=== PATIENT | female | born 1995 | race Caucasian/White ===

== ENCOUNTER 2017-08-02 23:27 | Emergency (ER) | payer OTHER ==
--- NOTE | 2017-08-03 02:16 | ER ---
Nurse's Notes [facility] Name: Cheryle Still Age: 21 yrs Sex: Female : 1995 Arrival Date: 08/02/2017 Time: 23:31 Bed 15 Private MD: Lawrence Kelly R Diagnosis: Sprain of ankle Presentation: 08/02 23:44 Presenting complaint: Patient states: I FELL DOWN A FEW STEPS THREE DAYS AGO AND MY bp ANKLE'S STILL HURT. Transition of care: patient was not received from another setting of care. Onset of symptoms was July 30, 2017. Risk Assessment: Do you want to hurt yourself or someone else? Patient reports no desire to harm self or others. Initial Sepsis Screen: Does the patient meet any 2 criteria? No. Patient's initial sepsis screen is negative. Does the patient have a suspected source of infection? No. Patient's initial sepsis screen is negative. Care prior to arrival: None. 23:44 Method Of Arrival: Wheelchair bp 23:44 Acuity: RITCHIE 4 bp Triage Assessment: 23:45 General: Appears in no apparent distress. uncomfortable, obese, Behavior is bp cooperative, appropriate for age, anxious. Pain: Complains of pain in anterior aspect of right ankle and anterior aspect of left ankle. EENT: No deficits noted. Neuro: Level of Consciousness is awake, alert, obeys commands, Oriented to person, place, time, situation, Appropriate for age. Cardiovascular: No deficits noted. Respiratory: Airway is patent Respiratory effort is even, unlabored, Respiratory pattern is regular, symmetrical. GI: No signs and/or symptoms were reported involving the gastrointestinal system. : No signs and/or symptoms were reported regarding the genitourinary system. Derm: No deficits noted. Musculoskeletal: Circulation, motion, and sensation intact. Range of motion: limited in left ankle and right ankle. Injury Description: Bruise sustained to anterior aspect of right ankle and anterior aspect of left ankle. PARER: 23:45 LMP N/A - Irregular menses bp Historical: - Allergies: 23:45 No Known Allergies; bp - Home Meds: 23:45 None [Active]; bp - PMHx: 23:45 Hypertension; spina bifida; bp - Immunization history:: Adult Immunizations up to date. - Social history:: Smoking status: unknown. - Ebola Screening: : Patient negative for fever greater than or equal to 101.5 degrees Fahrenheit, and additional compatible Ebola Virus Disease symptoms Patient denies exposure to infectious person Patient denies travel to an Ebola-affected area in the 21 days before illness onset No symptoms or risks identified at this time. Screenin:49 Abuse screen: Denies threats or abuse. Denies injuries from another. Nutritional bp screening: No deficits noted. Tuberculosis screening: No symptoms or risk factors identified. Fall Risk None identified. Assessment: 23:47 General: Appears in no apparent distress. comfortable, Behavior is calm, cooperative, bs1 appropriate for age. Pain: Complains of pain in right ankle and left ankle and left leg and right leg and anterior aspect of right ankle and anterior aspect of left ankle. Neuro: Level of Consciousness is awake, alert, obeys commands. Cardiovascular: Denies chest pain, shortness of breath, Heart tones S1 S2 present Capillary refill < 3 seconds Patient's skin is warm and dry. Respiratory: Airway is patent Trachea midline Respiratory effort is even, unlabored, Respiratory pattern is regular, symmetrical, Breath sounds are clear bilaterally. GI: No signs and/or symptoms were reported involving the gastrointestinal system. : No signs and/or symptoms were reported regarding the genitourinary system. EENT: No signs and/or symptoms were reported regarding the EENT system. Derm: No signs and/or symptoms reported regarding the dermatologic system. Musculoskeletal: Swelling present in right ankle and left ankle Tenderness present in right ankle and left ankle Reports pain in right ankle and left ankle and left leg and right leg and anterior aspect of right ankle and anterior aspect of left ankle. 23:48 General: SEE TRIAGE NOTE. 21YO WF P/W BILATERAL ANKLE PAIN 3 DAYS S/P TWISTING BOTH bp ANKLES ON THE STAIRS. PT AMBULATORY AND WEIGHT BEARING BUT WITH PAIN. 08/03 01:45 Reassessment: Patient appears in no apparent distress at this time. Patient and/or bs1 family updated on plan of care and expected duration. Pain level reassessed. Patient is alert, oriented x 3, equal unlabored respirations, skin warm/dry/pink. Patient states feeling better. 02:30 Reassessment: No changes from previously documented assessment. Patient and/or family bs1 updated on plan of care and expected duration. Pain level reassessed. Patient is alert, oriented x 3, equal unlabored respirations, skin warm/dry/pink. JUICE Daniels wrapped patients right foot with Jono Bandage. Vital Signs: 08/02 23:45 Weight 147.42 kg; Height 5 ft. 5 in. (165.10 cm); bp 23:45 BP 124 / 89; Pulse 96; Resp 17; Temp 98.2(O); Pulse Ox 95% on R/A; Pain 7/10; bs1 08/03 00:45 BP 126 / 88; Pulse 95; Resp 16; Pulse Ox 99% on R/A; bs1 01:45 BP 123 / 76; Pulse 88; Resp 16; Temp 97.7(O); Pulse Ox 100% ; Pain 0/10; bs1 08/02 23:45 Body Mass Index 54.08 (147.42 kg, 165.10 cm) bp ED Course: 08/02 23:31 Patient arrived in ED. al2 23:31 Lawrence Kelly MD is Private Physician. al2 23:36 Kelsey Hummel, JUICE is Primary Nurse. bs1 23:39 Serafin Mitchell PA is PHCP. jmm 23:39 Vance Danielle MD is Attending Physician. jmm 23:45 Triage completed. bp 23:48 Arm band placed on. bp 23:49 Patient has correct armband on for positive identification. Bed in low position. Call bp light in reach. Side rails up X2. Adult w/ patient. 08/03 01:46 Foot Right 3 View XRAY In Process Unspecified. EDMS 01:46 Ankle Left 3 View In Process Unspecified. EDMS 01:46 Ankle Right 3 View XRAY In Process Unspecified. EDMS 02:15 Jesse Lion MD is Referral Physician. jmm 02:30 No provider procedures requiring assistance completed. Patient did not have IV access bs1 during this emergency room visit. Administered Medications: No medications were administered Outcome: 02:16 Discharge ordered by . jmm 02:31 Condition: stable bs1 02:33 Discharged to home via wheelchair. bs1 02:33 Discharge instructions given to patient, Instructed on discharge instructions, follow up and referral plans. medication usage, Demonstrated understanding of instructions, follow-up care, medications, Prescriptions given X 1. 02:34 Patient left the ED. bs1 Signatures: Dispatcher [employer] EDMS Serafin Mitchell PA PA jmm Peltier, Brian RN RN Kelsey Mccabe RN RN bs1 Betsy Buckley Corrections: (The following items were deleted from the chart) 02:34 02:31 Discharged to home ambulatory, with friend, bs1 bs1 02:34 02:31 Discharge instructions given to patient, Instructed on discharge instructions, bs1 follow up and referral plans. medication usage, Demonstrated understanding of instructions, follow-up care, medications, Prescriptions given X 1, bs1 02:36 02:30 Reassessment: No changes from previously documented assessment. Patient and/or bs1 family updated on plan of care and expected duration. Pain level reassessed. Patient is alert, oriented x 3, equal unlabored respirations, skin warm/dry/pink. bs1
--- NOTE | 2017-08-03 02:17 | EDPHYS ---
Physician Documentation [facility] Name: Cheryle Still Age: 21 yrs Sex: Female : 1995 Arrival Date: 08/02/2017 Time: 23:31 Bed 15 Private MD: Lawrence Kelly R ED Physician Vance Danielle HPI: 08/03 00:44 This 21 yrs old Female presents to ER via Wheelchair with complaints of Leg jmm Pain, Leg Injury, Foot Pain. 00:44 The patient presents with pain, swelling. The complaints affect the anterior aspect of jmm left ankle and dorsum of left foot, anterior aspect of right ankle and dorsum of right foot. Onset: The symptoms/episode began/occurred acutely, 3 day(s) ago. 00:44 This is a 21 year old female with a hx of spina bifida that presents to the ED with jmm bilateral ankle pain worse on the right. Patient states 3 days prior she mis stepped placing the majority of her weight on her right foot. Patient states this occurred while stepping down steps and rolling her left ankle. . MANAGER PACU: 08/02 23:45 LMP N/A - Irregular menses bp Historical: - Allergies: 23:45 No Known Allergies; bp - Home Meds: 23:45 None [Active]; bp - PMHx: 23:45 Hypertension; spina bifida; bp - Immunization history:: Adult Immunizations up to date. - Social history:: Smoking status: unknown. - Ebola Screening: : Patient negative for fever greater than or equal to 101.5 degrees Fahrenheit, and additional compatible Ebola Virus Disease symptoms Patient denies exposure to infectious person Patient denies travel to an Ebola-affected area in the 21 days before illness onset No symptoms or risks identified at this time. ROS: 08/03 00:44 Constitutional: Negative for fever, chills, and weight loss, Cardiovascular: Negative jmm for chest pain, palpitations, and edema, Respiratory: Negative for shortness of breath, cough, wheezing, and pleuritic chest pain. MS/extremity: Positive for pain, swelling. Neuro: Negative for numbness. All other systems are negative. Exam: 00:44 Head/Face: atraumatic. Cardiovascular: Regular rate and rhythm. No gallops, murmurs, jmm or rubs. Full/Equal distal pulses. Respiratory: Lungs have equal breath sounds bilaterally, clear to auscultation. No rales, rhonchi or wheezes noted. No increased work of breathing, no retractions or nasal flaring. 00:44 Constitutional: The patient appears in no acute distress, alert, awake. 00:44 Musculoskeletal/extremity: swelling noted to the right ankle, no obvious deformity noted bilaterally, compartments are soft, full dorsalis pedis pulses noted bilaterally, NVI. 00:44 Skin: Appearance: Color: normal in color. 00:44 Neuro: Orientation: is normal, Mentation: is normal, Memory: is normal. 00:44 Psych: Behavior/mood is pleasant, cooperative. Vital Signs: 08/02 23:45 Weight 147.42 kg; Height 5 ft. 5 in. (165.10 cm); bp 23:45 BP 124 / 89; Pulse 96; Resp 17; Temp 98.2(O); Pulse Ox 95% on R/A; Pain 7/10; bs1 08/03 00:45 BP 126 / 88; Pulse 95; Resp 16; Pulse Ox 99% on R/A; bs1 01:45 BP 123 / 76; Pulse 88; Resp 16; Temp 97.7(O); Pulse Ox 100% ; Pain 0/10; bs1 08/02 23:45 Body Mass Index 54.08 (147.42 kg, 165.10 cm) bp MDM: 08/02 23:41 Patient medically screened. hiram 08/03 00:44 Data reviewed: vital signs, nurses notes, radiologic studies, plain films. ED course: [facility] Plain films do no shot signs of fracture. Patient is advised to follow up with orthopedics for further evaluation of ankle pain. Patient understood and agrees with the plan of care. . 08/03 00:43 Order name: Foot Right 3 View XRAY [facility] 08/03 01:01 Order name: Ankle Left 3 View EDMS 08/03 01:20 Order name: Ankle Right 3 View XRAY [facility] Administered Medications: No medications were administered Disposition: 06:36 Co-signature as Attending Physician, Vance Danielle MD I agree with the assessment and [facility] plan of care. Disposition: 08/03/17 02:16 Discharged to Home. Impression: Sprain of ankle. - Condition is Stable. - Discharge Instructions: Ankle Sprain. - Prescriptions for Ibuprofen 800 mg Oral Tablet - take 1 tablet by ORAL route every 8 hours As needed take with food; 30 tablet. - Medication Reconciliation Form, Thank You Letter, Antibiotic Education, Prescription Opioid Use form. - Follow up: Jesse Lion MD; When: 2 - 3 days; Reason: Continuance of care. Signatures: Dispatcher [employer] [facility] Vance Danielle MD MD cha Mickail, Joel, PA PA [facility] Jeremiah Parada, RN RN Kelsey Mccabe RN RN bs1 Corrections: (The following items were deleted from the chart) 01:01 00:58 Ankle Left W Comparison+RAD.RAD.BRZ ordered. [facility] 02:34 02:16 08/03/2017 02:16 Discharged to Home. Impression: Sprain of ankle. Condition is bs1 Stable. Forms are Medication Reconciliation Form, Thank You Letter, Antibiotic Education, Prescription Opioid Use. Follow up: Jesse Lion; When: 2 - 3 days; Reason: Continuance of care. [facility] 03:23 03:21 This is a 21 year old female with a hx of spina bifida that presents to the ED [facility] with bilateral ankle pain worse on the right. Patient states 3 days prior she mis stepped placing the majority of her weight on her right foot. Patient states this occurred while stepping down steps and rolling her left ankle. . [facility]
[2017-08-03 02:51] VITALS: BP 123/76; TEMP 97.7; O2SAT 100
--- NOTE | 2017-08-03 08:52 | RAD REPORT ---
EXAM DESCRIPTION: RAD - Foot Right 3 View - 08/03/2017 1:46 am CLINICAL HISTORY: Fall, right foot pain COMPARISON: None. FINDINGS: Bony fragmentation at the distal aspect of the proximal phalanx of the fifth toe is noted. This may represent an old injury. Correlation with point tenderness in this location is suggested, h owever. Elsewhere, no evidence of acute fracture or dislocation.
--- NOTE | 2017-08-03 08:54 | RAD REPORT ---
EXAM DESCRIPTION: RAD - Ankle Left 3 View - 08/03/2017 1:46 am CLINICAL HISTORY: Ankle pain and swelling. COMPARISON: None. FINDINGS: No fracture or dislocation is seen.
--- NOTE | 2017-08-03 08:54 | RAD REPORT ---
EXAM DESCRIPTION: RAD - Ankle Right 3 View - 08/03/2017 1:46 am CLINICAL HISTORY: Fall, ankle pain and swelling. COMPARISON: None. FINDINGS: No fracture or dislocation is seen.
== END 2017-08-03 02:34 | disposition home or self-care (01) ==
LOC: ER 23:27
DX: S93.409A Sprain of unspecified ligament of unspecified ankle, initial encounter (principal); M25.571 Pain in right ankle and joints of right foot; X50.1XXA Overexertion from prolonged static or awkward postures, initial encounter; Y93.01 Activity, walking, marching and hiking; Y92.9 Unspecified place or not applicable
CPT/HCPCS: 99283

== ENCOUNTER 2018-12-26 10:31 | Emergency (ER) | payer OTHER ==
[2018-12-26 11:10] LABS: Absolute Lymphocytes (CBC) 1.9 K/uL (0.7-4.9); Basophils % 0.5 % (0-1.3); Hematocrit 43.4 % (36.0-45.0); Lymphocytes % 23.3 % (15.3-44.8); MPV 9.2 fL (7.6-11.3); RBC Red Blood Cell Count 4.96 M/uL (3.86-4.86)
--- NOTE | 2018-12-26 11:30 | RAD REPORT ---
EXAM DESCRIPTION: RAD - Chest Pa And Lat (2 Views) - 12/26/2018 11:20 am CLINICAL HISTORY: DYSPNEA COMPARISON: None. TECHNIQUE: PA and lateral views of the chest were obtained. FINDINGS: The lungs are clear. Heart size is normal and central vasculature is within normal limit s. No pleural effusion or pneumothorax seen. No acute bony finding noted. No aortic abnormality. IMPRESSION: No acute cardiopulmonary process.
[2018-12-26 11:37] LABS: Urine Blood 1+ (NEG); Urine Glucose NEGATIVE (NEG); Urine Protein 1+ (NEG); Urine pH 5.5 (5.0-7.0)
[2018-12-26 12:04] LABS: Urine Bacteria 20-50 /HPF (<20); Urine RBC <5 /HPF (NONE SEEN)
[2018-12-26 12:06] LABS: Urine Amorphous Sediment 3+ /HPF (NONE SEEN); Urine Culture Reflex Order REFLEXED
[2018-12-26 12:24] LABS: ALT/SGPT 33 U/L (12-78); AST/SGOT 19 U/L (15-37); Albumin 3.6 g/dL (3.4-5.0); Alkaline Phosphatase 97 U/L (45-117); BUN Blood Urea Nitrogen 7 mg/dL (7-18); Bicarbonate 24 mmol/L (21-32); Bilirubin Direct 0.1 mg/dL (0-0.2); Bilirubin Total 0.4 mg/dL (0.2-1.0); Glucose Level 97 mg/dL (74-106); Potassium 3.5 mmol/L (3.5-5.1); Protein, Total 7.2 g/dL (6.4-8.2); Sodium Level 143 mmol/L (136-145)
[2018-12-26 12:25] LABS: Lipase 51 U/L (73-393); Troponin (Emerg Dept Use Only) < 0.02 ng/mL (0.0-0.045)
--- NOTE | 2018-12-26 12:27 | EDPHYS ---
Physician Documentation [facility] Name: Cheryle Still Age: 23 yrs Sex: Female : 1995 Arrival Date: 12/26/2018 Time: 10:36 Bed 18 Private MD: ED Physician Jarred Espinoza HPI: 12/26 10:45 This 23 yrs old Female presents to ER via Ambulatory with complaints of kb Shortness Of Breath. 10:45 The patient has shortness of breath at rest. Onset: The symptoms/episode began/occurred kb 2 month(s) ago. Duration: The symptoms are continuous, and are unchanged since they started. The patient's shortness of breath is aggravated by supine position, is alleviated by nothing. Associated signs and symptoms: Pertinent positives: chest heaviness, RUQ pain and Right mid back pain. Severity of symptoms: At their worst the symptoms were moderate in the emergency department the symptoms are unchanged. The patient has not experienced similar symptoms in the past. The patient has not recently seen a physician. ELECTION JUDGE: 10:39 LMP N/A - control method hb Historical: - Allergies: 10:39 No Known Allergies; hb - Home Meds: 10:39 None [Active]; hb - PMHx: 10:39 Hypertension; spina bifida; hb - PSHx: 10:39 ; hb - Immunization history:: Adult Immunizations up to date. - Social history:: Smoking status: Patient/guardian denies using tobacco. - Ebola Screening: : No symptoms or risks identified at this time. ROS: 10:49 Constitutional: Negative for fever, chills, and weight loss, ENT: Negative for injury, kb pain, and discharge, Neck: Negative for injury, pain, and swelling, : Negative for injury, bleeding, discharge, and swelling, MS/Extremity: Negative for injury and deformity, Skin: Negative for injury, rash, and discoloration, Neuro: Negative for headache, weakness, numbness, tingling, and seizure. 10:49 Cardiovascular: Positive for chest pain. 10:49 Respiratory: Positive for shortness of breath. 10:49 Abdomen/GI: Positive for abdominal pain. 10:49 Back: Positive for pain at rest, of the right mid back. Exam: 10:49 Constitutional: This is a well developed, well nourished patient who is awake, alert, kb and in no acute distress. Head/Face: Normocephalic, atraumatic. ENT: Nares patent. No nasal discharge, no septal abnormalities noted. Tympanic membranes are normal and external auditory canals are clear. Oropharynx with no redness, swelling, or masses, exudates, or evidence of obstruction, uvula midline. Mucous membranes moist. Neck: Trachea midline, no thyromegaly or masses palpated, and no cervical lymphadenopathy. Supple, full range of motion without nuchal rigidity, or vertebral point tenderness. No Meningismus. Chest/axilla: Normal chest wall appearance and motion. Nontender with no deformity. No lesions are appreciated. Cardiovascular: Regular rate and rhythm with a normal S1 and S2. No gallops, murmurs, or rubs. Normal PMI, no JVD. No pulse deficits. Respiratory: Lungs have equal breath sounds bilaterally, clear to auscultation and percussion. No rales, rhonchi or wheezes noted. No increased work of breathing, no retractions or nasal flaring. Back: No spinal tenderness. No costovertebral tenderness. Full range of motion. Skin: Warm, dry with normal turgor. Normal color with no rashes, no lesions, and no evidence of cellulitis. MS/ Extremity: Pulses equal, no cyanosis. Neurovascular intact. Full, normal range of motion. Neuro: Awake and alert, GCS 15, oriented to person, place, time, and situation. Cranial nerves II-XII grossly intact. Motor strength 5/5 in all extremities. Sensory grossly intact. Cerebellar exam normal. Normal gait. 10:49 Abdomen/GI: Inspection: obese Bowel sounds: normal, in all quadrants, Palpation: soft, in all quadrants, mild abdominal tenderness, in the right upper quadrant. 11:16 ECG was reviewed by the Attending Physician. kb Vital Signs: 10:39 BP 171 / 99; Pulse 78; Resp 16; Temp 97.1; Pulse Ox 100% on R/A; Weight 138.35 kg; hb Height 5 ft. 4 in. (162.56 cm); Pain 8/10; 10:39 Body Mass Index 52.35 (138.35 kg, 162.56 cm) hb MDM: 10:41 Patient medically screened. kb 10:50 Data reviewed: vital signs, nurses notes. Data interpreted: Pulse oximetry: on room air kb is 100 %. Interpretation: normal. 12:26 Counseling: I had a detailed discussion with the patient and/or guardian regarding: the kb historical points, exam findings, and any diagnostic results supporting the discharge/admit diagnosis, lab results, radiology results, the need for outpatient follow up, a family practitioner, to return to the emergency department if symptoms worsen or persist or if there are any questions or concerns that arise at home. 12:27 The patient's pulmonary embolism risk score was calculated as follows: No Risks (0 Pts).kb 12/26 10:45 Order name: Basic Metabolic Panel; Complete Time: 12:25 kb 12/26 10:45 Order name: CBC with Diff; Complete Time: 11:13 kb 12/26 10:45 Order name: Hepatic Function; Complete Time: 12:25 kb 12/26 10:45 Order name: Lipase; Complete Time: 12:26 kb 12/26 10:45 Order name: Troponin (emerg Dept Use Only); Complete Time: 12:25 kb 12/26 11:13 Order name: Urine Microscopic Only; Complete Time: 12:09 iw 12/26 10:45 Order name: IV Saline Lock; Complete Time: 11:00 kb 12/26 10:45 Order name: Labs collected and sent; Complete Time: 11:00 kb 12/26 10:45 Order name: Chest Pa And Lat (2 Views) XRAY; Complete Time: 11:45 kb 12/26 10:45 Order name: EKG; Complete Time: 10:46 kb 12/26 10:45 Order name: EKG - Nurse/Tech; Complete Time: 11:00 kb 12/26 11:29 Order name: Urine Dipstick--Ancillary (enter results); Complete Time: 11:39 eb 12/26 11:29 Order name: Urine --Ancillary (enter results); Complete Time: 11:39 eb 12/26 12:14 Order name: Urine Culture EDMS EC:16 Rate is 64 beats/min. Rhythm is regular, Normal Sinus Rhythm. QRS [place] is Normal. [place] kb interval is normal at 146 msec. QRS interval is normal at 90 msec. QT interval is normal at 402 msec. Reviewed by me. Administered Medications: No medications were administered Disposition: 12/27 09:18 Co-signature as Attending Physician, Jarred Espinoza MD I agree with the assessment and kdr plan of care. Disposition: 12/26/18 12:26 Discharged to Home. Impression: Dyspnea, unspecified. - Condition is Stable. - Discharge Instructions: Shortness of Breath, [id number]. - Medication Reconciliation Form, Thank You Letter, Antibiotic Education, Prescription Opioid Use form. - Follow up: Emergency Department; When: As needed; Reason: Worsening of condition. Follow up: Private Physician; When: 2 - 3 days; Reason: Recheck today's complaints, Continuance of care, Re-evaluation by your physician. Signatures: Dispatcher [employer] EDMS Bre Moss, LOW PRESSURE BOILER OPERATOR-C LOW PRESSURE BOILER OPERATOR-Ckb Jarred Espinoza MD MD [facility] Gricel Perez RN RN Clarissa Ferris RN RN sr7 Corrections: (The following items were deleted from the chart) 12/26 13:07 12:26 12/26/2018 12:26 Discharged to Home. Impression: Dyspnea, unspecified. Condition sr7 is Stable. Forms are Medication Reconciliation Form, Thank You Letter, Antibiotic Education, Prescription Opioid Use. Follow up: Emergency Department; When: As needed; Reason: Worsening of condition. Follow up: Private Physician; When: 2 - 3 days; Reason: Recheck today's complaints, Continuance of care, Re-evaluation by your physician. kb
--- NOTE | 2018-12-26 12:27 | ER ---
Nurse's Notes [facility] Name: Cheryle Still Age: 23 yrs Sex: Female : 1995 Arrival Date: 12/26/2018 Time: 10:36 Bed 18 Private MD: Diagnosis: Dyspnea, unspecified Presentation: 12/26 10:37 Presenting complaint: SOB, worse when supine, x 2 months. Also c/o sharp RUQ pain that hb radiates to right flank and nausea x 3 weeks. Transition of care: patient was not received from another setting of care. Onset of symptoms was November 2018. Risk Assessment: Do you want to hurt yourself or someone else? Patient reports no desire to harm self or others. Initial Sepsis Screen: Does the patient meet any 2 criteria? No. Patient's initial sepsis screen is negative. Does the patient have a suspected source of infection? No. Patient's initial sepsis screen is negative. Care prior to arrival: None. 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 - Social history:: Smoking status: Patient/guardian denies using tobacco. - Ebola Screening: : No symptoms or risks identified at this time. Screenin:40 Abuse screen: Denies threats or abuse. Denies injuries from another. Nutritional sg screening: No deficits noted. Tuberculosis screening: No symptoms or risk factors identified. Never had TB. Fall Risk None identified. Assessment: 10:40 General: Appears in no apparent distress. well groomed, well developed, well nourished, sg Behavior is calm, cooperative, appropriate for age. Pain: Complains of pain in right upper quadrant and right mid back Quality of pain is described as aching. Neuro: Level of Consciousness is awake, alert, obeys commands, Oriented to person, place, time, Moves all extremities. Gait is steady, Facial symmetry appears normal. Cardiovascular: Patient's skin is warm and dry. Chest pain is denied. Respiratory: Airway is patent Respiratory effort is even, unlabored, Breath sounds are clear. GI: Abdomen is round obese. : No signs and/or symptoms were reported regarding the genitourinary system. EENT: No signs and/or symptoms were reported regarding the EENT system. Derm: Skin is pink, warm \T\ dry. Musculoskeletal: Circulation, motion, and sensation intact. Range of motion: intact in all extremities. Vital Signs: 10:39 BP 171 / 99; Pulse 78; Resp 16; Temp 97.1; Pulse Ox 100% on R/A; Weight 138.35 kg; hb Height 5 ft. 4 in. (162.56 cm); Pain 8/10; 10:39 Body Mass Index 52.35 (138.35 kg, 162.56 cm) hb ED Course: 10:36 Patient arrived in ED. mr 10:38 [facility]C [facility]. kb 10:38 Jarred Espinoza MD is Attending Physician. kb 10:39 Triage completed. hb 10:39 Arm band placed on. hb 10:40 Jesse Longoria, RN is Primary Nurse. sg 10:40 Patient has correct armband on for positive identification. Bed in low position. Call sg light in reach. Pulse ox on. NIBP on. Warm blanket given. Head of bed elevated. 10:40 No provider procedures requiring assistance completed. IV discontinued, intact, sg bleeding controlled, No redness/swelling at site. Pressure dressing applied. 10:55 Initial lab(s) drawn, by ri, sent to lab. Inserted saline lock: 20 gauge in left dh3 antecubital area, using aseptic technique. Blood collected. 10:59 EKG done, by special systems technician. reviewed by Bre ESQUIVEL. at1 11:18 X-ray completed. Patient tolerated procedure well. ml 11:18 Chest Pa And Lat (2 Views) XRAY In Process Unspecified. EDMS Administered Medications: No medications were administered Outcome: 12:26 Discharge ordered by . kb 13:05 Discharged to home ambulatory, with family. sg 13:05 Condition: good 13:05 Discharge instructions given to patient, Instructed on discharge instructions, follow up and referral plans. safety practices, Demonstrated understanding of instructions, follow-up care. 13:07 Patient left the ED. sr7 Signatures: Dispatcher [employer] EDMS Ajay, Bre, MANUFACTURING WEAVER-C MANUFACTURING WEAVER-Ckb Jesse Longoria, RN RN sg Burrell, Tanisha mr Guicho, Sujata Robyn Dickerson, [facility] Gricel Perez, RN RN Ram[facility] Clarissa Ferris, RN RN sr7
[2018-12-26 13:27] VITALS: BP 171/99; TEMP 97.1; O2SAT 100
--- NOTE | 2018-12-26 14:53 | EKG ---
Test Date: 2018-12-26 Test Time: 10:53:40 Advanced Seal Delivery System: JAMIR MEASUREMENT RESULTS: Intervals: Rate: 64 HI: 146 QRSD: 90 QT: 402 QTc: 414 [place]: P: 61 HI: 146 QRS: 30 T: 27 INTERPRETIVE STATEMENTS: Normal sinus rhythm with sinus arrhythmia Normal ECG Compared to ECG 09/23/2016 13:15:45 Left ventricular hypertrophy no longer present Electronically Signed On 12-26-18 14:52:19 CDT by Mustapha Paulson
== END 2018-12-26 13:07 | disposition home or self-care (01) ==
LOC: ER 10:31
DX: R06.00 Dyspnea, unspecified (principal)
CPT/HCPCS: 36415; 71046; 80048; 80076; 81003; 81015; 81025; 83690; 84484; 85025; 87077; 87086; 87088; 87186; 93005; 99284

== ENCOUNTER 2020-03-01 17:48 | Emergency (ER) | payer OTHER ==
--- OUTSIDE RECORDS SUMMARY | 2020-03-01 17:52 | XMS REPORT | Continuity of Care Document ---
:[address] [facility] t Address [address] [place] [address] Dr. Azevedo. [address] [place] [address] Care Team Providers Name Role Phone Ultrasound Attending Clinician Unavailable Tarah LYONS Attending Clinician Problems This patient has no known problems. Allergies, Adverse Reactions, Alerts This patient has no known allergies or adverse reactions. Medications This patient has no known medications. Procedures This patient has no known procedures. Encounters Start End Encounter Admission Attending Care Care Encounter Source Date/Time Date/Time Type Type Clinicians Facility Department ID 2020-02-17 2020-02-17 Hose Tester Brody, [facility] [id number] 07:52:39 08:55:30 Visit Herbie CLOTH CARRIER [id number] [facility] [id number] MATERNAL [id number] & CHILD [address] [place] [address] 2020-02-12 2020-02-12 Routine FROILAN Rascon [id number] 14:44:26 14:59:26 [facility] [id number] Visit [place] [id number] Professio [id number] [address]al [address] Building Results This patient has no known results.
--- NOTE | 2020-03-01 21:36 | ER ---
Nurse's Notes [facility] Name: Cheryle Still Age: 24 yrs Sex: Female : 1995 Arrival Date: 03/01/2020 Time: 17:49 Bed Waiting Private MD: Diagnosis: Presentation: 03/01 18:13 Chief complaint: Patient states: was at work today and checked her HR 112-149, while sv taking it every 2 mins. c/o palpitation when it was happening. Pt is 26 wks . Coronavirus screen: Client denies travel out of the [place] in the last 14 days. At this time, the client does not indicate any symptoms associated with coronavirus-19. Ebola Screen: No symptoms or risks identified at this time. Risk Assessment: Do you want to hurt yourself or someone else? Patient reports no desire to harm self or others. Onset of symptoms was March 01, 2020. 18:13 Method Of Arrival: Wheelchair sv 18:13 Acuity: RITCHIE 2 sv 18:16 Initial Sepsis Screen: Does the patient meet any 2 criteria? HR > 90 bpm. No. Patient's sv initial sepsis screen is negative. Does the patient have a suspected source of infection? No. Patient's initial sepsis screen is negative. Triage Assessment: 18:17 General: Appears in no apparent distress. comfortable, obese, well developed, Behavior sv is calm, cooperative, appropriate for age. Neuro: Level of Consciousness is awake, alert, obeys commands, Oriented to person, place, time, situation. Respiratory: Respiratory effort is even, unlabored. 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 ca1 Vital Signs: 18:16 BP 133 / 110; Pulse 120; Resp 20; Temp 98.6; Pulse Ox 99% ; Weight 142.88 kg; Height 5 sv ft. 4 in. (162.56 cm); 18:16 Body Mass Index 54.07 (142.88 kg, 162.56 cm) sv ED Course: 17:49 Patient arrived in ED. rg4 18:13 Arm band placed on. sv 18:16 Triage completed. sv 21:34 Patient's name was called from ER lobby. No response. Unable to locate patient. Will ca1 disposition as left without being seen by a provider. Administered Medications: No medications were administered Outcome: 21:34 Patient left the ED. ca1 Signatures: Katt Cowan RN RN sv Dionne Vick rg4 Alda Diana RN RN ca1 Corrections: (The following items were deleted from the chart) 18:18 18:13 Acuity: RITCHIE 3 sv sv 18:18 18:16 Pulse 120bpm; Resp 20bpm; Pulse Ox 99%; Temp 98.6F; 142.88 kg; Height 5 ft. 4 sv in.; BMI: 54.0; sv
[2020-03-01 22:58] VITALS: BP 133/110; TEMP 98.6; O2SAT 99
== END 2020-03-01 21:34 | disposition left against medical advice (07) ==
LOC: ER 17:48
DX: Z53.21 Procedure and treatment not carried out due to patient leaving prior to being seen by health care provider (principal)
CPT/HCPCS: 99281

== ENCOUNTER 2020-12-17 05:53 | Inpatient (IN) | payer OTHER ==
[2020-12-17 06:36] LABS: Protime INR 0.91
[2020-12-17 06:38] LABS: Absolute Lymphocytes (CBC) 2.3 K/uL (0.7-4.9); Basophils % 0.5 % (0-1.3); Hematocrit 44.2 % (36.0-45.0); Lymphocytes % 12.8 % (15.3-44.8); MPV 8.4 fL (7.6-11.3)
[2020-12-17] MEDS ORDERED: NA CHLORIDE 0.9% 500 ML ONE (06:47)
[2020-12-17] MEDS ORDERED: METOPROLOL TARTRATE 5 MG/5 ML INJ IV ONE ×2 (06:51→06:56)
[2020-12-17 06:57] LABS: Urine Blood Trace-lysed (Negative); Urine Glucose Negative (Negative); Urine Protein Negative (Negative)
[2020-12-17 07:00] LABS: ALT/SGPT 16 U/L (12-78); AST/SGOT 10 U/L (15-37); Albumin 3.7 g/dL (3.4-5.0); Alkaline Phosphatase 128 U/L (45-117); BUN Blood Urea Nitrogen 12 mg/dL (7-18); Bicarbonate 20 mmol/L (21-32); Bilirubin Direct 0.1 mg/dL (0-0.2); Bilirubin Total 0.4 mg/dL (0.2-1.0); Glucose Level 117 mg/dL (74-106); Magnesium 1.8 mg/dL (1.8-2.4); NT PRO-BNP 38 pg/mL (<125); Potassium 4.1 mmol/L (3.5-5.1); Protein, Total 8.4 g/dL (6.4-8.2); Sodium Level 138 mmol/L (136-145); Troponin (Emerg Dept Use Only) < 0.02 ng/mL (0.0-0.045)
[2020-12-17] MEDS ORDERED: MIDAZOLAM HCL 2 MG/2 ML INJ ONE ×2 (07:14→07:27)
[2020-12-17] MEDS ORDERED: FENTANYL CITR 100 MCG/2 ML ONE (07:16)
--- NOTE | 2020-12-17 07:59 | RAD REPORT ---
EXAM DESCRIPTION: CT - Chest For Pe Angio - 12/17/2020 7:40 am CLINICAL HISTORY: Palpitations;Chest pain COMPARISON: No comparisons TECHNIQUE: Dynamically enhanced 3 mm thick images of the chest were obtained during administration o f approximately 150mL Isovue 370 IV contrast. Coronal and oblique MIP reconstruction images were gene rated and reviewed. Exam utilizes a protocol to evaluate the pulmonary arterial tree. All CT scans are performed using dose optimization technique as appropriate and may include automated exposure control or mA/KV adjustment according to patient size. FINDINGS: No pulmonary emboli are identified. The aorta as imaged shows no acute or suspicious finding. No pericardial thickening or effusion. Card iomegaly is present. No focal mass or consolidation. No significant interstitial edema is evident on this study. No pleura l effusion or pleural thickening. No mediastinal or hilar suspicious masses. No chest wall masses or abnormal axillary lymphadenopathy. IMPRESSION: No pulmonary emboli identified. Mild cardiomegaly without pericardial thickening or effusion. No significant interstitial edema identified. No focal lung parenchymal process.
[2020-12-17] MEDS ORDERED: NA CHLORIDE 0.9% 1,000 ML ONE ×2 (08:15→16:29)
--- NOTE | 2020-12-17 09:09 | RAD REPORT ---
EXAM DESCRIPTION: RAD - Chest Single View - 12/17/2020 8:54 am CLINICAL HISTORY: PALPITATIONS COMPARISON: November 2018 TECHNIQUE: AP portable chest image was obtained 12/17/2020 8:54 am . FINDINGS: Lungs are clear. Heart size is mildly prominent but not substantially different. No vascul ar engorgement. No measurable pleural effusion and no pneumothorax. No acute bony abnormality seen. N o acute aortic findings suspected. Defibrillator paddle overlies the right chest. IMPRESSION: No acute cardiopulmonary process.
--- NOTE | 2020-12-17 09:46 | EDPHYS ---
Physician Documentation [facility] Name: Cheryle Still Age: 24 yrs Sex: Female : 1995 Arrival Date: 12/17/2020 Time: 05:54 Bed 18 Private MD: ED Physician Jose Rafael Worthington HPI: 12/17 06:30 This 24 yrs old Female presents to ER via Ambulatory with complaints of Chest cp Pain, Breathing Difficulty. 06:30 The patient presents with a history of heart racing. cp 06:30 Context: The symptoms occur at rest. Onset: The symptoms/episode began/occurred this cp morning, about 0300. Duration: The patient or guardian reports a single episode, that is still ongoing, and unchanged. Modifying factors: The symptoms are alleviated by nothing. Associated signs and symptoms: Pertinent positives: chest pain, SOB, Pertinent negatives: fever. Severity of symptoms: in the emergency department the symptoms are unchanged despite home interventions. 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 - Social history:: Smoking status: Patient denies any tobacco usage or history of. Patient/guardian denies using alcohol, street drugs, tobacco products. ROS: 06:35 Constitutional: Negative for fever. cp 06:35 Eyes: Negative for injury, pain, redness, and discharge. cp 06:35 Cardiovascular: Positive for chest pain, palpitations. 06:35 Respiratory: Positive for shortness of breath, at rest. Negative for cough, wheezing. 06:35 Abdomen/GI: Negative for abdominal pain, nausea, vomiting, and diarrhea. Exam: 06:16 ECG was reviewed by the Attending Physician. cp 06:22 ECG was reviewed by the Attending Physician. cp 06:31 ECG was reviewed by the Attending Physician. cp 06:40 Head/Face: Normocephalic, atraumatic. cp 06:40 Constitutional: The patient appears alert, awake, non-toxic, well developed, well nourished, diaphoretic, obese, in obvious distress, mildly distressed. 06:40 Eyes: Periorbital structures: appear normal, Pupils: equal, round, and reactive to light and accomodation, Extraocular movements: intact throughout, Conjunctiva: normal, no exudate, no injection, Sclera: no appreciated abnormality, Lids and lashes: appear normal, bilaterally. 06:40 ENT: External ear(s): are unremarkable, Nose: is normal, Mouth: Lips: moist, Oral mucosa: pink and intact, moist, Posterior pharynx: Airway: no evidence of obstruction, patent. 06:40 Neck: ROM/movement: is normal, is supple, without pain, no range of motions limitations, no nuchal rigidity. 06:40 Chest/axilla: Inspection: normal, Palpation: is normal, no crepitus, no tenderness. cp 06:40 Cardiovascular: Rate: tachycardic, Rhythm: irregular, Edema: is not appreciated, JVD: is not appreciated. 06:40 Respiratory: the patient does not display signs of respiratory distress, Respirations: normal, no use of accessory muscles, no retractions, labored breathing, is not present, Breath sounds: are clear throughout, no decreased breath sounds, no stridor, no wheezing. 06:40 Abdomen/GI: Inspection: abdomen appears normal, Palpation: abdomen is soft and non-tender, in all quadrants. 06:40 Back: pain, is absent, ROM is normal. 06:40 Skin: cellulitis, is not appreciated, no rash present. 06:40 Neuro: Orientation: to person, place \\T\\ time. Mentation: is normal, Motor: moves all fours, strength is normal, Sensation: is normal. 07:10 ECG was reviewed by the Attending Physician. cp Vital Signs: 06:02 BP 119 / 104; Pulse 91; Resp 20; Temp 98.8(O); Pulse Ox 100% on R/A; Pain 10/10; kc4 06:09 BP 119 / 104; Pulse 81; Resp 17; Temp 98.6; Pulse Ox 99% on R/A; Weight 133.81 kg (R); bc5 Height 5 ft. 4 in. (162.56 cm) (R); Pain 6/10; 06:15 BP 116 / 104; Pulse 202; Resp 20; Pulse Ox 99% on R/A; Pain 10/10; kc4 06:25 BP 126 / 81; Pulse 174; Resp 20; Temp 98.8(O); Pulse Ox 99% on R/A; Pain 10/10; kc4 06:30 BP 102 / 68; Pulse 137; Resp 20; Pulse Ox 99% on R/A; Pain 10/10; kc4 06:35 BP 118 / 92; Pulse 137; Resp 22; Pulse Ox 99% on R/A; kc4 06:50 BP 121 / 100; Pulse 141; Resp 20; Pulse Ox 98% on R/A; kc4 06:55 BP 122 / 86; Pulse 133; Resp 20; Pulse Ox 99% on R/A; kc4 07:00 BP 119 / 90; Pulse 136; Resp 20; Pulse Ox 99% ; kc4 07:05 BP 115 / 71; Pulse 95; Resp 20; Pulse Ox 96% ; kc4 07:10 BP 104 / 71; Pulse 86; Resp 18; Pulse Ox 98% on 2 lpm NC; kc4 08:16 BP 105 / 44; Pulse 91; Resp 18; Pulse Ox 98% ; Pain 0/10; tc5 09:03 BP 101 / 88; Pulse 75; Resp 16; Pulse Ox 99% ; Pain 0/10; tc5 10:00 BP 117 / 35; Pulse 70; Resp 18; Pulse Ox 99% ; Pain 0/10; tc5 11:00 BP 114 / 86; Pulse 73; Resp 18; Pulse Ox 98% ; Pain 0/10; tc5 13:00 BP 112 / 61; Pulse 70; Resp 16; Pulse Ox 99% ; Pain 0/10; tc5 14:44 BP 98 / 66; Pulse 74; Resp 16; Pulse Ox 99% ; Pain 0/10; tc5 14:50 BP 98 / 66; Pulse 78; Resp 16; Pulse Ox 98% ; Pain 0/10; tc5 06:09 Body Mass Index 50.64 (133.81 kg, 162.56 cm) bc5 Procedures: 07:07 Cardioversion: (synchronized) for treatment of A fib, with 100 joules X 1. Post environmental journalist rhythm is sinus rhythm, the patient tolerated the procedure well. Moderate sedation: Pre-procedure assessment: the patient has been NPO 12 hour(s) prior to arrival, ASA physical classification: I - healthy, no underlying organic disease, Airway assessment: able to hyperextend neck, able to maintain airway, can open mouth without difficulty, Monitoring during procedure: sales support representative, continuous pulse oximetry, nurse at bedside at all times, Medications employed: Fentanyl, 75 mcg(s), Versed, 2 mg(s), Post-procedure assessment: the patient is mildly sedated, Respiratory status: even and unlabored, a reversal agent was not used. MDM: 06:10 Patient medically screened. cp 07:09 ED course: Patient with persistent atrial fibrillation, young and states this is rn happened before. Symptoms just began this morning so consented and given the option of electrical cardioversion. Synchronized cardioversion performed after moderate sedation with successful cardioversion to sinus rhythm.. 09:30 Data reviewed: vital signs, nurses notes, lab test result(s), EKG, radiologic studies, cp CT scan, plain films. 09:30 Test interpretation: by ED physician or midlevel provider: ECG, plain radiologic cp studies. Physician consultation: Jose David Viera MD was called at 09:30, was contacted at 09:30, regarding consult, patient's condition, would like admission per Dr. Rojas Groves would like medications started, Eliquis 5 mg bid and Sotalol 80 mg bid. 12/17 06:19 Order name: Basic Metabolic Panel cp 12/17 06:19 Order name: CBC with Diff cp 12/17 06:19 Order name: LFT's; Complete Time: 08:32 cp 12/17 08:33 Interpretation: Normal except: AST 10; ALK 128; TP 8.4; GLOB 4.7; A/G 0.8. cp 12/17 06:19 Order name: Magnesium; Complete Time: 08:32 cp 12/17 08:34 Interpretation: Within normal limits: MG 1.8. cp 12/17 06:19 Order name: NT PRO-BNP; Complete Time: 08:32 cp 12/17 06:19 Order name: PT-INR; Complete Time: 08:32 cp 12/17 06:19 Order name: Troponin (emerg Dept Use Only); Complete Time: 08:32 cp 12/17 08:34 Interpretation: TROPED < 0.02; Reviewed. 12/17 06:19 Order name: TSH; Complete Time: 08:32 cp 12/17 06:19 Order name: T3 Free; Complete Time: 08:32 cp 12/17 06:19 Order name: Basic Metabolic Panel; Complete Time: 08:32 EDMS 12/17 08:33 Interpretation: Normal except: CO2 20; GLUC 117; GFR 88. cp 12/17 06:19 Order name: CBC with Automated Diff; Complete Time: 08:32 EDMS 12/17 08:33 Interpretation: Normal except: WBC 17.90; RBC 5.30; MCV 83.5; PLT 434; ALICIA% 83.3; LYM% cp 12.8; MN% 2.7; NEUT A 14.9. 12/17 06:34 Order name: D-Dimer cp 12/17 06:34 Order name: COVID-19 (Coronavirus) Document "Date of Onset" if Symptomatic cp 12/17 06:35 Order name: D-Dimer; Complete Time: 08:32 EDMS 12/17 08:34 Interpretation: Within normal limits: D-DIMER 230. cp 12/17 06:19 Order name: XRAY Chest (1 view) cp 12/17 06:19 Order name: EKG; Complete Time: 06:20 cp 12/17 06:57 Order name: Urine Dipstick-Ancillary; Complete Time: 08:32 EDMS 12/17 08:33 Interpretation: Normal except: UBLD Trace-lysed. cp 12/17 07:00 Order name: Urine --Ancillary (enter results); Complete Time: 08:32 eb 12/17 07:10 Order name: CT Chest For PE Angio; Complete Time: 08:32 cp 12/17 07:30 Order name: SARS-COV-2 RT PCR EDMS 12/17 09:12 Order name: UDS cp 12/17 06:19 Order name: Cardiac monitoring; Complete Time: 06:40 cp 12/17 06:19 Order name: EKG - Nurse/Tech; Complete Time: 06:40 cp 12/17 06:19 Order name: IV Saline Lock; Complete Time: 06:40 cp 12/17 06:19 Order name: Labs collected and sent; Complete Time: 06:40 cp 12/17 06:19 Order name: O2 Per Protocol; Complete Time: 06:40 cp 12/17 06:19 Order name: O2 Sat Monitoring; Complete Time: 06:40 cp 12/17 06:19 Order name: Urine Dipstick-Ancillary (obtain specimen); Complete Time: 07:15 cp 12/17 06:19 Order name: Urine Test (obtain specimen); Complete Time: 07:15 cp EC:16 Rate is 173 beats/min. Rhythm is irregular. QRS interval is normal. QT interval is cp normal. T waves are Inverted in leads III, aVF, aVR. Interpreted by me. Reviewed by me. 06:22 Rate is 186 beats/min. Rhythm is irregular. QRS interval is normal. QT interval is cp normal. T waves are Inverted in leads III, aVF, aVR. Interpreted by me. Reviewed by me. 06:31 Rate is 153 beats/min. Rhythm is irregular. QRS interval is normal. QT interval is cp normal. T waves are Inverted in leads III, aVR. Interpreted by me. Reviewed by me. 07:10 Rate is 104 beats/min. Rhythm is regular. DE interval is normal. QRS interval is cp normal. QT interval is normal. T waves are Inverted in leads III, aVR. Interpreted by me. Reviewed by me. Administered Medications: 06:33 CANCELLED (Physician Discretion): Lopressor (metoprolol) 2.5 mg IVP once; Hold for SBP cp <100 or HR <60. 06:43 CANCELLED (Physician Discretion): Metoprolol 25 mg PO once cp 07:12 Drug: fentaNYL (PF) 75 mcg Route: IVP; Site: right antecubital; kc4 07:47 Follow up: Response: No adverse reaction kc4 07:14 Drug: Versed (midazolam) 1 mg Route: IVP; Site: right antecubital; kc4 07:47 Follow up: Response: No adverse reaction kc4 07:15 Drug: NS 0.9% 500 ml Route: IV; Rate: bolus; Site: right antecubital; kc4 07:30 Drug: NS 0.9% 1000 ml Route: IV; Rate: 125 ml/hr; Site: right antecubital; tc5 09:45 Drug: Eliquis (apixaban) 5 mg Route: PO; tc5 15:36 Follow up: Response: No adverse reaction tc5 10:04 Not Given (pt did not need): Zofran (Ondansetron) 4 mg IVP once; over 2 minutes tc5 Disposition Summary: 10/22/21 09:46 Hospitalization Ordered Hospitalization Status: Observation cp Provider: Rojas Groves cp Location: Telemetry/MedSurg (observation) cp Condition: Stable cp Problem: new cp Symptoms: have improved cp Bed/Room Type: Standard cp Room Assignment: 209(12/17/20 13:52) eb Diagnosis - Unspecified atrial fibrillation cp Forms: - Medication Reconciliation Form cp - SBAR form cp Addendum: 12/21/2020 07:03 Co-signature as Attending Physician, Jose Rafael Worthington MD I agree with the assessment and r n plan of care. 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 HPI: 24 Year old female with palpitations and sob, has happened before, no syncope. No fever. Otherwise feels ok. My personal exam of patient reveals: Young female, appears anxious, tachycardic, irregular, pulses equal and intact. I agree with assessment and care plan and confirm the diagnosis (es) above. Signatures: Dispatcher [employer] EDMS Jose Rafael Worthington MD MD rn Page, Corey, PA PA cp Naila Escobedo Kourtney kc4 Alethea Pappas RN RN bc5 Nelly Lopez RN RN tc5 Corrections: (The following items were deleted from the chart) 12/17 06:15 06:12 PMHx: Hypertension; [place] [id number] 06:15 06:12 PMHx: spina bifida; [place] [id number] 06:33 06:19 Lopressor (metoprolol) 2.5 mg IVP once; Hold for SBP <100 or HR <60. ordered. cp cp 06:43 06:36 Metoprolol 25 mg PO once ordered. cp cp 13:52 09:46 cp eb
--- NOTE | 2020-12-17 09:46 | ER ---
Nurse's Notes [facility] Name: Cheryle Still Age: 24 yrs Sex: Female : 1995 Arrival Date: 12/17/2020 Time: 05:54 Bed 18 Private MD: Diagnosis: Unspecified atrial fibrillation Presentation: 12/17 06:09 Chief complaint: Patient states: Pt reports waking up \\T\\ 0300 this am with N/V. Pt c/o bc5 CP, dizziness, and palpitations. Recent finished ABX in prep for "cavity" 5 day amoxicillin. A\\T\\O x 3, RR is even and unlabored, speaking in clear and complete sentences at this time. Ebola Screen: Patient negative for fever greater than or equal to 101.5 degrees Fahrenheit, and additional compatible Ebola Virus Disease symptoms Patient denies exposure to infectious person. Patient denies travel to an Ebola-affected area in the 21 days before illness onset. Initial Sepsis Screen: Does the patient meet any 2 criteria? No. Patient's initial sepsis screen is negative. Does the patient have a suspected source of infection? No. Patient's initial sepsis screen is negative. Risk Assessment: Do you want to hurt yourself or someone else? Patient reports no desire to harm self or others. Onset of symptoms was December 17, 2020 at 03:00. 06:09 Method Of Arrival: Ambulatory 5 06:09 Acuity: RITCHIE 3 bc5 06:15 Coronavirus screen: Vaccine status: Patient reports being unvaccinated. 5 Triage Assessment: 06:15 General: Appears in no apparent distress. Behavior is calm, cooperative, appropriate bc5 for age. Pain: Complains of pain in face. Cardiovascular: Reports chest pain, palpitations. 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 - Social history:: Smoking status: Patient denies any tobacco usage or history of. Patient/guardian denies using alcohol, street drugs, tobacco products. Screenin:16 Abuse screen: Denies threats or abuse. Denies injuries from another. Nutritional bc5 screening: No deficits noted. Tuberculosis screening: No symptoms or risk factors identified. Fall Risk None identified. Assessment: 06:16 Pain: Complains of pain in chest Pain does not radiate. Pain currently is 8 out of 10 kc4 on a pain scale. at worst was 10 out of 10 on a pain scale. level that patient reports is acceptable is 2 out of 10 on a pain scale. Quality of pain is described as pressure, sharp, Pain began 3 hours ago. Is continuous, Alleviated by. Cardiovascular: Reports chest pain, diaphoresis, fatigue, lightheadedness, palpitations, shortness of breath, 06:20 General: Appears distressed, uncomfortable, obese, Behavior is cooperative, anxious, kc4 restless. Neuro: No deficits noted. Cardiovascular:. Respiratory: Reports shortness of breath Airway is patent Breath sounds are clear Onset: The symptoms/episode began/occurred this morning, the patient has mild shortness of breath. GI: No deficits noted. No signs and/or symptoms were reported involving the gastrointestinal system. : No deficits noted. No signs and/or symptoms were reported regarding the genitourinary system. EENT: No deficits noted. No signs and/or symptoms were reported regarding the EENT system. Derm: No deficits noted. No signs and/or symptoms reported regarding the dermatologic system. Musculoskeletal: No deficits noted. No signs and/or symptoms reported regarding the musculoskeletal system. 07:34 General:. kc4 09:02 General: Appears in no apparent distress. Behavior is calm, cooperative, appropriate tc5 for age, Pt tele remains in SR rate 70-95 BPM, NAD, mother remains at bedside, no needs expressed at this time.. Vital Signs: 06:02 BP 119 / 104; Pulse 91; Resp 20; Temp 98.8(O); Pulse Ox 100% on R/A; Pain 10/10; kc4 06:09 BP 119 / 104; Pulse 81; Resp 17; Temp 98.6; Pulse Ox 99% on R/A; Weight 133.81 kg (R); bc5 Height 5 ft. 4 in. (162.56 cm) (R); Pain 6/10; 06:15 BP 116 / 104; Pulse 202; Resp 20; Pulse Ox 99% on R/A; Pain 10/10; kc4 06:25 BP 126 / 81; Pulse 174; Resp 20; Temp 98.8(O); Pulse Ox 99% on R/A; Pain 10/10; kc4 06:30 BP 102 / 68; Pulse 137; Resp 20; Pulse Ox 99% on R/A; Pain 10/10; kc4 06:35 BP 118 / 92; Pulse 137; Resp 22; Pulse Ox 99% on R/A; kc4 06:50 BP 121 / 100; Pulse 141; Resp 20; Pulse Ox 98% on R/A; kc4 06:55 BP 122 / 86; Pulse 133; Resp 20; Pulse Ox 99% on R/A; kc4 07:00 BP 119 / 90; Pulse 136; Resp 20; Pulse Ox 99% ; kc4 07:05 BP 115 / 71; Pulse 95; Resp 20; Pulse Ox 96% ; kc4 07:10 BP 104 / 71; Pulse 86; Resp 18; Pulse Ox 98% on 2 lpm NC; kc4 08:16 BP 105 / 44; Pulse 91; Resp 18; Pulse Ox 98% ; Pain 0/10; tc5 09:03 BP 101 / 88; Pulse 75; Resp 16; Pulse Ox 99% ; Pain 0/10; tc5 10:00 BP 117 / 35; Pulse 70; Resp 18; Pulse Ox 99% ; Pain 0/10; tc5 11:00 BP 114 / 86; Pulse 73; Resp 18; Pulse Ox 98% ; Pain 0/10; tc5 13:00 BP 112 / 61; Pulse 70; Resp 16; Pulse Ox 99% ; Pain 0/10; tc5 14:44 BP 98 / 66; Pulse 74; Resp 16; Pulse Ox 99% ; Pain 0/10; tc5 14:50 BP 98 / 66; Pulse 78; Resp 16; Pulse Ox 98% ; Pain 0/10; tc5 06:09 Body Mass Index 50.64 (133.81 kg, 162.56 cm) bc5 Vitals: 06:18 Cardiac Rhythm Assessment Atrial fibrillation. kc4 07:08 Cardiac Rhythm Assessment Sinus rhythm Sinus tach. kc4 10:00 Cardiac Rhythm Assessment Regular. tc5 11:00 Cardiac Rhythm Assessment Regular. tc5 13:00 Cardiac Rhythm Assessment Regular Sinus rhythm. tc5 ED Course: 05:54 Patient arrived in ED. bp1 06:09 Vance Reed PA is PHCP. cp 06:09 Jose Rafael Worthington MD is Attending Physician. cp 06:12 Triage completed. bc5 06:16 Mary Garrett is Primary Nurse. kc4 06:16 Arm band placed on right wrist. bc5 06:20 monitor car operator on. Pulse ox on. NIBP on. kc4 06:20 Notified ED physician of other pt going in and out of SVT/ afib HR elevated to 200s. kc4 06:38 Inserted saline lock: 20 gauge in left antecubital area, using aseptic technique. Blood sj1 collected. 06:38 Inserted saline lock: 20 gauge in right antecubital area, using aseptic technique. sj1 06:39 D-Dimer Sent. kc4 06:39 D-Dimer Sent. kc4 06:39 CBC with Automated Diff Sent. kc4 06:39 Basic Metabolic Panel Sent. kc4 06:39 T3 Free Sent. kc4 06:39 TSH Sent. kc4 06:39 Basic Metabolic Panel Sent. kc4 06:39 CBC with Diff Sent. kc4 06:40 LFT's Sent. kc4 06:40 Magnesium Sent. kc4 06:40 NT PRO-BNP Sent. kc4 06:40 PT-INR Sent. kc4 06:40 Troponin (emerg Dept Use Only) Sent. kc4 06:58 Assist provider with cardioversion (synchronized) with pads, for treatment of A fib kc4 with 100 joules Set up for procedure. Performed by Vance JOHNSON Monitored with surveillance monitor, pulse ox, Post procedure rhythm is sinus rhythm. Patient tolerated well. 07:14 COVID-19 (Coronavirus) Document "Date of Onset" if Symptomatic Sent. kc4 07:34 Patient maintains SpO2 saturation greater than 95% on room air. kc4 07:39 CT Chest For PE Angio In Process Unspecified. EDMS 07:39 Report given to Nelly BOSE. kc4 08:54 XRAY Chest (1 view) In Process Unspecified. EDMS 09:45 Rojas Groves is Hospitalizing Provider. cp Administered Medications: 06:33 CANCELLED (Physician Discretion): Lopressor (metoprolol) 2.5 mg IVP once; Hold for SBP cp <100 or HR <60. 06:43 CANCELLED (Physician Discretion): Metoprolol 25 mg PO once cp 07:12 Drug: fentaNYL (PF) 75 mcg Route: IVP; Site: right antecubital; kc4 07:47 Follow up: Response: No adverse reaction kc4 07:14 Drug: Versed (midazolam) 1 mg Route: IVP; Site: right antecubital; kc4 07:47 Follow up: Response: No adverse reaction kc4 07:15 Drug: NS 0.9% 500 ml Route: IV; Rate: bolus; Site: right antecubital; kc4 07:30 Drug: NS 0.9% 1000 ml Route: IV; Rate: 125 ml/hr; Site: right antecubital; tc5 09:45 Drug: Eliquis (apixaban) 5 mg Route: PO; tc5 15:36 Follow up: Response: No adverse reaction tc5 10:04 Not Given (pt did not need): Zofran (Ondansetron) 4 mg IVP once; over 2 minutes tc5 Outcome: 09:46 Decision to Hospitalize by Provider. cp 14:54 Admitted to Med/surg room 209, Report called to Marilu BOSE tc5 15:34 Patient left the ED. eb Signatures: Dispatcher [employer] EDMS Vance Reed PA PA cp Botello, Elizabeth eb Kelsey Alvarez Kourtney kc4 Alethea Pappas RN RN bc5 Bhumika Jane RN RN dc2 Gayatri Monroe, RN RN sj1 Nelly Lopez RN RN tc5 Corrections: (The following items were deleted from the chart) 06:15 06:12 PMHx: Hypertension; bc5 bc5 06:15 06:12 PMHx: spina bifida; bc5 bc5 06:40 06:30 BP 125 / 69; Pulse 107bpm; Resp 20bpm; Pulse Ox 100%; Pain 0/10; dc2 dc2 07:14 06:48 Zofran (Ondansetron) 4 mg IVP in right antecubital kc4 kc4
[2020-12-17 09:55] LABS: Barbiturates NEGATIVE (NEGATIVE); Benzodiazepines NEGATIVE (NEGATIVE); Cocaine NEGATIVE (NEGATIVE); METHAMPHETAM NEGATIVE (NEGATIVE); Methadone NEGATIVE (NEGATIVE); Opiates NEGATIVE (NEGATIVE); Phencyclidine NEGATIVE (NEGATIVE); THC Cannibis NEGATIVE (NEGATIVE)
[2020-12-17] MEDS ORDERED: APIXABAN 5 MG TABLET ONE (10:14)
--- NOTE | 2020-12-17 10:33 | P.HP ---
Certification for Inpatient Patient admitted to: Inpatient With expected LOS: >2 Midnights Practitioner: I am a practitioner with admitting privileges, knowledge of patient current condition, hospital course, and medical plan of care. Services: Services provided to patient in accordance with Admission requirements found in Title 42 Section 412.3 of the Code of Federal Regulations Patient History Date of Service: 12/17/20 Reason for admission: Palpitation History of Present Illness: 24-year-old woman with a history of fibromyalgia on Cymbalta presented to the emergency department with a complaint of intermittent palpitation which was worse last night. Patient denied any chest pain or shortness of breath. She was noted to be in atrial fibrillation with RVR, heart rate up to 200, blood pressure borderline low. Patient was electric cardioverted successfully to sinus rhythm in the ED. Patient was in sinus rhythm when I saw her for examination and was without symptoms. Blood pressure is stable. Cardiology-Dr. Viera was contacted who recommended hospitalization for further management and to start sotalol and Eliquis. Initial troponin negative, chest x-ray unrema rkable. Noted leukocytosis. UA negative. Urine drug screen negative. Patient is hospitalized for further management. Allergies No Known Allerg Allergy (Uncoded 08/04/15 19:00) Unknown No Known Allergi Allergy (Uncoded 09/23/16 14:56) Unknown No Known Allergies Allergy (Uncoded 08/03/17 02:38) Unknown - Past Medical/Surgical History -: Fibromyalgia -: History of pulmonary edema during -: Cardiomegaly - Family History Father -: Heart disease - Social History Smoking Status: Never smoker Alcohol use: No CD- Drugs: No Place of Residence: Home Review of Systems Other: She denied any fever, no abdominal pain, no confusion. She endorsed intermittent dizziness associated with the palpitations. Except as documented, all other systems reviewed and negative. Physical Examination - Physical Exam General: Alert, In no apparent distress, Other (Morbidly obese) HEENT: Atraumatic, PERRLA, Mucous membr. moist/pink, EOMI, Sclerae nonicteric Neck: Supple, JVD not distended, No Thyromegaly Respiratory: Clear to auscultation bilaterally, Normal air movement, Crackles/rales Cardiovascular: No edema, Regular rate/rhythm, Normal S1 S2, No murmurs Capillary refill: <2 Seconds Gastrointestinal: Normal bowel sounds, Soft and benign, Non-distended, No tenderness Musculoskeletal: No clubbing, No swelling, No tenderness Integumentary: No rashes, No erythema, No cyanosis Neurological: Normal speech, Normal strength at 5/5 x4 extr, Cranial nerves 3-12 intact Lymphatics: No axilla or inguinal lymphadenopathy - Studies Laboratory Data (last 24 hrs) 12/17/20 06:23: PT 10.4, INR 0.91 12/17/20 06:23: WBC 17.90 H, Hgb 14.3, Hct 44.2, Plt Count 434 H 12/17/20 06:23: Sodium 138, Potassium 4.1, BUN 12, Creatinine 0.81, Glucose 117 H, Magnesium 1.8, Total Bilirubin 0.4, AST 10 L, ALT 16, Alkaline Phosphatase 128 H Assessment and Plan - Problems (Diagnosis) (1) Rapid atrial fibrillation Current Visit: Yes Status: Acute (2) Morbid obesity Current Visit: Yes Status: Acute (3) Leukocytosis Current Visit: Yes Status: Acute - Plan Admit to the medical floor. Patient started on clear liquids and sotalol per cardiology recommendation. Consult placed for Cardiology to see her. Obtain echocardiogram. Monitor blood pressure. Trend troponin. Monitor and optimize electrolytes. Leukocytosis probably stress induced. She has no fever, UA is negative. No sepsis. - Advance Directives Does patient have a Living Will: No Does patient have a Durable POA for Healthcare: No
[2020-12-17] MEDS ORDERED: ACETAMINOPHEN 500 MG TAB PO PRN (15:59)
[2020-12-17 17:02] LABS: Troponin I < 0.02 ng/mL (0.0-0.045)
[2020-12-17 17:05] VITALS: BMI 50.4
[2020-12-17] MEDS ORDERED: INFLUENZA VACCINE (for 6+ mo) 0.5 ML DOSE IMVAC ONE (18:00)
[2020-12-17] MEDS: SOTALOL HCL 80 MG TAB PO SCH (18:07)
[2020-12-17] MEDS: NA CHLORIDE 0.9% 1,000 ML IV SCH (18:08)
[2020-12-17] MEDS: APIXABAN 5 MG TABLET PO SCH (20:08)
[2020-12-17 21:20] LABS: Urine Appearance CLEAR (Clear); Urine Bilirubin NEGATIVE (Negative); Urine Blood NEGATIVE (Negative); Urine Color YELLOW (Yellow); Urine Glucose NEGATIVE (Negative); Urine Protein NEGATIVE (Negative); Urine Specific Gravity <=1.005 (1.005-1.030); Urine pH 7.5 (5.0-7.0)
[2020-12-17 21:23] LABS: Urine Microscopic Reflex NO UMIC
[2020-12-18] MEDS: NA CHLORIDE 0.9% 1,000 ML IV SCH (01:59)
[2020-12-18] MEDS: SOTALOL HCL 80 MG TAB PO SCH (05:45)
[2020-12-18 06:24] LABS: Absolute Lymphocytes (CBC) 4.9 K/uL (0.7-4.9); Basophils % 0.6 % (0-1.3); Hematocrit 35.9 % (36.0-45.0); MPV 8.4 fL (7.6-11.3); RBC Red Blood Cell Count 4.31 M/uL (3.86-4.86)
[2020-12-18 06:41] LABS: Protime INR 1.03
[2020-12-18 07:08] LABS: ALT/SGPT 18 U/L (12-78); Albumin 2.8 g/dL (3.4-5.0); Alkaline Phosphatase 97 U/L (45-117); BUN Blood Urea Nitrogen 11 mg/dL (7-18); Bicarbonate 25 mmol/L (21-32); Bilirubin Total 0.2 mg/dL (0.2-1.0); Glucose Level 96 mg/dL (74-106); HDL Cholesterol 32 mg/dL (40-60); LDL Cholesterol, Calculated 63 (<130); Protein, Total 6.4 g/dL (6.4-8.2); Sodium Level 142 mmol/L (136-145)
[2020-12-18 07:12] LABS: AST/SGOT 13 U/L (15-37); Potassium 3.9 mmol/L (3.5-5.1)
[2020-12-18] MEDS: APIXABAN 5 MG TABLET PO SCH (09:04)
[2020-12-18 09:16] VITALS: O2SAT 98
--- NOTE | 2020-12-18 10:45 | P.DS ---
Admission Date: 12/17/20 Discharge Date: 12/18/20 Disposition: ROUTINE DISCHARGE Discharge Condition: FAIR Reason for Admission: Palpitation - Problems (1) Rapid atrial fibrillation Current Visit: Yes Status: Acute (2) Morbid obesity Current Visit: Yes Status: Acute (3) Leukocytosis Current Visit: Yes Status: Acute Brief History of Present Illness: 24-year-old woman with a history of fibromyalgia on Cymbalta presented to the emergency department with a complaint of intermittent palpitation which was worse last night. Patient denied any chest pain or shortness of breath. She was noted to be in atrial fibrillation with RVR, heart rate up to 200, blood pressure borderline low. Patient was electric cardioverted successfully to sinus rhythm in the ED. Patient was in sinus rhythm when I saw her for examinat ion and was without symptoms. Blood pressure is stable. Cardiology-Dr. Viera was contacted who recommended hospitalization for further management and to start sotalol and Eliquis. Initial troponin negative, chest x-ray unremarkable. Noted leukocytosis. UA negative. Urine drug screen negative. Patient is hospitalized for further management. Hospital Course: Patient admitted to the medical floor and started on anticoagulation with oral Eliquis and sotalol per Dr. Viera recommendation. She remained in sinus rhythm throughout the hospital stay. She was seen and evaluated by cardiology Dr. Viera who assisted with management. Blood pressure has been stable, patient has tolerated the sotalol. Leukocytosis improved. CTA thorax shows no infiltrate, UA negative for UTI, no fever. Patient deemed clinically stable for discharge. She is informed to follow with cardiology for echocardiogram as an outpatient. Vital Signs/Physical Exam: Temp Pulse Resp BP Pulse Ox 97.9 F 63 16 122/68 98 12/18/20 08:00 12/18/20 08:00 12/18/20 08:00 12/18/20 08:00 12/18/20 08:00 General: Alert, In no apparent distress, Oriented x3, Obese HEENT: Mucous membr. moist/pink Neck: JVD not distended Respiratory: Clear to auscultation bilaterally, Normal air movement Cardiovascular: No edema, Regular rate/rhythm, Normal S1 S2 Gastrointestinal: Soft and benign, Non-distended Musculoskeletal: No swelling Integumentary: No rashes Neurological: Normal strength at 5/5 x4 extr Laboratory Data at Discharge: WBC 12.00 K/uL (4.3-10.9) H D 12/18/20 05:43 Hgb 11.7 g/dL (12.0-15.0) L D 12/18/20 05:43 Hct 35.9 % (36.0-45.0) L D 12/18/20 05:43 Plt Count 331 K/uL (152-406) D 12/18/20 05:43 PT 11.9 SECONDS (9.5-12.5) 12/18/20 05:43 INR 1.03 12/18/20 05:43 APTT 33.8 SECONDS (24.3-36.9) 12/18/20 05:43 Sodium 142 mmol/L (136-145) 12/18/20 05:43 Potassium 3.9 mmol/L (3.5-5.1) 12/18/20 05:43 BUN 11 mg/dL (7-18) 12/18/20 05:43 Creatinine 0.51 mg/dL (0.55-1.3) L 12/18/20 05:43 Glucose 96 mg/dL (74-106) 12/18/20 05:43 Phosphorus 3.0 mg/dL (2.5-4.9) 12/18/20 05:43 Magnesium 2.0 mg/dL (1.8-2.4) 12/18/20 05:43 Total Bilirubin 0.2 mg/dL (0.2-1.0) 12/18/20 05:43 AST 13 U/L (15-37) L 12/18/20 05:43 ALT 18 U/L (12-78) 12/18/20 05:43 Alkaline Phosphatase 97 U/L (45-117) 12/18/20 05:43 Troponin I < 0.02 ng/mL (0.0-0.045) 12/18/20 00:12 Triglycerides 74 mg/dL (<150) 12/18/20 05:43 Cholesterol 110 mg/dL (<200) 12/18/20 05:43 HDL Cholesterol 32 mg/dL (40-60) L 12/18/20 05:43 Cholesterol/HDL Ratio 3.44 12/18/20 05:43 Home Medications: Apixaban [Eliquis] 5 mg PO BID #60 tablet 12/18/20 Duloxetine HCl [Cymbalta] 30 mg PO DAILY #30 12/18/20 Sotalol HCl [Betapace*] 80 mg PO BID 6AM 6PM #60 tab 12/18/20 New Medications: Sotalol HCl [Betapace*] 80 mg PO BID 6AM 6PM #60 tab Duloxetine HCl [Cymbalta] 30 mg PO DAILY #30 Apixaban [Eliquis] 5 mg PO BID #60 tablet Diet: AHA Activity: Ad radha Followup: Unknown,U [Primary Care Provider] - Jose David Viera MD [ACTIVE - CAN ADMIT] - (Next week for arrangement for echocardiogram.) Time spent managing pt's care (in minutes): 33
[2020-12-18 12:40] VITALS: BP 127/73; TEMP 99.3
--- NOTE | 2020-12-18 19:56 | CON ---
Date of Consultation: 12/18/2020 Reason For Consultation: Atrial fibrillation. History Of Present Illness: This 24-year-old female presented into the emergency room with significant palpitations, found to be in atrial fibrillation with rapid ventricular response. This patient has been having those episodes of palpitations for few years now and is becoming more frequent now and harder to control. She denies having any history of alcoholism or any drug use history. No other medical history. In the emergency room the heart was shocked into sinus rhythm and since she has been in the hospital, she has been in sinus. Denies having any other complaints. Past Medical History: Fibromyalgia. Medications: Refer reconciliation sheet for detailed list. Allergies: NO KNOWN DRUG ALLERGIES. Family History: No premature coronary artery disease or cancer. Social History: Does not smoke or drink. Does not use any drugs. Review of Systems: All systems reviewed and they were negative except as mentioned in the HPI. Physical Examination: Vital Signs: Reviewed. Head and Neck Exam: Pupils are equal, reactive to light. Intact eye movements. No JVD. No nodes. Neck: Supple. Thyroid is not enlarged. Lungs: Clear to auscultation bilaterally. No rhonchi, rales, or crackles. No accessory muscle use. Heart: Regular rate and rhythm. No extra sounds. Abdomen: Soft, nontender. Bowel sounds positive. No organomegaly. No masses or hernia. No rigidity or rebound. Extremities: No edema, clubbing, cyanosis. Intact pulses. Skin: No rash. Neurologic: Alert, awake, oriented x3. No acute focal deficits appreciated. Investigations: Labs were reviewed. Assessment And Recommendation: Atrial fibrillation with rapid ventricular response. She had electrical cardioversion in the emergency room before I was called and when I evaluated her, she was in sinus rhythm. Recommend sotalol 80 mg twice a day and admit for evaluation with EKG after 3 doses. At this point, since she is having multiple episodes and very frequent episode, I decided to go with the sotalol to control her atrial fibrillation and also since she had an electrical cardioversion, she will need to be on Eliquis 5 mg twice a day for a full month. I explained that to her and discussed with the primary care physician and if by tomorrow after third dose EKG remains normal, specifically the QTc interval, the patient can be released home and she can follow up with me as an outpatient. We will obtain echocardiogram on her. /BABS Voice ID: [id number] Report ID: [id number]
== END 2020-12-18 14:36 | disposition home or self-care (01) | DRG 309 ==
LOC: ER 05:53 → ERHOLD 10:36 → 2ND 15:32
PROVIDERS: ADMIT Internal Medicine; ATTEND Internal Medicine
PROC: 5A2204Z Restoration of Cardiac Rhythm, Single (ICD-10-PCS; principal; 2020-12-17)
DX: I48.91 Unspecified atrial fibrillation (principal); Z68.43 Body mass index [BMI] 50.0-59.9, adult; E66.01 Morbid (severe) obesity due to excess calories; D72.829 Elevated white blood cell count, unspecified; M79.7 Fibromyalgia; Z20.822 Contact with and (suspected) exposure to COVID-19
CPT/HCPCS: 36415; 71045; 71275; 80048; 80053; 80061; 80076; 80307; 81003; 81025; 82947; 83735; 83880; 84100; 84439; 84443; 84481; 84484; 85025; 85379; 85610; 85730; 92960; 93005; 94760; 96374; 96375; 99291; 99292; J2250; J3010; J7030; J7040; Q9967; U0003

== ENCOUNTER 2021-01-13 19:55 | Emergency (ER) | payer OTHER ==
--- OUTSIDE RECORDS SUMMARY | 2021-01-13 19:59 | XMS REPORT | Continuity of Care Document ---
:1995 Author Organization [facility] t Address [address] [place] [address] Care Team Providers Name Role Phone BILLINGSLEY, CAM Primary Care Physician Unavailable Jamila SHAIKH Attending Clinician Unavailable Laura SUMMERS Attending Clinician Unavailable Iveth LYONS Attending Clinician IVETH Attending Clinician Unavailable ROSA Attending Clinician Unavailable BILLINGSLEY, CAM Attending Clinician Unavailable FISH Attending Clinician Unavailable Ultrasound Attending Clinician Unavailable SAM DE LA ROSA Attending Clinician Unavailable LIZETH Attending Clinician Unavailable Gi LOGAN Attending Clinician Unavailable BILLINGSLEY, CAM Admitting Clinician Unavailable Payers Payer Name Policy Type Policy Number Effective Date Expiration Date [facility] [id number] 2017 PPO 00:00:00 [facility]LY [facility] [id number] 2019 00:00:00 [place] [id number] 2019 00:00:00 [facility] [id number] 2019 CHOICE MEDICAID 00:00:00 [place] [id number] 2019 00:00:00 Problems Condition Condition Condition Status Onset Resolution Last Treating Co mments Source Name Details Category Date Date Treatment Clinician Date Bradycardi Bradycardi Disease Active Overview : Univers a a 4-08 Formattin ity of 00:00: g of this [place] 00 note Medical might be Branch different from the original. Intermitt ent Generalize Generalize Disease Active U nivers d edema d edema 4-08 ity of 00:00: [place] [address] Medical Branch Previous Previous Disease Active Unive rs 8-18 ity of section section 00:00: [place] [address] Medical Branch History of History of Disease Active U virajers depression depression 3-29 it y of 00:00: [place] [facility] HTN HTN Disease Active 2015-02 Univers (hypertens (hypertens 0-19 it y of ion) ion) 00:00: [place] [facility] Branch BMI BMI Disease Active 2015-02 Univers 45.0-49.9, 45.0-49.9, 0-19 it y of adult adult 00:00: [place] [address] Medical Branch Generalize Generalize Disease Active U nivers d anxiety d anxiety 4-14 ity of disorder disorder 00:00: [address] Branch Menstrual Menstrual Disease Active Uni vers disorder disorder ity of [facility] Allergies, Adverse Reactions, Alerts Allergy Allergy Status Severity Reaction(s) Onset Inactive Treating Comm ents Source Name Type Date Date Clinician NO KNOWN Drug Active Univers ALLERGIE Class ity of S [facility] Social History Social Habit Start Date Stop Date Quantity Comments Source Exposure to Not sure [facility] SARS-CoV-2 [facility] (event) Branch Alcohol intake 2020-11-24 2020-11-24 Ex-drinker University of 00:00:00 00:00:00 (finding) [facility] Tobacco use and 2019-10-14 2019-10-14 Never used Universit y of exposure 00:00:00 00:00:00 [facility] History of 2017-09-26 Cigarette Smoker Universi ty of tobacco use 00:00:00 [facility] Tobacco Comment 2016-05-24 2016-05-24 smokes 1 x per Unive rsity of 00:00:00 00:00:00 day [facility] Sex Assigned At [birth year] Universit y of 00:00:00 00:00:00 [facility] Smoking Status Start Date Stop Date Source Former smoker 2019-10-14 00:00:00 2019-10-14 00:00:00 [facility] Medications Ordered Filled Start Stop Current Ordering Indication Dosage Frequency Signature Comments Components Source Medication Medication Date Date Medication? Clinician (SIG) Name Name No known No Univers medications 11-24 ity of 16:22: [address] Immunizations Ordered Filled Immunization Date Status Comments Sourc e Immunization Name Name TDAP 2020-03-17 Completed University of 00:00:00 [facility] Influenza Virus 2019-12-18 Completed Universit y of Vaccine Quad .5 mL 00:00:00 [facility] IM 6+ MO Branch Influenza Virus 2018 Completed Universit y of Vaccine Quad .5 mL 00:00:00 [facility] IM 6+ MO Branch HPV9 2016-05-24 Completed University of 00:00:00 [facility] Influenza Virus 2016-01-06 Completed Universit y of Vaccine Quad IM 3+ 00:00:[address] [facility] TDAP 2015-11-11 Completed University of 00:00:00 [facility] Influenza Virus 2015-05-10 Completed Universit y of Vaccine Quad IM 3+ 00:00:[address] [facility] MMR 2013-08-21 Completed University of 00:00:00 [facility] HPV 2010-02-26 Completed University of 00:00:00 [facility] Vital Signs Vital Name Observation Time Observation Value Comments Source Systolic blood 2020-11-24 20:38:00 130 mm[Hg] Univer sity of pressure [facility] Diastolic blood 2020-11-24 20:38:00 87 mm[Hg] Unive rsity of [facility] Heart rate 2020-11-24 20:38:00 104 /min [facility] Body temperature 2020-11-24 20:38:00 37.17 [facility] Respiratory rate 2020-11-24 20:38:00 18 /min [facility] Body height 2020-11-24 20:38:00 162.6 cm [facility] Body weight 2020-11-24 20:38:00 132.904 kg [facility] BMI 2020-11-24 20:38:00 50.29 kg/m2 [facility] Procedures This patient has no known procedures. Encounters Start End Encounter Admission Attending Care Care Encounter Source Date/Time Date/Time Type Type Clinicians Facility Department ID 2020-12-26 Emergency [facility] [id number] Univers [facility]26 Emergency [facility] [id number] Univers 10:28:14 [facility] 2020-12-25 Emergency [facility] [id number] Univers 09:45:34 [facility] 2021-10-14 2021-10-14 Outpatient R NEEL, [facility] [id number] Univers 15:30:00 15:30:00 MIGUE [facility] 2021-10-14 2021-10-14 Outpatient R NEEL, [facility] [id number] Univers 15:30:00 15:30:00 MIGUE [id number] [facility] 2021-02-01 2021-02-01 Outpatient R SUMMERS, [facility] [id number] Univers 09:00:00 09:00:00 SENDIL [id number] [facility] 2021-01-05 2021-01-05 ambulatory [facility] [id number] [facility] 2020-12-10 2020-12-10 Outpatient [facility] [id number] [id number] 2020-12-10 2020-12-10 Outpatient [facility] [id number] [facility] 2020-12-08 2020-12-08 Outpatient [facility] [id number] [id number] 2020-12-01 2020-12-01 Outpatient R [facility] [id number] Univers 13:00:00 13:00:00 [id number] [facility] 2020-11-24 2020-11-24 [facility] [id number] Univers 15:31:13 16:14:07 Visit Maritza Zuñiga [id number] i [facility] [id number] Ly Goldmanalyssa [id number] [place] [id number] Branch [facility] 2020-11-24 2020-11-24 Outpatient IVETH [facility] [id number] Univers 15:30:00 15:30:00 MARITZA [id number] [facility] 2020-11-24 2020-11-24 Outpatient R IVETH [facility] [id number] Univers 15:30:00 15:30:00 MARITZA [facility] 2020-10-21 2020-10-21 Outpatient R KRISTOPHER [facility] [id number] Univers 14:00:00 14:00:00 SENDIL [id number] [facility] 2020-10-21 2020-10-21 Outpatient R KRISTOPHER [facility] [id number] Univers 14:00:00 14:00:00 SENDIL [facility] 2020-10-21 2020-10-21 Outpatient R ADUM, [facility] [id number] Univers 14:00:00 14:00:00 [facility] 2020-10-19 2020-10-19 Outpatient R ADUM, [facility] [id number] Univers 15:00:00 15:00:00 MIGUE [id number] [facility] 2020-10-19 2020-10-19 Outpatient R ADUM, [facility] [id number] Univers 15:00[facility]00 [facility] 2020-10-14 Outpatient R ADUM, [facility] [id number] Univers 15:00:00 15:00:00 MIGUE [id number] [facility] 2020-10-14 2020-10-14 Outpatient R ADUM, [facility] [id number] Univers 15:00:00 15:00:00 MIGUE [facility] 2020-10-01 2020-10-01 Outpatient R ROSA, [facility] [id number] Univers 14:20:00 14:20:00 ALVINA [id number] ity o f [facility] 2020-10-01 2020-10-01 Outpatient R ROSA, [facility] [id number] Univers 14:20:00 14:20:00 ALVINA ity o f [facility] 2020-09-13 2020-09-13 Outpatient R ROSA, [facility] [id number] Univers 13:20:00 13:20:00 ALVINA [id number] ity o f [facility] 2020-09-13 2020-09-13 Outpatient R ROSA, [facility] [id number] Univers 13:20:00 13:20:00 ALVINA ity o [facility] 2020-06-17 2020-06-17 Outpatient R BILLINGSLEYJENNIFER [facility] [id number] Univers 11:15:00 11:15:[id number] [facility] 2020-06-17 2020-06-17 Outpatient R BILLINGSLEY [facility] [id number] Univers 11:15:00 11:15:[address] [facility] 2020-06-03 2020-06-03 Outpatient R BILLINGSLEY [facility] [id number] Univers 08:45:00 08:45:00 [id number] [facility] 2020-06-03 2020-06-03 Outpatient R BILLINGSLEYJENNIFER [facility] [id number] Univers 08:45:00 08:45:[address] [facility] 2020-05-24 2020-05-24 Outpatient R ANALILIA JENNIFER [facility] [id number] Univers 07:30:00 07:30:[address] [facility] 2020-05-20 2020-05-20 Outpatient R [facility] [id number] Univers 14:00:00 14:00:[id number] [facility] 2020-05-20 2020-05-20 Outpatient R [facility] [id number] Univers 14:00:00 14:00:[address] [facility] 2020-05-17 2020-05-17 Outpatient R [facility] [id number] Univers 13:00:00 13:00:[id number] [facility] 2020-05-17 2020-05-17 Outpatient R [facility] [id number] Univers 13:00:00 13:00:[address] [facility] 2020-05-13 2020-05-13 Outpatient R [facility] [id number] Univers 11:00:00 11:00:[id number] [facility] 2020-05-13 2020-05-13 Outpatient R [facility] [id number] Univers 11:00:00 11:00:[address] [facility] 2020-05-11 2020-05-11 Outpatient R [facility] [id number] Univers 14:30:00 14:30:00 [id number] [facility] 2020-05-07 2020-05-07 Outpatient R [facility] [id number] Univers 14:00:00 14:00:00 [id number] [facility] 2020-05-07 2020-05-07 Outpatient P [facility] [id number] Univers 14:00:00 14:00:[address] [facility] 2020-05-06 2020-05-06 Outpatient R [facility] [id number] Univers 14:00:00 14:00:00 [id number] [facility] 2020-05-06 2020-05-06 Outpatient R [facility] [id number] Univers 14:00:00 [facility]:00:00 [facility] 2020-05-03 2020-05-03 Outpatient R [facility] [id number] Univers 14:00:00 14:00:[address] [facility] 2020-05-03 2020-05-03 Outpatient R SUMMERS, [facility] [id number] Univers 13:00:00 13:00:00 SENDIL [id number] [facility] 2020-04-29 2020-04-29 Outpatient R [facility] [id number] Univers 14:00:00 14:00:00 [id number] [facility] 2020-04-29 2020-04-29 Outpatient R [facility] [id number] Univers 14:00:00 14:00:[address] [facility] 2020-04-26 2020-04-26 Outpatient R [facility] [id number] Univers 14:00:00 14:00:[id number] [facility] 2020-04-26 2020-04-26 Outpatient R [facility] [id number] Univers 14:00:00 14:00:[address] [facility] 2020-04-23 2020-04-23 Outpatient R NEEL [facility] [id number] Univers 13:45:00 13:45:[id number] [facility] 2020-04-23 2020-04-23 Outpatient R NEEL [facility] [id number] Univers 13:45:00 13:45:00 [facility]UE [facility] 2020-04-22 2020-04-22 Outpatient R [facility] [id number] Univers 14:00:00 14:00:[id number] [facility] 2020-04-22 2020-04-22 Outpatient R [facility] [id number] Univers 14:00:00 14:00:[address] [facility] 2020-04-20 2020-04-20 Outpatient R JENNIFER BILLINGSLEY [facility] [id number] Univers 15:45:00 15:45:[id number] [facility] 2020-04-20 2020-04-20 Outpatient R JENNIFER BILLINGSLEY [facility] [id number] Univers 15:45:00 15:45:[address] [facility] 2020-04-13 2020-04-13 Outpatient R EDITH SWANN [facility] [id number] Univers 14:45:00 14:45:[id number] [facility] 2020-04-13 2020-04-13 Outpatient R EDITH SWANN [facility] [id number] Univers 14:45:00 14:45:[address] [facility] 2020-03-30 2020-03-30 Outpatient R EDITH SWANN [facility] [id number] Univers 14:30:00 15:56:[address] [facility] 2020-03-30 2020-03-30 Outpatient R EDITH SWANN [facility] [id number] Univers 14:30:00 14:30:[id number] [facility] 2020-03-24 2020-03-24 Outpatient R [facility] [id number] Univers 08:00:00 08:00:00 [id number] ity of [facility] 2020-03-24 2020-03-24 Outpatient R EDITH SWANN [facility] [id number] Univers 08:00:00 08:00:[address] [facility] 2020-03-18 2020-03-18 Outpatient R [facility] [id number] Univers 13:00:00 13:00:[id number] [facility] 2020-03-18 2020-03-18 Outpatient P [facility] [id number] Univers 13:00:00 13:00:[address] [facility] 2020-03-17 2020-03-17 Outpatient R EDITH SWANN [facility] [id number] Univers 14:30:00 14:30:[id number] [facility] 2020-03-17 2020-03-17 Outpatient R EDITH SWANN [facility] [id number] Univers 14:30:00 14:30:[address] [facility] 2020-03-16 2020-03-16 Outpatient [facility] [id number] Univers 09:00:00 09:00:[id number] [facility] 2020-03-16 2020-03-16 Outpatient R KRISTOPHER [facility] [id number] Univers 09:00:00 09:00:[address] [facility] 2020-03-11 2020-03-11 Outpatient R [facility] [id number] Univers 16:30:00 16:30:[address] [facility] 2020-03-11 2020-03-11 Outpatient R JENNIFER BILLINGSLEY [facility] [id number] Univers 08:30:00 08:30:[id number] [facility] 2020-03-08 2020-03-08 Outpatient R [facility] [id number] Univers 16:00:00 16:00:00 [id number] [facility] [place] [facility] 2020-03-08 2020-03-08 Outpatient R ROSA, [facility] [id number] Univers 16:00:00 16:00:00 ALVINA lott o f [facility] 2020-03-04 2020-03-04 Outpatient R SUMMERS, [facility] [id number] Univers 14:00:00 14:00:00 SENDIL [id number] [facility] 2020-03-04 2020-03-04 Outpatient R KRISTOPHER, [facility] [id number] Univers 14:00:00 14:00:00 SENDIL [facility] 2020-03-02 2020-03-02 Outpatient R EDITH SWANN [facility] [id number] Univers 09:00:00 09:00:00 [id number] [facility] 2020-03-02 2020-03-02 Outpatient R EDITH SWANN [facility] [id number] Univers 09:00:00 09:00:00 [facility] 2020-02-17 2020-02-17 Mri Manager Ultrasound, [facility] [id number] 07:52:39 08:55:30 Visit [facility] 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 [id number] MATERNAL [id number] & CHILD [address] [place] [address] 2020-02-17 2020-02-17 Outpatient R [facility] [id number] Univers 08:00:00 08:00:00 [id number] [facility] 2020-02-17 2020-02-17 Outpatient P [facility] [id number] Univers 08:00:00 08:00:00 [facility] 2020-02-12 2020-02-12 Outpatient R IVETH [facility] [id number] Univers 16:15:00 16:15:00 MARITZA [id number] [facility] 2020-02-12 2020-02-12 Outpatient R IVETH [facility] [id number] Univers 16:15:00 16:15:00 MARITZA [facility] 2020-02-12 2020-02-12 Routine Iveth [facility] [id number] 14:44:26 14:59:26 Maritza Zuñiga [id number] Visit Jacqui [id number] Danny [id number] [address] 2020-02-10 2020-02-10 Outpatient R JENNIFER BILLINGSLEY [facility] [id number] Univers 13:15:00 13:15:[id number] [facility] 2020-02-10 2020-02-10 Outpatient R JENNIFER BILLINGSLEY [facility] [id number] Univers 13:15:00 13:15:[address] [facility] 2020-01-20 2020-01-20 Outpatient R ESTRELLA [facility] [id number] Univers 11:00:00 11:00:00 [facility] 2020-01-20 2020-01-20 Outpatient [facility] [id number] Univers 09:00:00 09:00:00 [id number] [facility] 2020-01-13 2020-01-13 [facility] [id number] Univers 16:15:00 16:15:00 MARITZA [id number] [facility] 2020-01-13 2020-01-13 [facility] [id number] Univers 16:15:00 16:15:00 MARITZA [facility] 2019 2019 [facility] [id number] Univers 15:00:00 15:00:00 MARITZA [id number] [facility] 2019 2019 [facility] [id number] Univers 15:00:00 15:00:00 MARITZA [facility] 2019-12-23 2019-12-23 Outpatient R [facility] [id number] Univers 09:00:00 09:00:00 [id number] [facility] 2019-12-23 2019-12-23 Outpatient R [facility] [id number] Univers 09:00:00 09:00:[address] [facility] 2019-12-18 2019-12-18 Outpatient R ADUM [facility] [id number] Univers 16:15:00 16:15:00 MIGUE [id number] ity of [facility] 2019-12-18 2019-12-18 Outpatient R ADUM [facility] [id number] Univers 16:15:00 16:15:00 MIGUE ity of [facility] 2019-12-03 2019-12-03 Outpatient R [facility] [id number] Univers 11:00:00 11:00:00 ity of [facility] 2019-12-03 2019-12-03 Outpatient R [facility] [id number] Univers 11:00:00 11:00:00 ity of [facility] 2019-12-02 2019-12-02 Outpatient R JENNIFER BILLINGSLEY [facility] [id number] Univers 13:00:00 13:00:00 ity of [facility] 2019-12-02 2019-12-02 Outpatient R JENNIFER BILLINGSLEY [facility] [id number] Univers 13:00:00 13:00:00 ity of [facility] 2019-11-26 2019-11-26 Outpatient R JENNIFER BILLINGSLEY [facility] [id number] Univers 15:45:00 15:45:00 ity of [facility] 2019-11-26 2019-11-26 Outpatient R BILLINGSLEYJENNIFER [facility] [id number] Univers 15:45:00 15:45:00 ity of [facility] 2019-11-10 2019-11-10 Outpatient R [facility] [id number] Univers 12:30:00 12:30:00 [id number] ity of [facility] 2019-11-10 2019-11-10 Outpatient R BILLINGSLEYJENNIFER [facility] [id number] Univers 12:30:00 12:30:00 ity of [facility] 2019-10-28 2019-10-28 Outpatient R BILLINGSLEYJENNIFER [facility] [id number] Univers 16:00:00 16:00:[address] [facility] 2019-10-28 2019-10-28 Outpatient R BILLINGSLEYJENNIFER [facility] [id number] Univers 16:00:00 16:00:00 ity of [facility] 2019-10-14 2019-10-14 Outpatient R ANALILIA [facility] [id number] Univers 14:00:00 14:00:00 [id number] [facility] 2019-10-14 2019-10-14 Outpatient R ANALILIA [facility] [id number] Univers 14:00:00 14:00:[address] [facility] 2019-10-10 2019-10-10 Outpatient ANALILIA [facility] [id number] Univers 14:30:00 14:30:00 [id number] [facility] 2019-05-01 2019-05-01 Outpatient R LIZETH, [facility] [id number] Univers 14:30:00 14:30:00 [facility] 2019-05-01 2019-05-01 Outpatient R LIZETH [facility] [id number] Univers 14:30:00 14:30:00 [facility] 2019-03-04 2019-03-04 [facility] [id number] Univers 15:15:00 16:43:51 GHANSHYAM lott o f [facility] Results This patient has no known results.
--- NOTE | 2021-01-13 20:58 | ER ---
Nurse's Notes [facility] Name: Cheryle Still Age: 25 yrs Sex: Female : 1995 Arrival Date: 01/13/2021 Time: 20:00 Bed Waiting Private MD: Diagnosis: Presentation: 01/13 20:04 Chief complaint: Patient states: I was sitting outside today at 1700 talking on the ld1 phone with my ex. After the phone call, I began feeling dizzy and left arm began feeling numb. Pt c/o headache and reports taking kratum earlier today (a natural herb from the [employer]). Coronavirus screen: At this time, the client does not indicate any symptoms associated with coronavirus-19. Ebola Screen: No symptoms or risks identified at this time. Initial Sepsis Screen: Does the patient meet any 2 criteria? No. Patient's initial sepsis screen is negative. Does the patient have a suspected source of infection? No. Patient's initial sepsis screen is negative. Risk Assessment: Do you want to hurt yourself or someone else? Patient reports no desire to harm self or others. Onset of symptoms was January 13, 2021. 20:04 Method Of Arrival: Ambulatory ld1 20:04 Acuity: RITCHIE 3 ld1 20:04 Chief complaint:. ld1 Triage Assessment: 20:07 General: Appears in no apparent distress. comfortable, Behavior is calm, cooperative, ld1 appropriate for age. Pain: Complains of pain in all over body pain - level 5. EENT: No signs and/or symptoms were reported regarding the EENT system. Neuro: Level of Consciousness is awake, alert, obeys commands, Oriented to person, place, time, situation, Appropriate for age. Cardiovascular: Capillary refill < 3 seconds Patient's skin is warm and dry. Respiratory: Airway is patent Respiratory effort is even, unlabored, Respiratory pattern is regular, symmetrical. GI: Abdomen is round non-distended. : No signs and/or symptoms were reported regarding the genitourinary system. Derm: No signs and/or symptoms reported regarding the dermatologic system. Musculoskeletal: No signs and/or symptoms reported regarding the musculoskeletal system. 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 - Social history:: Smoking status: Patient denies any tobacco usage or history of. Patient/guardian denies using alcohol, street drugs. Vital Signs: 20:04 BP 145 / 101; Pulse 104; Resp 20; Temp 99.3(TE); Pulse Ox 99% on R/A; Weight 131.09 kg; ld1 Height 5 ft. 4 in. (162.56 cm); Pain 5/10; 20:04 Body Mass Index 49.61 (131.09 kg, 162.56 cm) ld1 ED Course: 20:00 Patient arrived in ED. ja2 20:06 Triage completed. ld1 20:07 Arm band placed on right wrist. ld1 Administered Medications: No medications were administered Outcome: 20:58 Patient left the ED. ld1 Signatures: Ana Browne RN RN ld1 Loree Henderson2 Corrections: (The following items were deleted from the chart) 20:07 20:04 Chief complaint: Patient states: I was sitting outside today at 1700 talking on ld1 the phone with my ex. After the phone call, I began feeling dizzy and left arm began feeling numb. Pt reports headache. ld1
[2021-01-13 21:51] VITALS: BP 145/101; TEMP 99.3; O2SAT 99
== END 2021-01-13 20:58 | disposition left against medical advice (07) ==
LOC: ER 19:55
DX: Z53.21 Procedure and treatment not carried out due to patient leaving prior to being seen by health care provider (principal)
CPT/HCPCS: 99281

== ENCOUNTER 2021-02-19 20:54 | Emergency (ER) | payer OTHER ==
--- OUTSIDE RECORDS SUMMARY | 2021-02-19 20:57 | XMS REPORT | Continuity of Care Document ---
:1995 Author Organization [facility] t Address [address] [place] [address] Care Team Providers Name Role Phone NERNIKHIL, G Primary Care Physician Unavailable Jamila SHAIKH Attending Clinician Unavailable Laura SUMMERS Attending Clinician Unavailable CARMINA Attending Clinician Unavailable Doctor Unassigned, Name Attending Clinician Unavailable RADIOLOGY Attending Clinician Unavailable Iveth LYONS Attending Clinician IVETH Attending Clinician Unavailable ROSA Attending Clinician Unavailable CHRIS BILLINGSLEY Attending Clinician Unavailable FISH Attending Clinician Unavailable Ultrasound Attending Clinician Unavailable SAM DE LA ROSA Attending Clinician Unavailable LIZETH Attending Clinician Unavailable Gi LOGAN Attending Clinician Unavailable ANALILIA, CHRIS Admitting Clinician Unavailable Payers Payer Name Policy Type Policy Number Effective Date Expiration Date S [facility] [place] [id number] 2017 PPO 00:00:00 [facility] [id number] 2019 00:00:00 MEDICAID [facility] [id number] 2019 00:00:00 FORMERLY [facility] [id number] 2019 CHOICE MEDICAID 00:00:00 [place] [facility] [id number] 2019 00:00:00 Problems Condition Condition Condition Status Onset Resolution Last Treating Co mments Source Name Details Category Date Date Treatment Clinician Date Bradycardi Bradycardi Disease Active Overview : Univers a a 4-08 Formattin ity of 00:00: g of this note Medical might be Branch different from the original. Intermitt ent Generalize Generalize Disease Active U nivers d edema d edema 4-08 ity of 00:00: Medical [place] Previous Previous Disease Active Unive rs 8-18 ity of section section 00:00: [place] [id number] Medical Branch History of History of Disease Active U serge depression depression 3-29 it y of 00:00: [place] [facility] HTN HTN Disease Active 2015-02 Univers (hypertens (hypertens 0-19 it y of ion) ion) 00:00: [address] BMI BMI Disease Active 2015-02 Univers 45.0-49.9, 45.0-49.9, 0-19 it y of adult adult 00:00: [place] [facility] Generalize Generalize Disease Active U nivers d anxiety d anxiety 4-14 ity of disorder disorder 00:00: [address] Menstrual Menstrual Disease Active Uni vers disorder disorder ity of [facility] Allergies, Adverse Reactions, Alerts Allergy Allergy Status Severity Reaction(s) Onset Inactive Treating Comm ents Source Name Type Date Date Clinician NO KNOWN Drug Active Univers ALLERGIE Class ity of S [facility] Social History Social Habit Start Date Stop Date Quantity Comments Source Exposure to Not sure [facility] SARS-CoV-2 [facility] (event) Branch Alcohol intake 2021-02-09 2021-02-09 Ex-drinker University of 00:00:00 00:00:00 (finding) [facility] Tobacco use and 2019-10-14 2019-10-14 Never used Universit y of exposure 00:00:00 00:00:00 [facility] History of 2017-09-26 Cigarette Smoker Universi ty of tobacco use 00:00:00 [facility] Tobacco Comment 2016-05-24 2016-05-24 smokes 1 x per Unive rsity of 00:00:00 00:00:00 day [facility] Sex Assigned At [birth year] Universit y of 00:00:00 00:00:00 [facility] Smoking Status Start Date Stop Date Source Former smoker 2019-10-14 00:00:00 2019-10-14 [facility]:00[facility]00 [facility] [place] [facility] Medications Ordered Filled Start Stop Current Ordering Indication Dosage Frequency Signature Comments Components Source Medication Medication Date Date Medication? Clinician (SIG) Name Name diltiazem 2020-02 202- Yes [id number] 120mg Take 1 Univers (CARDIZEM 2-15 -15 capsule by ity of CD) 120 mg 00:00: 05:59 mouth 2 [place] as 24 hr 00 :00 (two) Medical capsule times Branch daily for 30 days. traMADoL 50 2020-02 Yes 50mg Take 50 mg Univers mg tablet 2-13 by mouth 2 ity of 00:00: (two) [place] 00 times Medical daily. Branch Cholecalcif 2020-02 Yes Claire [place] le, 2-09 ity of Vitamin D3, 00:00: [place] 1,250 mcg 00 Medical (50,000 Branch unit) capsule loratadine 2020-02 Yes Univers 10 mg 2-09 ity of tablet 00:00: [place] 00 Medical Branch sotaloL 80 2020-02 Yes 80mg Take 80 mg U nivers mg tablet 2-09 by mouth 2 ity of 00:00: (two) [place] 00 times Medical daily. Branch DULoxetine 2020-02 Yes 30mg Take 30 mg U nivers 30 mg 1-27 by mouth ity of capsule 00:00: daily. [place] 00 Medical Branch gabapentin 2020-02 Yes 100mg Take 100 Un jannette 100 mg 1-23 mg by ity of capsule 00:00: mouth 3 [place] 00 (three) Medical times Branch daily. metFORMIN 2020-02 Yes 1000mg Take 1,000 Univers 1,000 mg 1-10 mg by ity of tablet 00:00: mouth [place] 00 daily with Medical breakfast. Branch fluticasone 2020-02 Yes Trinidader s propionate 0-13 ity of 50 00:00: [place] mcg/actuati 00 Medical on nasal Branch spray No known No Univers medications 9-29 ity of 16:22: [place] 44 Medical Branch Immunizations Ordered Filled Immunization Date Status Comments Sour e Immunization Name Name TDAP 2020-03-17 Completed [facility] 00:00:00 [facility] TDAP 2020-03-17 Completed [facility] 00:00:00 [facility] Influenza Virus 2019-12-18 Completed Universit y of Vaccine Quad .5 mL 00:00:00 [place] Medical IM 6+ MO Branch Influenza Virus 2019-12-18 Completed Universit y of Vaccine Quad .5 mL 00:00:00 [place] Medical IM 6+ MO Branch Influenza Virus 2018 Completed Universit y of Vaccine [place] .5 mL 00:00:00 [place] Medical IM 6+ MO Branch Influenza Virus 2018 Completed Universit y of Vaccine Quad .5 mL 00:00:00 [facility] IM 6+ MO Branch HPV9 2016-05-24 Completed University of 00:00:00 [facility] HPV9 2016-05-24 Completed University of 00:00:00 [facility] Influenza Virus 2016-01-06 Completed Universit y of Vaccine Quad IM 3+ 00:00:00 [facility] Influenza Virus 2016-01-06 Completed Universit y of Vaccine Quad IM 3+ 00:00:00 [facility] TDAP 2015-11-11 Completed University of 00:00:00 [facility] TDAP 2015-11-11 Completed University of 00:00:00 [facility] Influenza Virus 2015-05-10 Completed Universit y of Vaccine Quad IM 3+ 00:00:00 [facility] Influenza Virus 2015-05-10 Completed Universit y of Vaccine Quad IM 3+ 00:00:00 [facility] MMR 2013-08-21 Completed University of 00:00:00 [facility] MMR 2013-08-21 Completed University of 00:00:00 [facility] HPV 2010-02-26 Completed University of 00:00:00 [facility] HPV 2010-02-26 Completed University of 00:00:00 [facility] Vital Signs Vital Name Observation Time Observation Value Comments Source Systolic blood 2020-11-24 20:38:00 130 mm[Hg] Univer sity of pressure [facility] Diastolic blood 2020-11-24 20:38:00 87 mm[Hg] Unive rsity of pressure [facility] Heart rate 2020-11-24 20:38:00 104 /min Universi ty [facility] Body temperature 2020-11-24 20:38:00 37.17 Sandra Univ ersity of [facility] Respiratory rate 2020-11-24 20:38:00 18 /min Univ ersity [facility] [place] [facility] Body height 2020-11-24 20:38:00 162.6 cm [facility] Body weight 2020-11-24 20:38:00 132.904 kg [facility] BMI 2020-11-24 20:38:00 50.29 kg/m2 [facility] Procedures Procedure Date / Time Performed Performing Clinician [facility] vinny MEDICAL 2021-02-16 06:01:00 Doctor Unassigned, Lori Univer [facility] of [place] RELEASE/CLEARANCE Name [facility] FORMS Encounters Start End Encounter Admission Attending Care Care Encounter Source Date/Time Date/Time Type Type Clinicians Facility Department ID 2020-12-26 Emergency [facility] [id number] Univers 21:49:07 ity [facility] [place] [facility] 2020-12-26 Emergency [facility] [id number] Univers 10:28:14 ity [facility] 2020-12-25 Emergency [facility] [id number] Univers 09:45[facility] 2021-10-14 2021-10-14 Outpatient R NEEL [facility] [id number] Univers 15:30:00 15:30:00 MIGUE [facility] 2021-10-14 2021-10-14 Outpatient Inna SHAIKH [facility] [id number] Univers 15:30:00 15:30:00 MIGUE [id number] [facility] 2021-04-14 2021-04-14 Outpatient Inna SUMMERS [facility] [id number] Univers 13:00:00 13:00:00 SENDIL [id number] [facility] 2021-02-23 2021-02-23 Outpatient Inna GREWAL [facility] [id number] Univers 14:15:00 14:15:00 WOLF [id number] [facility] 2021-02-16 2021-02-16 Orders Doctor RAMANA [id number] Univers 00:00:00 00:00:00 Only Unassigned, HERBERT [id number] ity of [place] [facility] [id number] [place] as [phone] [address] 2021-02-09 2021-02-09 Outpatient R KRISTOPHER [facility] [id number] Univers 10:00:00 10:00:00 SENDIL [id number] [facility] 2021-02-09 2021-02-09 Outpatient R KRISTOPHER [facility] [id number] Univers 10:00:00 10:00:00 SENDIL [facility] 2021-02-02 2021-02-02 Outpatient R RADIOLOGY [facility] [id number] Univers 17:00:00 17:00:00 [id number] [facility] 2021-02-02 2021-02-02 Outpatient R RADIOLOGY [facility] [id number] Univers 00:00:00 00:00:00 [facility] 2021-02-01 2021-02-01 Outpatient R KRISTOPHER [facility] [id number] Univers 09:00:00 09:00:00 SENDIL [id number] [facility] 2021-02-01 2021-02-01 Outpatient R KRISTOPHER [facility] [id number] Univers 09:00:00 09:00:00 SENDIL [facility] 2021-01-05 2021-01-05 ambulatory [facility] [id number] [id number] 2020-12-10 2020-12-10 Outpatient [facility] [id number] [id number] 2020-12-10 2020-12-10 Outpatient [facility] [id number] [facility] 2020-12-08 2020-12-08 Outpatient [facility] [id number] [facility] 2020-12-01 2020-12-01 Outpatient R [facility] [id number] Univers 13:00:00 13:00:00 [id number] [facility] 2020-11-24 2020-11-24 [facility] [id number] Univers 15:31:13 16:14:07 Visit Maritza Zuñiga [id number] i ty [place] [id number] [place] [phone] [place] [address] Branch [facility] 2020-11-24 2020-11-24 Outpatient IVETH [facility] [id number] Univers 15:30:00 15:30:00 MARITZA [id number] [facility] 2020-11-24 2020-11-24 Outpatient R IVETH, [facility] [id number] Univers 15:30:00 15:30:00 MARITZA [facility] 2020-10-21 2020-10-21 Outpatient R KRISTOPHER, [facility] [id number] Univers 14:00:00 14:00:00 SENDIL [id number] [facility] 2020-10-21 2020-10-21 Outpatient R KRISTOPHER [facility] [id number] Univers 14:00:00 14:00:00 SENDIL [facility] 2020-10-21 2020-10-21 Outpatient R ADUM, [facility] [id number] Univers 14:00:00 14:00:00 [facility] 2020-10-19 2020-10-19 Outpatient R ADUM, [facility] [id number] Univers 15:00:00 15:00:00 MIGUE [id number] [facility] 2020-10-19 2020-10-19 Outpatient R ADUM, [facility] [id number] Univers 15:00:00 15:00:00 MIGUE [facility] 2020-10-14 2020-10-14 Outpatient R ADUM, [facility] [id number] Univers 15:00:00 15:00:00 MIGUE [id number] [facility] 2020-10-14 2020-10-14 Outpatient R ADUM, [facility] [id number] Univers 15:00:00 15:00:00 MIGUE [facility] 2020-10-01 2020-10-01 Outpatient R ROSA, [facility] [id number] Univers 14:20:00 14:20:00 ANGELLALLOYD [id number] ity o [facility] 2020-10-01 2020-10-01 Outpatient R ROSA, [facility] [id number] Univers 14:20:00 14:20:00 ALVINA ity o f [facility] 2020-09-13 2020-09-13 Outpatient R ROSA, [facility] [id number] Univers 13:20:00 13:20:00 ALVINA [id number] ity o f [facility] 2020-09-13 2020-09-13 Outpatient R ROSA, [facility] [id number] Univers 13:20:00 13:20:00 ALVINA y o [facility] 2020-06-17 2020-06-17 Outpatient R JENNIFER BILLINGSLEY [facility] [id number] Univers 11:15:00 11:15:00 [id number] y [facility] [place] [facility] 2020-06-17 2020-06-17 Outpatient R JENNIFER BILLINGSLEY [facility] [id number] Univers 11:15:00 11:15:00 ity [facility] 2020-06-03 2020-06-03 Outpatient R BILLINGSLEYJENNIFER [facility] [id number] Univers 08:45:00 08:45:00 [id number] ity [facility] 2020-06-03 2020-06-03 Outpatient R JENNIFER BILLINGSLEY [facility] [id number] Univers 08:45:00 08:45:00 ity [facility] [place] [facility] 2020-05-24 2020-05-24 Outpatient R JENNIFER BILLINGSLEY [facility] [id number] Univers 07:30:00 07:30:00 ity [facility] 2020-05-20 2020-05-20 Outpatient R [facility] [id number] Univers 14:00:00 14:00:00 [id number] [facility] 2020-05-20 2020-05-20 Outpatient R [facility] [id number] Univers 14:00:00 14:00:00 ity [facility] 2020-05-17 2020-05-17 Outpatient R [facility] [id number] Univers 13:00:00 13:00:00 [id number] ity [facility] [place] [facility] 2020-05-17 2020-05-17 Outpatient R [facility] [id number] Univers 13:00:00 13:00:00 ity [facility] 2020-05-13 2020-05-13 Outpatient R [facility] [id number] Univers 11:00:00 11:00:00 [id number] ity [facility] [place] [facility] 2020-05-13 2020-05-13 Outpatient R [facility] [id number] Univers 11:00:00 11:00:00 ity [facility] [place] [facility] 2020-05-11 2020-05-11 Outpatient R [facility] [id number] Univers 14:30:00 14:30:00 [id number] ity [facility] [place] [facility] 2020-05-07 2020-05-07 Outpatient R [facility] [id number] Univers 14:00:00 14:00:00 [id number] ity [facility] [place] [facility] 2020-05-07 2020-05-07 Outpatient P [facility] [id number] Univers 14:00:00 14:00:00 ity [facility] [place] [facility] 2020-05-06 2020-05-06 Outpatient R [facility] [id number] Univers 14:00:00 14:00:00 [id number] [facility] 2020-05-06 2020-05-06 Outpatient R [facility] [id number] Univers 14:00:00 14:00:00 ity [facility] 2020-05-03 2020-05-03 Outpatient R [facility] [id number] Univers 14:00:00 14:00:00 ity [facility] [place] [facility] 2020-05-03 2020-05-03 Outpatient R SUMMERS, [facility] [id number] Univers 13:00:00 13:00:00 SENDIL [id number] ity [facility] [place] [facility] 2020-04-29 2020-04-29 Outpatient R [facility] [id number] Univers 14:00:00 14:00:00 [id number] ity [facility] [place] [facility] 2020-04-29 2020-04-29 Outpatient R [facility] [id number] Univers 14:00:00 14:00:00 ity of [facility] 2020-04-26 2020-04-26 Outpatient R [facility] [id number] Univers 14:00:00 14:00:00 [id number] ity of [facility] 2020-04-26 2020-04-26 Outpatient R [facility] [id number] Univers 14:00:00 14:00:00 ity [facility] [place] [facility] 2020-04-23 2020-04-23 Outpatient R NEEL [facility] [id number] Univers 13:45:00 13:45:00 MIGUE [id number] ity [facility] [place] [facility] 2020-04-23 2020-04-23 Outpatient R NEEL [facility] [id number] Univers 13:45:00 13:45:00 MIGUE ity [facility] [place] [facility] 2020-04-22 2020-04-22 Outpatient R [facility] [id number] Univers 14:00:00 14:00:00 [id number] ity [facility] [place] [facility] 2020-04-22 2020-04-22 Outpatient R [facility] [id number] Univers 14:00:00 14:00:00 ity of [facility] 2020-04-20 2020-04-20 Outpatient R ANALILIA JENNIFER [facility] [id number] Univers 15:45:00 15:45:00 [id number] ity [facility] 2020-04-20 2020-04-20 Outpatient R ANALILIA JENNIFER [facility] [id number] Univers 15:45:00 15:45:00 ity of [facility] 2020-04-13 2020-04-13 Outpatient R NATALIE SWANNN [facility] [id number] Univers 14:45:00 14:45:00 [id number] ity [facility] 2020-04-13 2020-04-13 Outpatient R NATALIE SWANNN [facility] [id number] Univers 14:45:00 14:45:00 ity [facility] 2020-03-30 2020-03-30 Outpatient R HUENATALIEN [facility] [id number] Univers 14:30:00 15:56:45 ity [facility] 2020-03-30 2020-03-30 Outpatient R EDITH SWANN [facility] [id number] Univers 14:30:00 14:30:00 [id number] ity [facility] 2020-03-24 2020-03-24 Outpatient R [facility] [id number] Univers 08:00:00 08:00:00 [id number] ity [facility] 2020-03-24 2020-03-24 Outpatient R EDITH SWANN [facility] [id number] Univers 08:00:00 08:00:00 ity [facility] 2020-03-18 2020-03-18 Outpatient R [facility] [id number] Univers 13:00:00 13:00:00 [id number] ity [facility] 2020-03-18 2020-03-18 Outpatient P [facility] [id number] Univers 13:00:00 13:00:00 ity [facility] 2020-03-17 2020-03-17 Outpatient R EDITH SWANN [facility] [id number] Univers 14:30:00 14:30:00 [id number] ity [facility] 2020-03-17 2020-03-17 Outpatient R EDITH SWANN [facility] [id number] Univers 14:30:00 14:30:00 ity [facility] 2020-03-16 2020-03-16 Outpatient [facility] [id number] Univers 09:00:00 09:00:00 [id number] ity [facility] 2020-03-16 2020-03-16 Outpatient R KRISTOPHER [facility] [id number] Univers 09:00:00 09:00:00 SENDIL ity [facility] [place] [facility] 2020-03-11 2020-03-11 Outpatient R [facility] [id number] Univers 16:30:00 16:30:00 ity [facility] 2020-03-11 2020-03-11 Outpatient R JENNIFER BILLINGSLEY [facility] [id number] Univers 08:30:00 08:30:00 [id number] ity [facility] 2020-03-08 2020-03-08 Outpatient R [facility] [id number] Univers 16:00:00 16:00:00 [id number] ity [facility] 2020-03-08 2020-03-08 Outpatient R ROSA, [facility] [id number] Univers 16:00:00 16:00:00 ALVINA ity o f [facility] 2020-03-04 2020-03-04 Outpatient R KRISTOPHER, [facility] [id number] Univers 14:00:00 14:00:00 SENDIL [id number] [facility] 2020-03-04 2020-03-04 [facility] [id number] Univers 14:00:00 14:00:00 SENDIL [facility] 2020-03-02 2020-03-02 Outpatient R EDITH SWANN [facility] [id number] Univers 09:00:00 09:00:00 [id number] [facility] 2020-03-02 2020-03-02 Outpatient R EDITH SWANN [facility] [id number] Univers 09:00:00 09:00:00 [facility] 2020-02-17 2020-02-17 Home Sales Service Professional Ultrasound, [facility] [id number] 07:52:39 08:55:30 Visit [facility] CLOUD DEVELOPER [id number] [facility] [id number] MATERNAL [phone] & CHILD [address] [place] [address] 2020-02-17 2020-02-17 Outpatient R [facility] [id number] Univers 08:00:00 08:00:00 [id number] [facility] 2020-02-17 2020-02-17 Outpatient P [facility] [id number] Univers 08:00:00 08:00:00 [facility] 2020-02-12 2020-02-12 Outpatient R IVETH [facility] [id number] Univers 16:15:00 16:15:00 MARITZA [id number] [facility] 2020-02-12 2020-02-12 Outpatient R IVETH [facility] [id number] Univers 16:15:00 16:15:00 MARITZA [facility] 2020-02-12 2020-02-12 Routine Iveth [facility] [id number] 14:44:26 14:59:26 Maritza Zuñiga [id number] Visit Jacqui [id number] alyssa [id number] [address] 2020-02-10 2020-02-10 Outpatient R JENNIFER BILLINGSLEY [facility] [id number] Univers 13:15:00 13:15:00 [id number] [facility] 2020-02-10 2020-02-10 Outpatient R JENNIFER BILLINGSLEY [facility] [id number] Univers 13:15:00 13:15:00 [facility] 2020-01-20 2020-01-20 Outpatient R ESTRELLA [facility] [id number] Univers 11:00:00 11:00:00 MARIANNA [facility] 2020-01-20 2020-01-20 Outpatient [facility] [id number] Univers 09:00:00 09:00:00 [id number] [facility] 2020-01-13 2020-01-13 [facility] [id number] Univers 16:15:00 16:15:00 MARITZA [facility] 2020-01-13 2020-01-13 Outpatient R IVETH [facility] [id number] Univers 16:15:00 16:15:00 MARITZA [id number] [facility] 2019 2019 Outpatient R IVETH [facility] [id number] 8Q-20 Univers 15:00:00 15:00:00 [id number] [facility] [id number] Univers 15:00:00 15:00:00 MARITZA [facility] 2019-12-23 2019-12-23 Outpatient R [facility] [id number] Univers 09:00:00 09:00:00 [id number] [facility]-23 2019-12-23 Outpatient R [facility] [id number] Univers 09:00:00 09:00:00 ity [facility] 2019-12-18 2019-12-18 Outpatient R ADUM [facility] [id number] Univers 16:15:00 16:15:00 MIGUE [id number] ity [facility] 2019-12-18 2019-12-18 Outpatient R ADUM [facility] [id number] Univers 16:15:00 16:15:00 MIGUE ity [facility] 2019-12-03 2019-12-03 Outpatient R [facility] [id number] Univers 11:00:00 11:00:00 ity [facility] 2019-12-03 2019-12-03 Outpatient R [facility] [id number] Univers 11:00:00 11:00:00 ity [facility] 2019-12-02 2019-12-02 Outpatient R JENNIFER BILLINGSLEY [facility] [id number]-[id number] Univers 13:00:00 13:00:00 ity [facility] 2019-12-02 2019-12-02 Outpatient R BILLINGSLEYJENNIFER [facility] [id number] Univers 13:00:00 13:00:00 ity [facility] 2019-11-26 2019-11-26 Outpatient R BILLINGSLEYJENNIFER [facility] [id number] Univers 15:45:00 15:45:00 ity [facility] 2019-11-26 2019-11-26 Outpatient R BILLINGSLEYJENNIFER [facility] [id number] Univers 15:45:00 15:45:00 ity [facility] 2019-11-10 2019-11-10 Outpatient R [facility] [id number] Univers 12:30:00 12:30:00 [id number] ity [facility] 2019-11-10 2019-11-10 Outpatient R BILLINGSLEYJENNIFER [facility] [id number] Univers 12:30:00 12:30:00 ity [facility] 2019-10-28 2019-10-28 Outpatient R BILLINGSLEYJENNIFER [facility] [id number] Univers 16:00:00 16:00:00 ity [facility] 2019-10-28 2019-10-28 Outpatient R BILLINGSLEYJENNIFER [facility] [id number] Univers 16:00:00 16:00:00 ity [facility] 2019-10-14 2019-10-14 Outpatient R ANALILIA [facility] [id number] 8Q-20 Univers 14:00:00 14:00:00 [id number] ity [facility] 2019-10-14 2019-10-14 Outpatient R ANALILIA [facility] [id number] Univers 14:00:00 14:00:00 ity [facility] 2019-10-10 2019-10-10 Outpatient ANALILIA [facility] [id number] 8Q-[id number] Univers 14:30:00 14:30:00 [id number] [facility] 2019-05-01 Outpatient R LIZETH [facility] [id number] Univers 14:30:00 14:30:00 [facility]-01 2019-05-01 Outpatient R LIZETH [facility] [id number] Univers 14:30:00 14:30:00 ity [facility] 2019-03-04 2019-03-04 Outpatient R AKINKENNY [facility] [id number] Univers 15:15:00 16:43:51 GHANSHYAM lott o f [facility] Results This patient has no known results.
--- NOTE | 2021-02-19 21:24 | ER ---
[facility]'s [facility] Name[facility] Cheryle Still Age: 25 yrs Sex: Female : 1995 Arrival Date: 02/19/2021 Time: 20:54 Bed Waiting Private MD: Diagnosis: ED Course: 02/19 20:54 Patient arrived in ED. bp1 Administered Medications: No medications were administered Outcome: 21:24 Patient left the ED. ld1 Signatures: Kelsey Alvarez bp1 Ana Browne, RN RN ld1
== END 2021-02-19 21:24 | disposition left against medical advice (07) ==
LOC: ER 20:54
DX: Z02.9 Encounter for administrative examinations, unspecified (principal)

== ENCOUNTER 2022-07-17 21:34 | Emergency (ER) | payer OTHER ==
--- OUTSIDE RECORDS SUMMARY | 2022-07-17 21:46 | XMS REPORT | Continuity of Care Document ---
:1995 Author Organization [facility] t Address [address] [place] [address]. [address] [place] [address] Care Team Providers Name Role Phone PCP, PATIENT DOES NOT HAVE A Primary Care Physician Unavaila Alina Sigala Attending Clinician Unavailable ZACARIAS PACHECO Attending Clinician Unavailable ZACARIAS PACHECO Attending Clinician Unavailable RADIOLOGY Attending Clinician Unavailable MARIA DE JESUS AQUINO Attending Clinician Unavailable JENNIFER BILLINGSLEY Attending Clinician Unavailable Analilia ABREU, Jennifer Maddox Attending Clinician JAMAL SUMMERS K.HAbelino Attending Clinician Unavailable Jamal Summers MD K.H. Attending Clinician Herman Jacques Attending Clinician Jeremiah Ramírez CRNA Attending Clinician Doctor Unassigned, [place] Attending Clinician Unavailable 2, [facility] Lab Attending Clinician Unavailable Melissa Lazaro PA-C Attending Clinician MELISSA LAZARO Attending Clinician Unavailable Ultrasound, Adc Mfm Attending Clinician Unavailable Wendy Hoyt MD, [place] Attending Clinician [phone] ANAMARIA NORWOOD Attending Clinician Unavailable IRAIS GARCIA Attending Clinician Unavailable IRAIS GARCIA Attending Clinician Unavailable Pob, [facility] Lab Main Attending Clinician Unavailable Corinne Valladares MA Attending Clinician Unavailable Ultrasound, Ang-Mfrafael Attending Clinician Unavailable Vance Stevens DO Attending Clinician BREE PARNELL Attending Clinician Unavailable Eliot Dangelo MD Attending Clinician CHIRAG WOLF Attending Clinician Unavailable CHIRAG WOLF Attending Clinician Unavailable Faculty, [facility] Mfm Attending Clinician Unavailable Chirag Wolf MD Attending Clinician Akinsipe CNPGhanshyam Attending Clinician [phone] Dev HERNANDEZ Attending Clinician Unavailable Dev Villa Attending Clinician KEYONNA VARGHESE Attending Clinician Unavailable Abimael TECHNICAL CABLE JOINTERKeyonna Coyne Attending Clinician RENU CLEMENTE Attending Clinician Unavailable Renu Clemente MD Attending Clinician Henri Felix MD Attending Clinician HENRI FELIX Attending Clinician Unavailable VERONICA ROBLES Attending Clinician Unavailable WOLF CAGE Attending Clinician Unavailable Niles Wolf COY Attending Clinician Vls-Lab Attending Clinician Unavailable Sang Epps MD Attending Clinician ALVINA LEE Attending Clinician Unavailable Haily Kwan Attending Clinician HAILY AGUILAR Attending Clinician Unavailable Freya Jensen MD Attending Clinician [facility], [facility] Nst Attending Clinician Unavailable Karl Hatfield DO Attending Clinician 1, [facility] Us Room Attending Clinician Unavailable EDITH RODAS Attending Clinician Unavailable Edith Rodas MD Attending Clinician 2, Pas-[facility] Us Room Attending Clinician Unavailable Pc, Adc Echo Room 1 - Attending Clinician Unavailable Visit, Adc Nurse Attending Clinician Unavailable Alec Arora MD Attending Clinician Deidra Ngo Attending Clinician Rony Menon MD Attending Clinician RONY MENON Attending Clinician Unavailable Jay Jay Gaines Attending Clinician JAY JAY STANLEY Attending Clinician Unavailable GHANSHYAM LOGAN Attending Clinician Unavailable JENNIFER BILLINGSLEY Admitting Clinician Unavailable Jennifer Billingsley MD Admitting Clinician IRAIS GARCIA Admitting Clinician Unavailable Dev HERNANDEZ Admitting Clinician Unavailable HAILY AGUILAR Admitting Clinician Unavailable Payers Payer Name Policy Type Policy Number Effective Date Expiration Date S edil [place] [id number] 2017 HEALTHCARE PPO 00:00:00 [facility] [id number] 2019 00:00:00 MEDICAID [id number] [facility] [place] [id number] [facility] MEDICAID [id number] [facility] MEDICAID [place] [id number] [facility] MEDICAID [id number] [facility] MEDICAID [place] [id number] 2019 [place] 00:00:[address] [facility] [id number] 2019 [facility] MEDICAID 00:00:00 [place] [id number] 2019 WOMEN 00:00:00 Problems Condition Condition Condition Status Onset Resolution Last Treating Co mments Source Name Details Category Date Date Treatment Clinician Date Drainage Drainage Disease Active Unive rs from wound from wound 4-24 it y of 00:00: [place] 00 Medical Branch Status Status Disease Active Univers post post 4-14 ity of bilateral bilateral 00:00: [place] salpingect salpingect 00 Me dical kermit kermit Branch Abdominal Abdominal Disease Active Uni vers pain pain 2-24 ity of affecting affecting 00:00: [place] 00 Medi daren Branch Fall, Fall, Disease Active Univers initial initial 2-22 [place] 00 Medical [place] 35 weeks 35 weeks Disease Active Overview: Un jannette gestation gestation 2- Formattin i ty of of of 00:00: g of this [place] 00 note [facility] might be Branch different from the original. Added automatic ally from request for surgery [id number] 36 weeks 36 weeks Disease Active Overview: Un jannette gestation gestation 2- Formattin i ty of of of 00:00: g of this [place] 00 note [facility] might be Branch different from the original. Added automatic ally from request for surgery [id number] 38 weeks 38 weeks Disease Active Overview: Un jannette gestation gestation 2- Formattin i ty of of of 00:00: g of this [place] 00 note [facility] might be Branch different from the original. Added automatic ally from request for surgery [id number] Encounter Encounter Disease Active Uni vers for tubal for tubal 207 ity of ligation ligation 00:00: [place] counseling counseling 00 Me dical Branch Itching Itching Disease Active Univers 1-19 ity of 00:00: [place] 00 Medical Branch Nonintract Nonintract Disease Active U nivers able able 1-19 ity of headache, headache, 00[place] un[place]if[place] un[place]if[place] 00 Me dical d d Branch chronicity chronicity pattern, pattern, unspecifie unspecifie d headache d headache type type GBS (group GBS (group Disease Active Overview : Univers B B 10-24 Formattin ity of streptococ streptococ 00:00: g of this [place] cus) UTI cus) UTI 00 note Medica l complicati complicati might be Branch ng ng different from the original. pending timothy Supervisio Supervisio Disease Active U nivers n of n of 8-25 ity of high-risk high-risk 00:[place] [facility] Multiparit Multiparit Disease Active U nivers y y 8- ity of 00:00: [place] 00 Medical Branch History of History of Disease Active Overview : Univers 8-25 Formattin ity of section section 00:00: g of this [place] 00 note Medical might be Branch different from the original. x2 History of History of Disease Active Overview : Univers pulmonary pulmonary 8-25 Formattin i ty of edema edema 00:00: g of this [place] 00 note Medical might be Branch different from the original. After second while in hospital History of History of Disease Active Overview : Univers PCOS PCOS 8-25 Formattin ity of 00:00: g of this [place] 00 note Medical might be Branch different from the original. Was on metformin , report self d/c Disease Active Overview : Univers anxiety anxiety - Formattin ity o f 00:00: g of this note Medical might be Branch different from the original. After of both children History of History of Disease Active Overview : Univers fibromyalg fibromyalg -25 Formattin ity of ia ia 00:00: g of this [place] note Medical might be Branch different from the original. 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 Dx at age 20, found accidenta lly after a running accident Bradycardi Bradycardi Disease Active Overview : Univers a a 4-08 Formattin ity of 00:00: g of this [place] note Medical might be Branch different from the original. Intermitt ent Generalize Generalize Disease Active U nivers d edema d edema 4-08 ity of 00:00: [place] 00 Medical Branch Liveborn Liveborn Disease Active Unive rs infant, of , of 3-29 it y of jansen jansen [place] , , 00 Me dical born in born in [facility] hospital by by delivery delivery History of History of Disease Active U nivers depression depression 3-29 it y of 00:00: [place] 00 [facility] Pre-existi Pre-existi Disease Active 2015- U nivers ng ng 0-19 ity of essential essential 00:00[place] hypertens[place] hypertensi 00 Me dical on during on during Bran ch Obesity in Obesity in Disease Active 2015-02 U nivers 0-19 ity of 00:00: [address] Anemia of Anemia of Disease Active Uni vers mother in mother in 9-22 [place]y of , , [place] antepartum antepartum 00 Me dical Branch Generalize Generalize Disease Active U nivers d anxiety d anxiety 4-14 ity of disorder disorder 00:00: [address] Menstrual Menstrual Disease Active Uni vers disorder disorder ity of [facility] 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) [facility] Allergies, Adverse Reactions, Alerts Allergy Allergy Status Severity Reaction(s) Onset Inactive Treating Comm ents Source Name Type Date Date Clinician NO KNOWN Drug Active Univers ALLERGIE Class it of [facility] Social History Social Habit Start Date Stop Date Quantity Comments Source ASSERTION 2021-09-29 University of 00:00:00 [facility] History of [facility] - [facility] Sex Assigned At [facility] Exposure to 2022-06-09 2022-06-19 Not sure [facility] SARS-CoV-2 00:00:00 13:53:00 [facility] (event) [place] Alcohol intake 2022-06-19 2022-06-19 Ex-drinker University 00:00:00 00:00:00 (finding) [facility] Tobacco use and 2021-10-20 2021-10-20 Smokeless tobacco Un iversity of exposure 00:00:00 00:00:00 non-user [facility] Tobacco Comment 2021-10-20 2021-10-20 smokes 1 x per Unive rsity of 00:00:00 00:00:00 [facility] Smoking Status Start Date Stop Date Source Ex-smoker 2021-10-20 00:00:00 2021-10-20 00:00:00 [facility] Never Smoker [facility] Medications Ordered Filled Start Stop Current Ordering Indication Dosage Frequency Signature Comments Components Source Medication Medication Date Date Medication? Clinician (SIG) Name Name gabapentin 2022-0 Yes 300mg Take 1 Univ ers 300 mg 4-20 capsule by ity of capsule 14:26: mouth in [address] and 1 capsule at noon and 1 capsule in the evening. gabapentin 2022-0 Yes 300mg Take 1 Univ ers 300 mg 4-20 capsule by ity of capsule 14:26: mouth in [address] and 1 capsule at noon and 1 capsule in the evening. gabapentin 2022-0 Yes 300mg Take 1 Univ ers 300 mg 4-20 capsule by ity of capsule 14:26: mouth in [address] and 1 capsule at noon and 1 capsule in the evening. gabapentin 2022-0 Yes 300mg Take 1 Univ ers 300 mg 4-20 capsule by ity of capsule 14:26: mouth in [address] and 1 capsule at noon and 1 capsule in the evening. HYDROcodone 0 Yes 1{tbl} 1 tablet, Univers -acetaminop 4-20 Oral, ity of hen (NORCO 03:11: Q6HPRN, [place] 5) 5-325 mg 57 Starting Medi daren tablet 1 on Sun tablet 06/14/22 at 2211, Until Discontinu ed, Routine, Pain (scale 7-10) acetaminoph 0 Yes 650mg 650 mg, Un jannette en 4-20 Oral, ity of (TYLENOL) 03:11: Q6HPRN, [place] tablet 650 57 Starting Medic al mg on Sun Branch 06/14/22 at 2211, Until Discontinu ed, Routine, Pain (scale 1-3) ibuprofen 2022-0 Yes 600mg 600 mg, Univ ers (IBU) 4-20 Oral, ity of tablet 600 03:11: Q6HPRN, [place] mg 57 Starting Medical on Sun Branch 06/14/22 at 2211, Until Discontinu ed, Routine, Pain (scale 4-6) enoxaparin 2022- Yes [id number] 40mg inject 0.4 Univers 40 mg/0.4 4-17 05-09 mL under ity o f mL 00:00: 04:59 the skin [place] injection 00 :00 in the [facility] for 21 days. enoxaparin 2022- Yes [id number] 40mg inject 0.4 Univers 40 mg/0.4 4-17 05-09 mL under ity o f mL 00:00: 04:59 the skin [place] injection 00 :00 in the [facility] for 21 days. enoxaparin 2022- Yes [id number] 40mg inject 0.4 Univers 40 mg/0.4 4-17 05-09 mL under ity o f mL 00:00: 04:59 the skin [place] injection 00 :00 in the [facility] for 21 days. enoxaparin 2022- Yes [id number] 40mg inject 0.4 Univers 40 mg/0.4 4-17 05-09 mL under ity o f mL 00:00: 04:59 the skin [place] injection 00 :00 in the [facility] for 21 days. enoxaparin 2022- Yes [id number] 40mg inject 0.4 Univers 40 mg/0.4 4-17 05-09 mL under ity o f mL 00:00: 04:59 the skin [place] injection 00 :00 in the [facility] for 21 days. enoxaparin 2022- Yes [id number] 40mg inject 0.4 Univers 40 mg/0.4 4-17 05-09 mL under ity o f mL 00:00: 04:59 the skin [place] injection 00 :00 in the [facility] for 21 days. furosemide Yes 20mg 20 mg, Unive rs (LASIX) 4-16 Oral, ity of tablet 20 14:00: DAILY, [place] mg 00 First dose Medical on Sun Branch 06/11/22 at 0900, Until Discontinu ed, Routine furosemide 2022- No 20mg 20 mg, Univ ers (LASIX) 4-16 04-16 Oral, ity of tablet 20 14:00: 18:34 DAILY, [place] mg 00 :05 First dose Medical on [facility] 06/11/22 at 0900, Until Discontinu ed, Routine cetirizine 2022- No cetirizine Univers 10 mg 4-16 04-16 10 mg ity of tablet 07:16: 00:00 tablet [place] 40 :00 Medical Branch cetirizine 2022- No cetirizine Univers 10 mg 4-16 04-16 10 mg ity of tablet 07:16: 00:00 tablet [place] 40 :00 Medical Branch cetirizine 2022- No cetirizine Univers 10 mg 4-16 04-16 10 mg ity of tablet 07:16: 00:00 tablet [place] 40 :00 [facility] Branch ibuprofen Yes 600mg 600 mg, Univ ers (IBU) 4-16 Oral, Q6H ity of tablet 600 02:00: ABX, First [place] 00 dose Medical (after Branch last modificati on) on [facility] 06/10/22 at 2100, Until Discontinu ed, Routine ibuprofen 2022- No 600mg 600 mg, Uni vers (IBU) 4-16 04-16 Oral, Q6H ity of tablet 600 02:00: 18:34 ABX, First [place] mg 00 :05 dose Medical (after Branch last modificati on) on [facility] 06/10/22 at 2100, Until Discontinu ed, Routine furosemide Yes [id number] 20mg Take 1 Univers 20 mg 4-16 tablet by ity of tablet 00:00: mouth [place] 00 every Medical other day. Branch 2022- Yes [id number] 1{tbl} Take 1 Univers vitamin 4-16 tablet by ity of w/FA tablet 00:00: mouth in [place] 00 the Medical morning. Branch docusate 2022-0 Yes [id number] 200mg Take 2 U nivers 100 mg 4-16 capsules ity of capsule 00:00: by mouth [place] 00 once daily Medical as needed Branch for Constipati on. ferrous 2022-0 Yes [id number] 325mg Take 1 Un jannette sulfate 325 4-16 tablet by ity of mg (65 mg 00:00: [place] iron[place] 00 the Medical tablet morning Branch and 1 tablet in the evening. ibuprofen 2022-0 Yes [id number] 600mg Take 1 Univers 600 mg 4-16 tablet by ity of tablet 00:00: mouth [place] 00 every 6 Medical (six) Branch hours as needed (Pain). Take with food or milk. furosemide 3-0 Yes [id number] 20mg Take 1 Univers 20 mg 4-16 tablet by ity of tablet 00:00: mouth [place] 00 every Medical other day. Branch 2022-0 Yes [id number] 1{tbl} Take 1 Univers vitamin 4-16 tablet by ity of w/FA tablet 00:00: mouth in [place] 00 the Medical morning. Branch docusate 2022-0 Yes [id number] 200mg Take 2 U nivers 100 mg 4-16 capsules ity of capsule 00:00: by mouth [place] 00 once daily Medical as needed Branch for Constipati on. ferrous 2022-0 Yes [id number] 325mg Take 1 Un jannette sulfate 325 4-16 tablet by ity of mg (65 mg 00:00: [place] iron[place] 00 the Medical tablet morning Branch and 1 tablet in the evening. ibuprofen 2022-0 Yes [id number] 600mg Take 1 Univers 600 mg 4-16 tablet by ity of tablet 00:00: mouth [place] 00 every 6 Medical (six) Branch hours as needed (Pain). Take with food or milk. furosemide 2022-0 Yes [id number] 20mg Take 1 Univers 20 mg 4-16 tablet by ity of tablet 00:00: mouth [place] 00 every Medical other day. Branch 2022-0 Yes [id number] 1{tbl} Take 1 Univers vitamin 4-16 tablet by ity of w/FA tablet 00:00: mouth in [place] 00 the Medical morning. Branch docusate 2022-0 Yes [id number] 200mg Take 2 U nivers 100 mg 4-16 capsules ity of capsule 00:00: by mouth [place] 00 once daily Medical as needed Branch for Constipati on. ferrous 3-0 Yes [id number] 325mg Take 1 Un jannette sulfate 325 4-16 tablet by ity of mg (65 mg 00:00: [place] iron[place] 00 the Medical tablet morning Branch and 1 tablet in the evening. ibuprofen 2023-0 Yes [id number] 600mg Take 1 Univers 600 mg 4-16 tablet by ity of tablet 00:00: mouth [place] 00 every 6 Medical (six) Branch hours as needed (Pain). Take with food or milk. furosemide 3-0 Yes [id number] 20mg Take 1 Univers 20 mg 4-16 tablet by ity of tablet 00:00: mouth [place] 00 every Medical other day. Branch 2022-0 Yes [id number] 1{tbl} Take 1 Univers vitamin 4-16 tablet by ity of w/FA tablet 00:00: mouth in [place] 00 the Medical morning. Branch docusate 2022-0 Yes [id number] 200mg Take 2 U nivers 100 mg 4-16 capsules ity of capsule 00:00: by mouth [place] 00 once daily Medical as needed Branch for Constipati on. ferrous 3-0 Yes [id number] 325mg Take 1 Un jannette sulfate 325 4-16 tablet by ity of mg (65 mg 00:00: [place] iron[place] 00 the Medical tablet morning Branch and 1 tablet in the evening. ibuprofen 3-0 Yes [id number] 600mg Take 1 Univers 600 mg 4-16 tablet by ity of tablet 00:00: mouth [place] 00 every 6 Medical (six) Branch hours as needed (Pain). Take with food or milk. furosemide 2022-0 Yes [id number] 20mg Take 1 Univers 20 mg 4-16 tablet by ity of tablet 00:00: mouth [place] 00 every Medical other day. Branch 2022-0 Yes [id number] 1{tbl} Take 1 Univers vitamin 4-16 tablet by ity of w/FA tablet 00:00: mouth in [place] 00 the Medical morning. Branch docusate 2022-0 Yes [id number] 200mg Take 2 U nivers 100 mg 4-16 capsules ity of capsule 00:00: by mouth [place] 00 once daily Medical as needed Branch for Constipati on. ferrous 3-0 Yes [id number] 325mg Take 1 Un jannette sulfate 325 4-16 tablet by ity of mg (65 mg 00:00: [place] iron[place] 00 the Medical tablet morning Branch and 1 tablet in the evening. ibuprofen 2023-0 Yes [id number] 600mg Take 1 Univers 600 mg 4-16 tablet by ity of tablet 00:00: mouth [place] 00 every 6 Medical (six) Branch hours as needed (Pain). Take with food or milk. furosemide 3-0 Yes [id number] 20mg Take 1 Univers 20 mg 4-16 tablet by ity of tablet 00:00: mouth [place] 00 every Medical other day. Branch 2022-0 Yes [id number] 1{tbl} Take 1 Univers vitamin 4-16 tablet by ity of w/FA tablet 00:00: mouth in [place] 00 the Medical morning. Branch docusate 2022-0 Yes [id number] 200mg Take 2 U nivers 100 mg 4-16 capsules ity of capsule 00:00: by mouth [place] 00 once daily Medical as needed Branch for Constipati on. ferrous 2022-0 Yes [id number] 325mg Take 1 Un jannette sulfate 325 4-16 tablet by ity of mg (65 mg 00:00: [place] iron[place] 00 the Medical tablet morning Branch and 1 tablet in the evening. ibuprofen 2022-0 Yes [id number] 600mg Take 1 Univers 600 mg 4-16 tablet by ity of tablet 00:00: mouth [place] 00 every 6 Medical (six) Branch hours as needed (Pain). Take with food or milk. furosemide 2022-0 Yes [id number] 20mg Take 1 Univers 20 mg 4-16 tablet by ity of tablet 00:00: mouth [place] 00 every Medical other day. Branch 2022-0 Yes [id number] 1{tbl} Take 1 Univers vitamin 4-16 tablet by ity of w/FA tablet 00:00: mouth in [place] 00 the Medical morning. Branch docusate 2022-0 Yes [id number] 200mg Take 2 U nivers 100 mg 4-16 capsules ity of capsule 00:00: by mouth [place] 00 once daily Medical as needed Branch for Constipati on. ferrous 3-0 Yes [id number] 325mg Take 1 Un jannette sulfate 325 4-16 tablet by ity of mg (65 mg 00:00: [place] iron[place] 00 the Medical tablet morning Branch and 1 tablet in the evening. ibuprofen 3-0 Yes [id number] 600mg Take 1 Univers 600 mg 4-16 tablet by ity of tablet 00:00: mouth [place] 00 every 6 Medical (six) Branch hours as needed (Pain). Take with food or milk. furosemide 3-0 Yes [id number] 20mg Take 1 Univers 20 mg 4-16 tablet by ity of tablet 00:00: mouth [place] 00 every Medical other day. Branch 2023-0 Yes [id number] 1{tbl} Take 1 Univers vitamin 4-16 tablet by ity of w/FA tablet 00:00: mouth in [place] 00 the Medical morning. Branch docusate 2022-0 Yes [id number] 200mg Take 2 U nivers 100 mg 4-16 capsules ity of capsule 00:00: by mouth [place] 00 once daily Medical as needed Branch for Constipati on. ferrous 2022-0 Yes [id number] 325mg Take 1 Un jannette sulfate 325 4-16 tablet by ity of mg (65 mg 00:00: mouth [place] iron[place] 00 the Medical tablet morning Branch and 1 tablet in the evening. ibuprofen 2022-0 Yes [id number] 600mg Take 1 Univers 600 mg 4-16 tablet by ity of tablet 00:00: mouth [place] 00 every 6 Medical (six) Branch hours as needed (Pain). Take with food or milk. furosemide 2022-0 Yes [id number] 20mg Take 1 Univers 20 mg 4-16 tablet by ity of tablet 00:00: mouth [place] 00 every Medical other day. Branch 2022-0 Yes [id number] 1{tbl} Take 1 Univers vitamin 4-16 tablet by ity of w/FA tablet 00:00: mouth in [place] 00 the Medical morning. Branch docusate 2022-0 Yes [id number] 200mg Take 2 U nivers 100 mg 4-16 capsules ity of capsule 00:00: by mouth [place] 00 once daily Medical as needed Branch for Constipati on. ferrous 2022-0 Yes [id number] 325mg Take 1 Un jannette sulfate 325 4-16 tablet by ity of mg (65 mg 00:00: [place] iron[place] 00 the Medical tablet morning Branch and 1 tablet in the evening. ibuprofen 2022-0 Yes [id number] 600mg Take 1 Univers 600 mg 4-16 tablet by ity of tablet 00:00: mouth [place] 00 every 6 Medical (six) Branch hours as needed (Pain). Take with food or milk. furosemide 2022-0 Yes [id number] 20mg Take 1 Univers 20 mg 4-16 tablet by ity of tablet 00:00: mouth [place] 00 every Medical other day. Branch 2022-0 Yes [id number] 1{tbl} Take 1 Univers vitamin 4-16 tablet by ity of w/FA tablet 00:00: mouth in [place] 00 the Medical morning. Branch docusate Yes [id number] 200mg Take 2 U nivers 100 mg 4-16 capsules ity of capsule 00:00: by mouth [place] 00 once daily Medical as needed Branch for Constipati on. ferrous 2022- Yes [id number] 325mg Take 1 Un jannette sulfate 325 4-16 tablet by ity of mg (65 mg 00:00: mouth [place] iron[place] 00 the Medical tablet morning Branch and 1 tablet in the evening. ibuprofen Yes [id number] 600mg Take 1 Univers 600 mg 4-16 tablet by ity of tablet 00:00: mouth [place] 00 every 6 Medical (six) Branch hours as needed (Pain). Take with food or milk. HYDROcodone 2022- Yes [id number] 1{tbl} Take 1 U nivers -acetaminop 4-16 04-24 tablet by it y of hen 5-325 00:00: 04:59 mouth [place] mg tablet 00 :00 every 6 Medical (six) Branch hours as needed (Pain scale above 4) for up to 7 days. Do not exceed 3 grams of acetaminop hen in 24 hours. Indication s: acute pain HYDROcodone 2022- Yes [id number] 1{tbl} Take 1 U nivers -acetaminop 4-16 04-24 tablet by it y of hen 5-325 00:00: 04:59 mouth [place] mg tablet 00 :00 every 6 Medical (six) Branch hours as needed (Pain scale above 4) for up to 7 days. Do not exceed 3 grams of acetaminop hen in 24 hours. Indication s: acute pain HYDROcodone 2022- Yes [id number] 1{tbl} Take 1 U nivers -acetaminop 4-16 04-24 tablet by it y of hen 5-325 00:00: 04:59 mouth [place] mg tablet 00 :00 every 6 Medical (six) Branch hours as needed (Pain scale above 4) for up to 7 days. Do not exceed 3 grams of acetaminop hen in 24 hours. Indication s: acute pain HYDROcodone 2022-2022- Yes 4647 1{tbl} Take 1 U nivers -acetaminop 4-16 04-24 tablet by it y of hen 5-325 00:00: 04:59 mouth [place] mg tablet 00 :00 every 6 Medical (six) Branch hours as needed (Pain scale above 4) for up to 7 days. Do not exceed 3 grams of acetaminop hen in 24 hours. Indication s: acute pain HYDROcodone 2022- Yes 4647 1{tbl} Take 1 U nivers -acetaminop 4-16 04-24 tablet by it y of hen 5-325 00:00: 04:59 mouth [place] mg tablet 00 :00 every 6 Medical (six) Branch hours as needed (Pain scale above 4) for up to 7 days. Do not exceed 3 grams of acetaminop hen in 24 hours. Indication s: acute pain HYDROcodone 2022- Yes 4647 1{tbl} Take 1 U nivers -acetaminop 4-16 04-24 tablet by it y of hen 5-325 00:00: 04:59 mouth [place] mg tablet 00 :00 every 6 Medical (six) Branch hours as needed (Pain scale above 4) for up to 7 days. Do not exceed 3 grams of acetaminop hen in 24 hours. Indication s: acute pain HYDROcodone 2022- Yes 4647 1{tbl} Take 1 U nivers -acetaminop 4-16 04-24 tablet by it y of hen 5-325 00:00: 04:59 mouth [place] mg tablet 00 :00 every 6 Medical (six) Branch hours as needed (Pain scale above 4) for up to 7 days. Do not exceed 3 grams of acetaminop hen in 24 hours. Indication s: acute pain HYDROcodone 2022- Yes 4647 1{tbl} Take 1 U nivers -acetaminop 4-16 04-24 tablet by it y of hen 5-325 00:00: 04:59 mouth [place] mg tablet 00 :00 every 6 Medical (six) Branch hours as needed (Pain scale above 4) for up to 7 days. Do not exceed 3 grams of acetaminop hen in 24 hours. Indication s: acute pain HYDROcodone 2022- Yes 4647 1{tbl} Take 1 U nivers -acetaminop 4-16 04-24 tablet by it y of hen 5-325 00:00: 04:59 mouth [place] mg tablet 00 :00 every 6 Medical (six) Branch hours as needed (Pain scale above 4) for up to 7 days. Do not exceed 3 grams of acetaminop hen in 24 hours. Indication s: acute pain enoxaparin 2022-0 Yes 40mg 40 mg, Unive rs (LOVENOX) 4-15 Subcutaneo ity of injection 13:00: us, Q24H, [place] 40 mg 00 First dose Medical on Sat Branch 06/10/22 at 0800, Until Discontinu ed, Routine enoxaparin 0 2022- No 40mg 40 mg, Univ ers (LOVENOX) 06-10-16 Subcutaneo ity of injection 13:00: 18:34 [place], Q24H, [place] 40 mg 00 :05 First dose Medical on Sat Branch 06/10/22 at 0800, Until Discontinu ed, Routine acetaminoph 0 Yes 650mg 650 mg, Un jannette en 4-15 Oral, Q6H ity of (TYLENOL) 05:00: ABX, First [place] tablet 650 00 dose on Medica l mg Sat Branch 06/10/22 at 0000, Until Discontinu ed, Routine HYDROcodone 2022-0 Yes 1{tbl} 1 tablet, Univers -acetaminop 4-15 Oral, ity of hen (NORCO 05:00: Q6HPRN, [place] 5) 5-325 mg 00 Starting Medi daren tablet 1 on Sat Branch tablet 06/10/22 at 0000, Until Discontinu ed, Routine, Pain (scale 7-10), Alternate with Ibuprofen HYDROcodone 0 2022- No 1{tbl} 1 tablet, Univers -acetaminop -10 06-16 Oral, ity of hen (NORCO 05:00: 18:34 Q6HPRN, [place] 5) 5-325 mg 00 :05 Starting Medi daren tablet 1 on Sat Branch tablet 06/10/22 at 0000, Until 06/11/22 at 1334, Routine, Pain (scale 7-10), Alternate with Ibuprofen acetaminoph 0 2022- No 650mg 650 mg, U nivers en -10 06-16 Oral, Q6H ity of (TYLENOL) 05:00: 18:34 ABX, First [place] tablet 650 00 :05 dose on Medica l mg Sat Branch 06/10/22 at 0000, Until Discontinu ed, Routine ketorolac No 30mg 30 mg, Unive rs (TORADOL) 06-10 Slow IV ity of injection 01:32: 19:54 Push, Q6H [place] 30 mg 30 :00 ABX, 4 Medical doses, Branch First dose (after last modificati on) on Sun06/09/22 at 2045, Last dose on Sun06/10/22 at 1445, Routine gabapentin Yes 300mg 300 mg, Uni vers (NEURONTIN) 06-09 Oral, TID, it y of capsule 300 19:00: First dose [place] mg 00 on Sun [facility] 06/09/22 at Branch 1400, Until Discontinu ed, Routine gabapentin No 300mg 300 mg, Un jannette (NEURONTIN) 06-0916 Oral, TID, i ty of capsule 300 19:00: 18:34 First dose [place] mg 00 :05 on Sun [facility] 06/09/22 at Branch 1400, Until Discontinu ed, Routine rho(D) Yes 300ug 300 mcg, Univer s immune 06-09 Intramuscu ity of globulin 15:19: lar, ONCE, [place] (RHOGAM) 59 For 1 Medical syringe 300 dose, Branch mcg Conditiona l, Routine rho(D) No 300ug 300 mcg, Unive rs immune 06-0916 Intramuscu ity of globulin 15:19: 18:34 lar, ONCE, [place] (RHOGAM) 59 :05 For 1 Medical syringe 300 dose, Branch mcg Conditiona l, Routine diphenhydrA Yes 25mg 25 mg, Univ ers MINE 06-09 Slow IV ity of (BENADRYL) 15:19: Push, [place] injection 54 Q6HPRN, Medical 25 mg Starting Branch on Sun06/09/22 at 1019, Until Discontinu ed, Routine, Itching diphenhydrA Yes 25mg 25 mg, Univ ers MINE 06-09 Oral, ity of (BENADRYL) 15:19: Q6HPRN, [place] tablet 25 54 Starting Medica l mg on Sun [place] 06/09/22 at 1019, Until Discontinu ed, Routine, Sleep, Itching ondansetron 2022-0 Yes 4mg 4 mg, Slow Univers (ZOFRAN 4-14 IV Push, ity of (PF)) 15:19: Q8HPRN, [place] injection 4 54 Starting Medi daren mg on Sun Branch 06/09/22 at 1019, Until Discontinu ed, Routine, Nausea and Vomiting (N/V) bisacodyL 2022-0 Yes 10mg 10 mg, Univer s (DULCOLAX) 4-14 Rectal, ity of suppository 15:19: QDAILYPRN, [place] 10 mg 54 Starting Medical on Sun Branch 06/09/22 at 1019, Until Discontinu ed, Routine, Constipati on simethicone 2022-0 Yes 160mg 160 mg, Un jannette (GAS RELIEF -14 Oral, ity of (SIMETHICON 15:19: PC+HSPRN, [place] E)) 54 Starting Medical chewable on Sun tablet 160 06/09/22 at mg 1019, Until Discontinu ed, Routine, Gas docusate 2022-0 Yes 200mg 200 mg, Unive rs (COLACE) 4-14 Oral, ity of capsule 200 15:19: QDAILYPRN, [place] mg 54 Starting Medical on Sun Branch 06/09/22 at 1019, Until Discontinu ed, Routine, Constipati on magnesium 2022-0 Yes 30mL 30 mL, Univer s hydroxide 4-14 Oral, ity of (MILK OF 15:19: QDAILYPRN, [place] MAGNESIA) 54 Starting Medica l 400 mg/5 mL on Sun Branch suspension 06/09/22 at 30 mL 1019, Until Discontinu ed, Routine, Constipati on lactated 2022-0 Yes 1000mL at 125 Unive rs ringers IV 4-14 mL/hr, ity of infusion 15:19: 1,000 mL, [place] 1,000 mL 54 IV Medical Infusion, Branch PRN, 1 dose, Starting on Sun06/09/22 at 1019, Until Discontinu ed, Routine diphenhydrA 3-0 2023- No 25mg 25 mg, Uni vers MINE 14 04-16 Slow IV ity of (BENADRYL) 15:19: 18:34 Push, [place] injection 54 :05 Q6HPRN, Medical 25 mg Starting Branch on 06/09/22 at 1019, Until 06/11/22 at 1334, Routine, Itching diphenhydrA 2022- No 25mg 25 mg, Uni vers MINE 06-09 Oral, ity of (BENADRYL) 15:19: 18:34 Q6HPRN, [place] tablet 25 54 :05 Starting Medica l mg on Fri Branch 06/09/22 at 1019, Until 06/11/22 at 1334, Routine, Sleep, Itching ondansetron 2022- No 4mg 4 mg, Slow Univers (ZOFRAN 06-09 IV Push, ity of (PF)) 15:19: 18:34 Q8HPRN, [place] injection 4 54 :05 Starting Medi daren mg on Fri Branch 06/09/22 at 1019, Until 06/11/22 at 1334, Routine, Nausea and Vomiting (N/V) bisacodyL 2022- No 10mg 10 mg, Unive rs (DULCOLAX) 06-09 Rectal, ity o f suppository 15:19: 18:34 QDAILYPRN, [place] 10 mg 54 :05 Starting Medical on Fri Branch 06/09/22 at 1019, Until 06/11/22 at 1334, Routine, Constipati on simethicone 2022- No 160mg 160 mg, U nivers (GAS RELIEF 06-09 Oral, ity of (SIMETHICON 15:19: 18:34 PC+HSPRN, [place] E)) 54 :05 Starting Medical chewable on Sun Branch tablet 160 06/09/22 at mg 1019, Until 06/11/22 at 1334, Routine, Gas docusate 2022- No 200mg 200 mg, Univ ers (COLACE) 06-09 Oral, ity of capsule 200 15:19: 18:34 QDAILYPRN, [place] mg 54 :05 Starting Medical on Fri Branch 06/09/22 at 1019, Until 06/11/22 at 1334, Routine, Constipati on magnesium 2022- No 30mL 30 mL, Unive rs hydroxide 06-09 Oral, ity of (MILK OF 15:19: 18:34 QDAILYPRN, [place] MAGNESIA) 54 :05 Starting Medica l 400 mg/5 mL on Fri Branch suspension 06/09/22 at 30 mL 1019, Until 06/11/22 at 1334, Routine, Constipati on lactated 0 2022- No 1000mL at 125 [facility] ers ringers IV 06-09-16 mL/hr, ity of infusion 15:19: 18:34 1,000 mL, [place] 1,000 mL 54 :05 IV Medical Infusion, Branch PRN, 1 dose, Starting on 06/09/22 at 1019, Until 06/11/22 at 1334, Routine lactated 2022- No 1000mL at 125 [facility] ers ringers IV 06-09-14 mL/hr, ity of infusion 13:00: 15:20 1,000 mL, [place] 1,000 mL 00 :11 IV Medical Infusion, Branch CONTINUOUS , Starting on Sun06/09/22 at 0800, Until 06/09/22 at 1020, MAXX sodium 2022- No 30mL 30 mL, Univers citrate-cit 06-09 Oral, ity of jordon acid 10:40: 12:39 PRE-PROCED [place] (BICITRA) 24 :00 URE ONCE, Medic al 500-334 1 dose, Branch mg/5 mL Starting solution 30 on Fri mL 06/09/22 at 0540, Until Discontinu ed, Routine, Surgery/Pr ocedure meclizine 0 Yes [id number] 25mg Take 1 U nivers 25 mg 4-06 tablet by ity of tablet 00:00: mouth 3 [place] 00 (three) Medical times Branch daily as needed for Dizziness. cetirizine 2022-0 Yes [id number] 10mg Take 1 Univers 10 mg 4-06 tablet by ity of tablet 00:00: mouth in [place] 00 the Medical morning. Branch meclizine 0 Yes [id number] 25mg Take 1 U nivers 25 mg 4-06 tablet by ity of tablet 00:00: mouth 3 [place] 00 (three) Medical times Branch daily as needed for Dizziness. cetirizine Yes [id number] 10mg Take 1 Univers 10 mg 4-06 tablet by ity of tablet 00:00: mouth in [place] 00 the Medical morning. Branch meclizine 2022- No [id number] 25mg Take 1 Univers 25 mg 4-06 04-16 tablet by ity of tablet 00:00: 00:00 mouth 3 [place] 00 :00 (three) Medical times [place] daily as needed for Dizziness. cetirizine 2022- No [id number] 10mg Take 1 Univers 10 mg -07 30-16 tablet by ity of tablet 00:00: 00:00 mouth in [place] 00 :00 the Medical morning. Branch cetirizine Yes 10mg 10 mg, Unive rs (ZYRTEC) 4-05 Oral, ity of tablet 10 14:00: DAILY, [place] mg 00 First dose Medical on Sun [place] 05/31/22 at 0900, Until Discontinu ed, Routine azithromyci 2022- Yes [id number] 250mg Take 1 Univers n 250 mg 4-05 04-10 tablet by ity o f tablet 00:00: 04:59 mouth in [place] 00 :00 the [facility] morning [place] for 4 days. azithromyci 2022- Yes [id number] 250mg Take 1 Univers n 250 mg 4-05 04-10 tablet by ity o f tablet 00:00: 04:59 mouth in [place] 00 :00 the [facility] for 4 days. azithromyci 2022- Yes [id number] 250mg Take 1 Univers n 250 mg 4-05 04-10 tablet by ity o f tablet 00:00: 04:59 mouth in [place] 00 :00 the [facility] for 4 days. cetirizine Yes cetirizine U nivers 10 mg 4-04 10 mg ity of tablet 16:56: tablet [address] cetirizine Yes cetirizine U nivers 10 mg 4-04 10 mg ity of tablet 16:56: tablet [address] cetirizine Yes cetirizine U nivers 10 mg 4-04 10 mg ity of tablet 16:56: tablet [address] cetirizine 2022-0 Yes cetirizine U nivers 10 mg 4-04 10 mg ity of tablet 16:56: tablet [address] azithromyci 3-0 2023- No 500mg 500 mg, U nivers n 4-04 04-04 Oral, ity of (ZITHROMAX) 16:15: 15:35 ONCE, 1 [place] tablet 500 00 :00 dose, On Medic al mg [facility] 05/30/22 Branch at 1115, MAXX
Re ason for Anti-Infec tive: Documented Infection< br>Documen marjorie Infection Site: HEENT
D uration of Therapy: Other (see Comments) butalbital- 3-0 202- No 2{tbl} 2 tablet, Univers acetaminoph 05-30 04-04 Oral, ity of en-caff 14:45: 14:04 ONCE, 1 [place] (ESGIC) 00 :00 dose, On Medical 50-325-40 [facility] 05/30/22 Bran ch mg tablet 2 at 0945, tablet Routine cetirizine 2022-0 Yes cetirizine U nivers 10 mg 4-04 10 mg ity of tablet 13:11: tablet [address] acyclovir 2023-0 Yes [id number] 400mg Take 1 Univers 400 mg 3-23 tablet by ity of tablet 00:00: mouth in [address] and 1 tablet in the evening. acyclovir 2023-0 Yes [id number] 400mg Take 1 Univers 400 mg 3-23 tablet by ity of tablet 00:00: mouth in [address] and 1 tablet in the evening. acyclovir 2023-0 Yes [id number] 400mg Take 1 Univers 400 mg 3-23 tablet by ity of tablet 00:00: mouth in [address] and 1 tablet in the evening. acyclovir 2023-0 Yes [id number] 400mg Take 1 [facility] 400 mg 3-23 tablet by ity of tablet 00:00: mouth in [address] and 1 tablet in the evening. acyclovir 2023-0 Yes [id number] 400mg Take 1 [facility] 400 mg 3-23 tablet by ity of tablet 00:00: mouth in [address] and 1 tablet in the evening. acyclovir 2023-0 Yes [id number] 400mg Take 1 Univers 400 mg 3-23 tablet by ity of tablet 00:00: mouth in [address] and 1 tablet in the evening. acyclovir 2023-0 Yes [id number] 400mg Take 1 Univers 400 mg 3-23 tablet by ity of tablet 00:00: mouth in [address] and 1 tablet in the evening. acyclovir 2023-0 Yes [id number] 400mg Take 1 Univers 400 mg 3-23 tablet by ity of tablet 00:00: mouth in [address] and 1 tablet in the evening. acyclovir 2023-0 Yes [id number] 400mg Take 1 Univers 400 mg 3-23 tablet by ity of tablet 00:00: mouth in [address] and 1 tablet in the evening. acyclovir 2023-0 Yes [id number] 400mg Take 1 Univers 400 mg 3-23 tablet by ity of tablet 00:00: mouth in [address] and 1 tablet in the evening. acyclovir 2023-0 Yes [id number] 400mg Take 1 Univers 400 mg 3-23 tablet by ity of tablet 00:00: mouth in [address] and 1 tablet in the evening. acyclovir 2023-0 Yes [id number] 400mg Take 1 Univers 400 mg 3-23 tablet by ity of tablet 00:00: mouth in [address] and 1 tablet in the evening. acyclovir 2023-0 Yes [id number] 400mg Take 1 Univers 400 mg 3-23 tablet by ity of tablet 00:00: mouth in [address] and 1 tablet in the evening. acyclovir 2023-0 2023- No [id number] 400mg Take 1 Univers 400 mg 3-23 04-16 tablet by ity of tablet 00:00: 00:00 mouth in [place] 00 :00 [facility] and 1 tablet in the evening. cetirizine 2023-0 Yes cetirizine U nivers 10 mg 2-24 10 mg ity of tablet 22:06: tablet [address] cetirizine 2023-0 Yes cetirizine U nivers 10 mg 2-24 10 mg ity of tablet 22:06: tablet [address] cetirizine 0 Yes cetirizine U nivers 10 mg 2-24 10 mg ity of tablet 22:06: tablet [address] cetirizine 2022- Yes cetirizine U nivers 10 mg 2-24 10 mg ity of tablet 22:06: tablet [address] cetirizine 2022-0 Yes cetirizine U nivers 10 mg 2-24 10 mg ity of tablet 22:06: tablet [address] cetirizine 2022- Yes cetirizine U nivers 10 mg 2-24 10 mg ity of tablet 22:06: tablet [address] cetirizine Yes cetirizine U nivers 10 mg 2-24 10 mg ity of tablet 22:06: tablet [address] cetirizine Yes cetirizine U nivers 10 mg 2-24 10 mg ity of tablet 22:06: tablet [address] cetirizine Yes cetirizine U nivers 10 mg 2-24 10 mg ity of tablet 22:06: tablet [address] cetirizine Yes cetirizine U nivers 10 mg 2-24 10 mg ity of tablet 22:06: tablet [address] [id number] IV 0 Yes 1000mL at 125 Univ ers infusion 2-22 mL/hr, IV ity of 1,000 mL 23:00: Infusion, [place] 00 CONTINUOUS Medical , Starting Branch on Sun04/19/22 at 1700, Until Discontinu ed, Routine NaCl 0.9% 2022- No 500mL at 999 Univ ers (NS) bolus -19 04-22 mL/hr, 500 it y of infusion 22:45: 22:49 mL, IV [place] 500 mL 00 :00 Infusion, Medical ONCE, 1 Branch dose, On Sun04/19/22 at 1645, STAT cetirizine 0 Yes cetirizine U nivers 10 mg 2-22 10 mg ity of tablet 19:22: tablet [address] cetirizine 0 Yes cetirizine U nivers 10 mg 2-22 10 mg ity of tablet 19:22: tablet [place] 35 Medical Branch cetirizine 2022-0 Yes cetirizine U nivers 10 mg 2-22 10 mg ity of tablet 14:25: tablet [place] 36 Medical Branch fluconazole 3-0 Yes [id number] 200mg Take 1 Univers (DIFLUCAN) 2-08 tablet by ity of 200 mg 00:00: mouth in [place] tablet 00 the Medical morning. Branch fluconazole 3-0 Yes [id number] 200mg Take 1 Univers (DIFLUCAN) 2-08 tablet by ity of 200 mg 00:00: mouth in [place] tablet 00 the Medical morning. Branch fluconazole 3-0 Yes [id number] 200mg Take 1 Univers (DIFLUCAN) 2-08 tablet by ity of 200 mg 00:00: mouth in [place] tablet 00 the Medical morning. Branch fluconazole 2022-0 Yes [id number] 200mg Take 1 Univers (DIFLUCAN) 2-08 tablet by ity of 200 mg 00:00: mouth in [place] tablet 00 the Medical morning. Branch fluconazole 2022-0 Yes [id number] 200mg Take 1 Univers (DIFLUCAN) 2-08 tablet by ity of 200 mg 00:00: mouth in [place] tablet 00 the Medical morning. Branch fluconazole 3-0 Yes [id number] 200mg Take 1 Univers (DIFLUCAN) 2-08 tablet by ity of 200 mg 00:00: mouth in [place] tablet 00 the Medical morning. Branch fluconazole 3-0 Yes [id number] 200mg Take 1 Univers (DIFLUCAN) 2-08 tablet by ity of 200 mg 00:00: mouth in [place] tablet 00 the Medical morning. Branch fluconazole 3-0 Yes [id number] 200mg Take 1 Univers (DIFLUCAN) 2-08 tablet by ity of 200 mg 00:00: mouth in [place] tablet 00 the Medical morning. Branch fluconazole 3-0 Yes [id number] 200mg Take 1 Univers (DIFLUCAN) 2-08 tablet by ity of 200 mg 00:00: mouth in [place] tablet 00 the Medical morning. Branch fluconazole 3-0 Yes [id number] 200mg Take 1 Univers (DIFLUCAN) 2-08 tablet by ity of 200 mg 00:00: mouth in [place] tablet 00 the Medical morning. Branch fluconazole 3-0 Yes [id number] 200mg Take 1 Univers (DIFLUCAN) 2-08 tablet by ity of 200 mg 00:00: mouth in [place] tablet 00 the Medical morning. Branch fluconazole 2022-0 Yes [id number] 200mg Take 1 Univers (DIFLUCAN) 2-08 tablet by ity of 200 mg 00:00: mouth in [place] tablet 00 the Medical morning. Branch fluconazole 3-0 Yes [id number] 200mg Take 1 Univers (DIFLUCAN) 2-08 tablet by ity of 200 mg 00:00: mouth in [place] tablet 00 the Medical morning. Branch fluconazole 2022-0 Yes [id number] 200mg Take 1 Univers (DIFLUCAN) 2-08 tablet by ity of 200 mg 00:00: mouth in [place] tablet 00 the Medical morning. Branch fluconazole 2022-0 Yes [id number] 200mg Take 1 Univers (DIFLUCAN) 2-08 tablet by ity of 200 mg 00:00: mouth in [place] tablet 00 the Medical morning. Branch fluconazole 2022-0 Yes [id number] 200mg Take 1 Univers (DIFLUCAN) 2-08 tablet by ity of 200 mg 00:00: mouth in [place] tablet 00 the Medical morning. Branch fluconazole 2022-0 2023- No [id number] 200mg Take 1 Univers (DIFLUCAN) 2-08 04-04 tablet by ity of 200 mg 00:00: 00:00 mouth in [place] tablet 00 :00 the Medical morning. Branch ferrous 2022-0 Yes [id number] 325mg Take 1 Un jannette sulfate 2-07 tablet by ity of (IRON, 00:00: mouth in [place] FERROUS 00 the Medical SULFATE,) morning Branch 325 mg (65 and 1 mg iron) tablet in tablet the evening. ferrous 2022-0 Yes [id number] 325mg Take 1 Un jannette sulfate 2-07 tablet by ity of (IRON, 00:00: mouth in [place] FERROUS 00 the Medical SULFATE,) morning Branch 325 mg (65 and 1 mg iron) tablet in tablet the evening. ferrous 2022-0 Yes [id number] 325mg Take 1 Un jannette sulfate 2-07 tablet by ity of (IRON, 00:00: mouth in [place] FERROUS 00 the Medical SULFATE,) morning Branch 325 mg (65 and 1 mg iron) tablet in tablet the evening. ferrous 2022-0 Yes [id number] 325mg Take 1 Un jannette sulfate 2-07 tablet by ity of (IRON, 00:00: mouth in [place] FERROUS 00 the Medical SULFATE,) morning Branch 325 mg (65 and 1 mg iron) tablet in tablet the evening. ferrous Yes [id number] 325mg Take 1 Un jannette sulfate 2-07 tablet by ity of (IRON, 00:00: mouth in [place] FERROUS 00 the Medical SULFATE,) morning Branch 325 mg (65 and 1 mg iron) tablet in tablet the evening. ferrous Yes [id number] 325mg Take 1 Un jannette sulfate 2-07 tablet by ity of (IRON, 00:00: mouth in [place] FERROUS 00 the Medical SULFATE,) morning Branch 325 mg (65 and 1 mg iron) tablet in tablet the evening. ferrous Yes [id number] 325mg Take 1 Un jannette sulfate 2-07 tablet by ity of (IRON, 00:00: mouth in [place] FERROUS 00 the Medical SULFATE,) morning Branch 325 mg (65 and 1 mg iron) tablet in tablet the evening. ferrous Yes [id number] 325mg Take 1 Un jannette sulfate 2-07 tablet by ity of (IRON, 00:00: mouth in [place] FERROUS 00 the Medical SULFATE,) morning Branch 325 mg (65 and 1 mg iron) tablet in tablet the evening. ferrous Yes [id number] 325mg Take 1 Un jannette sulfate 2-07 tablet by ity of (IRON, 00:00: mouth in [place] FERROUS 00 the Medical SULFATE,) morning Branch 325 mg (65 and 1 mg iron) tablet in tablet the evening. ferrous Yes [id number] 325mg Take 1 Un jannette sulfate 2-07 tablet by ity of (IRON, 00:00: mouth in [place] FERROUS 00 the Medical SULFATE,) morning Branch 325 mg (65 and 1 mg iron) tablet in tablet the evening. ferrous Yes [id number] 325mg Take 1 Un jannette sulfate 2-07 tablet by ity of (IRON, 00:00: mouth in [place] FERROUS 00 the Medical SULFATE,) morning Branch 325 mg (65 and 1 mg iron) tablet in tablet the evening. ferrous Yes [id number] 325mg Take 1 Un jannette sulfate 2-07 tablet by ity of (IRON, 00:00: mouth in [place] FERROUS 00 the Medical SULFATE,) morning Branch 325 mg (65 and 1 mg iron) tablet in tablet the evening. ferrous 2022-0 Yes [id number] 325mg Take 1 Un jannette sulfate 2-07 tablet by ity of (IRON, 00:00: mouth in [place] FERROUS 00 the Medical SULFATE,) morning Branch 325 mg (65 and 1 mg iron) tablet in tablet the evening. ferrous 0 Yes [id number] 325mg Take 1 Un jannette sulfate 2-07 tablet by ity of (IRON, 00:00: mouth in [place] FERROUS 00 the Medical SULFATE,) morning Branch 325 mg (65 and 1 mg iron) tablet in tablet the evening. ferrous 0 Yes [id number] 325mg Take 1 Un jannette sulfate 2-07 tablet by ity of (IRON, 00:00: mouth in [place] FERROUS 00 the Medical SULFATE,) morning Branch 325 mg (65 and 1 mg iron) tablet in tablet the evening. ferrous 0 Yes [id number] 325mg Take 1 Un jannette sulfate 2-07 tablet by ity of (IRON, 00:00: mouth in [place] FERROUS 00 the Medical SULFATE,) morning Branch 325 mg (65 and 1 mg iron) tablet in tablet the evening. ferrous 0 Yes [id number] 325mg Take 1 Un jannette sulfate 2-07 tablet by ity of (IRON, 00:00: mouth in [place] FERROUS 00 the Medical SULFATE,) morning Branch 325 mg (65 and 1 mg iron) tablet in tablet the evening. ferrous 0 Yes [id number] 325mg Take 1 Un jannette sulfate 2-07 tablet by ity of (IRON, 00:00: mouth in [place] FERROUS 00 the Medical SULFATE,) morning Branch 325 mg (65 and 1 mg iron) tablet in tablet the evening. ferrous 0 Yes [id number] 325mg Take 1 Un jannette sulfate 2-07 tablet by ity of (IRON, 00:00: mouth in [place] FERROUS 00 the Medical SULFATE,) morning Branch 325 mg (65 and 1 mg iron) tablet in tablet the evening. ferrous 2022-0 Yes [id number] 325mg Take 1 Un jannette sulfate 2-07 tablet by ity of (IRON, 00:00: mouth in [place] FERROUS 00 the Medical SULFATE,) morning Branch 325 mg (65 and 1 mg iron) tablet in tablet the evening. ferrous 2022-0 Yes [id number] 325mg Take 1 Un jannette sulfate 2-07 tablet by ity of (IRON, 00:00: mouth in [place] FERROUS 00 the Medical SULFATE,) morning Branch 325 mg (65 and 1 mg iron) tablet in tablet the evening. ferrous 2022- No [id number] 325mg Take 1 U nivers sulfate 04-04-16 tablet by ity of (IRON, 00:00: 00:00 mouth in [place] FERROUS 00 :00 the Medical SULFATE,) morning Branch 325 mg (65 and 1 mg iron) tablet in tablet the evening. ferrous 2022- No [id number] 325mg Take 1 U nivers sulfate 04-04-16 tablet by ity of (IRON, 00:00: 00:00 mouth in [place] FERROUS 00 :00 the Medical SULFATE,) morning Branch 325 mg (65 and 1 mg iron) tablet in tablet the evening. ferrous 2022- No [id number] 325mg Take 1 U nivers sulfate 04-04 tablet by ity of (IRON, 00:00: 00:00 mouth in [place] FERROUS 00 :00 the Medical SULFATE,) morning Branch 325 mg (65 and 1 mg iron) tablet in tablet the evening. aspirin 2021-02 Yes [id number] 81mg Take 1 U nivers mg EC 0-13 tablet by ity of tablet 00:00: mouth in [place] the Medical morning. Branch aspirin 2021-02 Yes [id number] 81mg Take 1 U nivers mg EC 0-13 tablet by ity of tablet 00:00: mouth in [place] the Medical morning. Branch aspirin 2021-02 Yes [id number] 81mg Take 1 U nivers mg EC 0-13 tablet by ity of tablet 00:00: mouth in [place] the Medical morning. Branch aspirin 2021-02 Yes [id number] 81mg Take 1 U nivers mg EC 0-13 tablet by ity of tablet 00:00: mouth in [place] the Medical morning. Branch aspirin 2021-02 Yes [id number] 81mg Take 1 U nivers mg EC 0-13 tablet by ity of tablet 00:00: mouth in [place] the Medical morning. Branch aspirin 2021-02 Yes [id number] 81mg Take 1 U nivers mg EC 0-13 tablet by ity of tablet 00:00: mouth in [place] 00 the Medical morning. Branch aspirin 81 2021-02 Yes [id number] 81mg Take 1 U nivers mg EC 0-13 tablet by ity of tablet 00:00: mouth in [place] the Medical morning. Branch aspirin 81 2021-02 Yes [id number] 81mg Take 1 [facility] mg EC 0-13 tablet by [facility] of tablet 00:00: mouth in [place] 00 the Medical morning. Branch aspirin 81 2021-02 Yes [id number] 81mg Take 1 [facility] mg EC 0-13 tablet by [facility] of tablet 00:00: mouth in [place] 00 the Medical morning. Branch aspirin 81 2021-02 Yes [id number] 81mg Take 1 [facility] mg EC 0-13 tablet by [facility] of tablet 00:00: mouth in [place] 00 the Medical morning. Branch aspirin 81 2021-02 Yes [id number] 81mg Take 1 [facility] mg EC 0-13 tablet by [facility] of tablet 00:00: mouth in [place] the Medical morning. Branch aspirin 2021-02 Yes [id number] 81mg Take 1 [facility] mg EC 0-13 tablet by [facility] of tablet 00:00: mouth in [place] the Medical morning. Branch aspirin 2021-02 Yes [id number] 81mg Take 1 [facility] mg EC 0-13 tablet by [facility] of tablet 00:00: mouth in [place] the Medical morning. Branch aspirin 2021-02 Yes [id number] 81mg Take 1 [facility] mg EC 0-13 tablet by [facility] of tablet 00:00: mouth in [place] the Medical morning. Branch aspirin 2021-02 Yes [id number] 81mg Take 1 [facility] mg EC 0-13 tablet by [facility] of tablet 00:00: mouth in [place] 00 the Medical morning. Branch aspirin 81 2021-02 Yes [id number] 81mg Take 1 [facility] mg EC 0-13 tablet by [facility] of tablet 00:00: mouth in [place] 00 the Medical morning. Branch aspirin 81 2021-02 Yes [id number] 81mg Take 1 [facility] mg EC 0-13 tablet by [facility] of tablet 00:00: mouth in [place] 00 the Medical morning. Branch aspirin 81 2021-02 Yes [id number] 81mg Take 1 [facility] mg EC 0-13 tablet by [facility] of tablet 00:00: mouth in [place] 00 the Medical morning. Branch aspirin 81 2021-02 Yes [id number] 81mg Take 1 [facility] mg EC 0-13 tablet by [facility] of tablet 00:00: mouth in [place] 00 the Medical morning. Branch aspirin 81 2021-02 Yes [id number] 81mg Take 1 [facility] mg EC 0-13 tablet by [facility] of tablet 00:00: mouth in [place] 00 the Medical morning. Branch aspirin 81 2021-02 Yes [id number] 81mg Take 1 [facility] mg EC 0-13 tablet by [facility] of tablet 00:00: mouth in [place] 00 the Medical morning. Branch aspirin 81 2021-02 Yes [id number] 81mg Take 1 [facility] mg EC 0-13 tablet by [facility] of tablet 00:00: mouth in [place] 00 the Medical morning. Branch aspirin 81 2021-02 Yes [id number] 81mg Take 1 [facility] mg EC 0-13 tablet by [facility] of tablet 00:00: mouth in [place] the Medical morning. Branch aspirin 81 2021-02 Yes [id number] 81mg Take 1 [facility] mg EC 0-13 tablet by [facility] of tablet 00:00: mouth in [place] the Medical morning. Branch aspirin 81 2021-02 Yes [id number] 81mg Take 1 [facility] mg EC 0-13 tablet by [facility] of tablet 00:00: mouth in [place] the Medical morning. Branch aspirin 81 2021-02 Yes [id number] 81mg Take 1 [facility] mg EC 0-13 tablet by [facility] of tablet 00:00: mouth in [place] the Medical morning. Branch aspirin 81 2021-02 Yes [id number] 81mg Take 1 [facility] mg EC 0-13 tablet by [facility] of tablet 00:00: mouth in [place] 00 the Medical morning. Branch aspirin 81 2021-02 Yes [id number] 81mg Take 1 [facility] mg EC 0-13 tablet by [facility] of tablet 00:00: mouth in [place] 00 the Medical morning. Branch aspirin 81 2021-02 Yes [id number] 81mg Take 1 [facility] mg EC 0-13 tablet by [facility] of tablet 00:00: mouth in [place] 00 the Medical morning. Branch aspirin 81 2021-02 Yes [id number] 81mg Take 1 [facility] mg EC 0-13 tablet by [facility] of tablet 00:00: mouth in [place] the Medical morning. Branch aspirin 81 2021-02 Yes [id number] 81mg Take 1 [facility] mg EC 0-13 tablet by [facility] of tablet 00:00: mouth in [place] the Medical morning. Branch aspirin 81 2021-02 Yes [id number] 81mg Take 1 [facility] mg EC 0-13 tablet by [facility] of tablet 00:00: mouth in [place] the Medical morning. Branch aspirin 81 2021-02 Yes [id number] 81mg Take 1 [facility] mg EC 0-13 tablet by [facility] of tablet 00:00: mouth in [place] the Medical morning. Branch aspirin 81 2021-02 Yes [id number] 81mg Take 1 [facility] mg EC 0-13 tablet by [facility] of tablet 00:00: mouth in [place] the Medical morning. Branch aspirin 81 2021-02 Yes [id number] 81mg Take 1 [facility] mg EC 0-13 tablet by [facility] of tablet 00:00: mouth in [place] the Medical morning. Branch aspirin 81 2021-02 Yes [id number] 81mg Take 1 [facility] mg EC 0-13 tablet by [facility] of tablet 00:00: mouth in [place] the Medical morning. Branch aspirin 81 2021-02 Yes [id number] 81mg Take 1 [facility] mg EC 0-13 tablet by [facility] of tablet 00:00: mouth in [place] the Medical morning. Branch aspirin 2021-02 Yes [id number] 81mg Take 1 [facility] mg EC 0-13 tablet by [facility] of tablet 00:00: mouth in [place] the Medical morning. Branch aspirin 81 2021-02 Yes [id number] 81mg Take 1 [facility] mg EC 0-13 tablet by [facility] of tablet 00:00: mouth in [place] the Medical morning. Branch aspirin 81 2021-02 Yes [id number] 81mg Take 1 [facility] mg EC 0-13 tablet by [facility] of tablet 00:00: mouth in [place] 00 the Medical morning. Branch aspirin 81 2021-02 Yes [id number] 81mg Take 1 [facility] mg EC 0-13 tablet by [facility] of tablet 00:00: mouth in [place] 00 the Medical morning. Branch aspirin 81 2021-02 Yes [id number] 81mg Take 1 [facility] mg EC 0-13 tablet by [facility] of tablet 00:00: mouth in [place] 00 the Medical morning. Branch aspirin 81 2021-02 Yes [id number] 81mg Take 1 [facility] mg EC 0-13 tablet by [facility] of tablet 00:00: mouth in [place] 00 the Medical morning. Branch aspirin 81 2021-02- No [id number] 81mg Take 1 [facility] mg EC 0-13 04-16 tablet by [facility] of tablet 00:00: 00:00 mouth in [place] 00 :00 the Medical morning. Branch aspirin 81 2021-02- No [id number] 81mg Take 1 [facility] mg EC 0-13 04-16 tablet by [facility] of tablet 00:00: 00:00 mouth in [place] 00 :00 the Medical morning. Branch aspirin 81 2021-02- No [id number] 81mg Take 1 [facility] mg EC 0-13 04-16 tablet by [facility] of tablet 00:00: 00:00 mouth in [place] 00 :00 the Medical morning. Branch VITAMIN K2 2021-0 2021- No vitamin K2 [facility] ORAL 914 09-14 ity of 11:31: 00:00 [place] 09 :00 Medical Branch 2021-0 Yes [id number] TAKE 1 [facility] VITAMIN 9-12 TABLET BY ity of 00:00: MOUTH [place] 00 EVERY Medical MORNING Branch 2021-0 Yes [id number] TAKE 1 [facility] VITAMIN 9-12 TABLET BY ity of 00:00: MOUTH [place] 00 EVERY Medical MORNING Branch 2021-0 Yes [id number] TAKE 1 [facility] VITAMIN 9-12 TABLET BY ity of 00:00: MOUTH [place] 00 EVERY Medical MORNING Branch 2022-0 Yes [id number] TAKE 1 [facility] VITAMIN 9-12 TABLET BY ity of 00:00: MOUTH [place] 00 EVERY Medical MORNING Branch 2-0 Yes [id number] TAKE 1 [facility] VITAMIN 9-12 TABLET BY ity of 00:00: MOUTH [place] 00 EVERY Medical MORNING Branch 2022-0 Yes [id number] TAKE 1 [facility] VITAMIN 9-12 TABLET BY ity of 00:00: MOUTH [place] 00 EVERY Medical MORNING Branch 2022-0 Yes [id number] TAKE 1 [facility] VITAMIN 9-12 TABLET BY ity of 00:00: MOUTH [place] 00 EVERY Medical MORNING Branch 2022-0 Yes [id number] TAKE 1 [facility] VITAMIN 9-12 TABLET BY ity of 00:00: MOUTH [place] 00 EVERY Medical MORNING Branch 2022-0 Yes [id number] TAKE 1 [facility] VITAMIN 9-12 TABLET BY ity of 00:00: MOUTH [place] 00 EVERY Medical MORNING Branch 2022-0 Yes [id number] TAKE 1 [facility] VITAMIN 9-12 TABLET BY ity of 00:00: MOUTH [place] 00 EVERY Medical MORNING Branch 2022-0 Yes [id number] TAKE 1 [facility] VITAMIN 9-12 TABLET BY ity of 00:00: MOUTH [place] 00 EVERY Medical MORNING Branch 2022-0 Yes [id number] TAKE 1 [facility] VITAMIN 9-12 TABLET BY ity of 00:00: MOUTH [place] 00 EVERY Medical MORNING Branch 2022-0 Yes [id number] TAKE 1 [facility] VITAMIN 9-12 TABLET BY ity of 00:00: MOUTH [place] 00 EVERY Medical MORNING Branch 2022-0 Yes [id number] TAKE 1 [facility] VITAMIN 9-12 TABLET BY ity of 00:00: MOUTH [place] 00 EVERY Medical MORNING Branch 2022-0 Yes [id number] TAKE 1 [facility] VITAMIN 9-12 TABLET BY ity of 00:00: MOUTH [place] 00 EVERY Medical MORNING Branch 2022-0 Yes [id number] TAKE 1 [facility] VITAMIN 9-12 TABLET BY ity of 00:00: MOUTH [place] 00 EVERY Medical MORNING Branch 2022-0 Yes [id number] TAKE 1 [facility] VITAMIN 9-12 TABLET BY ity of 00:00: MOUTH [place] 00 EVERY Medical MORNING Branch 2022-0 Yes [id number] TAKE 1 [facility] VITAMIN 9-12 TABLET BY ity of 00:00: MOUTH [place] 00 EVERY Medical MORNING Branch 2022-0 Yes [id number] TAKE 1 [facility] VITAMIN 9-12 TABLET BY it[facility] of 00:00: MOUTH [place] 00 EVERY Medical MORNING Branch 2022-0 Yes [id number] TAKE 1 [facility] VITAMIN 9-12 TABLET BY ity of 00:00: MOUTH [place] 00 EVERY Medical MORNING Branch 2022-0 Yes [id number] TAKE 1 [facility] VITAMIN 9-12 TABLET BY ity of 00:00: MOUTH [place] 00 EVERY Medical MORNING Branch 2022-0 Yes [id number] TAKE 1 [facility] VITAMIN 9-12 TABLET BY ity of 00:00: MOUTH [place] 00 EVERY Medical MORNING Branch 2022-0 Yes [id number] TAKE 1 [facility] VITAMIN 9-12 TABLET BY ity of 00:00: MOUTH [place] 00 EVERY Medical MORNING Branch 2022-0 Yes [id number] TAKE 1 [facility] VITAMIN 9-12 TABLET BY it[facility] of 00:00: MOUTH [place] 00 EVERY Medical MORNING Branch 2022-0 Yes [id number] TAKE 1 [facility] VITAMIN 9-12 TABLET BY ity of 00:00: MOUTH [place] 00 EVERY Medical MORNING Branch 2022-0 Yes [id number] TAKE 1 [facility] VITAMIN 9-12 TABLET BY ity of 00:00: MOUTH [place] 00 EVERY Medical MORNING Branch 2022-0 Yes [id number] TAKE 1 [facility] VITAMIN 9-12 TABLET BY ity of 00:00: MOUTH [place] 00 EVERY Medical MORNING Branch 2022-0 Yes [id number] TAKE 1 [facility] VITAMIN 9-12 TABLET BY ity of 00:00: MOUTH [place] 00 EVERY Medical MORNING Branch 2022-0 Yes [id number] TAKE 1 [facility] VITAMIN 9-12 TABLET BY ity of 00:00: MOUTH [place] 00 EVERY Medical MORNING Branch 2022-0 Yes [id number] TAKE 1 [facility] VITAMIN 9-12 TABLET BY ity of 00:00: MOUTH [place] 00 EVERY Medical MORNING Branch 2022-0 Yes [id number] TAKE 1 [facility] VITAMIN 9-12 TABLET BY ity of 00:00: MOUTH [place] 00 EVERY Medical MORNING Branch 2022-0 Yes [id number] TAKE 1 [facility] VITAMIN 9-12 TABLET BY ity of 00:00: MOUTH [place] 00 EVERY Medical MORNING Branch 2022-0 Yes [id number] TAKE 1 [facility] VITAMIN 9-12 TABLET BY ity of 00:00: MOUTH [place] 00 EVERY Medical MORNING Branch 2022-0 Yes [id number] TAKE 1 [facility] VITAMIN 9-12 TABLET BY ity of 00:00: MOUTH [place] 00 EVERY Medical MORNING Branch 2022-0 Yes [id number] TAKE 1 [facility] VITAMIN 9-12 TABLET BY ity of 00:00: MOUTH [place] 00 EVERY Medical MORNING Branch 2022-0 Yes [id number] TAKE 1 [facility] VITAMIN 9-12 TABLET BY ity of 00:00: MOUTH [place] 00 EVERY Medical MORNING Branch 2022-0 Yes [id number] TAKE 1 [facility] VITAMIN 9-12 TABLET BY ity of 00:00: MOUTH [place] 00 EVERY Medical MORNING Branch 2022-0 Yes [id number] TAKE 1 [facility] VITAMIN 9-12 TABLET BY ity of 00:00: MOUTH [place] 00 EVERY Medical MORNING Branch 0 Yes [id number] TAKE 1 [facility] VITAMIN 9-12 TABLET BY ity of 00:00: MOUTH [place] 00 EVERY Medical MORNING Branch 0 Yes [id number] TAKE 1 [facility] VITAMIN 9-12 TABLET BY ity of 00:00: MOUTH [place] 00 EVERY Medical MORNING Branch 0 Yes [id number] TAKE 1 [facility] VITAMIN 9-12 TABLET BY ity of 00:00: MOUTH [place] 00 EVERY Medical MORNING Branch 0 Yes [id number] TAKE 1 [facility] VITAMIN 9-12 TABLET BY ity of 00:00: MOUTH [place] 00 EVERY Medical MORNING Branch 0 Yes [id number] TAKE 1 [facility] VITAMIN 9-12 TABLET BY ity of 00:00: MOUTH [place] 00 EVERY Medical MORNING Branch 2021-0 2022- No [id number] TAKE 1 [facility] jannette VITAMIN 9-12 04-16 TABLET BY ity of 00:00: 00:00 MOUTH [place] 00 :00 EVERY Medical MORNING Branch 2021-0 2022- No [id number] TAKE 1 [facility] jannette VITAMIN 9-12 04-16 TABLET BY ity of 00:00: 00:00 MOUTH [place] 00 :00 EVERY Medical MORNING Branch 2021-0 2022- No [id number] TAKE 1 [facility] jannette VITAMIN 9-12 04-16 TABLET BY ity of 00:00: 00:00 MOUTH [place] 00 :00 EVERY Medical MORNING Branch 2021-0 2021- No [id number] 1{tbl} Take 1 [facility] multivitami 9-12 09-12 tablet by it y of n ( 00:00: 00:00 mouth in [place] VITAMIN) 00 :00 the Medical tablet morning. Branch 2021-0 2021- No [id number] 1{tbl} Take 1 [facility] multivitami 9-12 09-12 tablet by it y of n ( 00:00: 00:00 mouth in [place] VITAMIN) 00 :00 the Medical tablet morning. Branch ampicillin 2021-0 2021- No [id number] 500mg Take 1 [facility] 500 mg 10-24 capsule by ity of capsule 00:00: 04:59 mouth 4 [place] 00 :00 (four) Medical times Branch daily for 10 days. VITAMIN K2 Yes vitamin K2 [facility] ORAL 8-25 ity of 15:13: [address] cetirizine Yes cetirizine [facility] 10 mg 8-25 10 mg ity of tablet 15:13: tablet [address] VITAMIN K2 Yes vitamin K2 [facility] ORAL 8-25 ity of 15:13: [address] cetirizine Yes cetirizine [facility] 10 mg 8-25 10 mg ity of tablet 15:13: tablet [address] cetirizine Yes cetirizine [facility] 10 mg 8-25 10 mg ity of tablet 15:13: tablet [address] cetirizine Yes cetirizine [facility] 10 mg 8-25 10 mg ity of tablet 15:13: tablet [address] cetirizine Yes cetirizine [facility] 10 mg 8-25 10 mg ity of tablet 15:13: tablet [address] cetirizine Yes cetirizine [facility] 10 mg 8-25 10 mg ity of tablet 15:13: tablet [address] cetirizine Yes cetirizine [facility] 10 mg 8-25 10 mg ity of tablet 15:13: tablet [address] cetirizine Yes cetirizine [facility] 10 mg 8-25 10 mg ity of tablet 15:13: tablet [address] cetirizine Yes cetirizine [facility] 10 mg 8-25 10 mg ity of tablet 15:13: tablet [address] cetirizine Yes cetirizine [facility] 10 mg 8-25 10 mg ity of tablet 15:13: tablet [address] cetirizine Yes cetirizine [facility] 10 mg 8-25 10 mg ity of tablet 15:13: tablet [address] cetirizine Yes cetirizine [facility] 10 mg 8-25 10 mg ity of tablet 15:13: tablet [address] cetirizine Yes cetirizine [facility] 10 mg 8-25 10 mg ity of tablet 15:13: tablet [address] cetirizine Yes cetirizine [facility] 10 mg 8-25 10 mg ity of tablet 15:13: tablet [address] cetirizine Yes cetirizine [facility] 10 mg 8-25 10 mg ity of tablet 15:13: tablet [address] cetirizine Yes cetirizine [facility] 10 mg 8-25 10 mg ity of tablet 15:13: tablet [address] cetirizine Yes cetirizine [facility] 10 mg 8-25 10 mg ity of tablet 15:13: tablet [address] cetirizine Yes cetirizine [facility] 10 mg 8-25 10 mg ity of tablet 15:13: tablet [address] cetirizine Yes cetirizine [facility] 10 mg 8-25 10 mg ity of tablet 15:13: tablet [address] cetirizine Yes cetirizine U [facility] 10 mg 8-25 10 mg ity of tablet 15:13: tablet [address] cetirizine Yes cetirizine [facility] 10 mg 8-25 10 mg ity of tablet 15:13: tablet [address] cetirizine Yes cetirizine [facility] 10 mg 8-25 10 mg ity of tablet 15:13: tablet [address] cetirizine Yes cetirizine [facility] 10 mg 8-25 10 mg ity of tablet 15:13: tablet [address] cetirizine Yes cetirizine U n[facility] 10 mg 8-25 10 mg ity of tablet 15:13: tablet [address] cetirizine Yes cetirizine [facility] 10 mg 8-25 10 mg ity of tablet 15:13: tablet [address] cetirizine Yes cetirizine [facility] n[facility] 10 mg 8-25 10 mg ity of tablet 15:13: tablet [address] cetirizine Yes cetirizine U nivers 10 mg 8-25 10 mg ity of tablet 15:13: tablet [place] 41 Medical Branch 0 Yes [id number] 1{tbl} Take 1 [facility] multivitami 8-25 tablet by ity of n ( 00:00: mouth in [place] VITAMIN) 00 the Medical tablet morning. Branch 2021- No [id number] 1{tbl} Take 1 [facility] multivitami 8-25 09-12 tablet by it y of n ( 00:00: 00:00 mouth in [place] VITAMIN) 00 :00 the Medical tablet morning. Branch ibuprofen Yes [facility] 600 mg 1-18 ity of tablet 00:00: [place] 00 Medical [place] ibuprofen Yes [facility] 600 mg 1-18 ity of tablet 00:00: [place] 00 Medical [place] ibuprofen 2021- No [facility] 600 mg 1-18 09-14 ity of tablet 00:00: 00:00 [place] 00 :00 Medical Branch Cholecalcif 2020-02 Yes Claire lewisol, 2-09 ity of Vitamin D3, 00:00: [place] 1,250 mcg 00 Medical (50,000 Branch unit) capsule loratadine 2020-02 Yes [facility] 10 mg 2-09 ity of tablet 00:00: [place] 00 Medical Branch Cholecalcif 2020-02 Yes Claire lewisol, 2-09 ity of Vitamin D3, 00:00: [place] 1,250 mcg 00 Medical (50,000 Branch unit) capsule loratadine 2020-02 Yes [facility] 10 mg 2-09 ity of tablet 00:00: [place] 00 Medical Branch Cholecalcif 2020-02 Yes Claire lewisol, 2-09 ity of Vitamin D3, 00:00: [place] 1,250 mcg 00 Medical (50,000 Branch unit) capsule Cholecalcif 2020-02 Yes Claire winston le, 2-09 ity of Vitamin D3, 00:00: [place] 1,250 mcg 00 Medical (50,000 Branch unit) capsule Cholecalcif 2020-02 Yes Claire winston le, 2-09 ity of Vitamin D3, 00:00: [place] 1,250 mcg 00 Medical (50,000 Branch unit) capsule Cholecalcif 2020-02 Yes Claire lewisol, 2-09 ity of Vitamin D3, 00:00: [place] 1,250 mcg 00 Medical (50,000 Branch unit) capsule Cholecalcif 2020-1 Yes Claire lewisol, 2-09 ity of Vitamin D3, 00:00: [place] 1,250 mcg 00 Medical (50,000 Branch unit) capsule Cholecalcif 2020-1 Yes Claire lewisol, 2-09 ity of Vitamin D3, 00:00: [place] 1,250 mcg 00 Medical (50,000 Branch unit) capsule Cholecalcif 2020-1 Yes Claire lujan, 2-09 ity of Vitamin D3, 00:00: [place] 1,250 mcg 00 Medical (50,000 Branch unit) capsule Cholecalcif 2020-1 Yes Claire lewisol, 2-09 ity of Vitamin D3, 00:00: [place] 1,250 mcg 00 Medical (50,000 Branch unit) capsule Cholecalcif 2020-1 Yes Claire lujan, 2-09 ity of Vitamin D3, 00:00: [place] 1,250 mcg 00 Medical (50,000 Branch unit) capsule Cholecalcif 2020-1 Yes Claire lujan, 2-09 ity of Vitamin D3, 00:00: [place] 1,250 mcg 00 Medical (50,000 Branch unit) capsule Cholecalcif 2020-1 Yes Claire lujan, 2-09 ity of Vitamin D3, 00:00: [place] 1,250 mcg 00 Medical (50,000 Branch unit) capsule Cholecalcif 2020-1 Yes Claire lujan, 2-09 ity of Vitamin D3, 00:00: [place] 1,250 mcg 00 Medical (50,000 Branch unit) capsule Cholecalcif 2020-1 Yes Claire lujan, 2-09 ity of Vitamin D3, 00:00: [place] 1,250 mcg 00 Medical (50,000 Branch unit) capsule Cholecalcif 2020-1 Yes Claire winston le, 2-09 ity of Vitamin D3, 00:00: [place] 1,250 mcg 00 Medical (50,000 Branch unit) capsule Cholecalcif 2020-1 Yes Claire lewisol, 2-09 ity of Vitamin D3, 00:00: [place] 1,250 mcg 00 Medical (50,000 Branch unit) capsule Cholecalcif 2020-1 Yes Claire lujan, 2-09 ity of Vitamin D3, 00:00: [place] 1,250 mcg 00 Medical (50,000 Branch unit) capsule Cholecalcif 2020-1 Yes Claire winston le, 2-09 ity of Vitamin D3, 00:00: [place] 1,250 mcg 00 Medical (50,000 Branch unit) capsule Cholecalcif 2020-1 Yes Claire lewisol, 2-09 ity of Vitamin D3, 00:00: [place] 1,250 mcg 00 Medical (50,000 Branch unit) capsule Cholecalcif 2020-1 Yes Claire lewisol, 2-09 ity of Vitamin D3, 00:00: [place] 1,250 mcg 00 Medical (50,000 Branch unit) capsule Cholecalcif 2020-1 Yes Claire lewisol, 2-09 ity of Vitamin D3, 00:00: [place] 1,250 mcg 00 Medical (50,000 Branch unit) capsule Cholecalcif 2020-1 Yes Claire lewisol, 2-09 ity of Vitamin D3, 00:00: [place] 1,250 mcg 00 Medical (50,000 Branch unit) capsule Cholecalcif 2020-1 Yes Claire lujan, 2-09 ity of Vitamin D3, 00:00: [place] 1,250 mcg 00 Medical (50,000 Branch unit) capsule Cholecalcif 2020-1 Yes Claire lujan, 2-09 ity of Vitamin D3, 00:00: [place] 1,250 mcg 00 Medical (50,000 Branch unit) capsule Cholecalcif 2020-1 Yes Claire lewisol, 2-09 ity of Vitamin D3, 00:00: [place] 1,250 mcg 00 Medical (50,000 Branch unit) capsule Cholecalcif 2020-1 Yes Claire lewisol, 2-09 ity of Vitamin D3, 00:00: [place] 1,250 mcg 00 Medical (50,000 Branch unit) capsule Cholecalcif 2020-1 Yes Claire winston le, 2-09 ity of Vitamin D3, 00:00: [place] 1,250 mcg 00 Medical (50,000 Branch unit) capsule Cholecalcif 2020-1 Yes Claire winston le, 2-09 ity of Vitamin D3, 00:00: [place] 1,250 mcg 00 Medical (50,000 Branch unit) capsule Cholecalcif 2020-1 Yes Claire lujan, 2-09 ity of Vitamin D3, 00:00: [place] 1,250 mcg 00 Medical (50,000 Branch unit) capsule Cholecalcif 2020-02 Yes Claire winston le, 2-09 ity of Vitamin D3, 00:00: [place] 1,250 mcg 00 Medical (50,000 Branch unit) capsule Cholecalcif 2020-02 Yes Claire lewisol, 2-09 ity of Vitamin D3, 00:00: [place] 1,250 mcg 00 Medical (50,000 Branch unit) capsule Cholecalcif 2020-02 Yes Claire lewisol, 2-09 ity of Vitamin D3, 00:00: [place] 1,250 mcg 00 Medical (50,000 Branch unit) capsule Cholecalcif 2020-02 Yes Claire winston le, 2-09 ity of Vitamin D3, 00:00: [place] 1,250 mcg 00 Medical (50,000 Branch unit) capsule Cholecalcif 2020-02 Yes Claire lewisol, 2-09 ity of Vitamin D3, 00:00: [place] 1,250 mcg 00 Medical (50,000 Branch unit) capsule Cholecalcif 2020-02 Yes Claire lewisol, 2-09 ity of Vitamin D3, 00:00: [place] 1,250 mcg 00 Medical (50,000 Branch unit) capsule Cholecalcif 2020-02 Yes Claire lewisol, 2-09 ity of Vitamin D3, 00:00: [place] 1,250 mcg 00 Medical (50,000 Branch unit) capsule Cholecalcif 2020-02 Yes Claire lewisol, 2-09 ity of Vitamin D3, 00:00: [place] 1,250 mcg 00 Medical (50,000 Branch unit) capsule Cholecalcif 2020-02 Yes Claire winston le, 2-09 ity of Vitamin D3, 00:00: [place] 1,250 mcg 00 Medical (50,000 Branch unit) capsule Cholecalcif 2020- Yes Claire winston le, 2-09 ity of Vitamin D3, 00:00: [place] 1,250 mcg 00 Medical (50,000 Branch unit) capsule Cholecalcif 2020-1 Yes Claire lewisol, 2-09 ity of Vitamin D3, 00:00: [place] 1,250 mcg 00 Medical (50,000 Branch unit) capsule Cholecalcif 2020-023- No Tanvir lewisol, 04-06 ity of Vitamin D3, 00:00: 00:00 [place] 1,250 mcg 00 :00 Medical (50,000 Branch unit) capsule loratadine 2020-022- No [facility] s 10 mg 04-06 ity of tablet 00:00: 00:00 [place] 00 :00 Medical Branch metFORMIN 2020-02 Yes 1000mg Take 1,000 [facility] 1,000 mg 1-10 mg by ity of tablet 00:00: mouth [place] 00 daily with Medical breakfast. Branch metFORMIN 2020-02 Yes 1000mg Take 1,000 [facility] 1,000 mg 1-10 mg by ity of tablet 00:00: mouth [place] 00 daily with Medical breakfast. [place] metFORMIN 2020-02 Yes 1000mg Take 1,000 [facility] 1,000 mg 1-10 mg by ity of tablet 00:00: mouth [place] 00 daily with Medical breakfast. [place] metFORMIN 2020-02 Yes 1000mg Take 1,000 [facility] 1,000 mg 1-10 mg by ity of tablet 00:00: mouth [place] 00 daily with Medical breakfast. [place] metFORMIN 2020-02 Yes 1000mg Take 1,000 [facility] 1,000 mg 1-10 mg by ity of tablet 00:00: mouth [place] 00 daily with Medical breakfast. [place] metFORMIN 2020-02 Yes 1000mg Take 1,000 [facility] 1,000 mg 1-10 mg by ity of tablet 00:00: mouth [place] 00 daily with Medical breakfast. [place] metFORMIN 2020-02 Yes 1000mg Take 1,000 [facility] 1,000 mg 1-10 mg by ity of tablet 00:00: mouth [place] 00 daily with Medical breakfast. [place] metFORMIN 2020-02 Yes 1000mg Take 1,000 [facility] 1,000 mg 1-10 mg by ity of tablet 00:00: mouth [place] 00 daily with Medical breakfast. [place] metFORMIN 2020-02 Yes 1000mg Take 1,000 [facility] 1,000 mg 1-10 mg by ity of tablet 00:00: mouth [place] 00 daily with Medical breakfast. [place] metFORMIN 2020-02 Yes 1000mg Take 1,000 [facility] 1,000 mg 1-10 mg by ity of tablet 00:00: mouth [place] 00 daily with Medical breakfast. [place] metFORMIN 2020-02 Yes 1000mg Take 1,000 [facility] 1,000 mg 1-10 mg by ity of tablet 00:00: mouth [place] 00 daily with Medical breakfast. [place] metFORMIN 2020-02 Yes 1000mg Take 1,000 [facility] 1,000 mg 1-10 mg by ity of tablet 00:00: mouth [place] 00 daily with Medical breakfast. Branch metFORMIN 2020-02 Yes 1000mg Take 1,000 [facility] 1,000 mg 1-10 mg by ity of tablet 00:00: mouth [place] 00 daily with Medical breakfast. Branch metFORMIN 2020-02 Yes 1000mg Take 1,000 [facility] 1,000 mg 1-10 mg by ity of tablet 00:00: mouth [place] 00 daily with Medical breakfast. Branch metFORMIN 2020-02 Yes 1000mg Take 1,000 [facility] 1,000 mg 1-10 mg by ity of tablet 00:00: mouth [place] 00 daily with Medical breakfast. Branch metFORMIN 2020-02 Yes 1000mg Take 1,000 [facility] 1,000 mg 1-10 mg by ity of tablet 00:00: mouth [place] 00 daily with Medical breakfast. Branch metFORMIN 2020-02 Yes 1000mg Take 1,000 [facility] 1,000 mg 1-10 mg by ity of tablet 00:00: mouth [place] 00 daily with Medical breakfast. Branch metFORMIN 2020-02 Yes 1000mg Take 1,000 [facility] 1,000 mg 1-10 mg by ity of tablet 00:00: mouth [place] 00 daily with Medical breakfast. Branch metFORMIN 2020-02 Yes 1000mg Take 1,000 [facility] 1,000 mg 1-10 mg by ity of tablet 00:00: mouth [place] 00 daily with Medical breakfast. Branch metFORMIN 2020-02 Yes 1000mg Take 1,000 [facility] 1,000 mg 1-10 mg by ity of tablet 00:00: mouth [place] 00 daily with Medical breakfast. Branch metFORMIN 2020-02 Yes 1000mg Take 1,000 [facility] 1,000 mg 1-10 mg by ity of tablet 00:00: mouth [place] 00 daily with Medical breakfast. Branch metFORMIN 2020-02 Yes 1000mg Take 1,000 [facility] 1,000 mg 1-10 mg by ity of tablet 00:00: mouth [place] 00 daily with Medical breakfast. Branch metFORMIN 2020-02 Yes 1000mg Take 1,000 [facility] 1,000 mg 1-10 mg by ity of tablet 00:00: mouth [place] 00 daily with Medical breakfast. Branch metFORMIN 2020-02 Yes 1000mg Take 1,000 [facility] 1,000 mg 1-10 mg by [facility]y of tablet 00:00: mouth [place] 00 daily with Medical breakfast. Branch metFORMIN 2020-02 Yes 1000mg Take 1,000 [facility] 1,000 mg 1-10 mg by ity of tablet 00:00: mouth [place] 00 daily with Medical breakfast. Branch metFORMIN 2020-02 Yes 1000mg Take 1,000 [facility] 1,000 mg 1-10 mg by ity of tablet 00:00: mouth [place] 00 daily with Medical breakfast. Branch metFORMIN 2020-02 Yes 1000mg Take 1,000 [facility] 1,000 mg 1-10 mg by ity of tablet 00:00: mouth [place] 00 daily with Medical breakfast. Branch metFORMIN 2020-02 Yes 1000mg Take 1,000 [facility] 1,000 mg 1-10 mg by [facility]y of tablet 00:00: mouth [place] 00 daily with Medical breakfast. Branch metFORMIN 2020-02 Yes 1000mg Take 1,000 [facility] 1,000 mg 1-10 mg by ity of tablet 00:00: mouth [place] 00 daily with Medical breakfast. Branch metFORMIN 2020-02 Yes 1000mg Take 1,000 [facility] 1,000 mg 1-10 mg by ity of tablet 00:00: mouth [place] 00 daily with Medical breakfast. Branch metFORMIN 2020-02 Yes 1000mg Take 1,000 [facility] 1,000 mg 1-10 mg by ity of tablet 00:00: mouth [place] 00 daily with Medical breakfast. Branch metFORMIN 2020-02 Yes 1000mg Take 1,000 [facility] 1,000 mg 1-10 mg by ity of tablet 00:00: mouth [place] 00 daily with Medical breakfast. Branch metFORMIN 2020-02 Yes 1000mg Take 1,000 [facility] 1,000 mg 1-10 mg by ity of tablet 00:00: mouth [place] 00 daily with Medical breakfast. Branch metFORMIN 2020-02 Yes 1000mg Take 1,000 [facility] 1,000 mg 1-10 mg by ity of tablet 00:00: mouth [place] 00 daily with Medical breakfast. Branch metFORMIN 2020-02 Yes 1000mg Take 1,000 [facility] 1,000 mg 1-10 mg by ity of tablet 00:00: mouth [place] 00 daily with Medical breakfast. Branch metFORMIN 2020-02 Yes 1000mg Take 1,000 [facility] 1,000 mg 1-10 mg by ity of tablet 00:00: mouth [place] 00 daily with Medical breakfast. Branch metFORMIN 2020-02 Yes 1000mg Take 1,000 [facility] 1,000 mg 1-10 mg by ity of tablet 00:00: mouth [place] 00 daily with Medical breakfast. [place] metFORMIN 2020-02 Yes 1000mg Take 1,000 [facility] 1,000 mg 1-10 mg by ity of tablet 00:00: mouth [place] 00 daily with Medical breakfast. [place] metFORMIN 2020-02 Yes 1000mg Take 1,000 [facility] 1,000 mg 1-10 mg by ity of tablet 00:00: mouth [place] 00 daily with Medical breakfast. [place] metFORMIN 2020-02 Yes 1000mg Take 1,000 [facility] 1,000 mg 1-10 mg by ity of tablet 00:00: mouth [place] 00 daily with Medical breakfast. [place] metFORMIN 2020-02 Yes 1000mg Take 1,000 [facility] 1,000 mg 1-10 mg by ity of tablet 00:00: mouth [place] 00 daily with Medical breakfast. [place] metFORMIN metFORMIN 2020-02 No 1{table BID metFORMIN HCl 1000 MG HCl 1000 MG 1-10 t_with_ HCl 1000 00:00: a_meal} MG 00 metFORMIN 2020-02- No 1000mg Take 1,000 [facility] 1,000 mg 1-10 04-04 mg by ity of tablet 00:00: 00:00 mouth [place] 00 :00 daily with Medical breakfast. [place] predniSONE predniSONE 2020-02 No 2{table QD predniSONE 20 MG 20 MG 0-15 t} 20 MG 00:00: 00 predniSONE predniSONE 2020-02 No 2{table QD predniSONE 20 MG 20 MG 0-15 t} 20 MG 00:00: 00 predniSONE predniSONE 2020-02 No 2{table QD predniSONE 20 MG 20 MG 0-15 t} 20 MG 00:00: 00 DULoxetine DULoxetine 2020-02 No 1{capsu QD DULoxetine HCl 30 MG HCl 30 MG 0-13 le} HCl 30 MG 00:00: 00 DULoxetine DULoxetine 2020-02 No 1{capsu QD DULoxetine HCl 30 MG HCl 30 MG 0-13 le} HCl 30 MG 00:00: 00 DULoxetine DULoxetine 2020-02 No 1{capsu QD DULoxetine HCl 30 MG HCl 30 MG 0-13 le} HCl 30 MG 00:00: 00 DULoxetine DULoxetine 2020-02 No 1{capsu BID DULoxetine HCl 30 MG HCl 30 MG 0-13 le} HCl 30 MG 00:00: 00 Loratadine Loratadine 2020-02- No 1{table QD Loratadine 10 MG 10 MG 0-13 11-14 t} 10 MG 00:00: 00:00 00 :00 Loratadine Loratadine 2020-02- No 1{table QD Loratadine 10 MG 10 MG 0-13 11-14 t} 10 MG 00:00: 00:00 00 :00 Loratadine Loratadine 2020-02- No 1{table QD Loratadine 10 MG 10 MG 0-13 11-14 t} 10 MG 00:00: 00:00 00 :00 Loratadine Loratadine 2020-02- No 1{table QD Loratadine 10 MG 10 MG 0-13 11-11 t} 10 MG 00:00: 00:00 00 :00 Amoxicillin Amoxicillin 2020-02- No 1{table BID Amoxicilli -Pot -Pot 0-13 10-20 t} n-Pot Clavulanate Clavulanate 00:00: 00:00 Clavulanat 875-125 MG 875-125 MG 00 :00 e 875-125 MG Amoxicillin Amoxicillin 2020-02- No 1{table BID Amoxicilli -Pot -Pot 0-13 10-20 t} n-Pot Clavulanate Clavulanate 00:00: 00:00 Clavulanat 875-125 MG 875-125 MG 00 :00 e 875-125 MG Amoxicillin Amoxicillin 2020-02- No 1{table BID Amoxicilli -Pot -Pot 0-13 10-18 t} n-Pot Clavulanate Clavulanate 00:00: 00:00 Clavulanat 875-125 MG 875-125 MG 00 :00 e 875-125 MG Fluticasone Fluticasone No 1{spray QD Fluticason Propionate Propionate _in_eac e 50 MCG/ACT 50 MCG/ACT h_nostr Propionate il} 50 MCG/ACT Fluticasone Fluticasone No 1{spray QD Fluticason Propionate Propionate _in_eac e 50 MCG/ACT 50 MCG/ACT h_nostr Propionate il} 50 MCG/ACT Fluticasone Fluticasone No 1{spray QD Fluticason Propionate Propionate _in_eac e 50 MCG/ACT 50 MCG/ACT h_nostr Propionate il} 50 MCG/ACT Eliquis 5 Eliquis 5 No Eliquis 5 mg 5 mg mg 5 mg mg 5 mg Fluticasone Fluticasone No 1{spray QD Fluticason Propionate Propionate _in_eac e 50 MCG/ACT 50 MCG/ACT h_nostr Propionate il} 50 MCG/ACT Sotalol HCl Sotalol HCl No 1{table BID Sotalol 80 MG 80 MG t} HCl 80 MG Immunizations Ordered Filled Immunization Date Status Comments Sourc e Immunization Name Name Depo-Medrol Depo-Medrol 2020-12-08 [facility] (Methyl[facility]one (Methylprednisolone 11:03:00 [facility] ) 40mg ) 40mg [facility] 2020-12-08 Com[facility] - (Ceftriaxone) (Ceftriaxone) 11:03:00 [facility] Depo-Medrol Depo-Medrol 2020-12-08 Completed [facility] (Methylprednisolone (Methylprednisolone 11:03:00 [facility] ) 40mg ) 40mg [facility] 2020-12-08 Completed [facility] - (Ceftriaxone) (Ceftriaxone) 11:03:00 [facility] Depo-Medrol Depo-Medrol 2020-12-08 Completed [facility] (Methylprednisolone (Methylprednisolone 11:03:00 [facility] ) 40mg ) 40mg [facility] 2020-12-08 Completed [facility] - (Ceftriaxone) (Ceftriaxone) 11:03:00 [facility] TDAP 2020-03-17 Completed [facility] 00:00:00 [facility] TDAP 2020-03-17 Completed [facility] 00:00: [facility] TDAP 2020-03-17 Completed [facility] of 00:00: [facility] TDAP 2020-03-17 Completed [facility] of 00:00: [facility] TDAP 2020-03-17 Completed [facility] 00:00: [facility] TDAP 2020-03-17 Completed [facility] of 00:00: [facility] TDAP 2020-03-17 Completed [facility] 00:00:00 [facility] TDAP 2020-03-17 Completed [facility] 00:00: [facility] TDAP 2020-03-17 Completed [facility] 00:00:00 [facility] TDAP 2020-03-17 Completed [facility] 00:00:00 [facility] TDAP 2020-03-17 Completed [facility] 00:00:00 [facility] TDAP 2020-03-17 Completed [facility] 00:00:00 [facility] TDAP 2020-03-17 Completed [facility] 00:00:00 [facility] TDAP 2020-03-17 Completed [facility] 00:00:00 [facility] TDAP 2020-03-17 Completed [facility] 00:00:00 [facility] TDAP 2020-03-17 Completed [facility] 00:00:00 [facility] TDAP 2020-03-17 Completed [facility] 00:00:00 [facility] TDAP 2020-03-17 Completed [facility] 00:00:00 [facility] TDAP 2020-03-17 Completed [facility] 00:00:00 [facility] TDAP 2020-03-17 Completed [facility] 00:00:00 [facility] TDAP 2020-03-17 Completed [facility] 00:00:00 [facility] TDAP 2020-03-17 Completed [facility] 00:00:00 [facility] TDAP 2020-03-17 Completed [facility] 00:00:00 [facility] TDAP 2020-03-17 Completed [facility] 00:00:00 [facility] TDAP 2020-03-17 Completed [facility] 00:00:00 [facility] TDAP 2020-03-17 Completed [facility] 00:00:00 [facility] TDAP 2020-03-17 Completed [facility] 00:00:00 [facility] TDAP 2020-03-17 Completed [facility] 00:00:00 [facility] TDAP 2020-03-17 Completed [facility] 00:00:00 [facility] TDAP 2020-03-17 Completed [facility] 00:00:00 [facility] TDAP 2020-03-17 Completed [facility] 00:00:00 [facility] TDAP 2020-03-17 Completed [facility] 00:00:00 [facility] TDAP 2020-03-17 Completed [facility] 00:00:00 [facility] TDAP 2020-03-17 Completed [facility] 00:00:00 [facility] TDAP 2020-03-17 Completed [facility] 00:00:00 [facility] TDAP 2020-03-17 Completed [facility] 00:00:00 [facility] TDAP 2020-03-17 Completed [facility] 00:00:00 [facility] TDAP 2020-03-17 Completed [facility] 00:00:00 [facility] TDAP 2020-03-17 Completed [facility] 00:00:00 [facility] TDAP 2020-03-17 Completed [facility] 00:00:00 [facility] TDAP 2020-03-17 Completed [facility] 00:00:00 [facility] TDAP 2020-03-17 Completed [facility] 00:00:00 [facility] TDAP 2020-03-17 Completed [facility] 00:00:00 [facility] TDAP 2020-03-17 Completed [facility] 00:00:00 [facility] TDAP 2020-03-17 Completed [facility] 00:00:00 [facility] TDAP 2020-03-17 Completed [facility] 00:00:00 [facility] TDAP 2020-03-17 Completed [facility] 00:00:00 [facility] TDAP 2020-03-17 Completed [facility] 00:00:00 [facility] TDAP 2020-03-17 Completed [facility] 00:00:00 [facility] TDAP 2020-03-17 Completed [facility] 00:00:00 [facility] TDAP 2020-03-17 Completed [facility] 00:00:00 [facility] TDAP 2020-03-17 Completed [facility] of 00:00:00 [facility] TDAP 2020-03-17 Completed [facility] 00:00:00 [facility] TDAP 2020-03-17 Completed [facility] of 00:00:00 [facility] TDAP 2020-03-17 Completed [facility] of 00:00:00 [facility] Influenza Virus 2019-12-18 Completed [facility]it y [facility] .5 mL 00:00:00 [place] [facility] 6+ MO [facility] Influenza Virus 2019-12-18 Completed [facility] y of [facility] .5 mL 00:00:00 [place] [facility] IM 6+ MO [facility] Influenza Virus 2019-12-18 Completed [facility] y of [facility] .5 mL 00:00:00 [place] [facility] IM 6+ MO [facility] Influenza Virus 2019-12-18 Completed [facility] y of [facility] .5 mL 00:00:00 [place] [facility] IM 6+ MO [facility] Influenza Virus 2019-12-18 Completed [facility] y [facility] .5 mL 00:00:00 [place] [facility] IM 6+ MO Branch Influenza Virus 2019-12-18 Completed [facility] y [facility] .5 mL 00:00:00 [place] [facility] IM 6+ MO [facility] Influenza Virus 2019-12-18 Completed [facility] y [facility] .5 mL 00:00:00 [place] [facility] IM 6+ MO [facility] Influenza Virus 2019-12-18 Completed [facility] y [facility] .5 mL 00:00:00 [place] [facility] IM 6+ MO [facility] Influenza Virus 2019-12-18 Completed [facility] y [facility] .5 mL 00:00:00 [place] [facility] IM 6+ MO [facility] Influenza Virus 2019-12-18 Completed [facility] y [facility] .5 mL 00:00:00 [place] [facility] IM 6+ MO [facility] Influenza Virus 2019-12-18 Completed [facility] y [facility] .5 mL 00:00:00 [place] [facility] IM 6+ MO [facility] Influenza Virus 2019-12-18 Completed [facility] y [facility] .5 mL 00:00:00 [place] [facility] IM 6+ MO [facility] Influenza Virus 2019-12-18 Completed [facility] y [facility] .5 mL 00:00:00 [place] [facility] IM 6+ MO [facility] Influenza Virus 2019-12-18 Completed [facility] y [facility] .5 mL 00:00:00 [place] [facility] IM 6+ MO [facility] Influenza Virus 2019-12-18 Completed [facility] y [facility] .5 mL 00:00:00 [place] [facility] IM 6+ MO Branch Influenza Virus 2019-12-18 Completed [facility] y of [facility] .5 mL 00:00:00 [place] [facility] IM 6+ MO [facility] Influenza Virus 2019-12-18 Completed [facility] y of [facility] .5 mL 00:00:00 [place] [facility] IM 6+ MO [facility] Influenza Virus 2019-12-18 Completed [facility] y of [facility] .5 mL 00:00:00 [place] [facility] IM 6+ MO [facility] Influenza Virus 2019-12-18 Completed [facility] y [facility] .5 mL 00:00:00 [place] [facility] IM 6+ MO Branch Influenza Virus 2019-12-18 Completed [facility] y [facility] .5 mL 00:00:00 [place] [facility] IM 6+ MO [facility] Influenza Virus 2019-12-18 Completed [facility] y of [facility] .5 mL 00:00:00 [place] [facility] IM 6+ MO [facility] Influenza Virus 2019-12-18 Completed [facility] y of [facility] .5 mL 00:00:00 [place] [facility] IM 6+ MO [facility] Influenza Virus 2019-12-18 Completed [facility] y [facility] .5 mL 00:00:00 [place] [facility] IM 6+ MO [facility] Influenza Virus 2019-12-18 Completed [facility] y of [facility] .5 mL 00:00:00 [place] [facility] IM 6+ MO [facility] Influenza Virus 2019-12-18 Completed [facility] y of [facility] .5 mL 00:00:00 [place] [facility] IM 6+ MO [facility] Influenza Virus 2019-12-18 Completed [facility] y [facility] .5 mL 00:00:00 [place] [facility] IM 6+ MO [facility] Influenza Virus 2019-12-18 Completed [facility] y [facility] .5 mL 00:00:00 [place] [facility] IM 6+ MO [facility] Influenza Virus 2019-12-18 Completed [facility] y [facility] .5 mL 00:00:00 [place] [facility] IM 6+ MO Branch Influenza Virus 2019-12-18 Completed [facility] y of [facility] .5 mL 00:00:00 [place] [facility] IM 6+ MO Branch Influenza Virus 2019-12-18 Completed [facility] y of [facility] .5 mL 00:00:00 [place] [facility] IM 6+ MO [facility] Influenza Virus 2019-12-18 Completed [facility] y of [facility] .5 mL 00:00:00 [place] [facility] IM 6+ MO [facility] Influenza Virus 2019-12-18 Completed [facility] y of [facility] .5 mL 00:00:00 [place] [facility] IM 6+ MO Branch Influenza Virus 2019-12-18 Completed [facility] y of [facility] .5 mL 00:00:00 [place] [facility] IM 6+ MO Branch Influenza Virus 2019-12-18 Completed [facility] y of [facility] .5 mL 00:00:00 [place] [facility] IM 6+ MO Branch Influenza Virus 2019-12-18 Completed [facility] y of [facility] .5 mL 00:00:00 [place] [facility] IM 6+ MO [facility] Influenza Virus 2019-12-18 Completed [facility] y of [facility] .5 mL 00:00:00 [place] [facility] IM 6+ MO [facility] Influenza Virus 2019-12-18 Completed [facility] y of [facility] .5 mL 00:00:00 [place] [facility] IM 6+ MO Branch Influenza Virus 2019-12-18 Completed [facility] y of [facility] .5 mL 00:00:00 [place] [facility] IM 6+ MO [facility] Influenza Virus 2019-12-18 Completed [facility] y of [facility] .5 mL 00:00:00 [place] [facility] IM 6+ MO [facility] Influenza Virus 2019-12-18 Completed [facility] y [facility] .5 mL 00:00:00 [place] [facility] IM 6+ MO [facility] Influenza Virus 2019-12-18 Completed [facility] y of [facility] .5 mL 00:00:00 [place] [facility] IM 6+ MO [facility] Influenza Virus 2019-12-18 Completed [facility] y of [facility] .5 mL 00:00:00 [place] [facility] IM 6+ MO [facility] Influenza Virus 2019-12-18 Completed [facility] y of [facility] .5 mL 00:00:00 [place] [facility] IM 6+ MO [facility] Influenza Virus 2019-12-18 Completed [facility] y [facility] .5 mL 00:00:00 [place] [facility] IM 6+ MO [facility] Influenza Virus 2019-12-18 Completed [facility] y of [facility] .5 mL 00:00:00 [place] [facility] IM 6+ MO [facility] Influenza Virus 2019-12-18 Completed [facility] y of [facility] .5 mL 00:00:00 [place] [facility] IM 6+ MO [facility] Influenza Virus 2019-12-18 Completed [facility] y [facility] .5 mL 00:00:00 [place] [facility] IM 6+ MO [facility] Influenza Virus 2019-12-18 Completed [facility] y of [facility] .5 mL 00:00:00 [place] [facility] IM 6+ MO [facility] Influenza Virus 2019-12-18 Completed [facility] y [facility] .5 mL 00:00:00 [place] [facility] IM 6+ MO [facility] Influenza Virus 2019-12-18 Completed [facility] y [facility] .5 mL 00:00:00 [place] [facility] IM 6+ MO [facility] Influenza Virus 2019-12-18 Completed [facility] y [facility] .5 mL 00:00:00 [place] [facility] IM 6+ MO [facility] Influenza Virus 2019-12-18 Completed [facility] y of [facility] .5 mL 00:00:00 [place] [facility] IM 6+ MO [facility] Influenza Virus 2019-12-18 Completed [facility] y of [facility] .5 mL 00:00:00 [place] [facility] IM 6+ MO [facility] Influenza Virus 2019-12-18 Completed [facility] y [facility] .5 mL 00:00:00 [place] [facility] IM 6+ MO [facility] Influenza Virus 2019-12-18 Completed [facility] y [facility] .5 mL 00:00:00 [place] [facility] IM 6+ MO [facility] Influenza Virus 2018 Completed [facility] y [facility] .5 mL 00:00:00 [place] [facility] IM 6+ MO [facility] Influenza Virus 2018 Completed [facility] y [facility] .5 mL 00:00:00 [place] [facility] IM 6+ MO [facility] Influenza Virus 2018 Completed [facility] y [facility] .5 mL 00:00:00 [place] [facility] IM 6+ MO [facility] Influenza Virus 2018 Completed [facility] y [facility] .5 mL 00:00:00 [place] [facility] IM 6+ MO [facility] Influenza Virus 2018 Completed [facility] y [facility] .5 mL 00:00:00 [place] [facility] IM 6+ MO [facility] Influenza Virus 2018 Completed [facility] y [facility] .5 mL 00:00:00 [place] [facility] IM 6+ MO [facility] Influenza Virus 2018 Completed [facility] y [facility] .5 mL 00:00:00 [place] [facility] IM 6+ MO [facility] Influenza Virus 2018 Completed [facility] y of [facility] .5 mL 00:00:00 [place] [facility] IM 6+ MO [facility] Influenza Virus 2018 Completed [facility] y [facility] .5 mL 00:00:00 [place] [facility] IM 6+ MO [facility] Influenza Virus 2018 Completed [facility] y [facility] .5 mL 00:00:00 [place] [facility] IM 6+ MO [facility] Influenza Virus 2018 Completed [facility] y [facility] .5 mL 00:00:00 [place] [facility] IM 6+ MO [facility] Influenza Virus 2018 Completed [facility] y [facility] .5 mL 00:00:00 [place] [facility] IM 6+ MO [facility] Influenza Virus 2018 Completed [facility] y [facility] .5 mL 00:00:00 [place] [facility] IM 6+ MO [facility] Influenza Virus 2018 Completed [facility] y [facility] .5 mL 00:00:00 [place] [facility] IM 6+ MO [facility] Influenza Virus 2018 Completed [facility] y [facility] .5 mL 00:00:00 [place] [facility] IM 6+ MO [facility] Influenza Virus 2018 Completed [facility] y [facility] .5 mL 00:00:00 [place] [facility] IM 6+ MO [facility] Influenza Virus 2018 Completed [facility] y of [facility] .5 mL 00:00:00 [place] [facility] IM 6+ MO [facility] Influenza Virus 2018 Completed [facility] y of [facility] .5 mL 00:00:00 [place] [facility] IM 6+ MO [facility] Influenza Virus 2018 Completed [facility] y [facility] .5 mL 00:00:00 [place] [facility] IM 6+ MO [facility] Influenza Virus 2018 Completed [facility] y [facility] .5 mL 00:00:00 [place] [facility] IM 6+ MO [facility] Influenza Virus 2018 Completed [facility] y [facility] .5 mL 00:00:00 [place] [facility] IM 6+ MO [facility] Influenza Virus 2018 Completed [facility] y [facility] .5 mL 00:00:00 [place] [facility] IM 6+ MO [facility] Influenza Virus 2018 Completed [facility] y [facility] .5 mL 00:00:00 [place] [facility] IM 6+ MO [facility] Influenza Virus 2018 Completed [facility] y [facility] .5 mL 00:00:00 [place] [facility] IM 6+ MO [facility] Influenza Virus 2018 Completed [facility] .5 mL 00:00:00 [place] [facility] IM 6+ MO [facility] Influenza Virus 2018 Completed [facility] y [facility] .5 mL 00:00:00 [place] [facility] IM 6+ MO [facility] Influenza Virus 2018 Completed [facility] y [facility] .5 mL 00:00:00 [place] [facility] IM 6+ MO [facility] Influenza Virus 2018 Completed [facility] y [facility] .5 mL 00:00:00 [place] [facility] 6[facility] MO [facility] Influenza Virus 2018 Completed [facility] y of [facility] .5 mL 00:00:00 [place] [facility] IM 6+ MO [facility] Influenza Virus 2018 Completed [facility] y [facility] .5 mL 00:00:00 [place] [facility] IM 6+ MO [facility] Influenza Virus 2018 Completed [facility] y [facility] .5 mL 00:00:00 [place] [facility] IM 6+ [facility] Influenza Virus 2018 Completed [facility] .5 mL 00:00:00 [place] [facility] IM 6+ MO [facility] Influenza Virus 2018 Completed [facility] .5 mL 00:00:00 [place] [facility] IM 6+ MO [facility] Influenza Virus 2018 Completed [facility] .5 mL 00:00:00 [place] [facility] IM 6[facility] MO [facility] Influenza Virus 2018 Completed [facility] y [facility] .5 mL 00:00:00 [place] [facility] IM 6+ MO [facility] Influenza Virus 2018 Completed [facility] y [facility] .5 mL 00:00:00 [place] [facility] IM 6[facility] Influenza Virus 2018 Completed [facility] y [facility] .5 mL 00:00:00 [place] [facility] 6[facility] Influenza Virus 2018 Completed [facility] .5 mL 00:00:00 [place] [facility] IM 6+ [facility] Influenza Virus 2018 Completed [facility] .5 mL 00:00:00 [place] [facility] 6[facility] Influenza Virus 2018 Completed [facility] .5 mL 00:00:00 [place] [facility] 6[facility] Influenza Virus 2018 Completed [facility] .5 mL 00:00:00 [place] [facility] 6[facility] Influenza Virus 2018 Completed [facility] .5 mL 00:00:00 [place] [facility] Influenza Virus 2018 Completed [facility] .5 mL 00:00:00 [place] [facility] Influenza Virus 2018 Completed [facility] .5 mL 00:00:00 [place] [facility] Influenza Virus 2018 Completed [facility] .5 mL 00:00:00 [place] [facility] Influenza Virus 2018 Completed [facility] .5 mL 00:00:00 [place] [facility] Influenza Virus 2018 Completed [facility] .5 mL 00:00:00 [place] [facility] Influenza Virus 2018 Completed [facility] .5 mL 00:00:00 [place] [facility] Influenza Virus 2018 Completed [facility] .5 mL 00:00:00 [place] [facility] Influenza Virus 2018 Completed [facility] .5 mL 00:00:00 [place] [facility] Influenza Virus 2018 Completed [facility] .5 mL 00:00:00 [place] [facility] Influenza Virus 2018 Completed [facility] .5 mL 00:00:00 [place] [facility] Influenza Virus 2018 Completed [facility] .5 mL 00:00:00 [facility] 6+ MO [facility] Influenza Virus 2018 Completed [facility] y [facility] .5 mL 00:00:00 [place] [facility] Influenza Virus 2018 Completed [facility] .5 mL 00:00:00 [facility] IM 6+ MO Branch HPV9 2016-05-24 Completed [facility] 00:00:00 [facility] HPV9 2016-05-24 Completed [facility] 00:00:00 [place] [facility] HPV9 2016-05-24 Completed [facility] 00:00:00 [place] [facility] HPV9 2016-05-24 Completed [facility] 00:00:00 [facility] HPV9 2016-05-24 Completed [facility] 00:00:00 [facility] HPV9 2016-05-24 Completed [facility] 00:00:00 [facility] HPV9 2016-05-24 Completed [facility] 00:00:00 [facility] HPV9 2016-05-24 Completed [facility] 00:00:00 [facility] HPV9 2016-05-24 Completed [facility] 00:00:00 [facility] HPV9 2016-05-24 Completed [facility] 00:00:00 [facility] HPV9 2016-05-24 Completed [facility] 00:00:00 [facility] HPV9 2016-05-24 Completed [facility] 00:00:00 [facility] HPV9 2016-05-24 Completed [facility] 00:00:00 [facility] HPV9 2016-05-24 Completed [facility] 00:00:00 [facility] HPV9 2016-05-24 Completed [facility] 00:00:00 [facility] HPV9 2016-05-24 Completed [facility] 00:00:00 [facility] HPV9 2016-05-24 Completed [facility] 00:00:00 [facility] HPV9 2016-05-24 Completed [facility] 00[facility]00:00 [facility] HPV9 2016-05-24 Completed [facility] 00[facility]00:00 [facility] HPV9 2016-05-24 Completed [facility] 00[facility]00:00 [facility] HPV9 2016-05-24 Completed [facility] 00:00:00 [facility] HPV9 2016-05-24 Completed [facility] 00:00:00 [facility] HPV9 2016-05-24 Completed [facility] 00:00:00 [facility] HPV9 2016-05-24 Completed [facility] 00:00:00 [facility] HPV9 2016-05-24 Completed [facility] 00:00:00 [facility] HPV9 2016-05-24 Completed [facility] 00:00:00 [facility] HPV9 2016-05-24 Completed [facility] 00:00:00 [facility] HPV9 2016-05-24 Completed [facility] 00:00:00 [facility] HPV9 2016-05-24 Completed [facility] 00:00:00 [facility] HPV9 2016-05-24 Completed [facility] 00:00:00 [facility] HPV9 2016-05-24 Completed [facility] 00:00:00 [facility] HPV9 2016-05-24 Completed [facility] 00:00:00 [facility] HPV9 2016-05-24 Completed [facility] 00:00:00 [facility] HPV9 2016-05-24 Completed [facility] 00:00:00 [facility] HPV9 2016-05-24 Completed [facility] 00:00:00 [facility] HPV9 2016-05-24 Completed [facility] 00[facility]00:00 [facility] HPV9 2016-05-24 Completed [facility] 00:00:00 [facility] HPV9 2016-05-24 Completed [facility] 00:00:00 [facility] HPV9 2016-05-24 Completed [facility] 00:00:00 [facility] HPV9 2016-05-24 Completed [facility] 00:00:00 [facility] HPV9 2016-05-24 Completed [facility] 00:00:00 [facility] HPV9 2016-05-24 Completed [facility] 00:00:00 [facility] HPV9 2016-05-24 Completed [facility] 00:00:00 [facility] HPV9 2016-05-24 Completed [facility] 00:00:00 [facility] HPV9 2016-05-24 Completed [facility] 00:00:00 [facility] HPV9 2016-05-24 Completed [facility] 00:00:00 [facility] HPV9 2016-05-24 Completed [facility] 00:00:00 [facility] HPV9 2016-05-24 Completed [facility] 00:00:00 [facility] HPV9 2016-05-24 Completed [facility] 00:00:00 [facility] HPV9 2016-05-24 Completed [facility] 00:00:00 [facility] HPV9 2016-05-24 Completed [facility] 00:00:00 [facility] HPV9 2016-05-24 Completed [facility] 00:00:00 [facility] HPV9 2016-05-24 Completed [facility] 00:00:00 [facility] HPV9 2016-05-24 Completed [facility] 00[facility]00:00 [facility] HPV9 2016-05-24 Completed [facility] 00[facility]00:00 [facility] Influenza Virus 2016-01-06 Completed [facility]+ 00:00:00 [facility] Influenza Virus 2016-01-06 Completed [facility]+ 00:00:00 [facility] Influenza Virus 2016-01-06 Completed [facility]+ 00:00:00 [facility] Influenza Virus 2016-01-06 Completed [facility]+ 00:00:00 [facility] Influenza Virus 2016-01-06 Completed [facility]+ 00:00:00 [facility] Influenza Virus 2016-01-06 Completed [facility]+ 00:00:00 [facility] Influenza Virus 2016-01-06 Completed [facility]+ 00:00:00 [facility] Influenza Virus 2016-01-06 Completed [facility]+ 00:00:00 [facility] Influenza Virus 2016-01-06 Completed [facility]+ 00:00:00 [facility] Influenza Virus 2016-01-06 Completed [facility]+ 00:00:00 [facility] Influenza Virus 2016-01-06 Completed [facility]+ 00:00:00 [facility] Influenza Virus 2016-01-06 Completed [facility]+ 00:00:00 [facility] Influenza Virus 2016-01-06 Completed [facility]+ 00:00:00 [facility] Influenza Virus 2016-01-06 Completed [facility]+ 00:00:00 [facility] Influenza Virus 2016-01-06 Completed [facility]+ 00:00:00 [facility] Influenza Virus 2016-01-06 Completed [facility]+ 00:00:00 [facility] Influenza Virus 2016-01-06 Completed [facility]+ 00:00:00 [facility] Influenza Virus 2016-01-06 Completed [facility]+ 00:00:00 [facility] Influenza Virus 2016-01-06 Completed [facility]+ 00:00:00 [facility] Influenza Virus 2016-01-06 Completed [facility] 00:00:00 [facility] Influenza Virus 2016-01-06 Completed [facility]+ 00:00:00 [facility] Influenza Virus 2016-01-06 Completed [facility]+ 00:00:00 [facility] Influenza Virus 2016-01-06 Completed [facility]+ 00:00:00 [facility] Influenza Virus 2016-01-06 Completed [facility]+ 00:00:00 [facility] Influenza Virus 2016-01-06 Completed [facility]+ 00:00:00 [facility] Influenza Virus 2016-01-06 Completed [facility]+ 00:00:00 [facility] Influenza Virus 2016-01-06 Completed [facility]+ 00:00:00 [facility] Influenza Virus 2016-01-06 Completed [facility]+ 00:00:00 [facility] Influenza Virus 2016-01-06 Completed [facility]+ 00:00:00 [facility] Influenza Virus 2016-01-06 Completed [facility]+ 00:00:00 [facility] Influenza Virus 2016-01-06 Completed [facility]+ 00:00:00 [facility] Influenza Virus 2016-01-06 Completed [facility]+ 00:00:00 [facility] Influenza Virus 2016-01-06 Completed [facility] 00:00:00 [facility] Influenza Virus 2016-01-06 Completed [facility]+ 00:00:00 [facility] Influenza Virus 2016-01-06 Completed [facility]+ 00:00:00 [facility] Influenza Virus 2016-01-06 Completed [facility]+ 00:00:00 [facility] Influenza Virus 2016-01-06 Completed [facility]+ 00:00:00 [facility] Influenza Virus 2016-01-06 Completed [facility]+ 00:00:00 [facility] Influenza Virus 2016-01-06 Completed [facility]+ 00:00:00 [facility] Influenza Virus 2016-01-06 Completed [facility]+ 00:00:00 [facility] Influenza Virus 2016-01-06 Completed [facility]+ 00:00:00 [facility] Influenza Virus 2016-01-06 Completed [facility]+ 00:00:00 [facility] Influenza Virus 2016-01-06 Completed [facility]+ 00:00:00 [facility] Influenza Virus 2016-01-06 Completed [facility]+ 00:00:00 [facility] Influenza Virus 2016-01-06 Completed [facility]+ 00:00:00 [facility] Influenza Virus 2016-01-06 Completed [facility]+ 00:00:00 [facility] Influenza Virus 2016-01-06 Completed [facility]+ 00:00:00 [facility] Influenza Virus 2016-01-06 Completed [facility]+ 00:00:00 [facility] Influenza Virus 2016-01-06 Completed [facility]+ 00:00:00 [facility] Influenza Virus 2016-01-06 Completed [facility]+ 00:00:00 [facility] Influenza Virus 2016-01-06 Completed [facility]+ 00:00:00 [facility] Influenza Virus 2016-01-06 Completed [facility]+ 00:00:00 [facility] Influenza Virus 2016-01-06 Completed [facility]+ 00:00:00 [facility] Influenza Virus 2016-01-06 Completed [facility]+ 00:00:00 [facility] Influenza Virus 2016-01-06 Completed [facility] 00:00:00 [facility] TDAP 2015-11-11 Completed [facility] 00:00:00 [facility] TDAP 2015-11-11 Completed [facility] 00:00:00 [facility] TDAP 2015-11-11 Completed [facility] 00:00:00 [facility] TDAP 2015-11-11 Completed [facility] 00:00:00 [facility] TDAP 2015-11-11 Completed [facility] 00:00:00 [facility] TDAP 2015-11-11 Completed [facility] 00:00:00 [facility] TDAP 2015-11-11 Completed [facility] 00:00:00 [facility] TDAP 2015-11-11 Completed [facility] 00:00:00 [facility] TDAP 2015-11-11 Completed [facility] 00:00:00 [facility] TDAP 2015-11-11 Completed [facility] 00:00:00 [facility] TDAP 2015-11-11 Completed [facility] 00:00:00 [facility] TDAP 2015-11-11 Completed [facility] 00:00:00 [facility] TDAP 2015-11-11 Completed [facility] 00:00:00 [facility] TDAP 2015-11-11 Completed [facility] 00:00:00 [facility] TDAP 2015-11-11 Completed [facility] 00:00:00 [facility] TDAP 2015-11-11 Completed [facility] 00:00:00 [facility] TDAP 2015-11-11 Completed [facility] 00:00:00 [facility] TDAP 2015-11-11 Completed [facility] 00:00:00 [facility] TDAP 2015-11-11 Completed [facility] 00:00:00 [facility] TDAP 2015-11-11 Completed [facility] 00:00:00 [facility] TDAP 2015-11-11 Completed [facility] 00:00:00 [facility] TDAP 2015-11-11 Completed [facility] 00:00:00 [facility] TDAP 2015-11-11 Completed [facility] 00:00:00 [facility] TDAP 2015-11-11 Completed [facility] 00:00:00 [facility] TDAP 2015-11-11 Completed [facility] 00:00:00 [facility] TDAP 2015-11-11 Completed [facility] 00:00:00 [facility] TDAP 2015-11-11 Completed [facility] 00:00:00 [facility] TDAP 2015-11-11 Completed [facility] 00:00:00 [facility] TDAP 2015-11-11 Completed [facility] 00:00:00 [facility] TDAP 2015-11-11 Completed [facility] 00:00:00 [facility] TDAP 2015-11-11 Completed [facility] 00:00:00 [facility] TDAP 2015-11-11 Completed [facility] 00:00:00 [facility] TDAP 2015-11-11 Completed [facility] 00:00:00 [facility] TDAP 2015-11-11 Completed [facility] 00:00:00 [facility] TDAP 2015-11-11 Completed [facility] 00:00:00 [facility] TDAP 2015-11-11 Completed [facility] 00:00:00 [facility] TDAP 2015-11-11 Completed [facility] 00:00:00 [facility] TDAP 2015-11-11 Completed [facility] 00:00:00 [facility] TDAP 2015-11-11 Completed [facility] 00:00:00 [facility] TDAP 2015-11-11 Completed [facility] 00:00:00 [facility] TDAP 2015-11-11 Completed [facility] 00:00:00 [facility] TDAP 2015-11-11 Completed [facility] 00:00:00 [facility] TDAP 2015-11-11 Completed [facility] 00:00:00 [facility] TDAP 2015-11-11 Completed [facility] 00:00:00 [facility] TDAP 2015-11-11 Completed [facility] 00:00:00 [facility] TDAP 2015-11-11 Completed [facility] 00:00:00 [facility] TDAP 2015-11-11 Completed [facility] 00:00:00 [facility] TDAP 2015-11-11 Completed [facility] 00:00:00 [facility] TDAP 2015-11-11 Completed [facility] 00:00:00 [facility] TDAP 2015-11-11 Completed [facility] 00:00:00 [facility] TDAP 2015-11-11 Completed [facility] 00:00:00 [facility] TDAP 2015-11-11 Completed [facility] 00:00:00 [facility] TDAP 2015-11-11 Completed [facility] 00:00:00 [facility] TDAP 2015-11-11 Completed [facility] 00:00:00 [facility] TDAP 2015-11-11 Completed [facility] 00:00:00 [facility] Influenza Virus 2015-05-10 Completed [facility]+ 00:00:00 [facility] Influenza Virus 2015-05-10 Completed [facility]+ 00:00:00 [facility] Influenza Virus 2015-05-10 Completed [facility]+ 00:00:00 [facility] Influenza Virus 2015-05-10 Completed [facility]+ 00:00:00 [facility] Influenza Virus 2015-05-10 Completed [facility]+ 00:00:00 [facility] Influenza Virus 2015-05-10 Completed [facility]+ 00:00:00 [facility] Influenza Virus 2015-05-10 Completed [facility]+ 00:00:00 [facility] Influenza Virus 2015-05-10 Completed [facility]+ 00:00:00 [facility] Influenza Virus 2015-05-10 Completed [facility]+ 00:00:00 [facility] Influenza Virus 2015-05-10 Completed [facility] 3+ 00:00:00 [facility] Influenza Virus 2015-05-10 Completed [facility]+ 00:00:00 [facility] Influenza Virus 2015-05-10 Completed [facility] 3+ 00:00:00 [facility] Influenza Virus 2015-05-10 Completed [facility] 3+ 00:00:00 [facility] Influenza Virus 2015-05-10 Completed [facility]+ 00:00:00 [facility] Influenza Virus 2015-05-10 Completed [facility]+ 00:00:00 [facility] Influenza Virus 2015-05-10 Completed [facility] 3+ 00:00:00 [facility] Influenza Virus 2015-05-10 Completed [facility] 3+ 00:00:00 [facility] Influenza Virus 2015-05-10 Completed [facility] 3+ 00:00:00 [facility] Influenza Virus 2015-05-10 Completed [facility] 3+ 00:00:00 [facility] Influenza Virus 2015-05-10 Completed [facility]+ 00:00:00 [facility] Influenza Virus 2015-05-10 Completed [facility] 3+ 00:00:00 [facility] Influenza Virus 2015-05-10 Completed [facility] 3+ 00:00:00 [facility] Influenza Virus 2015-05-10 Completed [facility]+ 00:00:00 [facility] Influenza Virus 2015-05-10 Completed [facility] 3+ 00:00:00 [facility] Influenza Virus 2015-05-10 Completed [facility] 3+ 00:00:00 [facility] Influenza Virus 2015-05-10 Completed [facility] 3+ 00:00:00 [facility] Influenza Virus 2015-05-10 Completed [facility] 3+ 00:00:00 [facility] Influenza Virus 2015-05-10 Completed [facility] 3+ 00:00:00 [facility] Influenza Virus 2015-05-10 Completed [facility] 3+ 00:00:00 [facility] Influenza Virus 2015-05-10 Completed [facility] 3+ 00:00:00 [facility] Influenza Virus 2015-05-10 Completed [facility] 3+ 00:00:00 [facility] Influenza Virus 2015-05-10 Completed [facility] 3+ 00:00:00 [facility] Influenza Virus 2015-05-10 Completed [facility] 3+ 00:00:00 [facility] Influenza Virus 2015-05-10 Completed [facility] 3+ 00:00:00 [facility] Influenza Virus 2015-05-10 Completed [facility] 3+ 00:00:00 [facility] Influenza Virus 2015-05-10 Completed [facility] 3+ 00:00:00 [facility] Influenza Virus 2015-05-10 Completed [facility] 3+ 00:00:00 [facility] Influenza Virus 2015-05-10 Completed [facility] 3+ 00:00:00 [facility] Influenza Virus 2015-05-10 Completed [facility] 3+ 00:00:00 [facility] Influenza Virus 2015-05-10 Completed [facility] 3+ 00:00:00 [facility] Influenza Virus 2015-05-10 Completed [facility] 3+ 00:00:00 [facility] Influenza Virus 2015-05-10 Completed [facility] 3+ 00:00:00 [facility] Influenza Virus 2015-05-10 Completed [facility] 3+ 00:00:00 [facility] Influenza Virus 2015-05-10 Completed [facility] 3+ 00:00:00 [facility] Influenza Virus 2015-05-10 Completed [facility] 3+ 00:00:00 [facility] Influenza Virus 2015-05-10 Completed [facility] 3+ 00:00:00 [facility] Influenza Virus 2015-05-10 Completed [facility] 3+ 00:00:00 [facility] Influenza Virus 2015-05-10 Completed [facility] 3+ 00:00:00 [facility] Influenza Virus 2015-05-10 Completed [facility] 3+ 00:00:00 [facility] Influenza Virus 2015-05-10 Completed [facility] 3+ 00:00:00 [facility] Influenza Virus 2015-05-10 Completed [facility]+ 00:00:00 [facility] Influenza Virus 2015-05-10 Completed [facility] 3+ 00:00:00 [facility] Influenza Virus 2015-05-10 Completed [facility] 3+ 00:00:00 [facility] Influenza Virus 2015-05-10 Completed [facility]+ 00:00:00 [facility] Influenza Virus 2015-05-10 Completed [facility]+ 00:00:00 [facility] MMR 2013-08-21 Completed [facility] 00:00:00 [facility] MMR 2013-08-21 Completed [facility] 00:00:00 [facility] MMR 2013-08-21 Completed [facility] 00:00:00 [facility] MMR 2013-08-21 Completed [facility] 00:00:00 [facility] MMR 2013-08-21 Completed [facility] 00:00:00 [facility] MMR 2013-08-21 Completed [facility] 00:00:00 [facility] MMR 2013-08-21 Completed [facility] 00:00:00 [facility] MMR 2013-08-21 Completed [facility] 00:00:00 [facility] MMR 2013-08-21 Completed [facility] 00:00:00 [facility] MMR 2013-08-21 Completed [facility] 00:00:00 [facility] MMR 2013-08-21 Completed [facility] 00:00:00 [facility] MMR 2013-08-21 Completed [facility] 00:00:00 [facility] MMR 2013-08-21 Completed [facility] 00:00:00 [facility] MMR 2013-08-21 Completed [facility] 00:00:00 [facility] MMR 2013-08-21 Completed [facility] 00:00:00 [facility] MMR 2013-08-21 Completed [facility] 00:00:00 [facility] MMR 2013-08-21 Completed [facility] 00:00:00 [facility] MMR 2013-08-21 Completed [facility] 00:00:00 [facility] MMR 2013-08-21 Completed [facility] 00:00:00 [facility] MMR 2013-08-21 Completed [facility] 00:00:00 [facility] MMR 2013-08-21 Completed [facility] 00:00:00 [facility] MMR 2013-08-21 Completed [facility] 00:00:00 [facility] MMR 2013-08-21 Completed [facility] 00:00:00 [facility] MMR 2013-08-21 Completed [facility] 00:00:00 [facility] MMR 2013-08-21 Completed [facility] 00:00:00 [facility] MMR 2013-08-21 Completed [facility] 00:00:00 [facility] MMR 2013-08-21 Completed [facility] 00:00:00 [facility] MMR 2013-08-21 Completed [facility] 00:00:00 [facility] MMR 2013-08-21 Completed [facility] 00:00:00 [facility] MMR 2013-08-21 Completed [facility] 00:00:00 [facility] MMR 2013-08-21 Completed [facility] 00:00:00 [facility] MMR 2013-08-21 Completed [facility] 00:00:00 [facility] MMR 2013-08-21 Completed [facility] 00:00:00 [facility] MMR 2013-08-21 Completed [facility] 00:00:00 [facility] MMR 2013-08-21 Completed [facility] 00:00:00 [facility] MMR 2013-08-21 Completed [facility] 00:00:00 [facility] MMR 2013-08-21 Completed [facility] 00:00:00 [facility] MMR 2013-08-21 Completed [facility] 00:00:00 [facility] MMR 2013-08-21 Completed [facility] 00:00:00 [facility] MMR 2013-08-21 Completed [facility] 00:00:00 [facility] MMR 2013-08-21 Completed [facility] 00:00:00 [facility] MMR 2013-08-21 Completed [facility] 00:00:00 [facility] MMR 2013-08-21 Completed [facility] 00:00:00 [facility] MMR 2013-08-21 Completed [facility] 00:00:00 [facility] MMR 2013-08-21 Completed [facility] 00:00:00 [facility] MMR 2013-08-21 Completed [facility] 00:00:00 [facility] MMR 2013-08-21 Completed [facility] 00:00:00 [facility] MMR 2013-08-21 Completed [facility] 00:00:00 [facility] MMR 2013-08-21 Completed [facility] 00:00:00 [facility] MMR 2013-08-21 Completed [facility] 00:00:00 [facility] MMR 2013-08-21 Completed [facility] 00:00:00 [facility] MMR 2013-08-21 Completed [facility] 00:00:00 [facility] MMR 2013-08-21 Completed [facility] 00:00:00 [facility] MMR 2013-08-21 Completed [facility] 00:00:00 [facility] MMR 2013-08-21 Completed [facility] 00:00:00 [facility] HPV 2010-02-26 Completed [facility] 00:00:00 [facility] HPV 2010-02-26 Completed [facility] 00:00:00 [facility] HPV 2010-02-26 Completed [facility] 00:00:00 [facility] HPV 2010-02-26 Completed [facility] 00:00:00 [facility] HPV 2010-02-26 Completed [facility] 00:00:00 [facility] HPV 2010-02-26 Completed [facility] 00:00:00 [facility] HPV 2010-02-26 Completed [facility] 00:00:00 [facility] HPV 2010-02-26 Completed [facility] 00:00:00 [facility] HPV 2010-02-26 Completed [facility] 00:00:00 [facility] HPV 2010-02-26 Completed [facility]00 [facility] Branch HPV 2010-02-26 Completed [facility] 00:00:00 [facility] HPV 2010-02-26 Completed [facility] 00[facility]00:00 [facility] HPV 2010-02-26 Completed [facility] 00:00:00 [facility] HPV 2010-02-26 Completed [facility] 00:00:00 [facility] HPV 2010-02-26 Completed [facility] 00:00:00 [facility] HPV 2010-02-26 Completed [facility] 00:00:00 [facility] HPV 2010-02-26 Completed [facility] 00:00:00 [facility] HPV 2010-02-26 Completed [facility] 00:00:00 [facility] HPV 2010-02-26 Completed [facility] 00[facility]00:00 [facility] HPV 2010-02-26 Completed [facility] 00:00:00 [facility] HPV 2010-02-26 Completed [facility] 00[facility]00:00 [facility] HPV 2010-02-26 Completed [facility] 00:00:00 [facility] HPV 2010-02-26 Completed [facility] 00:00:00 [facility] HPV 2010-02-26 Completed [facility] 00:00:00 [facility] HPV 2010-02-26 Completed [facility] 00:00:00 [facility] HPV 2010-02-26 Completed [facility] 00:00:00 [facility] HPV 2010-02-26 Completed [facility] 00:00:00 [facility] HPV 2010-02-26 Completed [facility] 00[facility]00:00 [facility] HPV 2010-02-26 Completed [facility] 00:00:00 [facility] HPV 2010-02-26 Completed [facility] 00:00:00 [facility] HPV 2010-02-26 Completed [facility] 00:00:00 [facility] HPV 2010-02-26 Completed [facility] 00:00:00 [facility] HPV 2010-02-26 Completed [facility] 00[facility]00:00 [facility] HPV 2010-02-26 Completed [facility] 00:00:00 [facility] HPV 2010-02-26 Completed [facility] 00:00:00 [facility] HPV 2010-02-26 Completed [facility] 00:00:00 [facility] HPV 2010-02-26 Completed [facility] 00:00:00 [facility] HPV 2010-02-26 Completed [facility] 00:00:00 [facility] HPV 2010-02-26 Completed [facility] 00:00:00 [facility] HPV 2010-02-26 Completed [facility] 00:00:00 [facility] HPV 2010-02-26 Completed [facility] 00:00:00 [facility] HPV 2010-02-26 Completed [facility] 00:00:00 [facility] HPV 2010-02-26 Completed [facility] 00:00:00 [facility] HPV 2010-02-26 Completed [facility] 00:00:00 [facility] HPV 2010-02-26 Completed [facility] 00:00:00 [facility] HPV 2010-02-26 Completed [facility] 00:00:00 [facility] HPV 2010-02-26 Completed [facility] 00:00:00 [facility] HPV 2010-02-26 Completed [facility] 00:00:00 [facility] HPV 2010-02-26 Completed [facility] 00:00:00 [facility] HPV 2010-02-26 Completed [facility] 00:00:00 [facility] HPV 2010-02-26 Completed [facility] 00:00:00 [facility] HPV 2010-02-26 Completed [facility] 00:00:00 [facility] HPV 2010-02-26 Completed [facility] 00:00:00 [facility] HPV 2010-02-26 Completed [facility] 00:00:00 [facility] HPV 2010-02-26 Completed [facility] 00:00:00 [facility] Vital Signs Vital Name Observation Time Observation Value Comments Source Systolic blood 2022-06-19 19:22:00 135 mm[Hg] Univer sity of pressure [facility] Diastolic blood 2022-06-19 19:22:00 81 mm[Hg] Unive rsity of pressure [facility] Heart rate 2022-06-19 19:22:00 116 /min [facility] Body temperature 2022-06-19 19:22:00 36.67 Sandra Univ ersity [facility] Body height 2022-06-19 19:22:00 162.6 cm [facility] Body weight 2022-06-19 19:22:00 131.997 kg [facility] BMI 2022-06-19 19:22:00 49.95 kg/m2 [facility] Systolic blood 2022-06-15 20:26:00 134 mm[Hg] Univer sity of pressure [facility] Diastolic blood 2022-06-15 20:26:00 82 mm[Hg] Unive rsity of pressure [facility] Heart rate 2022-06-15 20:26:00 51 /min [facility]i ty of [facility] Body height 2022-06-15 20:26:00 162.6 cm [facility] Body weight 2022-06-15 20:26:00 134.446 kg [facility] BMI 2022-06-15 20:26:00 50.88 kg/m2 [facility] Oxygen saturation in 2022-06-15 20:26:00 97 /min University of Arterial blood by [facility] daren Pulse oximetry Branch Systolic blood 2022-06-15 19:24:00 126 mm[Hg] Univer sity of pressure [facility] Diastolic blood 2022-06-15 19:24:00 85 mm[Hg] Unive rsity of pressure [facility] Heart rate 2022-06-15 19:24:00 49 /min [facility]i [facility] Body temperature 2022-06-15 19:24:00 36.72 Sandra Univ ersity of [facility] Body weight 2022-06-15 19:24:00 134.718 kg [facility] BMI 2022-06-15 19:24:00 50.98 kg/m2 [facility] Heart rate 2022-06-15 03:30:00 67 /min [facility] Oxygen saturation in 2022-06-15 03:30:00 99 /min [facility] Arterial blood by [facility] daren Pulse oximetry Branch Systolic blood 2022-06-15 02:36:00 140 mm[Hg] Univer sity of pressure [facility] Diastolic blood 2022-06-15 02:36:00 72 mm[Hg] Unive rsity of pressure [facility] Body temperature 2022-06-15 02:36:00 37.22 Sandra Univ ersity of [facility] Body weight 2022-06-15 02:30:00 136.986 kg [facility] BMI 2022-06-15 02:30:00 51.84 kg/m2 [facility] Respiratory rate 2022-06-15 02:05:00 18 /min Univ ersity of [facility] Systolic blood 2022-06-11 13:15:00 130 mm[Hg] Univer sity of pressure [facility] Diastolic blood 2022-06-11 13:15:00 69 mm[Hg] Unive rsity of pressure [facility] Heart rate 2022-06-11 13:15:00 86 /min [facility] Body temperature 2022-06-11 13:15:00 36.83 Sandra Univ ersity of [facility] Respiratory rate 2022-06-11 13:15:00 16 /min Univ ersity of [facility] Oxygen saturation in 2022-06-11 13:15:00 100 /min University of Arterial blood by [place] [employer] Pulse oximetry Branch Body height 2022-06-09 11:13:00 162.6 cm [facility] Body weight 2022-06-09 11:13:00 134.809 kg [facility] BMI 2022-06-09 11:13:00 51.01 kg/m2 [facility] Systolic blood 2022-06-09 12:45:00 123 mm[Hg] Univer sity of pressure [facility] Diastolic blood 2022-06-09 12:45:00 68 mm[Hg] Unive rsity of pressure [facility] Heart rate 2022-06-09 12:45:00 91 /min [facility] Body temperature 2022-06-09 12:45:00 36.61 Sandra Univ ersity of [facility] Respiratory rate 2022-06-09 12:45:00 18 /min Univ ersity of [facility] Oxygen saturation in 2022-06-09 12:45:00 99 /min University of Arterial blood by [employer] daren Pulse oximetry Branch Body height 2022-06-09 11:13:00 162.6 cm [facility] Body weight 2022-06-09 11:13:00 134.809 kg [facility] BMI 2022-06-09 11:13:00 51.01 kg/m2 [facility] Systolic blood 2022-06-01 19:02:00 102 mm[Hg] Univer sity of pressure [facility] Diastolic blood 2022-06-01 19:02:00 71 mm[Hg] Unive rsity of pressure [facility] Heart rate 2022-06-01 19:02:00 98 /min [facility] Body temperature 2022-06-01 19:02:00 37.06 Sandra Univ ersity of [facility] Body height 2022-06-01 19:02:00 162.6 cm [facility] [place] Body weight 2022-06-01 19:02:00 131.634 kg [facility] BMI 2022-06-01 19:02:00 49.81 kg/m2 [facility] Systolic blood 2022-05-30 15:00:00 123 mm[Hg] Univer sity of pressure [facility] Diastolic blood 2022-05-30 15:00:00 70 mm[Hg] Unive rsity of pressure [facility] Heart rate 2022-05-30 15:00:00 83 /min [facility]i ty of [facility] Oxygen saturation in 2022-05-30 15:00:00 97 /min University Arterial blood by [facility] Pulse oximetry Branch Respiratory rate 2022-05-30 14:00:00 18 /min Univ ersity of [facility] Body temperature 2022-05-30 12:42:00 36.89 Sandra Univ ersity of [facility] Body height 2022-05-30 12:42:00 162.6 cm 5' 4" [facility] Body weight 2022-05-30 12:42:00 132.069 kg 291.16lb [facility] BMI 2022-05-30 12:42:00 49.98 kg/m2 [facility] Systolic blood 2022-05-24 18:32:00 122 mm[Hg] Univer sity of pressure [facility] Diastolic blood 2022-05-24 18:32:00 76 mm[Hg] Unive rsity of pressure [facility] Heart rate 2022-05-24 18:31:00 110 /min [facility] Body temperature 2022-05-24 18:31:00 36.78 Sandra Univ ersity of [facility] Respiratory rate 2022-05-24 18:31:00 16 /min Univ ersity of [facility] Body height 2022-05-24 18:31:00 162.6 cm [facility] Body weight 2022-05-24 18:31:00 131.997 kg [facility] BMI 2022-05-24 18:31:00 49.95 kg/m2 [facility] Heart rate 2022-05-24 16:25:00 65 /min Universi ty of [facility] Oxygen saturation in 2022-05-24 16:25:00 100 /min University Arterial blood by [facility] Pulse oximetry Branch Systolic blood 2022-05-24 16:24:00 124 mm[Hg] Univer sity of pressure [facility] Diastolic blood 2022-05-24 16:24:00 71 mm[Hg] Unive rsity of pressure [facility] Respiratory rate 2022-05-24 16:24:00 21 /min Univ ersity of [facility] [place] Body height 2022-05-24 16:24:00 162.6 cm [facility] Body weight 2022-05-24 16:24:00 131.226 kg [facility] BMI 2022-05-24 16:24:00 49.66 kg/m2 [facility] Systolic blood 2022-05-18 21:44:00 116 mm[Hg] Univer sity of pressure [facility] Diastolic blood 2022-05-18 21:44:00 80 mm[Hg] Unive rsity of pressure [facility] Heart rate 2022-05-18 21:44:00 84 /min [facility] Body temperature 2022-05-18 21:44:00 36.78 Sandra Univ ersity of [facility] Respiratory rate 2022-05-18 21:44:00 18 /min Univ ersity of [facility] Body height 2022-05-18 21:44:00 162.6 cm [facility] Body weight 2022-05-18 21:44:00 131.09 kg [facility] BMI 2022-05-18 21:44:00 49.61 kg/m2 [facility] [place] Heart rate 2022-04-22 03:05:00 84 /min [facility] Oxygen saturation in 2022-04-22 03:05:00 99 /min University of Arterial blood by [facility] daren Pulse oximetry Branch Systolic blood 2022-04-22 01:50:00 136 mm[Hg] Univer sity of pressure [facility] Diastolic blood 2022-04-22 01:50:00 85 mm[Hg] Unive rsity of pressure [facility] Body temperature 2022-04-22 01:50:00 37 Sandra Univ ersity of [facility] Respiratory rate 2022-04-22 01:50:00 18 /min Univ ersity of [facility] Systolic blood 2022-04-20 01:00:00 114 mm[Hg] Univer sity of pressure [facility] Diastolic blood 2022-04-20 01:00:00 61 mm[Hg] Unive rsity of pressure [facility] Heart rate 2022-04-20 01:00:00 92 /min [facility] [place] Body temperature 2022-04-20 01:00:00 36.89 Sandra Univ ersity of [facility] Respiratory rate 2022-04-20 01:00:00 16 /min Univ ersity of [facility] Oxygen saturation in 2022-04-20 01:00:00 100 /min University of Arterial blood by [facility] Pulse oximetry Branch Body height 2022-04-19 20:45:00 162.6 cm [facility] Body weight 2022-04-19 20:45:00 127.007 kg [facility] BMI 2022-04-19 20:45:00 48.06 kg/m2 [facility] Systolic blood 2022-04-19 19:32:00 99 mm[Hg] Univer sity of pressure [facility] Diastolic blood 2022-04-19 19:32:00 67 mm[Hg] Unive rsity of pressure [facility] Heart rate 2022-04-19 19:32:00 92 /min [facility] Body temperature 2022-04-19 19:32:00 36.94 Sandra Univ ersity of [facility] Body height 2022-04-19 19:32:00 162.6 cm [facility] Body weight 2022-04-19 19:32:00 127.37 kg [facility] BMI 2022-04-19 19:32:00 48.20 kg/m2 [facility] Systolic blood 2022-04-04 22:49:00 121 mm[Hg] Univer sity of pressure [facility] Diastolic blood 2022-04-04 22:49:00 86 mm[Hg] Unive rsity of pressure [facility] Heart rate 2022-04-04 22:49:00 118 /min [facility] Body temperature 2022-04-04 22:49:00 36.89 Sandra Univ ersity of [facility] Respiratory rate 2022-04-04 22:49:00 20 /min Univ ersity of [facility] Body height 2022-04-04 22:49:00 162.6 cm [facility] Body weight 2022-04-04 22:49:00 128.187 kg [facility] BMI 2022-04-04 22:49:00 48.51 kg/m2 [facility] Systolic blood 2022-03-16 20:43:00 112 mm[Hg] Univer sity of pressure [facility] Diastolic blood 2022-03-16 20:43:00 68 mm[Hg] Unive rsity of pressure [facility] Heart rate 2022-03-16 20:43:00 86 /min [facility] Body temperature 2022-03-16 20:43:00 36.72 Sandra Univ ersity of [facility] Body height 2022-03-16 20:43:00 162.6 cm [facility] Body weight 2022-03-16 20:43:00 130.092 kg [facility] BMI 2022-03-16 20:43:00 49.23 kg/m2 [facility] Systolic blood 2022-03-01 19:32:00 125 mm[Hg] Univer sity of pressure [facility] Diastolic blood 2022-03-01 19:32:00 83 mm[Hg] Unive rsity of pressure [facility] Heart rate 2022-03-01 19:32:00 96 /min [facility] of [facility] Body temperature 2022-03-01 19:32:00 36.89 Sandra Univ ersity of [facility] Respiratory rate 2022-03-01 19:32:00 18 /min Univ ersity of [facility] Body height 2022-03-01 19:32:00 162.6 cm [facility] Body weight 2022-03-01 19:32:00 127.914 kg [facility] BMI 2022-03-01 19:32:00 48.41 kg/m2 [facility] Systolic blood 2022-01-05 19:10:00 123 mm[Hg] Univer sity of pressure [facility] Diastolic blood 2022-01-05 19:10:00 74 mm[Hg] Unive rsity of pressure [facility] Heart rate 2022-01-05 19:10:00 83 /min [facility] Body temperature 2022-01-05 19:10:00 36.72 Sandra Univ ersity of [facility] Respiratory rate 2022-01-05 19:10:00 16 /min Univ ersity of [facility] Body height 2022-01-05 19:10:00 162.6 cm [facility] Body weight 2022-01-05 19:10:00 118.389 kg [facility] BMI 2022-01-05 19:10:00 44.80 kg/m2 [facility] Systolic blood 2021-12-05 18:33:00 121 mm[Hg] Univer sity of pressure [facility] Diastolic blood 2021-12-05 18:33:00 85 mm[Hg] Unive rsity of pressure [facility] Heart rate 2021-12-05 18:33:00 61 /min [facility] Body temperature 2021-12-05 18:33:00 36.89 Sandra Univ ersity of [facility] Respiratory rate 2021-12-05 18:33:00 18 /min Univ ersity of [facility] Body height 2021-12-05 18:33:00 162.6 cm [facility] Body weight 2021-12-05 18:33:00 117.663 kg [facility] BMI 2021-12-05 18:33:00 44.53 kg/m2 [facility] Systolic blood 2021-11-21 16:25:00 115 mm[Hg] Univer sity of pressure [facility] Diastolic blood 2021-11-21 16:25:00 70 mm[Hg] Unive rsity of pressure [facility] Heart rate 2021-11-21 16:25:00 68 /min Universi ty of [facility] Body temperature 2021-11-21 16:25:00 36.78 Sandra Univ ersity of [facility] Respiratory rate 2021-11-21 16:25:00 20 /min Univ ersity of [facility] Body height 2021-11-21 16:25:00 162.6 cm Universi ty of [facility] Body weight 2021-11-21 16:25:00 117.028 kg Universi ty of [facility] BMI 2021-11-21 16:25:00 44.29 kg/m2 Universi ty of [facility] Systolic blood 2021-11-07 19:25:00 124 mm[Hg] Univer sity of pressure [facility] Diastolic blood 2021-11-07 19:25:00 76 mm[Hg] Unive rsity of pressure [facility] Heart rate 2021-11-07 19:25:00 96 /min Universi ty of [facility] Body temperature 2021-11-07 19:25:00 36.78 Sandra Univ ersity of [facility] Respiratory rate 2021-11-07 19:25:00 18 /min Univ ersity of [facility] Body height 2021-11-07 19:25:00 162.6 cm Universi ty of [facility] Body weight 2021-11-07 19:25:00 115.214 kg Universi ty of [facility] BMI 2021-11-07 19:25:00 43.60 kg/m2 [facility]i ty of [facility] height 2021-01-05 13:00:00 64 [in_i] [facility] weight 2021-01-05 13:00:00 298.8 [lb_av] [facility] temperature 2021-01-05 13:00:00 97.8 [degF] [facility] bmi 2021-01-05 13:00:00 51.28 kg/m2 [facility] oximetry 2021-01-05 13:00:00 97 % [facility] respiratory rate 2021-01-05 13:00:00 17 /min [facility] blood pressure 2021-01-05 13:00:00 122 mm[Hg] [facility] systolic [facility] blood pressure 2021-01-05 13:00:00 58 mm[Hg] [facility] diastolic [facility] height 2020-12-08 10:20:00 64 [in_i] [facility] weight 2020-12-08 10:20:00 292.7 [lb_av] [facility] temperature 2020-12-08 10:20:00 98.6 [degF] [facility] bmi 2020-12-08 10:20:00 50.24 kg/m2 [facility] oximetry 2020-12-08 10:20:00 97 % [facility] respiratory rate 2020-12-08 10:20:00 17 /min [facility] on [facility] blood pressure 2020-12-08 10:20:00 115 mm[Hg] [facility] systolic [facility] blood pressure 2020-12-08 10:20:00 65 mm[Hg] [facility] diastolic [facility] Procedures Procedure Date / Time Performing Clinician Source Performed HB ECG ROUTINE & RHYTHM 2022-06-15 20:29:53 Jamal Summers [facility] CONSENT/REFUSAL FOR 2022-06-15 01:57:44 Doctor Unassigned, No Un [facility] DIAGNOSIS AND TREATMENT Name Medical Branch CBC WITH DIFF 2022-06-10 07:44:00 Jennifer Billingsley [facility] CBC WITH DIFF 2022-06-10 07:44:00 Jennifer Billingsley [facility] SECTION 2022-06-09 12:47:00 Jennifer Billingsley [facility] TUBAL LIGATION 2022-06-09 12:47:00 Jennifer Billingsley [facility] CBC WITH DIFF 2022-06-09 11:45:00 Jennifer Billingsley [facility] HEPATITIS B SURFACE 2022-06-09 11:45:00 Jennifer Billingsley [facility] ANTIGEN Medical Branch HB ABO GROUPING 2022-06-09 11:45:00 Jennifer Billingsley [facility] RHO (D) IMMUNE GLOBULIN 2022-06-09 11:45:00 BillingsleyJennifer Tan [facility] ADC OR LYNDSEY ONLY - 2022-06-09 11:45:00 Jennifer Billingsley Tan [facility] HIV 1/2 AG-AB WITH 2022-06-09 11:45:00 Analilia Jennifer Tan [facility] REFLEX Medical Branch CBC WITH DIFF 2022-06-09 11:45:00 Jennifer Billingsley [facility] HEPATITIS B SURFACE 2022-06-09 11:45:00 Jennifer Billingsley [facility] ANTIGEN [facility] HB ABO GROUPING 2022-06-09 11:45:00 Jennifer Billingsley [facility] RHO (D) IMMUNE GLOBULIN 2022-06-09 11:45:00 Jennifer Billingsley [facility] ADC OR LYNDSEY ONLY - 2022-06-09 11:45:00 Jennifer Billingsley [facility] HIV 1/2 AG-AB WITH 2022-06-09 11:45:00 Analilia Jennifer Tan [facility] REFLEX Medical [place] HOSPITAL ADMISSION 2022-06-09 05:01:00 Doctor Unassigned, No [facility] POCT URINALYSIS W/O 2022-06-01 00:00:00 Jennifer Billingsley [facility] SPECIFIC GRAVITY [facility] NON-STRESS TEST 2022-05-30 16:03:12 Analilia Jenniferfadia Maddox [facility] CONSENT/REFUSAL FOR 2022-05-30 12:17:27 Doctor Unassigned, No Un iversity [facility] DIAGNOSIS AND TREATMENT [facility] Medical [place] >14 WEEKS US 2022-05-24 19:38:55 Jennifer Billingsley [facility] >14 WEEKS US 2022-05-24 19:33:56 Jennifer Billingsley [facility] HB ECG ROUTINE & RHYTHM 2022-05-24 16:27:25 Jamal Summers [facility] POCT URINALYSIS W/O 2022-05-24 00:00:00 Jennifer Billingsley [facility] SPECIFIC [place] Medical Branch STERILIZATION CONSENT 2022-05-18 05:01:00 Doctor Unassigned, No [facility] FORM [facility] POCT URINALYSIS W/O 2022-05-18 00:00:00 Melissa Lazaro [facility] URINALYSIS 2022-04-22 03:12:00 Irais Garcia [facility] ADC [facility] OR [facility] ONLY - 2022-04-22 02:50:00 Irais Garcia [facility] NOTICE OF PRIVACY 2022-04-22 01:37:05 Doctor Unassigned, No [facility] PRACTICES [facility] Medical Branch CONSENT/REFUSAL FOR 2022-04-22 01:35:20 [facility] Medical [place] CBC WITH DIFF 2022-04-19 22:50:00 Jennifer Billingsley [facility] HIV 1/2 AG-AB WITH 2022-04-19 22:50:00 Jennifer Billingsley [facility] REFLEX Medical Branch HB ABO GROUPING 2022-04-19 22:30:00 Jennifer Billingsley [place] [facility] CONSENT/REFUSAL FOR 2022-04-19 20:27:30 [facility]igned[facility] Medical Branch ASSIGNMENT OF BENEFITS 2022-04-19 20:27:13 Doctor Unassigned, No [facility] Medical Branch L&D VISIT 2022-04-19 06:01:00 Doctor Unassigned, No [facility] (NON-DELIVERED) [facility] Medical Branch L&D VISIT 2022-04-19 06:01:00 Doctor Unassigned, No [facility] (NON-DELIVERED) [facility] Medical Branch POCT URINALYSIS W/O 2022-04-19 00:00:00 Jennifer Billingsley [facility] [facility] PO[facility] URINALYSIS W/O 2022-04-04 22:58:00 Melissa Lazaro [facility] CONSENT/REFUSAL FOR 2022-03-22 18:27:28 Doctor Unassigned, No [facility] DIAGNOSIS AND TREATMENT [facility] ASSIGNMENT OF BENEFITS 2022-03-01 19:03:53 Doctor Unassigned, No [facility] POCT URINALYSIS W/O 2022-03-01 00:00:00 Melissa Lazaro [facility] POCT URINALYSIS W/O 2022-01-05 19:12:00 Jennifer Billingsley [facility] 2022-01-03 06:01:00 Doctor Unassigned, No [facility] RELEASE/CLEARANCE FORMS [facility] ASSIGNMENT OF BENEFITS 2021-12-07 16:21:48 Doctor Unassigned, No [facility] POCT URINALYSIS W/O 2021-12-05 00:00:00 Jennifer Billingsley [facility] OB TRANSVAGINAL 2021-11-09 16:38:12 Jennifer Billingsley [facility] POCT URINALYSIS W/O 2021-11-07 00:00:00 Jennifer Billingsley [facility] Encounters Start End Encounter Admission Attending Care Care Encounter Source Date/Time Date/Time Type Type Clinicians Facility Department ID 2021-03-[address] [facility] [id number] Common 14:09:56 Alina [id number] [facility] 2021-03-23 Outpatient He, STBULMARO [facility] [id number] Common 14:00:01 Alina [id number] [facility] 2020-12-[address] [facility] [id number] Univers 21:49:07 ity [facility] 2020-12-[address] [facility] [id number] Univers [facility]:28[facility]-12-[address] [facility] [id number] Univers 09:45:34 ity [facility] 2022-07-20 2022-07-20 Outpatient R RADIOLOGY [facility] [id number] Univers 00:00:00 00:00:00 ity [facility] 2022-07-12 2022-07-12 Outpatient R MILES [facility] [id number] Univers 13:40:00 13:40:00 MAR[facility]US [facility] 2022-07-04 2022-07-04 Outpatient R JENNIFER BILLINGSLEY [facility] [id number] Univers 16:00:00 16:00:00 ity [facility] 2022-06-26 2022-06-26 Outpatient R JENNIFER BILLINGSLEY [facility] [id number] Univers 13:00:00 13:00:00 ity [facility] 2022-06-23 2022-06-23 Outpatient R ZACARIAS PACHECO [facility] [id number] Univers 15:30:00 15:30:00 ZACARIAS PACHECO [facility] 2022-06-19 2022-06-19 Outpatient R JENNIFER BILLINGSLEY [facility] [id number] Univers 14:15:00 14:43:11 ity [facility] 2022-06-19 2022-06-[address] [facility] 1.2.231.015 [id number] Univers 14:15:00 14:43:11 Cam ABHINAV 350.1.13.10 ity of [place] [id number] Ak dical NAL 134 [facility] 2022-06-15 2022-06-15 Outpatient R KRISTOPHER [facility] [id number] Univers 15:00:00 15:52:58 SENDIL [facility] 2022-06-15 2022-06-[address] [facility] 1.2.840.114 [id number] Univers 15:00:00 15:52:58 Visit Jamal [place] 350.1.13.10 ity of [place] [id number] Ak dical NAL 059 [facility] 2022-06-15 2022-06-[address] [facility] 1.2.008.214 [id number] Univers 14:00:00 14:52:16 Cam [place] 350.1.13.10 ity of [place] [phone] Ak dical [address] 2022-06-14 2022-06-14 Outpatient X JENNIFER BILLINGSLEY [facility] HUBERT [id number] Univers 21:26:00 22:40:00 ity of [facility] 2022-06-14 2022-06-[address] [facility] 1.2. 840.114 [id number] Univers 21:26:00 22:40:00 Jennifer Billingsley [place] 350.1.13.10 ity of [facility] [place] [id number] [address] 2022-06-12 2022-06-[address] [facility] 1.2.840.114 [id number] Univers 00:00:00 00:00:00 Cam [place] 350.1.13.10 i ty of [facility] 4.2.[place] [id number] Ak dical [address] 2022-06-09 2022-06-11 Inpatient P JENNIFER BILLINGSLEY [facility] HUBERT [id number] Univers 05:30:00 11:15:00 ity of [facility] 2022-06-09 2022-06-11 [facility] Billingsley [facility] 1.2.840.114 [id number] Univers 05:30:00 11:15:00 Encounter Tan [place] 350.1.13.10 ity of [facility] [place]2.7.[place] [id number] [address] 2022-06-10 2022-06-[address] [facility] 1.2.840.114 [id number] Univers 20:03:08 20:03:08 Event Ejremiah [place] 350.1.13.10 i ty of [facility] [place].2.7.2.[place] [id number] [facility] [address] [place] 2022-06-09 2022-06-09 [facility] 1.2.637.145 [id number] Univers 07:45:00 09:36:00 Cam ABHINAV 350.1.13.10 i ty of [facility] [place].2.7.2.[place] [id number] [facility] [address] [place] 2022-06-09 2022-06-09 Orders Doctor RAMANA 1.2.840.114 [id number] Univers 00:00:00 00:00:00 Only Unassigned, HERBERT 350.1.13.10 ity of [place] 4.2.7.2.686 [place] [id number] [facility] [address] [place] 2022-06-01 2022-06-01 Outpatient R JENNIFER BILLINGSLEY [facility] [id number] Univers 13:45:00 14:18:05 ity of [facility] 2022-06-01 2022-06-[address] [facility] 1.2.698.035 [id number] Univers 13:45:00 14:18:05 Tan [place] 350.1.13.10 ity of [place] [id number] Ak dical NAL 134 [facility] 2022-06-01 2022-06-01 Transportation Security Officer 2, Adc Lab [facility] 1.2.840.114 [id number] Univers 13:00:00 13:15:00 Visit Jennifer Billingsley 350.1.13.10 ity of [facility] [place] [id number] Me dical NAL 353 [facility] 2022-05-31 2022-05-[address] [facility] 1.2.229.075 [id number] Univers 00:00:00 00:00:00 Jamal [place] 350.1.13.10 ity of [place].7.2.[place] [id number] Ak dical NAL 059 [facility] 2022-05-30 2022-05-30 Outpatient X JENNIFER BILLINGSLEY [facility] HUBERT [id number] Univers 07:31:00 13:08:00 ity of [facility] 2022-05-30 2022-05-[address] [facility] 1.2.840.114 [id number] Univers 07:31:00 13:08:00 Cam ABHINAV 350.1.13.10 i ty of [place] [id number] [facility] [address] [place] 2022-05-30 2022-05-30 Orders Doctor RAMANA 1.2.840.114 [id number] Univers 00:00:00 00:00:00 Only Unassigned, HERBERT 350.1.13.10 ity of [place] [facility] 4.2.7.2.686 [place] [phone] [facility] [address] [place] 2022-05-24 2022-05-[address] [facility] 1.2.259.876 [id number] Univers 13:15:00 14:08:18 Tan [place] 350.1.13.10 ity of [place]2.[place] [id number] Ak dical NAL 134 [facility] 2022-05-24 2022-05-24 Outpatient R KRISTOPHER [facility] [id number] Univers 11:00:00 11:44:56 SENDIL ity of [facility] 2022-05-24 2022-05-[address] [facility] 1.2.840.114 [id number] Univers 11:00:00 11:44:56 Visit Jamal [place] 350.1.13.10 ity of [place] [phone] Ak dical NAL 059 [facility] 2022-05-22 2022-05-[address] [facility] 1.2.935.278 [id number] Univers 00:00:00 00:00:00 Secure Msg Melissa [place] 350.1.13.10 ity of [place] [phone] Ak dical NAL 134 [facility] 2022-05-18 2022-05-[address] [facility] 1.2.340.321 [id number] Univers 16:30:00 16:45:00 Melissa ABHINAV 350.1.13.10 ity of [place] [phone] [address] 2022-05-18 2022-05-18 Outpatient R IVETH [facility] [id number] Univers 16:30:00 16:30:00 [facility] 2022-05-18 2022-05-18 Orders Doctor RAMANA 1..840.114 [id number] Univers 00:00:00 00:00:00 Only Unassigned, HERBERT 350.1.13.10 ity of [place] [facility] 4.2.7.2.686 [place] [phone] [address] 2022-05-16 2022-05-16 Transportation Security Officer Ultrasound, [facility] 1. .840.114 [id number] Univers 14:30:00 15:00:00 Visit Wendy Castillojesse Anamaria [place] 350.1 .13.10 ity of [place] [id number] [address] 2022-05-16 2022-05-16 Outpatient P WENDY [facility] [id number] Univers 14:30:00 14:30:00 BHAVNA it y of [place] Winston [facility] 2022-05-09 2022-05-09 Outpatient R IVETH [facility] [id number] Univers 16:30:00 16:30:00 MELISSA lott [facility] 2022-04-21 2022-04-21 Outpatient P IRAIS GARCIA [facility] O BY [id number] Univers 19:38:00 22:05:00 IRAIS GARCIA [facility] 2022-04-21 2022-04-[address] [facility] 1..840.114 [id number] Univers 19:38:00 22:05:00 s, Iraislena [place] 350.1.13.10 ity of [place] [id number] [facility] [address] [place] 2022-04-21 2022-04-21 Orders Doctor RAMANA 1.2.840.114 [id number] Univers 00:00:00 00:00:00 Only Unassigned, HERBERT 350.1.13.10 ity of [place] [facility] 4.2.7.2.686 [place] [id number] [address] 2022-04-19 2022-04-19 Outpatient P ANALILIA [facility] HUBERT [id number] Univers 14:25:00 19:20:00 ity of [facility] 2022-04-19 2022-04-19 Hospital Analilia [facility] 1.2.840.114 [id number] Univers 14:25:00 19:20:00 Encounter Tan [place] 350.1.13.10 ity of [place] [id number] [address] 2022-04-19 2022-04-19 Routine Billingsley [facility] 1.2.353.247 [id number] Univers 14:00:00 14:15:00 Cam ABHINAV 350.1.13.10 ity of [place] [id number] Ak dical NAL [address] [place] [address] 2022-04-19 2022-04-19 Outpatient R ANALILIA JENNIFER [facility] [id number] Univers 14:00:00 14:00:00 ity of [facility] 2022-04-19 2022-04-19 Telephone Analilia [facility] 1.2.840.114 [id number] Univers 00:00:00 00:00:00 Cam ABHINAV 350.1.13.10 i ty of [place] [id number] Ak dical NAL [address] [place] [address] 2022-04-18 2022-04-18 Outpatient R IVETH [facility] [id number] Univers 14:00:00 14:00:00 MELISSA ity [facility] 2022-04-12 2022-04-12 Outpatient R IVETH [facility] [id number] Univers 16:00:00 16:00:00 MELISSA lott [facility] 2022-04-05 2022-04-[address] [facility] 1.2.026.830 [id number] Univers 00:00:00 00:00:00 Management Tan [place] 350.1.13.10 ity of [facility] 4.2.7.2.[place] [id number] Ak dical NAL 134 [facility] 2022-04-04 2022-04-04 Outpatient R IVETH [facility] [id number] Univers 16:30:00 17:29:20 MELISSA lott [facility] 2022-04-04 2022-04-[address] [facility] 1.2.840.114 [id number] Univers 16:30:00 17:29:20 Melissa Lazaro 350.1.13.10 ity of Visit [place] [id number] Ak dical NAL 134 [facility] 2022-03-23 2022-03-23 Telephone Iveth OHBINH 1.2.840.114 10 [id number] Univers 00:00:00 00:00:00 Melissa [place] 350.1.13.10 i ty of [facility] 4.2.7.2.[place] [phone] Ak dical NAL 134 [facility] 2022-03-22 2022-03-22 Transportation Security Officer Pascale, Brionna Lab Main [facility] 1.2.8 40.114 [id number] Univers 12:45:00 13:00:00 Visit Melissa Lazaro 350.1.13.10 ity of [place].2.[place] [phone] Ak dical NAL 353 [facility] 2022-03-22 2022-03-22 Outpatient R IVETH [facility] [id number] Univers 12:45:00 12:45:00 MELISSA [facility] 2022-03-22 2022-03-22 Orders Doctor RAMANA 1.2.840.114 [id number] Univers 00:00:00 00:00:00 Only Unassigned, HERBERT 350.1.13.10 [facility] 4.2.7.2.686 [place] [id number] [address] 2022-03-16 2022-03-16 Outpatient R JENNIFER BILLINGSLEY [facility] [id number] Univers 14:30:00 14:59:43 ity of [facility] 2022-03-16 2022-03-[address] [facility] 1.2.615.237 [id number] Univers 14:30:00 14:59:43 Cam ABHINAV 350.1.13.10 ity of [place]2.[place] [id number] [address] 2022-03-15 2022-03-[address] [facility] 1.2.840.114 [id number] Univers 00:00:00 00:00:00 Secure Msg Corinne ABHINAV 350.1.13.10 ity of [place] [id number] [address] 2022-03-10 2022-03-10 Transportation Security Officer Ultrasound, [facility] 1.2 .840.114 [id number] Univers 14:00:00 15:00:00 Visit Vance Stevens MASH PREPARATORY OPERATOR 350.1.13.10 ity of [facility] 4.2.7.2.686 [place] MATERNAL [phone] Med ical & CHILD [address] [place] [address] 2022-03-10 2022-03-10 Outpatient P ODALYS [facility] [id number] Univers 14:00:00 14:00:00 VANCE lott [facility] 2022-03-01 2022-03-01 Outpatient R IVETH [facility] [id number] Univers 13:15:00 13:57:13 MELISSA lott [facility] 2022-03-01 2022-03-[address] [facility] 1.2.495.111 [id number] Univers 13:15:00 13:57:13 Melissa ABHINAV 350.1.13.10 ity of Visit [place] [phone] Ak dical NAL 134 [facility] 2022-03-01 2022-03-01 Orders Doctor RAMANA 1.2.840.114 [id number] Univers 00:00:00 00:00:00 Only Unassigned, HERBERT 350.1.13.10 ity of [place] [facility] 4.2.7.2.686 [place] as [id number] [address] 2022-02-03 2022-02-03 Transportation Security Officer Ultrasound, [facility] 1.2 .840.114 [id number] Univers 09:30:00 10:49:30 Visit Vance Stevens MASH PREPARATORY OPERATOR 350.1.13.10 ity of [facility] 4.2.7.2.686 [place] MATERNAL [phone] Med ical & CHILD [address] [place] [address] 2022-02-03 2022-02-03 Outpatient P ODALYS [facility] [id number] Univers 09:30:00 09:30:00 VANCE [facility] 2022-02-02 2022-02-02 Outpatient R IVETH [facility] [id number] Univers 14:00:00 14:00:00 MELISSA [facility] 2022-01-11 2022-01-11 Outpatient Inna AQUINO [facility] [id number] Univers 11:20:00 11:20:00 MARIA DE JESUS [facility] 2022-01-05 2022-01-05 Transportation Security Officer 2, Adc Lab [facility] 1.2.840.114 [id number] Univers 14:00:00 14:15:00 Visit Jennifer Billingsley 350.1.13.10 ity of [place] [id number] Ak dical NAL 353 [facility] 2022-01-05 2022-01-05 Outpatient R JENNIFER BILLINGSLEY [facility] [id number] Univers 14:00:00 14:00:00 ity of [facility] 2022-01-05 2022-01-[address] [facility] 1.2.048.692 [id number] Univers 13:15:00 13:22:49 [place] 350.1.13.10 ity of [place] [id number] Ak dical ON LICENSE OF [facility] 134 [facility] 2022-01-03 2022-01-[address] [facility] 1.2.840.114 [id number] Univers 00:00:00 00:00:00 Melissa [place] 350.1.13.10 i ty of [place] [id number] [address] 2022-01-03 2022-01-03 Orders Doctor BOLES 1.2.840.114 [id number] Univers 00:00:00 00:00:00 Only Unassigned, HERBERT 350.1.13.10 ity of [place] [facility] 4.2.7.2.686 [place] [id number] [address] 2021-12-16 2021-12-16 Telephone Jennifer Billingsley [facility] 1.2.840.114 [id number] Univers 00:00:00 00:00:00 Tan PACHECO 350.1.13.10 it y [place] [facility] [place] [facility] [id number] [facility] [address] [place] 2021-12-07 2021-12-07 Transportation Security Officer 2, Adc Lab [facility] 1.2.840.114 [id number] Univers 11:00:00 11:15:00 Visit Melissa Lazaro 350.1.13.10 ity of [place] [id number] [facility] 353 [facility] 2021-12-07 2021-12-07 Outpatient R IVETH [facility] [id number] Univers 11:00:00 11:00:00 MELISSA lott [facility] 2021-12-07 2021-12-07 Orders Doctor RAMANA 1.2.840.114 [id number] Univers 00:00:00 00:00:00 Only Unassigned, HERBERT 350.1.13.10 ity of [place] [facility] 4.2.7.2.686 [place] [phone] [facility] [address] 2021-12-05 2021-12-05 Outpatient R JENNIFER BILLINGSLEY [facility] [id number] Univers 13:15:00 14:28:19 ity of [facility] 2021-12-05 2021-12-[address] [facility] 1.2.840.11 [id number] Univers 13:15:00 14:28:19 Billingsley Jennifer [facility] 350.1.13.10 ity of Visit [place] [id number] Ak dical [address] 2021-12-05 2021-12-05 Telephone CHERELLE Dangelo 1.2.840.114 [id number] Univers 00:00:00 00:00:00 [facility] 350.1.13.10 i ty of [facility] [place]2.7.2.[place] [id number] [facility] [address] 2021-11-23 2021-11-23 Outpatient Inna BILLINGSLEY [facility] [id number] Univers 09:00:00 09:00:00 ity of [facility] 2021-11-21 2021-11-21 Outpatient R CHIRAG WOLF 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 1.2.233.774 [id number] Univers 14:00:00 15:04:[address] [facility] 350.1.13.10 ity of [place] [phone] Ak dic[address] 2021-11-07 2021-11-07 Outpatient R JENNIFER BILLINGSLEY [facility] [id number] Univers 14:00:00 14:00:00 ity of [facility] 2021-11-07 2021-11-[address] [facility] 1.2.488.631 [id number] Univers 00:00:00 00:00:[address] [facility] 350.1.13.10 i ty of [place] [id number] [address] 2021-11-02 2021-11-02 Outpatient R JENNIFER BILLINGSLEY [facility] [id number] Univers 14:30:00 14:30:00 ity of [facility] 2021-10-24 2021-10-[address] 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 ERT [id number] Univers 13:59:00 16:21:00 ity of [facility] 2021-10-22 2021-10-[address] [facility] 1.2.840.114 [id number] Univers 13:59:00 16:21:00 Hattie [place] 350.1.13.10 i ty [place] [id number] [address] 2021-10-22 2021-10-22 Emergency X SHEFALI, K [facility] ERT [id number] Univers 13:59:00 16:21:00 ity of [facility] 2021-10-20 2021-10-20 Outpatient R ABIMAEL [facility] [id number] Univers 14:45:00 16:06:03 SHERRIA ity o f [facility] 2021-10-20 2021-10-[address] C [facility] 1.2.8 [id number] [id number] Univers 14:45:00 16:06:03 Angelic Vargheseronny R MASH PREPARATORY OPERATOR 350.1.13.1 0 ity of Visit [facility] [id number] Lencho as MATERNAL [phone] Med ical & CHILD [address] [place] [address] 2021-10-20 2021-10-20 Outpatient R ABIMAEL [facility] [id number] Univers 14:45:00 16:06:03 SHIRLEYRADHA lott o f [facility] 2021-10-20 2021-10-20 Orders Doctor RAMANA [id number] Univers 00:00:00 00:00:00 Only Unassigned, HERBERT 350.1.13.10 ity of [place] [facility] 4.2.7.2.686 Lencho as [phone] [address] 2021-10-14 2021-10-14 Outpatient R CHYNA [facility] [id number] Univers 15:30:00 15:30:00 RENUKEVIN lott [facility] 2021-10-14 2021-10-14 Outpatient R CHYNA [facility] [id number] Univers 15:30:00 15:30:00 RENU lott [facility] 2021-10-14 2021-10-14 Outpatient R ADAINSLEY [facility] [id number] Univers 15:30:00 15:30:00 RENU lott [facility] 2021-09-05 2021-09-05 Outpatient R JENNIFER BILLINGSLEY [facility] [id number] Univers 08:15:00 08:15:00 ity [facility] 2021-08-26 2021-08-26 Outpatient R TARA [facility] [id number] Univers 13:00:00 13:00:00 ZACARIAS [facility] 2021-08-18 2021-08-18 Transportation Security Officer Brionna Ashraf [facility] 1.2.8 40.114 [id number] Univers 12:30:00 12:45:00 Visit Renu [place]e ABHINAV 350.1.13.10 [id number] [phone] Ak dical ON LICENSE OF [facility] [address] [facility] 2021-08-18 2021-08-18 [facility] [id number] Univers 11:15:00 12:15:34 MELISSA [facility] 2021-08-18 2021-08-[address] [facility] [id number] Univers 11:15:00 11:45:00 Visit Melissa [place] 350.1.13.10 i [id number] [phone] [facility] [address] [facility] 2021-08-18 2021-08-18 [facility] [id number] Univers 11:15:00 11:15:00 [facility] 2021-06-15 2021-06-15 [facility] [id number] Univers 09:00:00 09:00:00 SENDIL [facility] 2021-05-30 2021-05-30 Outpatient R JENNIFER BILLINGSLEY [facility] [id number] Univers 09:00:00 [facility] 2021-05-26 [facility] [id number] Univers 14:00:00 14:00:00 SENDIL [facility] [facility] 2021-05-19 2021-05-[address] [facility] 1.2.948.444 [id number] Univers 00:00:00 00:00:00 Sendjoes [place] 350.1.13.10 ity [facility] [place].2.7.[place] [phone] Ak dical NAL [address] [place] [address] 2021-05-04 2021-05-04 Outpatient R KRISTOPHER [facility] [id number] Univers 16:00:00 16:00:00 SENDIL ity [facility] 2021-04-27 2021-04-27 Office CHERELLE Felix 1.2.013.024 [id number] Univers 14:20:00 14:40:00 [facility] 350.1.13.10 i ty of [facility] 4.2.7.2.[place] [phone] [address] 2021-04-27 2021-04-27 [facility] [id number] Univers 14:20:00 14:20:00 HENRI ity [facility] 2021-04-18 2021-04-18 Orders Doctor BOLES 1.2.840.114 [id number] Univers 00:00:00 00:00:00 Only Unassigned, HERBERT 350.1.13.10 ity of [facility] 4.2.7.2.686 [place] as [phone] [address] 2021-04-14 2021-04-[address] [facility] 1.2.840.114 [id number] Univers 13:00:00 13:54:50 Visit Sendme Laura [place] 350.1.13.10 ity [facility] 4.2.7.2.[place] [phone] [address] 2021-04-14 2021-04-14 Outpatient Inna SUMMERS [facility] [id number] Univers 13:00:00 13:54:50 SENDIL ity [facility] 2021-04-14 2021-04-14 Outpatient Inna SUMMERS [facility] [id number] Univers 13:00:00 13:00:00 SENDIL ity [facility] 2021-04-08 2021-04-08 Outpatient Inna FELIX [facility] [id number] Univers 10:40:00 10:40:00 HENRI ity [facility] 2021-04-04 2021-04-04 Outpatient Inna LAZARO [facility] [id number] Univers 10:15:00 10:15:00 MELISSA [facility] 2021-03-29 2021-03-29 Outpatient R CHYNA [facility] [id number] Univers 15:30:00 16:20:32 RENU [facility] 2021-03-29 2021-03-[address] [facility] 1.2.840.114 [id number] Univers 15:30:00 16:20:32 Visit Renu [place] 350.1.13.10 ity [facility] 4.2.7.2.[place] [phone] Ak dical WALLY 134 [facility] 2021-03-29 2021-03-29 Outpatient Inna ROBLES, [facility] [id number] Univers 13:00:00 13:00:00 VERONICA [facility] 2021-03-29 2021-03-29 Orders Doctor BOLES 1.2.840.114 [id number] Univers 00:00:00 00:00:00 Only Unassigned, HERBERT 350.1.13.10 ity of [place] [facility] 4.2.7.2.686 [place] [phone] [address] 2021-03-24 2021-03-24 Outpatient Inna CAGE [facility] [id number] Univers 11:30:00 12:00:28 [facility] 2021-03-24 2021-03-[address] [facility] 1.2.840.114 [id number] Univers 11:30:00 12:00:28 Visit Wolf SPECIALTY 350.1.13.10 ity of [facility] 4.2.7.2.686 [place] C[place] AT [phone] Ak dical CRY [address] [place] [address] 2021-03-23 2021-03-23 [facility] [id number] Univers 00:00:00 00:00:00 WOLF [facility] 2021-03-18 2021-03-18 Outpatient Inna SUMMERS [facility] [id number] Univers 16:00:00 16:00:00 SENDJOSE [facility] 2021-03-18 2021-03-18 Orders Doctor RAMANA 1.2.840.114 [id number] Univers 00:00:00 00:00:00 Only Unassigned, HERBERT 350.1.13.10 ity of [facility] 4.2.7.2.686 [place] [phone] [address] 2021-03-16 2021-03-16 Telephone Kristopher OHBINH 1.2.165.044 [id number] Univers 00:00:00 00:00:00 Sendil Laura [place] 350.1.13.10 ity of [place] 4.2.7.2.[place] [phone] Ak dic[address] 2021-03-10 2021-03-10 Outpatient R [facility] [id number] Univers 15:20:00 15:20:00 [facility] 2021-03-09 2021-03-[address] [facility] RAD [id number] Univers 10:00:00 10:00:00 [facility] 2021-03-09 2021-03-09 Outpatient R NILES [facility] [id number] Univers 00:00:00 00:00:00 [facility] 2021-03-04 2021-03-04 [facility] [id number] Univers 13:00:00 13:00:00 [facility] 2021-03-04 2021-03-04 [facility]patient [facility] [id number] Univers 13:00:00 13:00:00 [facility] 2021-03-03 2021-03-03 [facility] [id number] Univers 10:30:00 11:23:22 [facility] 2021-03-03 2021-03-[address] [facility] 1.2.840.114 [id number] Univers 10:30:00 11:23:22 Visit Jamal [place] 350.1.13.10 ity of [place].7.2.[place] [phone] Me dical NAL 059 [facility] 2021-03-03 2021-03-03 Outpatient R KRISTOPHER [facility] [id number] Univers 10:30:00 11:23:22 SENDIL ity [facility] 2021-02-28 2021-02-28 Outpatient R NILES [facility] [id number] Univers 00:00:00 00:00:00 WOLF ity [facility] 2021-02-23 2021-02-23 Transportation Security Officer Vls-Lab [facility] 1.2.840.114 [id number] Univers 16:00:00 16:15:00 Visit Wolf Cage SPECIALTY 350.1.13.10 ity of [place].2.[place] AT [phone] Ak dickyree CRBrittani 353 [facility] 2021-02-23 2021-02-23 Transportation Security Officer Vls-Lab [facility] 1.2.840.114 [id number] Univers 16:00:00 16:15:00 Visit Wolf Cage SPECIALTY 350.1.13.10 ity of [place]2.7.2.[place] AT [phone] Ak dickyree CRBrittani 353 [facility] 2021-02-23 2021-02-23 Outpatient R NILES [facility] [id number] Univers 16:00:00 16:00:00 [facility] 2021-02-23 2021-02-[address] [facility] 1.2.840.114 [id number] Univers 14:15:00 15:35:09 Visit Wolf SPECIALTY 350.1.13.10 ity of [place] 4[place]2.7.2.[place] C[place] AT [phone] Ak dickyree CRBrittani 253 [facility] 2021-02-23 2021-02-23 Outpatient R NILES [facility] [id number] Univers 14:15:00 15:35:09 [facility]F [facility] 2021-02-23 2021-02-23 Orders Doctor BOLES 1.2.840.114 [id number] Univers 00:00:00 00:00:00 Only Unassigned, HERBERT 350.1.13.10 ity of [place] [facility] 4.2.7.2.686 [place] as [phone] [facility] [address]9 [address] 2021-02-19 2021-02-[address] X Dev [address]Z [facility] ERT [id number] Univers 21:31:00 00:56:00 ity of [facility] 2021-02-19 2021-02-[address] [facility] 1.2.840. 114 [id number] Univers 21:31:00 00:56:00 Dev Hernandez 350.1.13.10 ity of [place].2.7.2.[place] [phone] [facility] 084 [address] 2021-02-19 2021-02-20 Emergency X Dev HERNANDEZ [facility] ERT [id number] Univers 21:31:00 00:56:00 ity of [facility] 2021-02-16 2021-02-16 Orders Doctor BOLES 1.2.840.114 [id number] Univers 00:00:00 00:00:00 Only Unassigned, HERBERT 350.1.13.10 ity of [place] [facility] 4.2.7.2.686 [place] [phone] [address] 2021-02-09 2021-02-09 Outpatient R KRISTOPHER [facility] [id number] Univers 10:00:00 10:56:02 SENDIL ity [facility] 2021-02-09 2021-02-[address] [facility] 1.2.840.114 [id number] Univers 10:00:00 10:56:02 Visit Sendil Laura [place] 350.1.13.10 ity [facility] 4.2.7.2.686 [facility] [phone] Ak dical ON LICENSE OF [facility] 059 [facility] 2021-02-09 2021-02-09 Outpatient R KRISTOPHER [facility] [id number] Univers 10:00:00 10:00:00 SENDIL ity [facility] 2021-02-09 2021-02-09 Orders Doctor BOLES 1.2.840.114 [id number] Univers 00:00:00 00:00:00 Only Unassigned, HERBERT 350.1.13.10 ity of [place] [facility] 4.2.7.2.686 [place] [phone] [address] 2021-02-02 2021-02-02 Outpatient R RADIOLOGY [facility] [id number] Univers 00:00:00 00:00:00 ity [facility] 2021-02-01 2021-02-01 Outpatient R SUMMERS, [facility] [id number] Univers 09:00:00 09:00:00 SENDIL ity [facility] 2021-01-18 2021-01-18 Orders Doctor RAMANA 1.2.840.114 [id number] Univers 00:00:00 00:00:00 Only Unassigned, HERBERT 350.1.13.10 ity of [place] [facility]OS[facility] 4.2.7.2.686 [place] [phone] [address] 2021-01-07 2021-01-07 Orders Doctor RAMANA 1.2.840.114 [id number] Univers 00:00:00 00:00:00 Only Unassigned, HERBERT 350.1.13.10 ity of [place] [facility]OSPITAL 4.2.7.2.686 [place] [phone] [address] 2021-01-05 2021-01-05 OFFICE [facility] [id number] Co mmon 00:00:00 00:00:00 VISIT [facility] PT - CHI LEVEL 4 [facility] 2020-12-10 2020-12-10 (TEL) [facility] [id number] Co mmon 00:00:00 00:00:00 [facility] 2020-12-10 2020-12-10 (WEB) [facility]LML[facility] ST[facility] [id number] Co mmon 00:00:00 00:00:00 [facility] 2020-12-08 2020-12-08 OFFICE [facility] STLMLC [id number] Co mmon 00:00:00 00:00:00 VISIT [facility] it PT LEVEL 4 - CHI [facility] 2020-11-24 2020-11-[address] [facility] 1.2.668.174 [id number] Univers 15:31:13 16:14:07 Visit Melissa Garciaton 350.1.13.10 i [place].2.[place] [phone] Ak dical nal [address] [place] [address] 2020-11-24 2020-11-24 Outpatient R IVETH, [facility] [id number] Univers 15:30:00 15:30:00 MELISSA lott [facility] 2020-10-21 2020-10-21 Outpatient R KRISTOPHER, [facility] [id number] Univers 14:00:00 14:00:00 SENDJOSE lott [facility] 2020-10-21 2020-10-21 Outpatient R CHYNA, [facility] [id number] Univers 14:00:00 14:00:00 RENU lott [facility] 2020-10-19 2020-10-19 Office Ad, [facility] 1.2.840.114 [id number] Univers 14:57:20 16:10:38 Visit Renu Jamila [place] 350.1.13.10 ity [facility] 4.2.7.2.[place] [phone] Ak dical [address] 2020-10-19 2020-10-19 Outpatient R LORETTAUM, [facility] [id number] Univers 15:00:00 15:00:00 RENU brittani [facility] 2020-10-19 2020-10-19 Orders Doctor BOLES 1.2.840.114 [id number] Univers 00:00:00 00:00:00 Only Unassigned, HERBERT 350.1.13.10 ity of [place] [facility] 4.2.7.2.686 [place] [phone] [address] 2020-10-14 2020-10-14 Office Ad, [facility] 1.2.840.114 [id number] Univers 14:55:53 16:37:55 Visit Renu Garciaton 350.1.13.10 it[place] of [place].2.[place] [phone] Ak dical nal [address] [place] [address] 2020-10-14 2020-10-14 Outpatient R LORETTAAINSLEY, [facility] [id number] Univers 15:00:00 15:00:00 RENU oren [facility] 2020-10-01 2020-10-01 Outpatient R ROSA, [facility] [id number] Univers 14:20:00 14:20:00 ALVINA pavon [facility] 2020-09-13 2020-09-13 [facility] [id number] Univers 13:20:00 13:20:00 ALVINA pavon [facility] 2020-09-10 2020-09-[address] [facility] 1.2.759.954 [id number] Univers 00:00:00 00:00:00 Jamal [place] 350.1.13.10 it[place] 4[place].2.[place] [phone] [facility] 059 [facility] 2020-08-20 2020-08-[address] [facility] 1..840.114 [id number] Univers 00:00:00 00:00:00 Tan [place] 350.1.13.10 i ty [place].2.[place] [phone] [facility] 134 [facility] 2020-07-22 2020-07-22 Emergency Aguilar, [facility] 1.2.840.114 [id number] Univers 15:42:00 17:56:00 Haily [place] 350.1.13.10 i [place] 4[place]2.7.2.[place] [phone] [facility] 084 [place] 2020-07-22 2020-07-22 Emergency X AGUILAR, [facility] ERT [id number] Univers 15:42:00 17:56:00 HAILY lott [facility] 2020-07-22 2020-07-[address] [facility] 1.2.840.114 [id number] Univers 00:00:00 00:00:00 Cam [place] 350.1.13.10 i ty [place] 4[place]2.7.2.[place] [phone] Ak dical nal 134 [facility] 2020-06-17 2020-06-17 Outpatient R JENNIFER BILLINGSLEY [facility] [id number] Univers 11:15:00 11:15:00 ity of [facility] 2020-06-03 2020-06-03 [facility] 1.2.342.237 [id number] Univers 08:49:35 09:40:33 Cam [place] 350.1.13.10 ity [place].2.686 [place] [facility] [phone] Ak dical nal 134 [facility] 2020-06-03 2020-06-03 Outpatient R JENNIFER BILLINGSLEY [facility] [id number] Univers 08:45:00 08:45:00 ity of [facility] 2020-05-28 2020-05-[address] [facility] 1.2.840 .114 [id number] Univers 19:42:00 00:00:00 Freya Jensen [place] 350.1.13.10 [place] 4[place].7.2.[place] [phone] [facility] 084 [place] 2020-05-24 2020-05-[address] [facility] 1.2.840.114 [id number] Univers 05:32:00 16:05:00 Encounter Cam [place] 350.1.13.10 [place] 4[place]2.7.2.[place] [phone] [facility] 083 [address] 2020-05-24 2020-05-24 Outpatient R ANALILIA [facility] HUBERT [id number] Univers 07:30:00 07:30:00 ity of [facility] 2020-05-24 2020-05-24 Orders Doctor RAMANA 1.2.840.114 [id number] Univers 00:00:00 00:00:00 Only Unassigned, HERBERT 350.1.13.10 ity of [place] [facility] 4.2.7.2.686 [place] [phone] [facility] 009 [address] 2020-05-20 2020-05-20 Transportation Security Officer Pascale, Adc Lab Main [facility] 1.2.8 40.114 [id number] Univers 15:53:08 16:08:08 Visit Jennifer Billingsley 350.1.13.10 [place] 4[place]2.7.2.[place] [phone] Ak dical nal 353 [facility] 2020-05-20 2020-05-20 Routine Room, [facility] 1.2.840.1 14 [id number] Univers 14:07:19 15:16:40 Jennifer Billingsley 350.1.13.10 ity of [place] 4.2.7.2.[place] [phone] Ak dical nal 134 [facility] 2020-05-20 2020-05-20 Outpatient R [facility] [id number] Univers 14:00:00 14:00:00 ity of [facility] 2020-05-18 2020-05-[address] [facility] 1.2.840.114 [id number] Univers 00:00:00 00:00:00 Outreach [facility] 350.1.13.10 i ty of [facility] 4.2.7.2.686 [place] [phone] Ak dical [address] [place] 2020-05-17 2020-05-17 Routine Room, [facility] 1.2.840.1 14 [id number] Univers 13:04:57 14:14:31 Jennifer Billingsley 350.1.13.10 ity of [place] 4[place].7.2.[place] [phone] Ak dical nal 134 [facility] 2020-05-17 2020-05-17 Outpatient R [facility] [id number] Univers 13:00:00 13:00:00 ity of [facility] 2020-05-13 2020-05-13 Routine Room, [facility] 1.2.840.1 14 [id number] Univers 11:11:26 12:46:07 Jennifer Billingsley 350.1.13.10 [place]y [place].7.2.686 [place] [phone] Ak dical nal [address] [place] [address] 2020-05-13 2020-05-13 Outpatient R [facility] [id number] Univers 11:00:00 11:00:00 ity [facility] 2020-05-07 2020-05-07 Transportation Security Officer 1Darci Us Room [facility] 1.2. 840.114 [id number] Univers 14:02:50 14:38:06 Visit Anamaria Norwood MASH PREPARATORY OPERATOR 350.1. 13.10 ity of REGIONAL 4.2.7.2.686 [place] MATERNAL [phone] Med ical & CHILD [address] [place] [address] 2020-05-07 2020-05-07 Outpatient P [facility] [id number] Univers 14:00:00 14:00:00 ity [facility] 2020-05-06 2020-05-06 Outpatient R [facility] [id number] Univers 14:00:00 14:00:00 ity of [facility] 2020-05-03 2020-05-03 Outpatient R [facility] [id number] Univers 14:00:00 14:00:00 ity [facility] 2020-04-29 2020-04-29 Routine Room, [facility] 1.2.840.1 14 [id number] Univers 13:55:20 15:23:23 Jennifer Billingsley 350.1.13.10 it[place].2.[place] [phone] Ak dical nal [address] [place] [address] 2020-04-29 2020-04-29 Outpatient R [facility] [id number] Univers 14:00:00 14:00:00 ity [facility] 2020-04-26 2020-04-26 Outpatient R [facility] [id number] Univers 14:00:00 14:00:00 ity [facility] 2020-04-23 2020-04-23 Routine Adum, [facility] 1.2.840.114 [id number] Univers 13:51:59 16:42:46 Renu [place] 350.1.13.10 it[place] of [place] 4[place].7.2.[place] [phone] Ak dical nal [address] [place] [address] 2020-04-23 2020-04-23 Outpatient R CHYNA [facility] [id number] Univers 13:45:00 13:45:00 RENU ity of [facility] 2020-04-23 2020-04-[address] [facility] 1.2.840.114 [id number] Univers 00:00:00 00:00:00 Cam [place] 350.1.13.10 i [place] 4[place]2.7.2.[place] [phone] Ak dical nal [address] [place] [address] 2020-04-22 2020-04-22 Outpatient R [facility] [id number] Univers 14:00:00 14:00:00 ity of [facility] 2020-04-20 2020-04-[address] [facility] 1.2.678.730 [id number] Univers 15:49:19 16:55:56 Tan [place] 350.1.13.10 it[place].2.[place] [phone] Ak dic[address] 2020-04-20 2020-04-20 Outpatient R JENNIFER BILLINGSLEY [facility] [id number] Univers 15:45:00 15:45:00 ity of [facility] 2020-04-13 2020-04-13 Outpatient R EDITH RODAS [facility] [id number] Univers 14:45:00 14:45:00 ity of [facility] 2020-03-30 2020-03-30 Outpatient R EDITH RODAS [facility] [id number] Univers 14:30:00 15:56:45 ity [facility] 2020-03-24 2020-03-24 Transportation Security Officer 2, Adc Lab [facility] 1.2.840.114 [id number] Univers 08:14:13 08:29:13 Visit Edith Rodas [place] 350.1.13.10 [place] 4[place]2.7.2.[place] [phone] Ak dical nal 353 [facility] 2020-03-24 2020-03-24 Outpatient R EDITH RODAS [facility] [id number] Univers 08:00:00 08:00:00 ity of [facility] 2020-03-19 2020-03-[address] [facility] 1.2.840.114 [id number] Univers 00:00:00 00:00:00 Abhinav 350.1.13.10 [place].2.[place] [phone] Ak dical nal 134 [facility] 2020-03-18 2020-03-18 Transportation Security Officer 2, [facility] 1.2. 840.114 [id number] Univers 12:53:53 13:38:42 Visit Chirag Wolf MASH PREPARATORY OPERATOR 350.1.13.10 ity [facility] 4.2.7.2.686 [place] MATERNAL [phone] [facility] CHILD [address] [place] [address] 2020-03-18 2020-03-18 Outpatient P [facility] [id number] Univers 13:00:00 13:00:00 ity of [facility] 2020-03-17 2020-03-17 Outpatient R EDITH RODAS [facility] [id number] Univers 14:30:00 14:30:00 ity of [facility] 2020-03-17 2020-03-[address] [facility] 1.2.064.607 [id number] Univers 00:00:00 00:00:00 Management Melissa La 350.1.13.10 [place] [phone] Ak dical nal 134 [facility] 2020-03-16 2020-03-16 Transportation Security Officer 2, [facility] 1.2.840.114 [id number] Univers 09:01:43 09:16:43 Visit Jamal Summers 350.1.13. 10 [place].2.[place] [phone] Ak dical nal 353 [facility] 2020-03-16 2020-03-16 Laboratory Pc, Adc Echo Room 1 - [facility] 1 .2.840.114 [id number] Univers 08:06:46 09:06:46 Only Jamal Summers 350.1.13. 10 [place].2.[place] [phone] Ak dicnm nal 059 [facility] 2020-03-16 2020-03-16 Outpatient R KRISTOPHER [facility] [id number] Univers 09:00:00 09:00:00 [facility] 2020-03-16 2020-03-16 Nurse Visit, Adc Nurse [facility] 1.2.840.1 14 [id number] Univers 08:07:15 08:37:15 Visit Jamal Summers 350.1.13. 10 [id number] [phone] [facility] nal [address] [place] [address] 2020-03-11 2020-03-11 Outpatient R [facility] [id number] Univers 16:30:00 16:30:00 ity [facility] 2020-03-08 2020-03-08 Outpatient R ROSA [facility] [id number] Univers 16:00:00 16:00:00 ALVINA ity o f [facility] 2020-03-04 2020-03-[address] [facility] 1.2.840.114 [id number] Univers 13:59:57 14:38:15 Visit Jamal [place] [id number] [id number] [phone] [facility] nal [address] [place] [address] 2020-03-04 2020-03-04 [facility] [id number] Univers 14:00:00 14:00:00 SENDIL ity [facility] 2020-03-02 2020-03-02 Outpatient R EDITH RODAS [facility] [id number] Univers 09:00:00 09:00:00 ity of [facility] 2020-02-17 2020-02-17 Transportation Security Officer Ultrasound, [facility] 1.2.840.114 [id number] 07:52:39 08:55:30 [facility] M[facility] PREPARATORY OPERATOR [id number] REGIONAL [id number] MATERNAL [phone] & CHILD [address] [place] [address] 2020-02-17 2020-02-17 Transportation Security Officer Ultrasound, [facility] 1.2 .840.114 [id number] Univers 07:52:39 08:55:30 Visit Ulysses Alec Inna MASH PREPARATORY OPERATOR [id number] ity [facility] [id number] Lencho as MATERNAL [phone] Med ical & CHILD [address] [place] [address] 2020-02-17 2020-02-17 Outpatient P [facility] [id number] Univers 08:00:00 08:00:00 ity [facility] 2020-02-12 2020-02-12 Outpatient R IVETH [facility] [id number] Univers 16:15:00 16:15:00 MELISSA [facility] 2020-02-12 2020-02-[address] [facility] CENTER 1.2.515.974 [id number] 14:44:26 14:59:26 Melissa La 350.1.13.10 [place] 4.2.7.2.686 Professio [phone] [address] 2020-02-12 2020-02-[address] [facility] 1.2.282.079 [id number] Univers 14:44:26 14:59:26 Melissated Garciaton 350.1.13.10 [place] [phone] Ak dical [address] 2020-02-10 2020-02-10 Outpatient R JENNIFER BILLINGSLEY [facility] [id number] Univers 13:15:00 13:15:00 [facility] 2020-02-02 2020-02-[address] [facility] 1.2.840.114 [id number] Univers 17:06:00 19:29:00 Deidra La 350.1.13.10 [place] [phone] [facility] [address] [place] 2020-02-02 2020-02-02 Orders Doctor RAMANA 1.2.840.114 [id number] Univers 00:00:00 00:00:00 Only Unassigned, HERBERT 350.1.13.10 ity of [place] [facility] 4.2.7.2.686 Len[place] as [phone] [facility] [address] [place] 2020-02-02 2020-02-[address] [facility] 1.2.840.114 [id number] Univers 00:00:00 00:00:00 Tan La 350.1.13.10 [place] [phone] Ak dical nal 134 [facility] 2020-01-20 2020-01-20 Transportation Security Officer 2, [facility] Room [facility] 1.2. 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 [id number] Univers 11:00:00 11:00:00 RONY lott [facility] 2020-01-13 2020-01-13 Outpatient R IVETH 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 1.2.840.114 [id number] Univers 11:26:32 11:41:32 Visit Melissa Lazaro 350.1.13.10 [place] [phone] Ak dical nal 353 [facility] 2020-01-13 2020-01-[address] [facility] 1.2.715.905 [id number] Univers 10:34:40 11:20:34 Melissa La 350.1.13.10 [place] [phone] [address] 2020-01-13 2020-01-13 Orders Doctor RAMANA 1.2.840.114 [id number] Univers 00:00:00 00:00:00 Only Unassigned, HERBERT 350.1.13.10 ity of [place] [facility] 4.2.7.2.686 [place] as [phone] [address] 2020-01-08 2020-01-[address] [facility] 1.2.640.029 [id number] Univers 00:00:00 00:00:00 Management Tan [place] 350.1.13.10 [place] [phone] [address] 2020-01-08 2020-01-[address] [facility] 1.2.840.114 [id number] Univers 00:00:00 00:00:00 Tan La 350.1.13.10 i [place] [phone] [address] 2020-01-02 2020-01-[address] [facility] 1.2.840.114 [id number] Univers 00:00:00 00:00:00 Tan La 350.1.13.10 i [place] [phone] [address] 2019 2019 Outpatient R IVETH 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 1.2.840.114 [id number] Univers 09:07:03 09:22:03 Visit Ronda Billingsleyfadia La 350.1.13.10 [place] [phone] Me dical nal 353 [facility] 2019-12-23 2019-12-23 Outpatient R [facility] [id number] Univers 09:00:00 09:00:00 ity of [facility] 2019-12-23 2019-12-[address] [facility] 1.2.914.459 [id number] Univers 00:00:00 00:00:00 Management Melissa La 350.1.13.10 [place] [phone] Ak dical nal 134 [facility] 2019-12-23 2019-12-23 Orders Doctor RAMANA 1.2.840.114 [id number] Univers 00:00:00 00:00:00 Only Unassigned, HERBERT 350.1.13.10 ity of [place] [facility] 4.2.7.2.686 [place] as [phone] [address] 2019-12-22 2019-12-[address] [facility] 1.2.840.114 [id number] Univers 00:00:00 00:00:00 Tan La 350.1.13.10 i [place] [phone] Ak dical nal 134 [facility] 2019-12-21 2019-12-[address] [facility] 1.2.512.971 [id number] Univers 00:00:00 00:00:00 Management Tan La 350.1.13.10 [place] [phone] Ak dical nal 134 [facility] 2019-12-18 2019-12-18 Routine Jennifer Billingsley Tan [facility] 1.2.840.114 [id number] Univers 16:16:44 17:44:49 Renu Clemente 350.1.13.10 ity [place] [phone] Ak dical nal 134 [facility] 2019-12-18 2019-12-18 Outpatient R CHYNA [facility] [id number] Univers 16:15:00 16:15:00 RENU ity [facility] 2019-12-03 2019-12-03 Outpatient R [facility] [id number] Univers 11:00:00 11:00:00 ity of [facility] 2019-12-02 2019-12-02 Outpatient R ANALILIA JENNIFER [facility] [id number] Univers 13:00:00 13:00:00 ity [facility] 2019-11-27 2019-11-[address] [facility] 1.2.371.211 [id number] Univers 00:00:00 00:00:00 Management Melissa La 350.1.13.10 [place] [phone] Ak dical nal [address] [place] [address] 2019-11-27 2019-11-27 Telephone Analilia [facility] 1.2.840.114 [id number] Univers 00:00:00 00:00:00 Tan La 350.1.13.10 [place] [phone] Ak dical nal [address] [place] [address] 2019-11-26 2019-11-26 Routine Analilia [facility] 1.2.225.617 [id number] Univers 15:33:59 16:52:46 Tan aL 350.1.13.10 [place] [phone] Ak dical nal [address] [place] [address] 2019-11-26 2019-11-26 Outpatient R ANALILIA JENNIFER [facility] [id number] Univers 15:45:00 15:45:00 ity [facility] 2019-11-10 2019-11-10 Transportation Security Officer Brionna Ashraf Lab Main [facility] 1.2.8 40.114 [id number] Univers 12:35:39 12:50:39 Visit Jennifer Billingsley 350.1.13.10 [place] [phone] Ak dic[address] 2019-11-10 2019-11-10 Outpatient R ANALILIA JENNIFER [facility] [id number] Univers 12:30:00 12:30:00 ity of [facility] 2019-11-04 2019-11-[address] [facility] 1.2.840.114 [id number] Univers 00:00:00 00:00:00 Cam Abhinav 350.1.13.10 [place] [phone] [address] 2019-10-28 2019-10-28 [facility] 1.2.484.773 [id number] Univers 15:59:10 17:00:11 Cam Abhinav 350.1.13.10 [place] [phone] [address] 2019-10-28 2019-10-28 Outpatient R ANALILIA JENNIFER [facility] [id number] Univers 16:00:00 16:00:00 ity of [facility] 2019-10-28 2019-10-28 Orders Doctor RAMANA 1.2.840.114 [id number] Univers 00:00:00 00:00:00 Only Unassigned, HERBERT 350.1.13.10 ity of [place] [facility] 4.2.7.2.686 [place] as [phone] [address] 2019-10-15 2019-10-[address] 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 1.2.661.791 [id number] Univers 13:56:31 15:04:50 Cam [place] 350.1.13.10 [place] [phone] Ak dical [address] 2019-10-14 2019-10-14 Outpatient R JENNIFER BILLINGSLEY [facility] [id number] Univers 14:00:00 14:00:00 ity [facility] 2019-10-14 2019-10-14 Orders Doctor RAMANA 1.2.840.114 [id number] Univers 00:00:00 00:00:00 Only Unassigned, HERBERT 350.1.13.10 ity of [place] [facility] 4.2.7.2.686 [place] as [phone] [address] 2019-05-01 2019-05-01 Office Gabriella, Jay Jay [facility] 1.2.840.114 [id number] Univers 14:21:52 15:13:35 Visit [facility] 350.1.13.10 i ty of CL[place]2.[place] [phone] [facility] [address] [place] 2019-05-01 2019-05-01 Outpatient R JAY JAY STANLEY [facility] [id number] Univers 14:30:00 14:30:00 ity [facility] 2019-05-01 2019-05-01 Orders Doctor RAMANA 1.2.840.114 [id number] Univers 00:00:00 00:00:00 Only Unassigned, HERBERT 350.1.13.10 ity of [place] [facility] 4.2.7.2.686 [place] as [phone] [address] 2019-03-04 2019-03-04 Outpatient R ARMIDA [facility] [id number] Univers 15:15:00 16:43:51 GHANSHYAM pavon [facility] Results Test Description Test Time Test Comments Results Result Comments Source CBC with Differential 2022-06-10 10:39:26 Test Item Value Reference Range Interpretation Comme nts WBC (test code = 6690-2) 13.00 See_Comment H [A utomated message] The system which ge nerated this result transmit marjorie reference range: 4.30 - 1 1.10 10*3/?L. The reference r ulises was not used to interpr et this result as normal/abnor mal. RBC (test code = 789-8) 3.28 See_Comment L [Au tomated message] The system which [employer] nerated this result transmit marjorie reference range: 3.93 - 5 .25 10*6/?L. The reference r ulises was not used to interpr et this result as normal/abnor mal. HGB (test code = 718-7) 8.5 g/dL 11.6-15.0 L HCT (test code = 4544-3) 27.0 % 35.7-45.2 L MCV (test code = 787-2) 82.3 fL 80.6-95.5 MCH (test code = 785-6) 25.9 pg 25.9-32.8 MCHC (test code = 786-4) 31.5 g/dL 31.6-35.1 L RDW-SD (test code = 73873-8) 41.3 fL 39.0-49.9 RDW-CV (test code = 788-0) 13.9 % 12.0-15.5 PLT (test code = 777-3) 209 See_Comment [Au tomated message] The system which [employer] nerated this result transmit marjorie reference range: 166 - 35 8 10*3/?L. The reference range was not used to interpret th is result as normal/abnormal . MPV (test code = 16255-0) 11.7 fL 9.5-12.9 NRBC/100 WBC (test code = 0.0 See_Comment [ Automated message] The 7032329120) system which [employer] nerated this result transmit marjorie reference range: 0.0 - 10 .0 /100 WBCs. The reference r ulises was not used to interpr et this result as normal/abnor mal. NRBC x10^3 (test code = See_Comment [Au tomated message] The 9095980392) system which [employer] nerated this result transmit marjorie reference range: 10*3/?L. The reference range was not u sed to interpret this result as normal/abnormal . GRAN MAT (NEUT) % (test code 68.8 % = 770-8) IMM GRAN % (test code = 0.70 % 5303095151) LYMPH % (test code = 736-9) 21.9 % MONO % (test code = 5905-5) 7.1 % EOS % (test code = 713-8) 1.3 % BASO % (test code = 706-2) 0.2 % GRAN MAT x10^3(ANC) (test 8.94 10*3/uL 1.88-7.09 H code = 6925376849) IMM GRAN x10^3 (test code = 0.09 10*3/uL 0.00-0.06 H 3691215195) LYMPH x10^3 (test code = 2.85 10*3/uL 1.32-3.29 731-0) MONO x10^3 (test code = 0.92 10*3/uL 0.33-0.92 742-7) EOS x10^3 (test code = 0.17 10*3/uL 0.03-0.39 711-2) BASO x10^3 (test code = 0.03 10*3/uL 0.01-0.07 704-7) Lab Interpretation (test Abnormal code = 80279-5) [facility] with [id number] 10:39:26 Test Item Value Reference Range Interpretation Comments WBC (test code = 13.00 See_Comment H [Automated 6690-2) message] The sy stem which generated this result transmitted reference range : 4.30 - 11.10 10*3/?L. The reference range was not used to interpret this result as normal/abnormal . RBC (test code = 3.28 See_Comment L [Automated 839-8) message] The sy stem which generated this result transmitted reference range : 3.93 - 5.25 10*6/?L. The reference range was not used to interpret this result as normal/abnormal . HGB (test code = 8.5 g/dL 11.6-15.0 L 718-7) HCT (test code = 27.0 % 35.7-45.2 L 4544-3) MCV (test code = 82.3 fL 80.6-95.5 787-2) MCH (test code = 25.9 pg 25.9-32.8 785-6) MCHC (test code = 31.5 g/dL 31.6-35.1 L 786-4) RDW-SD (test code = 41.3 fL 39.0-49.9 91895-5) RDW-CV (test code = 13.9 % 12.0-15.5 788-0) PLT (test code = 209 See_Comment [Automated 777-3) message] The sy stem which generated this result transmitted reference range : 166 - 358 10*3/ ?L. The reference r ulises was not used to interpret this result as normal/abnormal . MPV (test code = 11.7 fL 9.5-12.9 81362-3) NRBC/100 WBC (test 0.0 See_Comment [Automat ed code = 8631235270) message] The system which generated this result transmitted reference range : 0.0 - 10.0 /100 WBCs. The refer ence range was not u sed to interpret th is result as normal/abnormal . NRBC x10^3 (test code See_Comment [Auto mated = 3487451462) message] The s ystem which generated this result transmitted reference range : 10*3/?L. The reference range was not used to interpret this result as normal/abnormal . GRAN MAT (NEUT) % 68.8 % (test code = 770-8) IMM GRAN % (test code 0.70 % = 1240396971) LYMPH % (test code = 21.9 % 736-9) MONO % (test code = 7.1 % 5905-5) EOS % (test code = 1.3 % 713-8) BASO % (test code = 0.2 % 706-2) GRAN MAT x10^3(ANC) 8.94 10*3/uL 1.88-7.09 H (test code = 3525644359) IMM GRAN x10^3 (test 0.09 10*3/uL 0.00-0.06 H code = 2328218963) LYMPH x10^3 (test code 2.85 10*3/uL 1.32-3.29 = 731-0) MONO x10^3 (test code 0.92 10*3/uL 0.33-0.92 = 742-7) EOS x10^3 (test code = 0.17 10*3/uL 0.03-0.39 711-2) BASO x10^3 (test code 0.03 10*3/uL 0.01-0.07 = 704-7) Lab Interpretation Abnormal (test code = 37207-9) [facility] OR LYNDSEY ONLY - [id number] 09:09:07 Test Item Value Reference Range Interpretation Comments RPR (Qualitative) (test code = Nonreactive Nonreactive 37234-2) Lab Interpretation (test code = Normal 12556-7) [facility] OR LYNDSEY ONLY - [id number] 09:09:07 Test Item Value Reference Range Interpretation Comments RPR (Qualitative) (test code = Nonreactive Nonreactive 21442-9) Lab Interpretation (test code = Normal 38710-5) [facility] B Surface [id number] 16:25:48 Test Item Value Reference Range Interpretation Comments HBsAg Semi-Quantitative (test code = 0.05 Negative 5195-3) [facility] B Surface [id number] 16:25:48 Test Item Value Reference Range Interpretation Comments HBsAg Semi-Quantitative (test code = 0.05 Negative 5195-3) [facility] (D) IMMUNE [id number] 15:41:32 Test Item Value Reference Range Interpretation Comments RHIG CANDIDATE? No- see comment Patient i s not a (test code = candidate for R hIg- 5188) Patient is Rh Positive.Perfor med at [facility] Laboratory [facility] Blood [address] [place] [address] Free: [phone] A No. [id number] [facility] (D) IMMUNE [id number] 15:41:32 Test Item Value Reference Range Interpretation Comments RHIG CANDIDATE? No- see comment Patient i s not a (test code = candidate for R hIg- 5188) Patient is Rh Positive.Perfor med at [facility] Laboratory [facility] Blood [address] [place], [place] [address]Toll Free: [phone] A No. [id number] [facility] 1/2 AG-AB WITH [id number] 13:46:31 Test Item Value Reference Range Interpretation Comments HIV 0.09 Negative Semi-quantitative (test code = 88293-3) GIACOMO (test code = Non-reactive for HIV-1 GIACOMO) antigen and HIV-1/HIV-2 antibodies. ?No laboratory evidence of HIV infection. ?Repeat in 2-4 weeks if acute HIV infection is suspected. [facility] 1/2 AG-AB WITH [id number] 13:46:31 Test Item Value Reference Range Interpretation Comments HIV 0.09 Negative Semi-quantitative (test code = 38605-6) GIACOMO (test code = Non-reactive for HIV-1 GIACOMO) antigen and HIV-1/HIV-2 antibodies. ?No laboratory evidence of HIV infection. ?Repeat in 2-4 weeks if acute HIV infection is suspected. [facility] with Daipsmtdvfrz4726-14-32 12:14:42 Test Item Value Reference Range Interpretation Comments WBC (test code = 11.02 See_Comment [Automated 6690-2) message] The sy stem which generated this result transmitted reference range : 4.30 - 11.10 10*3/?L. The reference range was not used to interpret this result as normal/abnormal . RBC (test code = 3.61 See_Comment L [Automated 679-8) message] The sy stem which generated this result transmitted reference range : 3.93 - 5.25 10*6/?L. The reference range was not used to interpret this result as normal/abnormal . HGB (test code = 9.4 g/dL 11.6-15.0 L 718-7) HCT (test code = 29.8 % 35.7-45.2 L 4544-3) MCV (test code = 82.5 fL 80.6-95.5 787-2) MCH (test code = 26.0 pg 25.9-32.8 785-6) MCHC (test code = 31.5 g/dL 31.6-35.1 L 786-4) RDW-SD (test code = 40.8 fL 39.0-49.9 87006-1) RDW-CV (test code = 13.9 % 12.0-15.5 788-0) PLT (test code = 245 See_Comment [Automated 777-3) message] The sy stem which generated this result transmitted reference range : 166 - 358 10*3/ ?L. The reference r ulises was not used to interpret this result as normal/abnormal . MPV (test code = 11.9 fL 9.5-12.9 69219-4) NRBC/100 WBC (test 0.0 See_Comment [Automat ed code = 0163961226) message] The system which generated this result transmitted reference range : 0.0 - 10.0 /100 WBCs. The refer ence range was not u sed to interpret th is result as normal/abnormal . NRBC x10^3 (test code See_Comment [Auto mated = 0315928885) message] The s ystem which generated this result transmitted reference range : 10*3/?L. The reference range was not used to interpret this result as normal/abnormal . GRAN MAT (NEUT) % 63.6 % (test code = 770-8) IMM GRAN % (test code 0.50 % = 1540994699) LYMPH % (test code = 28.9 % 736-9) MONO % (test code = 6.0 % 5905-5) EOS % (test code = 0.7 % 713-8) BASO % (test code = 0.3 % 706-2) GRAN MAT x10^3(ANC) 7.01 10*3/uL 1.88-7.09 (test code = 1100015129) IMM GRAN x10^3 (test 0.06 10*3/uL 0.00-0.06 code = 7880477004) LYMPH x10^3 (test code 3.18 10*3/uL 1.32-3.29 = 731-0) MONO x10^3 (test code 0.66 10*3/uL 0.33-0.92 = 742-7) EOS x10^3 (test code = 0.08 10*3/uL 0.03-0.39 711-2) BASO x10^3 (test code 0.03 10*3/uL 0.01-0.07 = 704-7) Lab Interpretation Abnormal (test code = 41344-4) [facility] with [id number] 12:14:42 Test Item Value Reference Range Interpretation Comments WBC (test code = 11.02 See_Comment [Automated 6690-2) message] The sy stem which generated this result transmitted reference range : 4.30 - 11.10 10*3/?L. The reference range was not used to interpret this result as normal/abnormal . RBC (test code = 3.61 See_Comment L [Automated 789-8) message] The sy stem which generated this result transmitted reference range : 3.93 - 5.25 10*6/?L. The reference range was not used to interpret this result as normal/abnormal . HGB (test code = 9.4 g/dL 11.6-15.0 L 718-7) HCT (test code = 29.8 % 35.7-45.2 L 4544-3) MCV (test code = 82.5 fL 80.6-95.5 787-2) MCH (test code = 26.0 pg 25.9-32.8 785-6) MCHC (test code = 31.5 g/dL 31.6-35.1 L 786-4) RDW-SD (test code = 40.8 fL 39.0-49.9 51338-1) RDW-CV (test code = 13.9 % 12.0-15.5 788-0) PLT (test code = 245 See_Comment [Automated 777-3) message] The sy stem which generated this result transmitted reference range : 166 - 358 10*3/ ?L. The reference r ulises was not used to interpret this result as normal/abnormal . MPV (test code = 11.9 fL 9.5-12.9 94764-0) NRBC/100 WBC (test 0.0 See_Comment [Automat ed code = 2587005218) message] The system which generated this result transmitted reference range : 0.0 - 10.0 /100 WBCs. The refer ence range was not u sed to interpret th is result as normal/abnormal . NRBC x10^3 (test code See_Comment [Auto mated = 0525308214) message] The s ystem which generated this result transmitted reference range : 10*3/?L. The reference range was not used to interpret this result as normal/abnormal . GRAN MAT (NEUT) % 63.6 % (test code = 770-8) IMM GRAN % (test code 0.50 % = 9222925502) LYMPH % (test code = 28.9 % 736-9) MONO % (test code = 6.0 % 5905-5) EOS % (test code = 0.7 % 713-8) BASO % (test code = 0.3 % 706-2) GRAN MAT x10^3(ANC) 7.01 10*3/uL 1.88-7.09 (test code = 3109144107) IMM GRAN x10^3 (test 0.06 10*3/uL 0.00-0.06 code = 7267800837) LYMPH x10^3 (test code 3.18 10*3/uL 1.32-3.29 = 731-0) MONO x10^3 (test code 0.66 10*3/uL 0.33-0.92 = 742-7) EOS x10^3 (test code = 0.08 10*3/uL 0.03-0.39 711-2) BASO x10^3 (test code 0.03 10*3/uL 0.01-0.07 = 704-7) Lab Interpretation Abnormal (test code = 20686-7) [facility] [id number] 12:12:00 Test Item Value Reference Range Interpretation Comments ABO & RH (test code = 20) O Positive IAT (test code = 1185) Negative [facility] [id number] 12:12:00 Test Item Value Reference Range Interpretation Comments ABO & RH (test code = 20) O Positive IAT (test code = 1185) Negative [facility]/O SPECIFIC [id number] 19:01:00 Test Item Value Reference Range Interpretation Comments POCT PH U (test code = 3254) n/a 5-8 POCT U LEUK EST (test code = n/a Negative - Negative 3263) POCT U NIT (test code = 3262) n/a Negative - Negative POCT U PROT (test code = 3259) Negative Negative - Negative POCT U GLU (test code = 3256) Normal Negative - Negative POCT U KETONE (test code = 3258) n/a Negative - Negative POCT U BLD (test code = 3257) n/a Negative - Negative [facility]/O SPECIFIC [id number] 20:00:00 Test Item Value Reference Range Interpretation Comments POCT PH U (test code = 3254) N/A 5-8 POCT U LEUK EST (test code = 3263) N/A Negative - Negative POCT U NIT (test code = 3262) N/A Negative - Negative POCT U PROT (test code = 3259) Neg Negative - Negative POCT U GLU (test code = 3256) Neg Negative - Negative POCT U KETONE (test code = 3258) N/A Negative - Negative POCT U BLD (test code = 3257) N/A Negative - Negative [facility]/O SPECIFIC [id number] 21:46:00 Test Item Value Reference Range Interpretation Comments POCT PH U (test code = 3254) n/a 5-8 POCT U LEUK EST (test code = 3263) n/a Negative - Negative POCT U NIT (test code = 3262) n/a Negative - Negative POCT U PROT (test code = 3259) neg Negative - Negative POCT U GLU (test code = 3256) neg Negative - Negative POCT U KETONE (test code = 3258) n/a Negative - Negative POCT U BLD (test code = 3257) n/a Negative - Negative [facility]/O SPECIFIC [id number] 21:46:00 Test Item Value Reference Range Interpretation Comments POCT PH U (test code = 3254) n/a 5-8 POCT U LEUK EST (test code = 3263) n/a Negative - Negative POCT U NIT (test code = 3262) n/a Negative - Negative POCT U PROT (test code = 3259) neg Negative - Negative POCT U GLU (test code = 3256) neg Negative - Negative POCT U KETONE (test code = 3258) n/a Negative - Negative POCT U BLD (test code = 3257) n/a Negative - Negative [facility] - ONCE [id number] 23:36:28 Test Item Value Reference Range Interpretation Comments ABO & RH (test code O Positive Performe d at [facility] = 20) Laboratory Serv [facility] [address] [place] [address] Free: [phone] A No. [id number] IAT (test code = Negative Performed a t [facility] 1185) Laboratory Serv [facility] [address] [place] [address]Toll Free: [phone] A No. [id number] [facility] URINALYSIS W/O SPECIFIC [id number] 19:31:00 Test Item Value Reference Range Interpretation Comments POCT PH U (test code = 3254) 7 mg/dl 5-8 POCT U LEUK EST (test code = 1+ Negative - Negative 3263) POCT U NIT (test code = 3262) Negative Negative - Negative POCT U PROT (test code = 3259) Negative Negative - Negative POCT U GLU (test code = 3256) Normal Negative - Negative POCT U KETONE (test code = 3258) Negative Negative - Negative POCT U BLD (test code = 3257) Negative Negative - Negative [facility]/O SPECIFIC [id number] 22:58:00 Test Item Value Reference Range Interpretation Comments POCT PH U (test code = 3254) n/a 5-8 POCT U LEUK EST (test code = n/a Negative - Negative 3263) POCT U NIT (test code = 3262) n/a Negative - Negative POCT U PROT (test code = 3259) trace Negative - Negative POCT U GLU (test code = 3256) negative Negative - Negative POCT U KETONE (test code = 3258) n/a Negative - Negative POCT U BLD (test code = 3257) n/a Negative - Negative [facility]/O SPECIFIC [id number] 19:36:00 Test Item Value Reference Range Interpretation Comments POCT PH U (test code = 3254) n/a 5-8 POCT U LEUK EST (test code = 3263) n/a Negative - Negative POCT U NIT (test code = 3262) n/a Negative - Negative POCT U PROT (test code = 3259) neg Negative - Negative POCT U GLU (test code = 3256) neg Negative - Negative POCT U KETONE (test code = 3258) n/a Negative - Negative POCT U BLD (test code = 3257) n/a Negative - Negative [facility] URINALYSIS W/O SPECIFIC [id number] 19:12:00 Test Item Value Reference Range Interpretation Comments POCT PH U (test code = 3254) N/A 5-8 POCT U LEUK EST (test code = 3263) N/A Negative - Negative POCT U NIT (test code = 3262) N/A Negative - Negative POCT U PROT (test code = 3259) NEG Negative - Negative POCT U GLU (test code = 3256) NEG Negative - Negative POCT U KETONE (test code = 3258) N/A Negative - Negative POCT U BLD (test code = 3257) N/A Negative - Negative [facility] URINALYSIS W/O SPECIFIC [id number] 18:30:00 Test Item Value Reference Range Interpretation Comments POCT PH U (test code = 3254) n/a 5-8 POCT U LEUK EST (test code = n/a Negative - Negative 3263) POCT U NIT (test code = 3262) n/a Negative - Negative POCT U PROT (test code = 3259) negative Negative - Negative POCT U GLU (test code = 3256) negative Negative - Negative POCT U KETONE (test code = 3258) n/a Negative - Negative POCT U BLD (test code = 3257) n/a Negative - Negative [facility] [id number] 19:22:00 Test Item Value Reference Range Interpretation Comments POCT PH U (test code = 3254) n/a 5-8 POCT U LEUK EST (test code = n/a Negative - Negative 3263) POCT U NIT (test code = 3262) n/a Negative - Negative POCT U PROT (test code = 3259) negative Negative - Negative POCT U GLU (test code = 3256) negative Negative - Negative POCT U KETONE (test code = 3258) n/a Negative - Negative POCT U BLD (test code = 3257) n/a Negative - Negative [facility]
[2022-07-17] MEDS ORDERED: METOCLOPRAMIDE 10 MG/2mL INJ ONE (23:02)
[2022-07-17] MEDS ORDERED: KETOROLAC 30 MG/ML INJ ONE (23:03)
[2022-07-17] MEDS ORDERED: dexAMETHasone 10 MG/ML VIAL ONE (23:03)
[2022-07-17] MEDS ORDERED: DIPHENHYDRAMINE 50 MG/ML VIAL ONE (23:03)
[2022-07-17] MEDS ORDERED: NA CHLORIDE 0.9% 500 ML ONE (23:03)
--- NOTE | 2022-07-18 01:12 | EDPHYS ---
Physician Documentation [facility] Name: Cheryle Still Age: 26 yrs Sex: Female : 1995 Arrival Date: 07/17/2022 Time: 21:34 Bed Treatment Private MD: ED Physician Max Hines HPI: 07/17 21:43 This 26 yrs old Female presents to ER via Unassigned with complaints of sp4 Headache, Jaw Pain. 21:43 The patient complains of pain to the right eye and left eye. jmm 21:43 Onset: The symptoms/episode began/occurred gradually, 3 week(s) ago. This is a 26 year jmm old female with a history of fibromyalgia that presents to the ED with complaints of 3 weeks of frontal headache which radiates into her jaw bilaterally. Denies fever. Patient is currently under the care of her pcp for this. Prescribed zofran and imatrex with no relief. Patient has a CT scheduled on . . 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 - Social history:: Smoking status: Reported history of juuling and/or vaping. ROS: 21:43 Constitutional: Negative for fever, chills, and weight loss, Cardiovascular: Negative jmm for chest pain, palpitations, and edema, Respiratory: Negative for shortness of breath, cough, wheezing, and pleuritic chest pain. 21:43 Neuro: Positive for headache. 21:43 All other systems are negative. Exam: 21:43 Constitutional: This is a well developed, well nourished patient who is awake, alert, jmm and in no acute distress. Head/Face: atraumatic. Eyes: EOMI, no conjunctival erythema appreciated ENT: Moist Mucus Membranes Neck: Trachea midline, Supple Chest/axilla: Normal chest wall appearance and motion. Cardiovascular: Regular rate and rhythm. No edema appreciated Respiratory: Normal respirations, no respiratory distress appreciated Abdomen/GI: Non distended Back: Normal ROM Skin: General appearance color normal MS/ Extremity: Moves all extremities, no obvious deformities appreciated, no edema noted to the lower extremities Neuro: Awake and alert Psych: Behavior is normal, Mood is normal, Patient is cooperative and pleasant Vital Signs: 22:24 Weight 127.01 kg; Height 5 ft. 4 in. ; kd3 22:24 Pulse 61; Resp 18; Temp 98.1(TE); Pulse Ox 100% ; kd3 22:24 Weight 127.01 kg; Height 5 ft. 1 in. ; kd3 22:26 BP 134 / 84; Pulse 62; 3 07/18 00:19 BP 138 / 81; Pulse 64; Resp 17 S; Pulse Ox 100% on R/A; 3 07/17 22:24 Body Mass Index 52.90 (127.01 kg, 154.94 cm) [facility] MDM: 07/17 22:30 Patient medically screened. [facility] 07/18 01:09 Differential diagnosis: migraine, ich, meningitis. Data reviewed: vital signs, nurses [facility] notes, radiologic studies, CT scan. I considered the following discharge prescriptions or medication management in the emergency department Medications were administered in the Emergency Department. See MAR. Counseling: I had a detailed discussion with the patient and/or guardian regarding: the historical points, exam findings, and any diagnostic results supporting the discharge/admit diagnosis, radiology results, the need for outpatient follow up, to return to the emergency department if symptoms worsen or persist or if there are any questions or concerns that arise at home. ED course: Symptoms alleviated in the ED. I discussed ct findings with the patient along with the need for both ENT and neuology follow up. Patient otherwise given strict return precautions. patient understood and agrees with the plan of care. . 07/17 22:43 Order name: CT Head Brain wo Cont [facility] 07/17 22:42 Order name: Saline Lock; Complete Time: 22:52 [facility] Administered Medications: 07/17 23:05 Drug: Ketorolac IVP 30 mg Route: IVP; Site: right antecubital; [facility] 07/18 01:26 Follow up: Response: No adverse reaction [facility] 07/17 23:05 Drug: diphenhydrAMINE IVP 12.5 mg Route: IVP; Site: right antecubital; [facility] 07/18 01:26 Follow up: Response: No adverse reaction 3 07/17 23:06 Drug: NS 0.9% IV 500 ml Route: IV; Rate: bolus; Site: right antecubital; 3 07/18 01:27 Follow up: Response: No adverse reaction; IV Status: Completed infusion; IV Intake: lg3 500ml 07/17 23:06 Drug: metoCLOPramide IVP 20 mg Route: IVP; Site: right antecubital; [facility] 07/18 01:27 Follow up: Response: No adverse reaction [facility] 07/17 23:06 Drug: Decadron - Dexamethasone IVP 10 mg Route: IVP; Site: right antecubital; [facility] 07/18 01:26 Follow up: Response: No adverse reaction lg3 Disposition Summary: 07/18/22 01:11 Discharge Ordered Location: Home [facility] Condition: Stable [facility] Diagnosis - Cyst and mucocele of nose and nasal sinus jm - Headache [facility] Followup: [facility] - With: Yakelin Lombardo MD - When: 2 - 3 days - Reason: Recheck today's complaints, Continuance of care, Re-evaluation by your physician Discharge Instructions: - Discharge Summary Sheet [facility] - General Headache Without Cause [facility] Forms: - Medication Reconciliation Form [facility] - Thank You Letter [facility] - Antibiotic Education [facility] - Prescription Opioid Use [facility] Signatures: Dispatcher [employer] Serafin Pearce PA PA jmm Gibson, Lacie RN RN lg3 Lise Fuller RN RN kd3 Max Hines MD MD sp4
--- NOTE | 2022-07-18 01:12 | ER ---
Nurse's Notes [facility] Name: Cheryle Still Age: 26 yrs Sex: Female : 1995 Arrival Date: 07/17/2022 Time: 21:34 Bed Treatment Private MD: Diagnosis: Cyst and mucocele of nose and nasal sinus;Headache Presentation: 07/17 22:24 Coronavirus screen: Vaccine status: Patient reports being unvaccinated. Ebola Screen: kd3 No symptoms or risks identified at this time. Initial Sepsis Screen: Does the patient meet any 2 criteria? No. Patient's initial sepsis screen is negative. Does the patient have a suspected source of infection? No. Patient's initial sepsis screen is negative. Risk Assessment: Do you want to hurt yourself or someone else? Patient reports no desire to harm self or others. 22:24 Method Of Arrival: Ambulatory 3 22:26 Chief complaint: Patient states: I have extreme migraines for the past three weeks and kd3 i made myself throw up recently and i think the thing the blocks your windpipe is stuck up because i can feel it. It starts with an E. My head and jaw and face is burning. Onset of symptoms was July 17, 2022. 22:26 Acuity: RITCHIE 3 kd3 Triage Assessment: 22:28 Headache History: Denies prior headaches. General: Appears uncomfortable, Behavior is kd3 calm, cooperative. Pain: Complains of pain in headache Pain currently is 8 out of 10 on a pain scale. Pain began gradually, Also complains of nausea, photophobia. Neuro: Level of Consciousness is awake, alert, obeys commands, Oriented to person, place, time, situation. 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 - Social history:: Smoking status: Reported history of juuling and/or vaping. Screenin:07 [facility] ED Fall Risk Assessment (Adult) History of falling in the last 3 months, lg3 including since admission No falls in past 3 months (0 pts). Abuse screen: Denies threats or abuse. Denies injuries from another. Nutritional screening: No deficits noted. Tuberculosis screening: No symptoms or risk factors identified. Assessment: 23:07 General: Appears in no apparent distress. comfortable, Behavior is calm, cooperative. lg3 Pain: Complains of pain in jaw, neck, throat. Neuro: No deficits noted. Chaudhari Agitation-Sedation Scale (RASS): 0 - Alert and Calm Level of Consciousness is awake, alert, obeys commands, Oriented to person, place, time, situation. Cardiovascular: No deficits noted. Denies chest pain, shortness of breath, Capillary refill < 3 seconds Clubbing of nail beds is absent JVD is absent Patient's skin is warm and dry. Respiratory: No deficits noted. Airway is patent Respiratory effort is even, unlabored, Respiratory pattern is regular, symmetrical. GI: No deficits noted. No signs and/or symptoms were reported involving the gastrointestinal system. Abdomen is round non-distended. : No deficits noted. No signs and/or symptoms were reported regarding the genitourinary system. EENT: No deficits noted. Derm: No deficits noted. No signs and/or symptoms reported regarding the dermatologic system. Skin is intact, is healthy with good turgor, Skin is dry, Skin is normal, Skin temperature is warm. Musculoskeletal: No deficits noted. Circulation, motion, and sensation intact. Range of motion: intact in all extremities. 07/18 00:19 Reassessment: Patient appears in no apparent distress at this time. No changes from lg3 previously documented assessment. Patient and/or family updated on plan of care and expected duration. Pain level reassessed. Patient is alert, oriented x 3, equal unlabored respirations, skin warm/dry/pink. Patient states symptoms have improved. 01:25 Reassessment: Patient appears in no apparent distress at this time. No changes from lg3 previously documented assessment. Patient and/or family updated on plan of care and expected duration. Pain level reassessed. Patient is alert, oriented x 3, equal unlabored respirations, skin warm/dry/pink. Patient states feeling better. Patient states symptoms have improved. Vital Signs: 07/17 22:24 Weight 127.01 kg; Height 5 ft. 4 in. ; kd3 22:24 Pulse 61; Resp 18; Temp 98.1(TE); Pulse Ox 100% ; kd3 22:24 Weight 127.01 kg; Height 5 ft. 1 in. ; kd3 22:26 BP 134 / 84; Pulse 62; kd3 07/18 00:19 BP 138 / 81; Pulse 64; Resp 17 S; Pulse Ox 100% on R/A; lg3 07/17 22:24 Body Mass Index 52.90 (127.01 kg, 154.94 cm) 3 ED Course: 07/17 21:37 Patient arrived in ED. ja2 21:43 Serafin Mitchell PA is PHCP. m 21:43 Max Hines MD is Attending Physician. m 22:28 Triage completed. 3 22:28 Arm band placed on right wrist. 3 22:34 Shweta Gupta, JUICE is Primary Nurse. 3 22:52 Inserted saline lock: 20 gauge in right antecubital area, using aseptic technique. jw7 23:07 Patient has correct armband on for positive identification. Placed in gown. Bed in low lg3 position. Call light in reach. Side rails up X 1. Client placed on continuous cardiac and pulse oximetry monitoring. NIBP monitoring applied. Door closed. Noise minimized. Warm blanket given. Family accompanied patient. 23:07 Patient maintains SpO2 saturation greater than 95% on room air. lg3 23:27 CT Head Brain wo Cont In Process Unspecified. EDOR 07/18 01:10 Yakelin Lombardo MD is Referral Physician. [facility] 01:25 No provider procedures requiring assistance completed. IV discontinued, intact, lg3 bleeding controlled, No redness/swelling at site. Pressure dressing applied. Administered Medications: 07/17 23:05 Drug: Ketorolac IVP 30 mg Route: IVP; Site: right antecubital; 3 07/18 01:26 Follow up: Response: No adverse reaction 3 07/17 23:05 Drug: diphenhydrAMINE IVP 12.5 mg Route: IVP; Site: right antecubital; 3 07/18 01:26 Follow up: Response: No adverse reaction [facility] 07/17 23:06 Drug: NS 0.9% IV 500 ml Route: IV; Rate: bolus; Site: right antecubital; lg3 07/18 01:27 Follow up: Response: No adverse reaction; IV Status: Completed infusion; IV Intake: lg3 500ml 07/17 23:06 Drug: metoCLOPramide IVP 20 mg Route: IVP; Site: right antecubital; lg3 07/18 01:27 Follow up: Response: No adverse reaction lg3 07/17 23:06 Drug: Decadron - Dexamethasone IVP 10 mg Route: IVP; Site: right antecubital; lg3 07/18 01:26 Follow up: Response: No adverse reaction lg3 Medication: 01:26 VIS not applicable for this client. lg3 Intake: :27 IV: 500ml; Total: 500ml. lg3 Outcome: 01:11 Discharge ordered by . mariela 01:25 Discharged to home ambulatory. lg3 01:25 Condition: stable 01:25 Discharge instructions given to patient, Instructed on discharge instructions, follow up and referral plans. Demonstrated understanding of instructions, follow-up care. 01:26 Patient left the ED. lg3 Signatures: Dispatcher [employer] EDMS Serafin Mitchell PA PA jmm Gibson, Lacie, RN RN mere3 Loree Henderson Kyli, RN RN kd3 Talisha Lobato7
[2022-07-18 02:45] VITALS: TEMP 98.1; O2SAT 100
[2022-07-18 02:47] VITALS: BP 138/81
--- NOTE | 2022-07-18 10:52 | RAD REPORT ---
EXAM DESCRIPTION: Head Brain Wo Cont CLINICAL HISTORY: 26 years Female, HEADACHE TECHNIQUE: Helical CT axial images are obtained from the base of skull through the vertex without IV contrast. Multiplanar reconstruction. This exam was performed according to our departmental dose-opt imization program, which includes automated exposure control, adjustment of the mA and/or kV accordin g to patient size and/or use of iterative reconstruction technique. COMPARISON: None. FINDINGS: BRAIN: No infarcts. No parenchymal hemorrhage, intra-axial mass, mass effect, or midline s hift. No abnormal extra-axial fluid collections. VENTRICLES: Ventricles are normal in size and configuration. No hydrocephalus. CALVARIUM: Bone windows show no skull fracture or calvarial lesions. PARANASAL SINUSES AND MASTOIDS: Left maxillary sinus floor 1.5 cm mucous retention cyst. Otherwise clear paranasal sinuses. Mastoid air cells are clear. IMPRESSION: 1. Negative noncontrast CT examination of brain. Electronically signed by: Daniele Pleitez MD 07/18/2022 12:16 AM CDT Due to temporary technical issues with the PACS/Fluency reporting system, reports are being signed by the in house radiologists without review as a courtesy to insure prompt reporting. The interpreting radiologist is fully responsible for the content of the report.
== END 2022-07-18 01:26 | disposition home or self-care (01) ==
LOC: ER 21:34
DX: J34.1 Cyst and mucocele of nose and nasal sinus (principal); R51.9 Headache, unspecified
CPT/HCPCS: 70450; J2765; J1200; J1100; J7040

== ENCOUNTER 2022-08-24 13:17 | Emergency (ER) | payer OTHER ==
--- OUTSIDE RECORDS SUMMARY | 2022-08-24 13:30 | XMS REPORT | Continuity of Care Document ---
:1995 Author Organization [facility] t Address [address] [place] [address] [place] [id number] Care Team Providers Name Role Phone PCP, PATIENT DOES NOT HAVE A Primary Care Physician UnavailAlina Gonzalez Attending Clinician Unavailable ZACARIAS PACHECO Attending Clinician Unavailable ZACARIAS PACHECO Attending Clinician Unavailable GUILLAUME BARRIOS Attending Clinician Unavailable PATRICIO METZ Attending Clinician Unavailable HARINI SCOTT Attending Clinician Unavailable EMILIANO Attending Clinician Unavailable RADIOLOGY Attending Clinician Unavailable BETO RAMEY Attending Clinician Unavailable Beto Jacques Attending Clinician MARIA DE JESUS AQUINO Attending Clinician Unavailable JENNIFER BILLINGSLEY Attending Clinician Unavailable Jennifer Billingsley MD Attending Clinician JAMAL SUMMERS Attending Clinician Unavailable Jamal Summers MD Attending Clinician Jeremiah Ramírez CRNA Attending Clinician Doctor Unassigned, [place] Attending Clinician Unavailable 2, [facility] Attending Clinician Unavailable Melissa Lazaro PA-C Attending Clinician MELISSA LAZARO Attending Clinician Unavailable Ultrasound, [facility] Attending Clinician Unavailable Anamaria Norwood MD Attending Clinician [phone] ANAMARIA NORWOOD Attending Clinician Unavailable NORRIS-DIALLO, IRAIS Attending Clinician Unavailable SP, IRAIS Attending Clinician Unavailable Pob, [facility] Main Attending Clinician Unavailable Corinne Valladares MA Attending Clinician Unavailable Ultrasound, Rodriguez-Mfrafael Attending Clinician Unavailable Vance Stevens DO Attending Clinician BREE PARNELL Attending Clinician Unavailable Eliot Dangelo MD Attending Clinician CHIRAG WOLF Attending Clinician Unavailable CHIRAG WOLF Attending Clinician Unavailable [facility]riguez [facility] rosario Mfrafael Attending Clinician Unavailable Chirag Wolf MD Attending Clinician Akinsipe JOEPGhanshyam Attending Clinician [phone] Dev HERNANDEZ Attending Clinician Unavailable Dev Villa Attending Clinician KEYONNA VARGHESE Attending Clinician Unavailable Keyonna Burgess Attending Clinician RENU CLEMENTE Attending Clinician Unavailable Renu Clemente MD Attending Clinician Henri Felix MD Attending Clinician HENRI FELIX Attending Clinician Unavailable VERONICA ROBLES Attending Clinician Unavailable WOLF CAGE Attending Clinician Unavailable Wolf Ortiz Attending Clinician Vls-Lab Attending Clinician Unavailable Sang Epps MD Attending Clinician ALVINA LEE Attending Clinician Unavailable Haily Kwan Attending Clinician HAILY AGUILAR Attending Clinician Unavailable Freya Jensen MD Attending Clinician [facility], [facility] Attending Clinician Unavailable Karl Hatfield DO Attending Clinician 1, [facility] Us Room Attending Clinician Unavailable EDITH RODAS Attending Clinician Unavailable Edith Rodas MD Attending Clinician 2, [facility] Us Room Attending Clinician Unavailable Floyd, Brionna Echo Room 1 - Attending Clinician Unavailable Visit, Adc Nurse Attending Clinician Unavailable Alec Arora MD Attending Clinician Deidra Ngo Attending Clinician Rony Menon MD Attending Clinician RONY MENON Attending Clinician Unavailable Jay Jay Gaines Attending Clinician JAY JAY QUIROZ Attending Clinician Unavailable GHANSHYAM HUFFMAN Attending Clinician Unavailable EMILIANO Admitting Clinician Unavailable JENNIFER BILLINGSLEY Admitting Clinician Unavailable Jennifer Billingsley MD Admitting Clinician IRAIS GARCIA Admitting Clinician Unavailable Dev HERNANDEZ Admitting Clinician Unavailable HAILY AGUILAR Admitting Clinician Unavailable Payers Payer Name Policy Type Policy Number Effective Date Expiration Date S ed[place] [id number] 2017 HEALTHCARE PPO 00:00:00 [facility] [id number] 2019 00:00:00 MEDICAID [id number] [facility] [place] [id number] [facility] MEDICAID MC [id number] [facility] MEDICAID MC [id number] [facility] MEDICAID MC [id number] [facility] MEDICAID [place] [id number] 2019 [place] 00:[place]:00 [facility] [id number] 2019 CHOICE MEDICAID 00:00:00 HEALTHY [place] [id number] 2019 WOMEN 00:00:00 Problems Condition Condition Condition Status Onset Resolution Last Treating Co mments Source Name Details Category Date Date Treatment Clinician Date Drainage Drainage Disease Active Unive rs from wound from wound 4-24 it y of 00:00: [place] 00 Medical Branch Status Status Disease Active Univers post post 4-14 [place] sal[place] 00 Me dical kermit kermit Branch Abdominal Abdominal Disease Active Uni vers pain pain 2-24 [place] Branch Fall, Fall, Disease Active Univers initial initial 2-22 [place] 00:[place] 00 Medical [place] 35 weeks 35 weeks Disease Active Overview: Un jannette gestation gestation 2-22 Formattin i ty of of of 00:00: g of this [place] 00 note Medi daren might be Branch different from the original. Added automatic ally from request for surgery [id number] 36 weeks 36 weeks Disease Active Overview: Un jannette gestation gestation 2-22 Formattin i ty of of of 00:00: g of this [place] 00 note Medi daren might be Branch different from the original. Added automatic ally from request for surgery [id number] 38 weeks 38 weeks Disease Active Overview: Un jannette gestation gestation 2-22 Formattin i ty of of of 00:00: g of this [place] 00 note Medi daren might be Branch different from the original. Added automatic ally from request for surgery [id number] Encounter Encounter Disease Active Uni vers for tubal for tubal 2-07 ity of ligation ligation 00:00: [place] counseling [...] Disease Active Overview : Univers B B 8 Formattin ity of streptococ streptococ 00:00: g of this [place] cus) UTI cus) UTI 00 note Medica l complicati complicati might be Branch ng ng different from the original. pending timothy Supervisio Supervisio Disease Active U nivers n of n of 8-25 ity of high-risk high-risk 00:[place] 00 Medi [facility] Multiparit Multiparit Disease Active U nivers y y 8-25 ity of 00:00: [place] Medical Branch History of History of Disease Active Overview : Univers 8-25 Formattin ity of section section 00:00: g of this [place] note Medical might be Branch different from the original. x2 History of History of Disease Active Overview : Univers pulmonary pulmonary 8-25 Formattin i ty of edema edema 00:00: g of this [place] note Medical might be Branch different from the original. After second while in hospital History of History of Disease Active Overview : Univers PCOS PCOS 8 Formattin ity of 00:00: g of this [place] note Medical might be Branch different from the original. Was on metformin , report self d/c Disease Active Overview : Univers anxiety anxiety 8- Formattin ity o f 00:00: g of this [place] note Medical might be Branch different from the original. After of both children History of History of Disease Active Overview : Univers fibromyalg fibromyalg 25 Formattin ity of ia ia 00:00: g of this [place] note Medical might be Branch different from the original. 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 Dx at age 20, found accidenta lly after a running accident Bradycardi Bradycardi Disease Active Overview : Univers a a 4-08 Formattin ity of 00:00: g of this [place] note Medical might be Branch different from the original. Intermitt ent Generalize Generalize Disease Active U nivers d edema d edema 4-08 ity of 00:00: [place] 00 Medical Branch Liveborn Liveborn Disease Active Unive rs infant, of , of 3-29 it y of [place] jansen [place] Me dical born in born in [facility] hospital by by delivery delivery History of History of Disease Active U nivers depression depression 3-29 it y of 00:00: [address] Pre-existi Pre-existi Disease Active 2015-02 U nivers ng ng 0-19 ity of essential essential 00:00: [place] hypertensi hypertensi 00 Me dical on during on during Bran ch Obesity in Obesity in Disease Active 2015-02 U nivers 0-19 ity of 00:00: [address] Anemia of Anemia of Disease Active Uni vers mother in mother in 9-22 ity of , , 00:[place] antepartum antepartum 00 Me dical Branch Generalize Generalize Disease Active U nivers d anxiety d anxiety 4-14 ity of disorder disorder 00:00: [address] Menstrual Menstrual Disease Active Uni vers disorder disorder ity of [facility] Mixed Depression Problem Active Commo n anxiety with Spirit and anxiety - [facility] depressive [facility] [id number] Fibromyalg Problem Active Co mmon ia [facility] [id number] Body mass Problem Active Com mon index Spirit [BMI] - [facility] 50.0-59.9, [facility] [id number] Morbid Problem Active Commo n 9104 (severe) Spirit obesity - [facility] due to [facility] [id number] Atrial Problem Active Common fibrillati Spirit on status - [facility] post cardiovers [facility] [id number] PCOS Problem Active Common (polycysti Spirit c ovarian - CH[facility] syndrome) [facility] Allergies, Adverse Reactions, Alerts Allergy Allergy Status Severity Reaction(s) Onset Inactive Treating Comm ents Source Name Type Date Date Clinician NO KNOWN Drug Active Univers ALLERGIE Class ity of S [facility] Social History Social Habit Start Date Stop Date Quantity Comments Source ASSERTION 2021-09-29 University of 00:00:00 [facility] History of [facility] - Tobacco Use [facility] Sex Assigned At [facility] david - [facility] Exposure to 2022-07-09 2022-07-19 Not sure [facility] SARS-CoV-2 00:00:00 20:31:00 [facility] (event) Branch Alcohol intake 2022-07-19 2022-07-19 Ex-drinker [facility] 00:00:00 00:00:00 (finding) [facility] Tobacco use and 2021-10-20 2021-10-20 Smokeless tobacco Un iversity of exposure 00:00:00 00:00:00 non-user [facility] Tobacco Comment 2021-10-20 2021-10-20 smokes 1 x per Unive rsity of 00:00:00 00:00:00 day [facility] Smoking Status Start Date Stop Date Source Ex-smoker 2021-10-20 00:00:00 2021-10-20 00:00:00 Universi ty of [facility] Never Smoker [facility] Medications Ordered Filled Start Stop Current Ordering Indication Dosage Frequency Signature Comments Components Source Medication Medication Date Date Medication? Clinician (SIG) Name Name maalox:diph 2022- No 15mL 15 mL, Uni vers enhydrAMINE 5-25 05-25 Oral, ity of :lidocaine 01:45: 01:12 ONCE, 1 [place] as 2 % viscous 00 :00 dose, On Medi daren 1:1:1 [facility] Branch (FIRST-MOUT 07/19/22 at [facility]) 2044, MAXX oral suspension 15 mL metoclopram Yes [id number] 10mg Take 1 Univers trung HCl 10 5-24 tablet by ity of mg tablet 00:00: mouth [place] [id number] every 6 Medical (six) Branch hours as needed for Nausea and Vomiting (N/V). pantoprazol 2022- Yes [id number] 40mg Take 1 Univers e 5-24 06-24 tablet by ity of (PROTONIX) 00:00: 04:59 mouth in [place] 40 mg EC 00 :00 the Medical tablet morning Branch for 30 days. gabapentin 2022-0 Yes 300mg Take 1 Univ ers 300 mg 4-20 capsule by ity of capsule 14:26: mouth in [address] Medical morning Branch and 1 capsule at noon and 1 capsule in the evening. gabapentin 2022-0 Yes 300mg Take 1 Univ ers 300 mg 4-20 capsule by ity of capsule 14:26: mouth in [address] Medical morning Branch and 1 capsule at noon and 1 capsule in the evening. gabapentin 2022-0 Yes 300mg Take 1 Univ ers 300 mg 4-20 capsule by ity of capsule 14:26: mouth in [address] Medical morning Branch and 1 capsule at noon and 1 capsule in the evening. gabapentin 2023-0 Yes 300mg Take 1 Univ ers 300 mg 4-20 capsule by ity of capsule 14:26: mouth in [address] Branch and 1 capsule at noon and 1 capsule in the evening. gabapentin 2023-0 Yes 300mg Take 1 Univ ers 300 mg 4-20 capsule by ity of capsule 14:26: mouth in [address] and 1 capsule at noon and 1 capsule in the evening. HYDROcodone 2023-0 Yes 1{tbl} 1 tablet, Univers -acetaminop 4-20 Oral, ity of hen (NORCO 03:11: Q6HPRN, [place] 5) 5-325 mg 57 Starting Medi daren tablet 1 on Sun tablet 06/14/22 at 2211, Until Discontinu ed, Routine, Pain (scale 7-10) acetaminoph 2022-0 Yes 650mg 650 mg, Un jannette en 4-20 Oral, ity of (TYLENOL) 03:11: Q6HPRN, [place] tablet 650 57 Starting Medic al mg on Sun Branch 06/14/22 at 2211, Until Discontinu ed, Routine, Pain (scale 1-3) ibuprofen 2022-0 Yes 600mg 600 mg, Univ ers (IBU) 4-20 Oral, ity of tablet 600 03:11: Q6HPRN, [place] mg 57 Starting Medical on Sun Branch 06/14/22 at 2211, Until Discontinu ed, Routine, Pain (scale 4-6) enoxaparin 2022-0 2022- Yes [id number] 40mg inject 0.4 Univers 40 mg/0.4 4-17 05-09 mL under ity o f mL 00:00: 04:59 the skin [place] injection 00 :00 in the [facility] for 21 days. enoxaparin 2022-0 2022- Yes [id number] 40mg inject 0.4 Univers 40 mg/0.4 4-17 05-09 mL under ity o f mL 00:00: 04:59 the skin [place] injection 00 :00 in the [facility] for 21 days. enoxaparin 2022-0 2022- Yes [id number] 40mg inject 0.4 Univers 40 mg/0.4 4-17 05-09 mL under ity o f mL 00:00: 04:59 the skin [place] injection 00 :00 in the [facility] for 21 days. enoxaparin 2022- Yes [id number] 40mg inject 0.4 Univers 40 mg/0.4 4-17 05-09 mL under ity o f mL 00:00: 04:59 the skin [place] injection 00 :00 in the [facility] Branch for 21 days. enoxaparin 2022- Yes [id number] 40mg inject 0.4 Univers 40 mg/0.4 4-17 05-09 mL under ity o f mL 00:00: 04:59 the skin [place] injection 00 :00 in the [facility] Branch for 21 days. enoxaparin 2022- Yes [id number] 40mg inject 0.4 Univers 40 mg/0.4 4-17 05-09 mL under ity o f mL 00:00: 04:59 the skin [place] injection 00 :00 in the [facility] for 21 days. furosemide Yes 20mg 20 mg, Unive rs (LASIX) 4-16 Oral, ity of tablet 20 14:00: DAILY, [place] mg 00 First dose Medical on [facility] 06/11/22 at 0900, Until Discontinu ed, Routine furosemide 2022- No 20mg 20 mg, Univ ers (LASIX) 4-16 04-16 Oral, ity of tablet 20 14:00: 18:34 DAILY, [place] mg 00 :05 First dose Medical on [facility] 06/11/22 at 0900, Until Discontinu ed, Routine cetirizine 2022- No cetirizine Univers 10 mg 4-16 04-16 10 mg ity of tablet 07:16: 00:00 tablet [place] 40 :00 [facility] Branch cetirizine 2022- No cetirizine Univers 10 mg 4-16 04-16 10 mg ity of tablet 07:16: 00:00 tablet [place] 40 :00 [facility] Branch cetirizine 2022- No cetirizine Univers 10 mg 4-16 04-16 10 mg ity of tablet 07:16: 00:00 tablet [place] 40 :00 [facility] Branch ibuprofen Yes 600mg 600 mg, Univ ers (IBU) 4-16 Oral, Q6H ity of tablet 600 02:00: ABX, First [place] mg 00 dose Medical (after Branch last modificati on) on 06/10/22 at 2100, Until Discontinu ed, Routine ibuprofen 2022-0 2022- No 600mg 600 mg, Uni vers (IBU) 4-16 04-16 Oral, Q6H ity of tablet 600 02:00: 18:34 ABX, First [place] mg 00 :05 dose Medical (after Branch last modificati on) on 06/10/22 at 2100, Until Discontinu ed, Routine 2022-0 Yes [id number] 1{tbl} Take 1 Univers vitamin 4-16 tablet by ity of w/FA tablet 00:00: mouth in [place] 00 the Medical morning. Branch docusate 2022-0 Yes [id number] 200mg Take 2 U nivers 100 mg 4-16 capsules ity of capsule 00:00: by mouth [place] 00 once daily Medical as needed Branch for Constipati on. ferrous 2022-0 Yes [id number] 325mg Take 1 Un jannette sulfate 325 4-16 tablet by ity of mg (65 mg 00:00: [place] iron[place] 00 the Medical tablet morning Branch and 1 tablet in the evening. ibuprofen 2022-0 Yes [id number] 600mg Take 1 Univers 600 mg 4-16 tablet by ity of tablet 00:00: mouth [place] 00 every 6 Medical (six) Branch hours as needed (Pain). Take with food or milk. furosemide 2022-0 Yes [id number] 20mg Take 1 Univers 20 mg 4-16 tablet by ity of tablet 00:00: mouth [place] 00 every Medical other day. Branch 2022-0 Yes [id number] 1{tbl} Take 1 Univers vitamin 4-16 tablet by ity of w/FA tablet 00:00: mouth in [place] 00 the Medical morning. Branch docusate 2022-0 Yes [id number] 200mg Take 2 U nivers 100 mg 4-16 capsules ity of capsule 00:00: by mouth [place] 00 once daily Medical as needed Branch for Constipati on. ferrous 2022-0 Yes [id number] 325mg Take 1 Un jannette sulfate 325 4-16 tablet by ity of mg (65 mg 00:00: [place] iron[place] 00 the Medical tablet morning Branch and 1 tablet in the evening. ibuprofen 3-0 Yes [id number] 600mg Take 1 Univers 600 mg 4-16 tablet by ity of tablet 00:00: mouth [place] 00 every 6 Medical (six) Branch hours as needed (Pain). Take with food or milk. furosemide 3-0 Yes [id number] 20mg Take 1 Univers 20 mg 4-16 tablet by ity of tablet 00:00: mouth [place] 00 every Medical other day. Branch 2022-0 Yes [id number] 1{tbl} Take 1 Univers vitamin 4-16 tablet by ity of w/FA tablet 00:00: mouth in [place] 00 the Medical morning. Branch docusate 2022-0 Yes [id number] 200mg Take 2 U nivers 100 mg 4-16 capsules ity of capsule 00:00: by mouth [place] 00 once daily Medical as needed Branch for Constipati on. ferrous 2022-0 Yes [id number] 325mg Take 1 Un jannette sulfate 325 4-16 tablet by ity of mg (65 mg 00:00: [place] iron[place] 00 the Medical tablet morning Branch and 1 tablet in the evening. ibuprofen 2022-0 Yes [id number] 600mg Take 1 Univers 600 mg 4-16 tablet by ity of tablet 00:00: mouth [place] 00 every 6 Medical (six) Branch hours as needed (Pain). Take with food or milk. furosemide 2022-0 Yes [id number] 20mg Take 1 Univers 20 mg 4-16 tablet by ity of tablet 00:00: mouth [place] 00 every Medical other day. Branch 2022-0 Yes [id number] 1{tbl} Take 1 Univers vitamin 4-16 tablet by ity of w/FA tablet 00:00: mouth in [place] 00 the Medical morning. Branch docusate 2022-0 Yes [id number] 200mg Take 2 U nivers 100 mg 4-16 capsules ity of capsule 00:00: by mouth [place] 00 once daily Medical as needed Branch for Constipati on. ferrous 2023-0 Yes [id number] 325mg Take 1 Un jannette sulfate 325 4-16 tablet by ity of mg (65 mg 00:00: [place] iron[place] 00 the Medical tablet morning Branch and 1 tablet in the evening. ibuprofen 3-0 Yes [id number] 600mg Take 1 Univers 600 mg 4-16 tablet by ity of tablet 00:00: mouth [place] 00 every 6 Medical (six) Branch hours as needed (Pain). Take with food or milk. furosemide 3-0 Yes [id number] 20mg Take 1 Univers 20 mg 4-16 tablet by ity of tablet 00:00: mouth [place] 00 every Medical other day. Branch 2022-0 Yes [id number] 1{tbl} Take 1 Univers vitamin 4-16 tablet by ity of w/FA tablet 00:00: mouth in [place] 00 the Medical morning. Branch docusate 2022-0 Yes [id number] 200mg Take 2 U nivers 100 mg 4-16 capsules ity of capsule 00:00: by mouth [place] 00 once daily Medical as needed Branch for Constipati on. ferrous 3-0 Yes [id number] 325mg Take 1 Un jannette sulfate 325 4-16 tablet by ity of mg (65 mg 00:00: [place] iron[place] 00 the Medical tablet morning Branch and 1 tablet in the evening. ibuprofen 2022-0 Yes [id number] 600mg Take 1 Univers 600 mg 4-16 tablet by ity of tablet 00:00: mouth [place] 00 every 6 Medical (six) Branch hours as needed (Pain). Take with food or milk. furosemide 2022-0 Yes [id number] 20mg Take 1 Univers 20 mg 4-16 tablet by ity of tablet 00:00: mouth [place] 00 every Medical other day. Branch 2022-0 Yes [id number] 1{tbl} Take 1 Univers vitamin 4-16 tablet by ity of w/FA tablet 00:00: mouth in [place] 00 the Medical morning. Branch docusate 2022-0 Yes [id number] 200mg Take 2 U nivers 100 mg 4-16 capsules ity of capsule 00:00: by mouth [place] 00 once daily Medical as needed Branch for Constipati on. ferrous 3-0 Yes [id number] 325mg Take 1 Un jannette sulfate 325 4-16 tablet by ity of mg (65 mg 00:00: [place] iron[place] 00 the Medical tablet morning Branch and 1 tablet in the evening. ibuprofen 3-0 Yes [id number] 600mg Take 1 Univers 600 mg 4-16 tablet by ity of tablet 00:00: mouth [place] 00 every 6 Medical (six) Branch hours as needed (Pain). Take with food or milk. furosemide 2023-0 Yes [id number] 20mg Take 1 Univers 20 mg 4-16 tablet by ity of tablet 00:00: mouth [place] 00 every Medical other day. Branch 3-0 Yes [id number] 1{tbl} Take 1 Univers vitamin 4-16 tablet by ity of w/FA tablet 00:00: mouth in [place] 00 the Medical morning. Branch docusate 2022-0 Yes [id number] 200mg Take 2 U nivers 100 mg 4-16 capsules ity of capsule 00:00: by mouth [place] 00 once daily Medical as needed Branch for Constipati on. ferrous 3-0 Yes [id number] 325mg Take 1 Un jannette sulfate 325 4-16 tablet by ity of mg (65 mg 00:00: [place] iron[place] 00 the Medical tablet morning Branch and 1 tablet in the evening. ibuprofen 3-0 Yes [id number] 600mg Take 1 Univers 600 mg 4-16 tablet by ity of tablet 00:00: mouth [place] 00 every 6 Medical (six) Branch hours as needed (Pain). Take with food or milk. furosemide 3-0 Yes [id number] 20mg Take 1 Univers 20 mg 4-16 tablet by ity of tablet 00:00: mouth [place] 00 every Medical other day. Branch 2022-0 Yes [id number] 1{tbl} Take 1 Univers vitamin 4-16 tablet by ity of w/FA tablet 00:00: mouth in [place] 00 the Medical morning. Branch docusate 2022-0 Yes [id number] 200mg Take 2 U nivers 100 mg 4-16 capsules ity of capsule 00:00: by mouth [place] 00 once daily Medical as needed Branch for Constipati on. ferrous 2023-0 Yes [id number] 325mg Take 1 Un jannette sulfate 325 4-16 tablet by ity of mg (65 mg 00:00: mouth [place] iron[place] 00 the Medical tablet morning Branch and 1 tablet in the evening. ibuprofen 2023-0 Yes [id number] 600mg Take 1 Univers 600 mg 4-16 tablet by ity of tablet 00:00: mouth [place] 00 every 6 Medical (six) Branch hours as needed (Pain). Take with food or milk. furosemide 3-0 Yes [id number] 20mg Take 1 Univers 20 mg 4-16 tablet by ity of tablet 00:00: mouth [place] 00 every Medical other day. Branch 2022-0 Yes [id number] 1{tbl} Take 1 Univers vitamin 4-16 tablet by ity of w/FA tablet 00:00: mouth in [place] 00 the Medical morning. Branch docusate 2022-0 Yes [id number] 200mg Take 2 U nivers 100 mg 4-16 capsules ity of capsule 00:00: by mouth [place] 00 once daily Medical as needed Branch for Constipati on. ferrous 2022-0 Yes [id number] 325mg Take 1 Un jannette sulfate 325 4-16 tablet by ity of mg (65 mg 00:00: mouth [place] iron[place] 00 the Medical tablet morning Branch and 1 tablet in the evening. ibuprofen 2022-0 Yes [id number] 600mg Take 1 Univers 600 mg 4-16 tablet by ity of tablet 00:00: mouth [place] 00 every 6 Medical (six) Branch hours as needed (Pain). Take with food or milk. furosemide 2022-0 Yes [id number] 20mg Take 1 Univers 20 mg 4-16 tablet by ity of tablet 00:00: mouth [place] 00 every Medical other day. Branch 2022-0 Yes [id number] 1{tbl} Take 1 Univers vitamin 4-16 tablet by ity of w/FA tablet 00:00: mouth in [place] 00 the Medical morning. Branch docusate 2022-0 Yes [id number] 200mg Take 2 U nivers 100 mg 4-16 capsules ity of capsule 00:00: by mouth [place] 00 once daily Medical as needed Branch for Constipati on. ferrous 3-0 Yes [id number] 325mg Take 1 Un jannette sulfate 325 4-16 tablet by ity of mg (65 mg 00:00: mouth [place] iron[place] 00 the Medical tablet morning Branch and 1 tablet in the evening. ibuprofen 3-0 Yes [id number] 600mg Take 1 Univers 600 mg 4-16 tablet by ity of tablet 00:00: mouth [place] 00 every 6 Medical (six) Branch hours as needed (Pain). Take with food or milk. furosemide 3-0 Yes [id number] 20mg Take 1 [facility] 20 mg 4-16 tablet by ity of tablet 00:00: mouth [place] 00 every Medical other day. Branch 2022-0 Yes [id number] 1{tbl} Take 1 [facility] vitamin 4-16 tablet by ity of w/FA tablet 00:00: mouth in [place] 00 the Medical morning. Branch docusate 0 Yes [id number] 200mg Take 2 U nivers 100 mg 4-16 capsules ity of capsule 00:00: by mouth [place] 00 once daily Medical as needed Branch for Constipati on. ferrous 2022- Yes [id number] 325mg Take 1 Un [place] sulfate 325 4-16 tablet by ity of mg (65 mg 00:00: [place] iron[place] 00 the Medical tablet morning Branch and 1 tablet in the evening. ibuprofen Yes [id number] 600mg Take 1 [facility] 600 mg 4-16 tablet by ity of tablet 00:00: mouth [place] 00 every 6 Medical (six) Branch hours as needed (Pain). Take with food or milk. furosemide 2022- Yes [id number] 20mg Take 1 [facility] 20 mg 4-16 tablet by ity of tablet 00:00: mouth [place] 00 every Medical other day. Branch HYDROcodone 2022- Yes [id number] 1{tbl} Take 1 [...] 4647 1{tbl} Take 1 U nivers -acetaminop 16 24 tablet by it y of hen 5-325 [...] at 0800, Until Discontinu ed, Routine enoxaparin 2022-0 2022- No 40mg 40 mg, Univ ers (LOVENOX) 06-10-16 Subcutaneo ity of injection 13:00: 18:34 us, Q24H, [place] 40 mg 00 :05 First dose Medical on Sat Branch 06/10/22 at 0800, Until Discontinu ed, Routine acetaminoph 2022-0 Yes 650mg 650 mg, Un jannette en -15 Oral, Q6H ity of (TYLENOL) 05:00: ABX, First [place] tablet 650 00 dose on Medica l mg Sat Branch 06/10/22 at 0000, Until Discontinu ed, Routine HYDROcodone 2022-0 Yes 1{tbl} 1 tablet, [facility] -acetaminop -15 Oral, ity of hen (NORCO 05:00: Q6HPRN, [place] 5) 5-325 mg 00 Starting Medi daren tablet 1 on Sat Branch tablet 06/10/22 at 0000, Until Discontinu ed, Routine, Pain (scale 7-10), Alternate with Ibuprofen acetaminoph 2022-0 2022- No 650mg 650 mg, U nivers en 06-10-16 Oral, Q6H ity of (TYLENOL) 05:00: 18:34 ABX, First [place] tablet 650 00 :05 dose on Medica l mg Sat Branch 06/10/22 at 0000, Until Discontinu ed, Routine HYDROcodone 2022-0 2023- No 1{tbl} 1 tablet, [facility] -acetaminop -15 -16 Oral, ity of hen (NORCO 05:00: 18:34 Q6HPRN, [place] 5) 5-325 mg 00 :05 Starting Medi daren tablet 1 on Sat Branch tablet 06/10/22 at 0000, Until 06/11/22 at 1334, Routine, Pain (scale 7-10), Alternate with Ibuprofen ketorolac No 30mg 30 mg, Unive rs (TORADOL) 06-1015 Slow IV ity of injection 01:32: 19:54 Push, Q6H [place] 30 mg 30 :00 ABX, 4 Medical doses, Branch First dose (after last modificati on) on Sun06/09/22 at 2045, Last dose on Sun06/10/22 at 1445, Routine gabapentin Yes 300mg 300 mg, Uni vers (NEURONTIN) 06-09 Oral, TID, it y of capsule 300 19:00: First dose [place] mg 00 on Sun Medical 06/09/22 at [place] 1400, Until Discontinu ed, Routine gabapentin No 300mg 300 mg, Un jannette (NEURONTIN) 06-0916 Oral, TID, i ty of capsule 300 19:00: 18:34 First dose [place] mg 00 :05 on Sun Medical 06/09/22 at Branch 1400, Until Discontinu ed, Routine rho(D) Yes 300ug 300 mcg, Univer s immune 06-09 Intramuscu ity of globulin 15:19: lar, ONCE, [place] (RHOGAM) 59 For 1 Medical syringe 300 dose, Branch mcg Conditiona l, Routine rho(D) No 300ug 300 mcg, Unive rs immune 06-09-16 Intramuscu ity of globulin 15:19: 18:34 lar, ONCE, [place] (RHOGAM) 59 :05 For 1 Medical syringe 300 dose, Branch mcg Conditiona l, Routine diphenhydrA Yes 25mg 25 mg, Univ ers MINE 06-09 Slow IV ity of (BENADRYL) 15:19: Push, [place] injection 54 Q6HPRN, Medical 25 mg Starting Branch on Sun06/09/22 at 1019, Until Discontinu ed, Routine, Itching diphenhydrA 2023-0 Yes 25mg 25 mg, Univ ers MINE 4-14 Oral, ity of (BENADRYL) 15:19: Q6HPRN, [place] tablet 25 54 Starting Medica l mg on Sun Branch 06/09/22 at 1019, Until Discontinu ed, Routine, Sleep, Itching ondansetron 2022-0 Yes 4mg 4 mg, Slow Univers (ZOFRAN 4-14 IV Push, ity of (PF)) 15:19: Q8HPRN, [place] injection 4 54 Starting Medi daren mg on Sun06/09/22 at 1019, Until Discontinu ed, Routine, Nausea and Vomiting (N/V) bisacodyL 2022-0 Yes 10mg 10 mg, Univer s (DULCOLAX) 4-14 Rectal, ity of suppository 15:19: QDAILYPRN, [place] 10 mg 54 Starting Medical on Sun06/09/22 at 1019, Until Discontinu ed, Routine, Constipati on simethicone 2022-0 Yes 160mg 160 mg, Un jannette (GAS RELIEF 4-14 Oral, ity of (SIMETHICON 15:19: PC+HSPRN, [place] E)) 54 Starting Medical chewable on Sun tablet 160 06/09/22 at mg 1019, Until Discontinu ed, Routine, Gas docusate 2022-0 Yes 200mg 200 mg, Unive rs (COLACE) 4-14 Oral, ity of capsule 200 15:19: QDAILYPRN, [place] mg 54 Starting Medical on Sun06/09/22 at 1019, Until Discontinu ed, Routine, Constipati on magnesium 2022-0 Yes 30mL 30 mL, Univer s hydroxide 4-14 Oral, ity of (MILK OF 15:19: QDAILYPRN, [place] MAGNESIA) 54 Starting Medica l 400 mg/5 mL on Sun suspension 06/09/22 at 30 mL 1019, Until Discontinu ed, Routine, Constipati on lactated 2022-0 Yes 1000mL at 125 Unive rs ringers IV 4-14 mL/hr, ity of infusion 15:19: 1,000 mL, [place] 1,000 mL 54 IV Medical Infusion, Branch PRN, 1 dose, Starting on Sun06/09/22 at 1019, Until Discontinu ed, Routine diphenhydrA 2022- No 25mg 25 mg, Uni vers MINE 06-09 Slow IV ity of (BENADRYL) 15:19: 18:34 Push, [place] injection 54 :05 Q6HPRN, Medical 25 mg Starting Branch on 06/09/22 at 1019, Until 06/11/22 at 1334, Routine, Itching diphenhydrA 2022- No 25mg 25 mg, Uni vers MINE 06-09 Oral, ity of (BENADRYL) 15:19: 18:34 Q6HPRN, [place] tablet 25 54 :05 Starting Medica l mg on Sun Branch 06/09/22 at 1019, Until 06/11/22 at 1334, Routine, Sleep, Itching ondansetron 2022- No 4mg 4 mg, Slow Univers (ZOFRAN 06-09 IV Push, ity of (PF)) 15:19: 18:34 Q8HPRN, [place] injection 4 54 :05 Starting Medi daren mg on Sun Branch 06/09/22 at 1019, Until 06/11/22 at 1334, Routine, Nausea and Vomiting (N/V) bisacodyL 2022- No 10mg 10 mg, Unive rs (DULCOLAX) 06-09 Rectal, ity o f suppository 15:19: 18:34 QDAILYPRN, [place] 10 mg 54 :05 Starting Medical on Sun Branch 06/09/22 at 1019, Until 06/11/22 at 1334, Routine, Constipati on simethicone 2022- No 160mg 160 mg, U nivers (GAS RELIEF 06-09 Oral, ity of (SIMETHICON 15:19: 18:34 PC+HSPRN, [place] E)) 54 :05 Starting Medical chewable on [...] 06/11/22 at 1334, Routine, Constipati on lactated 2022- No 1000mL at 125 [facility] ers ringers IV 06-09- mL/hr, ity of infusion 15:19: 18:34 1,000 mL, [place] 1,000 mL 54 :05 IV Medical Infusion, Branch PRN, 1 dose, Starting on 06/09/22 at 1019, Until 06/11/22 at 1334, Routine lactated 2022- No 1000mL at 125 [facility] ers ringers IV 06-09 mL/hr, ity of infusion 13:00: 15:20 1,000 mL, [place] 1,000 mL 00 :11 IV Medical Infusion, Branch CONTINUOUS , Starting on 06/09/22 at 0800, Until 06/09/22 at 1020, MAXX sodium 2022- No 30mL 30 mL, [facility] citrate-cit 06-09 Oral, ity of jordon acid 10:40: 12:39 PRE-PROCED [place] (BICITRA) 24 :00 URE ONCE, Medic al 500-334 1 dose, Branch mg/5 mL Starting solution 30 on Fri mL 06/09/22 at 0540, Until Discontinu ed, Routine, Surgery/Pr ocedure meclizine 0 Yes [id number] 25mg Take 1 U nivers 25 mg 4-06 tablet by ity of tablet 00:00: mouth 3 00 (three) Medical times Branch daily as needed for Dizziness. cetirizine Yes [id number] 10mg Take 1 [facility] 10 mg 4-06 tablet by ity of tablet 00:00: mouth in [place] 00 the Medical morning. Branch meclizine Yes [id number] 25mg Take 1 U nivers 25 mg 4-06 tablet by ity of tablet 00:00: mouth 3 [place] 00 (three) Medical times [place] daily as needed for Dizziness. cetirizine Yes [id number] 10mg Take 1 [facility] 10 mg 4-06 tablet by ity of tablet 00:00: mouth in [place] 00 the Medical morning. Branch meclizine 2022- No [id number] 25mg Take 1 [facility] 25 mg 4-06 04-16 tablet by ity of tablet 00:00: 00:00 mouth 3 [place] 00 :00 (three) Medical times [place] daily as needed for Dizziness. cetirizine 2022- No [id number] 10mg Take 1 [facility] 10 mg 4-06 04-16 tablet by ity of tablet 00:00: 00:00 mouth in [place] 00 :00 the Medical morning. Branch cetirizine Yes 10mg 10 mg, Unive rs (ZYRTEC) 4-05 Oral, ity of tablet 10 14:00: DAILY, [facility] 00 First dose Medical on Sun [place] 05/31/22 at 0900, Until Discontinu ed, Routine azithromyci 2022- Yes [id number] 250mg Take 1 [facility] n 250 mg 4-05 04-10 tablet by ity o f tablet 00:00: 04:59 mouth in [place] 00 :00 the Medical morning Branch for 4 days. azithromyci 2022-2022- Yes [id number] 250mg Take 1 [facility] n 250 mg 4-05 04-10 tablet by ity o f tablet 00:00: 04:59 mouth in [place] 00 :00 the Medical morning Branch for 4 days. azithromyci 2022-2022- Yes [id number] 250mg Take 1 Univers n 250 mg 4-05 04-10 tablet by ity o f tablet 00:00: 04:59 mouth in [place] 00 :00 the Medical morning [place] for 4 days. cetirizine 0 Yes cetirizine U nivers 10 mg 4-04 10 mg ity of tablet 16:56: tablet [place] 29 [facility] cetirizine 0 Yes cetirizine U nivers 10 mg 4-04 10 mg ity of tablet 16:56: tablet [address] cetirizine 2022-0 Yes cetirizine U nivers 10 mg 4-04 10 mg ity of tablet 16:56: tablet [address] cetirizine 2022-0 Yes cetirizine U nivers 10 mg 4-04 10 mg ity of tablet 16:56: tablet [address] azithromyci 0 202- No 500mg 500 mg, U nivers n 4-04 04-04 Oral, ity of (ZITHROMAX) 16:15: 15:35 ONCE, 1 [place] tablet 500 00 :00 dose, On Medic al mg [facility] 05/30/22 Branch at 1115, MAXX
Re ason for Anti-Infec tive: Documented Infection< br>Documen marjorie Infection Site: HEENT
D uration of Therapy: Other (see Comments) butalbital- 2022-0 202- No 2{tbl} 2 tablet, Univers acetaminoph 4-04 04-04 Oral, ity of en-caff 14:45: 14:04 ONCE, 1 [place] (ESGIC) 00 :00 dose, On Medical 50-325-40 [facility] 05/30/22 Bran ch mg tablet 2 at 0945, tablet Routine cetirizine 0 Yes cetirizine U nivers 10 mg 4-04 10 mg ity of tablet 13:11: tablet [address] acyclovir 2022-0 Yes [id number] 400mg Take 1 [facility] 400 mg 3-23 tablet by ity of tablet 00:00: mouth in [address] and 1 tablet in the evening. acyclovir 2023-0 Yes [id number] 400mg Take 1 [facility] 400 mg 3-23 tablet by ity of tablet 00:00: mouth in [address] and 1 tablet in the evening. acyclovir 2023-0 Yes [id number] 400mg Take 1 [facility] 400 mg 3-23 tablet by ity of tablet 00:00: mouth in [address] and 1 tablet in the evening. acyclovir 2023-0 Yes [id number] 400mg Take 1 [facility] 400 mg 3-23 tablet by ity of tablet 00:00: mouth in [place] 00 the Medical morning Branch and 1 tablet in the evening. acyclovir 2023-0 Yes [id number] 400mg Take 1 [facility] 400 mg 3-23 tablet by ity of tablet 00:00: mouth in [place] [address] the Medical morning Branch and 1 tablet in the evening. acyclovir 2023-0 Yes [id number] 400mg Take 1 [facility] 400 mg 3-23 tablet by ity of tablet 00:00: mouth in [place] [address] the Medical morning Branch and 1 tablet in the evening. acyclovir 2023-0 Yes [id number] 400mg Take 1 [facility] 400 mg 3-23 tablet by ity of tablet 00:00: mouth in [place] [address] the Medical morning Branch and 1 tablet in the evening. acyclovir 2023-0 Yes [id number] 400mg Take 1 [facility] 400 mg 3-23 tablet by ity of tablet 00:00: mouth in [place] [address] the Medical morning Branch and 1 tablet in the evening. acyclovir 2023-0 Yes [id number] 400mg Take 1 [facility] 400 mg 3-23 tablet by ity of tablet 00:00: mouth in [place] [address] the Medical morning Branch and 1 tablet in the evening. acyclovir 2023-0 Yes [id number] 400mg Take 1 [facility] 400 mg 3-23 tablet by ity of tablet 00:00: mouth in [place] [address] the Medical morning [place] and 1 tablet in the evening. acyclovir 2023-0 Yes [id number] 400mg Take 1 [facility] 400 mg 3-23 tablet by ity of tablet 00:00: mouth in [place] [address] the Medical morning [place] and 1 tablet in the evening. acyclovir 2023-0 Yes [id number] 400mg Take 1 [facility] 400 mg 3-23 tablet by ity of tablet 00:00: mouth in [place] [address] the Medical morning Branch and 1 tablet in the evening. acyclovir 2023-0 Yes [id number] 400mg Take 1 [facility] 400 mg 3-23 tablet by ity of tablet 00:00: mouth in [place] [address] the Medical morning [place] and 1 tablet in the evening. acyclovir 2023-0 2023- No [id number] 400mg Take 1 [facility] 400 mg 3-23 04-16 tablet by ity of tablet 00:00: 00:00 mouth in [place] 00 :00 the Medical morning Branch and 1 tablet in the evening. cetirizine 2022-0 Yes cetirizine U nivers 10 mg 2-24 10 mg ity of tablet 22:06: tablet [address] cetirizine 2022-0 Yes cetirizine U nivers 10 mg 2-24 10 mg ity of tablet 22:06: tablet [address] cetirizine 2022-0 Yes cetirizine U nivers 10 mg 2-24 10 mg ity of tablet 22:06: tablet [address] cetirizine 2022-0 Yes cetirizine U nivers 10 mg 2-24 10 mg ity of tablet 22:06: tablet [address] cetirizine 2022-0 Yes cetirizine U nivers 10 mg 2-24 10 mg ity of tablet 22:06: tablet [address] cetirizine 2022-0 Yes cetirizine U nivers 10 mg 2-24 10 mg ity of tablet 22:06: tablet [address] cetirizine 2022-0 Yes cetirizine U nivers 10 mg 2-24 10 mg ity of tablet 22:06: tablet [address] cetirizine 2022-0 Yes cetirizine U nivers 10 mg 2-24 10 mg ity of tablet 22:06: tablet [address] cetirizine 2022-0 Yes cetirizine U nivers 10 mg 2-24 10 mg ity of tablet 22:06: tablet [address] cetirizine 2022-0 Yes cetirizine U nivers 10 mg 2-24 10 mg ity of tablet 22:06: tablet [address] [id number] IV 0 Yes 1000mL at 125 Univ ers infusion 2-22 mL/hr, IV ity of 1,000 mL 23:00: Infusion, [place] 00 CONTINUOUS Medical , Starting Branch on Sun04/19/22 at 1700, Until Discontinu ed, Routine NaCl 0.9% 2022- No 500mL at 999 Univ ers (NS) bolus 2-22 02-22 mL/hr, 500 it y of infusion 22:45: 22:49 mL, IV [place] 500 mL 00 :00 Infusion, Medical ONCE, 1 Branch dose, On 2/22/23 at 1645, STAT cetirizine 2022-0 Yes cetirizine U nivers 10 mg 2-22 10 mg ity of tablet 19:22: tablet [address] Branch cetirizine 2022-0 Yes cetirizine U nivers 10 mg 2-22 10 mg ity of tablet 19:22: tablet [address] cetirizine 2022-0 Yes cetirizine U nivers 10 mg 2-22 10 mg ity of tablet 14:25: tablet [address] Branch fluconazole 2022-0 Yes [id number] 200mg Take 1 Univers (DIFLUCAN) 2-08 tablet by ity of 200 mg 00:00: mouth in [place] tablet 00 the Medical morning. Branch fluconazole 2022-0 Yes [id number] 200mg Take 1 Univers (DIFLUCAN) 2-08 tablet by ity of 200 mg 00:00: mouth in [place] tablet 00 the Medical morning. Branch fluconazole 2022-0 Yes [id number] 200mg Take 1 [facility] (DIFLUCAN) 2-08 tablet by ity of 200 mg 00:00: mouth in [place] tablet 00 the Medical morning. Branch fluconazole 2022-0 Yes [id number] 200mg Take 1 [facility] (DIFLUCAN) 2-08 tablet by ity of 200 mg 00:00: mouth in [place] tablet 00 the Medical morning. Branch fluconazole 2022-0 Yes [id number] 200mg Take 1 [facility] (DIFLUCAN) 2-08 tablet by ity of 200 mg 00:00: mouth in [place] tablet 00 the Medical morning. Branch fluconazole 2022-0 Yes [id number] 200mg Take 1 [facility] (DIFLUCAN) 2-08 tablet by ity of 200 mg 00:00: mouth in [place] tablet 00 the Medical morning. Branch fluconazole 2022-0 Yes [id number] 200mg Take 1 [facility] (DIFLUCAN) 2-08 tablet by ity of 200 mg 00:00: mouth in [place] tablet 00 the Medical morning. Branch fluconazole 3-0 Yes [id number] 200mg Take 1 [facility] (DIFLUCAN) 2-08 tablet by ity of 200 mg 00:00: mouth in [place] tablet 00 the Medical morning. Branch fluconazole 2022-0 Yes [id number] 200mg Take 1 [facility] (DIFLUCAN) 2-08 tablet by ity of 200 mg 00:00: mouth in [place] tablet 00 the Medical morning. Branch fluconazole 2023-0 Yes [id number] 200mg Take 1 [facility] (DIFLUCAN) 2-08 tablet by ity of 200 mg 00:00: mouth in [place] tablet 00 the Medical morning. Branch fluconazole 3-0 Yes [id number] 200mg Take 1 [facility] (DIFLUCAN) 2-08 tablet by ity of 200 mg 00:00: mouth in [place] tablet 00 the Medical morning. Branch fluconazole 2023-0 Yes [id number] 200mg Take 1 [facility] (DIFLUCAN) 2-08 tablet by ity of 200 mg 00:00: mouth in [place] tablet 00 the Medical morning. Branch fluconazole 3-0 Yes [id number] 200mg Take 1 [facility] (DIFLUCAN) 2-08 tablet by ity of 200 mg 00:00: mouth in [place] tablet 00 the Medical morning. Branch fluconazole 3-0 Yes [id number] 200mg Take 1 [facility] (DIFLUCAN) 2-08 tablet by ity of 200 mg 00:00: mouth in [place] tablet 00 the Medical morning. Branch fluconazole 3-0 Yes [id number] 200mg Take 1 [facility] (DIFLUCAN) 2-08 tablet by ity of 200 mg 00:00: mouth in [place] tablet 00 the Medical morning. Branch fluconazole 3-0 Yes [id number] 200mg Take 1 [facility] (DIFLUCAN) 2-08 tablet by ity of 200 mg 00:00: mouth in [place] tablet 00 the Medical morning. Branch fluconazole 3-0 2023- No [id number] 200mg Take 1 Univers (DIFLUCAN) 2-08 04-04 tablet by ity of 200 mg 00:00: 00:00 mouth in [place] tablet 00 :00 the Medical morning. Branch ferrous 2023-0 Yes [id number] 325mg Take 1 Un jannette sulfate 2-07 tablet by ity of (IRON, 00:00: mouth in [place] FERROUS 00 the Medical SULFATE,) morning Branch 325 mg (65 and 1 mg iron) tablet in tablet the evening. ferrous 2023-0 Yes [id number] 325mg Take 1 Un jannette sulfate 2-07 tablet by ity of (IRON, 00:00: mouth in [place] FERROUS 00 the Medical SULFATE,) morning Branch 325 mg (65 and 1 mg iron) tablet in tablet the evening. ferrous 2023-0 Yes [id number] 325mg Take 1 Un jannette sulfate 2-07 tablet by ity of (IRON, 00:00: mouth in [place] FERROUS 00 the Medical SULFATE,) morning Branch 325 mg (65 and 1 mg iron) tablet in tablet the evening. ferrous 0 Yes [id number] 325mg Take 1 Un jannette sulfate 2-07 tablet by ity of (IRON, 00:00: mouth in [place] FERROUS 00 the Medical SULFATE,) morning Branch 325 mg (65 and 1 mg iron) tablet in tablet the evening. ferrous Yes [id number] 325mg Take 1 Un jannette sulfate 2-07 tablet by ity of (IRON, 00:00: mouth in [place] FERROUS 00 the Medical SULFATE,) morning Branch 325 mg (65 and 1 mg iron) tablet in tablet the evening. ferrous Yes [id number] 325mg Take 1 Un jannette sulfate 2-07 tablet by ity of (IRON, 00:00: mouth in [place] FERROUS 00 the Medical SULFATE,) morning Branch 325 mg (65 and 1 mg iron) tablet in tablet the evening. ferrous Yes [id number] 325mg Take 1 Un jannette sulfate 2-07 tablet by ity of (IRON, 00:00: mouth in [place] FERROUS 00 the Medical SULFATE,) morning Branch 325 mg (65 and 1 mg iron) tablet in tablet the evening. ferrous Yes [id number] 325mg Take 1 Un jannette sulfate 2-07 tablet by ity of (IRON, 00:00: mouth in [place] FERROUS 00 the Medical SULFATE,) morning Branch 325 mg (65 and 1 mg iron) tablet in tablet the evening. ferrous Yes [id number] 325mg Take 1 Un jannette sulfate 2-07 tablet by ity of (IRON, 00:00: mouth in [place] FERROUS 00 the Medical SULFATE,) morning Branch 325 mg (65 and 1 mg iron) tablet in tablet the evening. ferrous Yes [id number] 325mg Take 1 Un jannette sulfate 2-07 tablet by ity of (IRON, 00:00: mouth in [place] FERROUS 00 the Medical SULFATE,) morning Branch 325 mg (65 and 1 mg iron) tablet in tablet the evening. ferrous Yes [id number] 325mg Take 1 Un jannette sulfate 2-07 tablet by ity of (IRON, 00:00: mouth in [place] FERROUS 00 the Medical SULFATE,) morning Branch 325 mg (65 and 1 mg iron) tablet in tablet the evening. ferrous 0 Yes [id number] 325mg Take 1 Un jannette sulfate 2-07 tablet by ity of (IRON, 00:00: mouth in [place] FERROUS 00 the Medical SULFATE,) morning Branch 325 mg (65 and 1 mg iron) tablet in tablet the evening. ferrous 2022-0 Yes [id number] 325mg Take 1 Un jannette sulfate 2-07 tablet by ity of (IRON, 00:00: mouth in [place] FERROUS 00 the Medical SULFATE,) morning Branch 325 mg (65 and 1 mg iron) tablet in tablet the evening. ferrous 0 Yes [id number] 325mg Take 1 Un jannette sulfate 2-07 tablet by ity of (IRON, 00:00: mouth in [place] FERROUS 00 the Medical SULFATE,) morning Branch 325 mg (65 and 1 mg iron) tablet in tablet the evening. ferrous 2022-0 Yes [id number] 325mg Take 1 Un jannette sulfate 2-07 tablet by ity of (IRON, 00:00: mouth in [place] FERROUS 00 the Medical SULFATE,) morning Branch 325 mg (65 and 1 mg iron) tablet in tablet the evening. ferrous 0 Yes [id number] 325mg Take 1 Un jannette sulfate 2-07 tablet by ity of (IRON, 00:00: mouth in [place] FERROUS 00 the Medical SULFATE,) morning Branch 325 mg (65 and 1 mg iron) tablet in tablet the evening. ferrous 0 Yes [id number] 325mg Take 1 Un jannette sulfate 2-07 tablet by ity of (IRON, 00:00: mouth in [place] FERROUS 00 the Medical SULFATE,) morning Branch 325 mg (65 and 1 mg iron) tablet in tablet the evening. ferrous 0 Yes [id number] 325mg Take 1 Un jannette sulfate 2-07 tablet by ity of (IRON, 00:00: mouth in [place] FERROUS 00 the Medical SULFATE,) morning Branch 325 mg (65 and 1 mg iron) tablet in tablet the evening. ferrous 0 Yes [id number] 325mg Take 1 Un jannette sulfate 2-07 tablet by ity of (IRON, 00:00: mouth in [place] FERROUS 00 the Medical SULFATE,) morning Branch 325 mg (65 and 1 mg iron) tablet in tablet the evening. ferrous 2022-0 Yes [id number] 325mg Take 1 Un jannette sulfate 2-07 tablet by ity of (IRON, 00:00: mouth in [place] FERROUS 00 the Medical SULFATE,) morning Branch 325 mg (65 and 1 mg iron) tablet in tablet the evening. ferrous Yes [id number] 325mg Take 1 Un jannette sulfate 2-07 tablet by ity of (IRON, 00:00: mouth in [place] FERROUS 00 the Medical SULFATE,) morning Branch 325 mg (65 and 1 mg iron) tablet in tablet the evening. ferrous 2022- No [id number] 325mg Take 1 U nivers sulfate 2-07 04-16 tablet by ity of (IRON, 00:00: 00:00 mouth in [place] FERROUS 00 :00 the Medical SULFATE,) morning Branch 325 mg (65 and 1 mg iron) tablet in tablet the evening. ferrous 2022- No [id number] 325mg Take 1 U nivers sulfate 2-07 04-16 tablet by ity of (IRON, 00:00: 00:00 mouth in [place] FERROUS 00 :00 the Medical SULFATE,) morning Branch 325 mg (65 and 1 mg iron) tablet in tablet the evening. ferrous 2022- No [id number] 325mg Take 1 U nivers sulfate 2-07 04-16 tablet by ity of (IRON, 00:00: 00:00 mouth in [place] FERROUS 00 :00 the Medical SULFATE,) morning Branch 325 mg (65 and 1 mg iron) tablet in tablet the evening. aspirin 2021-02 Yes [id number] 81mg Take 1 U nivers mg EC 0-13 tablet by ity of tablet 00:00: mouth in [place] the Medical morning. Branch aspirin 2021-02 Yes [id number] 81mg Take 1 U nivers mg EC 0-13 tablet by ity of tablet 00:00: mouth in [place] the Medical morning. Branch aspirin 2021-02 Yes [id number] 81mg Take 1 U nivers mg EC 0-13 tablet by ity of tablet 00:00: mouth in [place] the Medical morning. Branch aspirin 2021-02 Yes [id number] 81mg Take 1 U nivers mg EC 0-13 tablet by ity of tablet 00:00: mouth in [place] 00 the Medical morning. Branch aspirin 2021-02 Yes [id number] 81mg Take 1 U nivers mg EC 0-13 tablet by ity of tablet 00:00: mouth in [place] 00 the Medical morning. Branch aspirin 81 2021-02 Yes [id number] 81mg Take 1 U nivers mg EC 0-13 tablet by ity of tablet 00:00: mouth in [place] the Medical morning. Branch aspirin 81 2021-02 Yes [id number] 81mg Take 1 U nivers mg EC 0-13 tablet by ity of tablet 00:00: mouth in [place] the Medical morning. Branch aspirin 81 2021-02 Yes [id number] 81mg Take 1 U nivers mg EC 0-13 tablet by ity of tablet 00:00: mouth in [place] the Medical morning. Branch aspirin 81 2021-02 Yes [id number] 81mg Take 1 U nivers mg EC 0-13 tablet by ity of tablet 00:00: mouth in [place] the Medical morning. Branch aspirin 81 2021-02 Yes [id number] 81mg Take 1 U nivers mg EC 0-13 tablet by ity of tablet 00:00: mouth in [place] the Medical morning. Branch aspirin 81 2021-02 Yes [id number] 81mg Take 1 U nivers mg EC 0-13 tablet by ity of tablet 00:00: mouth in [place] the Medical morning. Branch aspirin 81 2021-02 Yes [id number] 81mg Take 1 U nivers mg EC 0-13 tablet by ity of tablet 00:00: mouth in [place] the Medical morning. Branch aspirin 81 2021-02 Yes [id number] 81mg Take 1 U nivers mg EC 0-13 tablet by ity of tablet 00:00: mouth in [place] the Medical morning. Branch aspirin 81 2021-02 Yes [id number] 81mg Take 1 U nivers mg EC 0-13 tablet by ity of tablet 00:00: mouth in [place] 00 the Medical morning. Branch aspirin 81 2021-02 Yes [id number] 81mg Take 1 U nivers mg EC 0-13 tablet by ity of tablet 00:00: mouth in [place] 00 the Medical morning. Branch aspirin 81 2021-02 Yes [id number] 81mg Take 1 U nivers mg EC 0-13 tablet by ity of tablet 00:00: mouth in [place] 00 the Medical morning. Branch aspirin 81 2022-1 Yes [id number] 81mg Take 1 U nivers mg EC 0-13 tablet by ity of tablet 00:00: mouth in [place] 00 the Medical morning. Branch aspirin 81 2021-02 Yes [id number] 81mg Take 1 U nivers mg EC 0-13 tablet by ity of tablet 00:00: mouth in [place] 00 the Medical morning. Branch aspirin 81 2021-02 Yes [id number] 81mg Take 1 [facility] nivers mg EC 0-13 tablet by ity of tablet 00:00: mouth in [place] 00 the Medical morning. Branch aspirin 81 2021-02 Yes [id number] 81mg Take 1 [facility] nivers mg EC 0-13 tablet by ity of tablet 00:00: mouth in [place] 00 the Medical morning. Branch aspirin 81 2021-02 Yes [id number] 81mg Take 1 [facility] nivers mg EC 0-13 tablet by ity of tablet 00:00: mouth in [place] 00 the Medical morning. Branch aspirin 81 2021-02 Yes [id number] 81mg Take 1 [facility] nivers mg EC 0-13 tablet by ity of tablet 00:00: mouth in [place] the Medical morning. Branch aspirin 81 2021-02 Yes [id number] 81mg Take 1 [facility] nivers mg EC 0-13 tablet by ity of tablet 00:00: mouth in [place] 00 the Medical morning. Branch aspirin 81 2021-02 Yes [id number] 81mg Take 1 [facility] nivers mg EC 0-13 tablet by ity of tablet 00:00: mouth in [place] 00 the Medical morning. Branch aspirin 81 2021-02 Yes [id number] 81mg Take 1 [facility] nivers mg EC 0-13 tablet by ity of tablet 00:00: mouth in [place] 00 the Medical morning. Branch aspirin 81 2021-02 Yes [id number] 81mg Take 1 [facility] nivers mg EC 0-13 tablet by ity of tablet 00:00: mouth in [place] 00 the Medical morning. Branch aspirin 81 2021-02 Yes [id number] 81mg Take 1 [facility] nivers mg EC 0-13 tablet by ity of tablet 00:00: mouth in [place] 00 the Medical morning. Branch aspirin 81 2021-02 Yes [id number] 81mg Take 1 [facility] nivers mg EC 0-13 tablet by ity of tablet 00:00: mouth in [place] 00 the Medical morning. Branch aspirin 81 2021-02 Yes [id number] 81mg Take 1 [facility] nivers mg EC 0-13 tablet by ity of tablet 00:00: mouth in [place] 00 the Medical morning. Branch aspirin 81 2021-02 Yes [id number] 81mg Take 1 [facility] nivers mg EC 0-13 tablet by ity of tablet 00:00: mouth in [place] the Medical morning. Branch aspirin 81 2021-02 Yes [id number] 81mg Take 1 [facility] nivers mg EC 0-13 tablet by ity of tablet 00:00: mouth in [place] 00 the Medical morning. Branch aspirin 81 2021-02 Yes [id number] 81mg Take 1 [facility] nivers mg EC 0-13 tablet by ity of tablet 00:00: mouth in [place] 00 the Medical morning. Branch aspirin 81 2021-02 Yes [id number] 81mg Take 1 [facility] nivers mg EC 0-13 tablet by ity of tablet 00:00: mouth in [place] 00 the Medical morning. Branch aspirin 81 2021-02 Yes [id number] 81mg Take 1 [facility] nivers mg EC 0-13 tablet by ity of tablet 00:00: mouth in [place] the Medical morning. Branch aspirin 2021-02 Yes [id number] 81mg Take 1 [facility] nivers mg EC 0-13 tablet by ity of tablet 00:00: mouth in [place] the Medical morning. Branch aspirin 81 2021-02 Yes [id number] 81mg Take 1 [facility]ivers mg EC 0-13 tablet by ity of tablet 00:00: mouth in [place] the Medical morning. Branch aspirin 81 2021-02 Yes [id number] 81mg Take 1 [facility] nivers mg EC 0-13 tablet by ity of tablet 00:00: mouth in [place] 00 the Medical morning. Branch aspirin 81 2021-02 Yes [id number] 81mg Take 1 [facility] nivers mg EC 0-13 tablet by ity of tablet 00:00: mouth in [place] 00 the Medical morning. Branch aspirin 81 2021-02 Yes [id number] 81mg Take 1 [facility] nivers mg EC 0-13 tablet by ity of tablet 00:00: mouth in [place] 00 the Medical morning. Branch aspirin 81 2021-02 Yes [id number] 81mg Take 1 [facility] mg EC 0-13 tablet by ity of tablet 00:00: mouth in [place] 00 the Medical morning. Branch aspirin 81 2021-02 Yes [id number] 81mg Take 1 [facility] nivers mg EC 0-13 tablet by ity of tablet 00:00: mouth in [place] 00 the Medical morning. Branch aspirin 81 2021-02 Yes [id number] 81mg Take 1 [facility] nivers mg EC 0-13 tablet by ity of tablet 00:00: mouth in [place] 00 the Medical morning. Branch aspirin 81 2021-02 Yes [id number] 81mg Take 1 [facility] nivers mg EC 0-13 tablet by ity of tablet 00:00: mouth in [place] 00 the Medical morning. Branch aspirin 81 2021-02- No [id number] 81mg Take 1 [facility] mg EC 0-13 04-16 tablet by ity of tablet 00:00: 00:00 mouth in [place] 00 :00 the Medical morning. Branch aspirin 81 2021-02- No [id number] 81mg Take 1 [facility] mg EC 0-13 04-16 tablet by ity of tablet 00:00: 00:00 mouth in [place] 00 :00 the Medical morning. Branch aspirin 81 2021-02- No [id number] 81mg Take 1 [facility] mg EC 0-13 04-16 tablet by ity of tablet 00:00: 00:00 mouth in [place] 00 :00 the Medical morning. Branch VITAMIN K2 2021-0 2021- No vitamin K2 Univers ORAL 914 -14 ity of 11:31: 00:00 [place] 09 :00 Medical Branch 2021-0 Yes [id number] TAKE 1 Uni vers VITAMIN 9-12 TABLET BY ity of 00:00: MOUTH [place] 00 EVERY Medical MORNING Branch 2021-0 Yes [id number] TAKE 1 [facility] vers VITAMIN 9-12 TABLET BY ity of 00:00: MOUTH [place] 00 EVERY Medical MORNING Branch 2021-0 Yes [id number] TAKE 1 [facility] vers VITAMIN 9-12 TABLET BY ity of 00:00: MOUTH [place] 00 EVERY Medical MORNING Branch 2-0 Yes [id number] TAKE 1 [facility] vers VITAMIN 9-12 TABLET BY ity of 00:00: MOUTH [place] 00 EVERY Medical MORNING Branch 2021-0 Yes [id number] TAKE 1 [facility] vers VITAMIN 9-12 TABLET BY ity of 00:00: MOUTH [place] 00 EVERY Medical MORNING Branch 2-0 Yes [id number] TAKE 1 [facility] vers VITAMIN 9-12 TABLET BY ity of 00:00: MOUTH [place] 00 EVERY Medical MORNING Branch 2022-0 Yes [id number] TAKE 1 [facility] vers VITAMIN 9-12 TABLET BY ity of 00:00: MOUTH [place] 00 EVERY Medical MORNING Branch 2022-0 Yes [id number] TAKE 1 [facility] vers VITAMIN 9-12 TABLET BY ity of 00:00: MOUTH [place] 00 EVERY Medical MORNING Branch 2022-0 Yes [id number] TAKE 1 [facility] vers VITAMIN 9-12 TABLET BY ity of 00:00: MOUTH [place] 00 EVERY Medical MORNING Branch 2022-0 Yes [id number] TAKE 1 [facility] vers VITAMIN 9-12 TABLET BY ity of 00:00: MOUTH [place] 00 EVERY Medical MORNING Branch 2022-0 Yes [id number] TAKE 1 [facility] vers VITAMIN 9-12 TABLET BY ity of 00:00: MOUTH [place] 00 EVERY Medical MORNING Branch 2022-0 Yes [id number] TAKE 1 [facility] vers VITAMIN 9-12 TABLET BY ity of 00:00: MOUTH [place] 00 EVERY Medical MORNING Branch 2022-0 Yes [id number] TAKE 1 [facility] vers VITAMIN 9-12 TABLET BY ity of 00:00: MOUTH [place] 00 EVERY Medical MORNING Branch 2022-0 Yes [id number] TAKE 1 [facility] vers VITAMIN 9-12 TABLET BY ity of 00:00: MOUTH [place] 00 EVERY Medical MORNING Branch 2022-0 Yes [id number] TAKE 1 Uni vers VITAMIN 9-12 TABLET BY ity of 00:00: MOUTH [place] 00 EVERY Medical MORNING Branch 2022-0 Yes [id number] TAKE 1 [facility] vers VITAMIN 9-12 TABLET BY ity of 00:00: MOUTH [place] 00 EVERY Medical MORNING Branch 2022-0 Yes [id number] TAKE 1 [facility] vers VITAMIN 9-12 TABLET BY ity of 00:00: MOUTH [place] 00 EVERY Medical MORNING Branch 2022-0 Yes [id number] TAKE 1 [facility] vers VITAMIN 9-12 TABLET BY ity of 00:00: MOUTH [place] 00 EVERY Medical MORNING Branch 2022-0 Yes [id number] TAKE 1 [facility] vers VITAMIN 9-12 TABLET BY ity of 00:00: MOUTH [place] 00 EVERY Medical MORNING Branch 2022-0 Yes [id number] TAKE 1 [facility] vers VITAMIN 9-12 TABLET BY ity of 00:00: MOUTH [place] 00 EVERY Medical MORNING Branch 2022-0 Yes [id number] TAKE 1 [facility] vers VITAMIN 9-12 TABLET BY ity of 00:00: MOUTH [place] 00 EVERY Medical MORNING Branch 2022-0 Yes [id number] TAKE 1 [facility] vers VITAMIN 9-12 TABLET BY ity of 00:00: MOUTH [place] 00 EVERY Medical MORNING Branch 2022-0 Yes [id number] TAKE 1 [facility] vers VITAMIN 9-12 TABLET BY ity of 00:00: MOUTH [place] 00 EVERY Medical MORNING Branch 2022-0 Yes [id number] TAKE 1 [facility] vers VITAMIN 9-12 TABLET BY ity of 00:00: MOUTH [place] 00 EVERY Medical MORNING Branch 2022-0 Yes [id number] TAKE 1 [facility] vers VITAMIN 9-12 TABLET BY ity of 00:00: MOUTH [place] 00 EVERY Medical MORNING Branch 2022-0 Yes [id number] TAKE 1 [facility] vers VITAMIN 9-12 TABLET BY ity of 00:00: MOUTH [place] 00 EVERY Medical MORNING Branch 2022-0 Yes [id number] TAKE 1 [facility] vers VITAMIN 9-12 TABLET BY ity of 00:00: MOUTH [place] 00 EVERY Medical MORNING Branch 2022-0 Yes [id number] TAKE 1 [facility] vers VITAMIN 9-12 TABLET BY ity of 00:00: MOUTH [place] 00 EVERY Medical MORNING Branch 2022-0 Yes [id number] TAKE 1 [facility] vers VITAMIN 9-12 TABLET BY ity of 00:00: MOUTH [place] 00 EVERY Medical MORNING Branch 2022-0 Yes [id number] TAKE 1 [facility] vers VITAMIN 9-12 TABLET BY ity of 00:00: MOUTH [place] 00 EVERY Medical MORNING Branch 2022-0 Yes [id number] TAKE 1 [facility] vers VITAMIN 9-12 TABLET BY ity of 00:00: MOUTH [place] 00 EVERY Medical MORNING Branch 2022-0 Yes [id number] TAKE 1 [facility] vers VITAMIN 9-12 TABLET BY ity of 00:00: MOUTH [place] 00 EVERY Medical MORNING Branch 2022-0 Yes [id number] TAKE 1 [facility] vers VITAMIN 9-12 TABLET BY ity of 00:00: MOUTH [place] 00 EVERY Medical MORNING Branch 2022-0 Yes [id number] TAKE 1 [facility] vers VITAMIN 9-12 TABLET BY ity of 00:00: MOUTH [place] 00 EVERY Medical MORNING Branch 2022-0 Yes [id number] TAKE 1 [facility] vers VITAMIN 9-12 TABLET BY ity of 00:00: MOUTH [place] 00 EVERY Medical MORNING Branch 2022-0 Yes [id number] TAKE 1 [facility] vers VITAMIN 9-12 TABLET BY ity of 00:00: MOUTH [place] 00 EVERY Medical MORNING Branch 2022-0 Yes [id number] TAKE 1 [facility] vers VITAMIN 9-12 TABLET BY ity of 00:00: MOUTH [place] 00 EVERY Medical MORNING Branch 2021-0 Yes [id number] TAKE 1 [facility] vers VITAMIN 9-12 TABLET BY ity of 00:00: MOUTH [place] 00 EVERY Medical MORNING Branch 0 Yes [id number] TAKE 1 [facility] vers VITAMIN 9-12 TABLET BY ity of 00:00: MOUTH [place] 00 EVERY Medical MORNING Branch 2021-0 Yes [id number] TAKE 1 [facility] vers VITAMIN 9-12 TABLET BY ity of 00:00: MOUTH [place] 00 EVERY Medical MORNING Branch 0 Yes [id number] TAKE 1 [facility] vers VITAMIN 9-12 TABLET BY ity of 00:00: MOUTH [place] 00 EVERY Medical MORNING Branch 0 Yes [id number] TAKE 1 [facility] vers VITAMIN 9-12 TABLET BY ity of 00:00: MOUTH [place] 00 EVERY Medical MORNING Branch 0 Yes [id number] TAKE 1 [facility] vers VITAMIN 9-12 TABLET BY ity of 00:00: MOUTH [place] 00 EVERY Medical MORNING Branch 2021-0 2022- No [id number] TAKE 1 Un jannette VITAMIN 9-12 04-16 TABLET BY ity of 00:00: 00:00 MOUTH [place] 00 :00 EVERY Medical MORNING Branch 2021-0 2022- No [id number] TAKE 1 Un jannette VITAMIN 9-12 04-16 TABLET BY ity of 00:00: 00:00 MOUTH [place] 00 :00 EVERY Medical MORNING Branch 2021-0 2022- No [id number] TAKE 1 Un jannette VITAMIN 9-12 04-16 TABLET BY ity of 00:00: 00:00 MOUTH [place] 00 :00 EVERY Medical MORNING Branch 2021-0 2021- No [id number] 1{tbl} Take 1 [facility] multivitami 9-12 09-12 tablet by it y of n ( 00:00: 00:00 mouth in [place] VITAMIN) 00 :00 the Medical tablet morning. Branch 2021-0 2021- No [id number] 1{tbl} Take 1 [facility] multivitami 9-12 09-12 tablet by it y of n ( 00:00: 00:00 mouth in [place] VITAMIN) 00 :00 the Medical tablet morning. Branch [facility] 2021-0 2021- No [id number] 500mg Take 1 Univers 500 mg 10-24 capsule by ity of capsule 00:00: 04:59 mouth 4 [place] 00 :00 (four) [facility] daily for 10 days. VITAMIN K2 Yes vitamin K2 U nivers ORAL 8-25 ity of 15:13: [address] cetirizine Yes cetirizine U nivers 10 mg 8-25 10 mg ity of tablet 15:13: tablet [address] VITAMIN K2 Yes vitamin K2 U nivers ORAL 8-25 ity of 15:13: [address] cetirizine Yes cetirizine U nivers 10 mg 8-25 10 mg ity of tablet 15:13: tablet [address] cetirizine Yes cetirizine U nivers 10 mg 8-25 10 mg ity of tablet 15:13: tablet [address] cetirizine Yes cetirizine U nivers 10 mg 8-25 10 mg ity of tablet 15:13: tablet [address] cetirizine Yes cetirizine U nivers 10 mg 8-25 10 mg ity of tablet 15:13: tablet [address] cetirizine Yes cetirizine U nivers 10 mg 8-25 10 mg ity of tablet 15:13: tablet [address] cetirizine Yes cetirizine U nivers 10 mg 8-25 10 mg ity of tablet 15:13: tablet [address] cetirizine Yes cetirizine U nivers 10 mg 8-25 10 mg ity of tablet 15:13: tablet [address] cetirizine Yes cetirizine U nivers 10 mg 8-25 10 mg ity of tablet 15:13: tablet [address] cetirizine Yes cetirizine U nivers 10 mg 8-25 10 mg ity of tablet 15:13: tablet [address] cetirizine Yes cetirizine U nivers 10 mg 8-25 10 mg ity of tablet 15:13: tablet [address] cetirizine Yes cetirizine U nivers 10 mg 8-25 10 mg ity of tablet 15:13: tablet [address] cetirizine Yes cetirizine U nivers 10 mg 8-25 10 mg ity of tablet 15:13: tablet [address] cetirizine Yes cetirizine U nivers 10 mg 8-25 10 mg ity of tablet 15:13: tablet [address] cetirizine Yes cetirizine U nivers 10 mg 8-25 10 mg ity of tablet 15:13: tablet [address] cetirizine Yes cetirizine U nivers 10 mg 8-25 10 mg ity of tablet 15:13: tablet [address] cetirizine Yes cetirizine U nivers 10 mg 8-25 10 mg ity of tablet 15:13: tablet [address] cetirizine Yes cetirizine U nivers 10 mg 8-25 10 mg ity of tablet 15:13: tablet [address] cetirizine Yes cetirizine U nivers 10 mg 8-25 10 mg ity of tablet 15:13: tablet [address] cetirizine Yes cetirizine U nivers 10 mg 8-25 10 mg ity of tablet 15:13: tablet [address] cetirizine Yes cetirizine U nivers 10 mg 8-25 10 mg ity of tablet 15:13: tablet [address] cetirizine Yes cetirizine U nivers 10 mg 8-25 10 mg ity of tablet 15:13: tablet [address] cetirizine Yes cetirizine U nivers 10 mg 8-25 10 mg ity of tablet 15:13: tablet [address] cetirizine Yes cetirizine U nivers 10 mg 8-25 10 mg ity of tablet 15:13: tablet [address] cetirizine Yes cetirizine U nivers 10 mg 8-25 10 mg ity of tablet 15:13: tablet [place] 41 Medical Branch cetirizine Yes cetirizine U nivers 10 mg 8-25 10 mg ity of tablet 15:13: tablet [place] 41 Medical Branch cetirizine 0 Yes cetirizine U nivers 10 mg 8-25 10 mg ity of tablet 15:13: tablet [place] 41 Medical Branch 0 Yes [id number] 1{tbl} Take 1 U nivers multivitami 8-25 tablet by ity of n ( 00:00: mouth in [place] VITAMIN) 00 the Medical tablet morning. Branch 0 202- No [id number] 1{tbl} Take 1 [facility] multivitami 8-25 09-12 tablet by it y of n ( 00:00: 00:00 [place] VITAMIN) 00 :00 the Medical tablet morning. Branch ibuprofen Yes Univers 600 mg 1-18 ity of tablet 00:00: [place] 00 Medical Branch ibuprofen 0 Yes Univers 600 mg 1-18 ity of tablet 00:00: [place] [address] Medical Branch ibuprofen 0 2021- No Univers 600 mg 1-18 09-14 ity of tablet 00:00: 00:00 [place] 00 :00 Medical Branch Cholecalcif 2020-02 Yes Claire lewisol, 2-09 ity of Vitamin D3, 00:00: [place] 1,250 mcg 00 Medical (50,000 Branch unit) capsule loratadine 2020-02 Yes Univers 10 mg 2-09 ity of tablet 00:00: [place] 00 Medical Branch Cholecalcif 2020-02 Yes Claire lewisol, 2-09 ity of Vitamin D3, 00:00: [place] 1,250 mcg 00 Medical (50,000 Branch unit) capsule loratadine 2020-02 Yes Univers 10 mg 2-09 ity of tablet 00:00: [place] 00 Medical Branch Cholecalcif 2020-02 Yes Claire winston le, 2-09 ity of Vitamin D3, 00:00: [place] 1,250 mcg 00 Medical (50,000 Branch unit) capsule Cholecalcif 2020-02 Yes Claire winston le, 2-09 ity of Vitamin D3, 00:00: [place] 1,250 mcg 00 Medical (50,000 Branch unit) capsule Cholecalcif 2020-02 Yes Univer s le, 2-09 ity of Vitamin D3, 00:00: [...] Branch unit) capsule Cholecalcif 2020-1 Yes Claire lujan 2-09 ity of Vitamin D3, 00:00: [place] 1,250 mcg 00 Medical (50,000 Branch unit) capsule Cholecalcif 2020-1 Yes Claire lujan 2-09 ity of Vitamin D3, 00:00: [place] 1,250 mcg 00 Medical (50,000 Branch unit) capsule Cholecalcif 2020-1 Yes Claire lujan, 2-09 ity of Vitamin D3, 00:00: [place] 1,250 mcg 00 Medical (50,000 Branch unit) capsule Cholecalcif 2020-1 Yes Claire lujan, 2-09 ity of Vitamin D3, 00:00: [place] 1,250 mcg 00 Medical (50,000 Branch unit) capsule Cholecalcif 2020-1 Yes Claire lujan 2-09 ity of Vitamin D3, 00:00: [place] [...] 00 Medical (50,000 Branch unit) capsule Cholecalcif 2021-1 Yes Univer s le, 2-09 ity of Vitamin D3, 00:00: [...] (50,000 Branch unit) capsule Cholecalcif 2020-02 Yes Univer s le, 04-06 ity of Vitamin D3, 00:00: [place] 1,250 mcg 00 Medical (50,000 Branch unit) capsule Cholecalcif 2020-02- No Unive rs le, 04-06 ity of Vitamin D3, 00:00: 00:00 [place] 1,250 mcg 00 :00 Medical (50,000 Branch unit) capsule loratadine 2020-02- No Univer s 10 mg 04-06 ity [...] mouth [place] 00 daily with Medical breakfast. [place] metFORMIN 2020-02 Yes 1000mg Take 1,000 Univers 1,000 mg 1-10 mg by ity of tablet 00:00: mouth [place] 00 daily with Medical breakfast. [place] metFORMIN 2020-02 Yes 1000mg Take 1,000 Univers [...] mouth [place] 00 daily with Medical breakfast. [place] metFORMIN 2020-02 Yes 1000mg Take 1,000 Univers [...] mouth [place] 00 daily with Medical breakfast. [place] metFORMIN 2020-02 Yes 1000mg Take 1,000 Univers 1,000 mg 1-10 mg by ity of tablet 00:00: mouth [place] 00 daily with Medical breakfast. [place] metFORMIN 2020-02 Yes 1000mg Take 1,000 Univers 1,000 mg 1-10 mg by ity of tablet 00:00: mouth [place] 00 daily with Medical breakfast. [place] metFORMIN 2020-02 Yes 1000mg Take 1,000 Univers 1,000 mg 1-10 mg by ity of tablet 00:00: mouth [place] 00 daily with Medical breakfast. [place] metFORMIN 2020-02 Yes 1000mg Take 1,000 Univers 1,000 mg 1-10 mg by ity of tablet 00:00: mouth [place] 00 daily with Medical breakfast. [place] metFORMIN 2020-02 Yes 1000mg Take 1,000 Univers 1,000 mg 1-10 mg by ity of tablet 00:00: mouth [place] 00 daily with Medical breakfast. [place] metFORMIN metFORMIN 2020-02 No 1{table BID metFORMIN HCl 1000 MG HCl 1000 MG 1-10 t_with_ HCl 1000 00:00: a_meal} MG 00 metFORMIN 2020-02- No 1000mg Take 1,000 Univers 1,000 mg 1-10 04-04 mg by ity of tablet 00:00: 00:00 mouth [place] 00 :00 daily with Medical breakfast. [place] predniSONE predniSONE 2020-02 No 2{table QD predniSONE [...] [facility] (M[facility] (Methylprednisolone 11:03:00 [facility] ) 40mg ) 40mg [facility] 2020-12-08 Completed [facility] (Ceftriaxone) (Ceftriaxone) 11:03:00 [facility] Depo-Medrol Depo-Medrol 2020-12-08 Completed [facility] (Methylprednisolone (Methylprednisolone 11:03:[address] [facility] ) 40mg ) 40mg [facility] 2020-12-08 Completed [facility] (Ceftriaxone) (Ceftriaxone) 11:03:00 [facility] Depo-Medrol Depo-Medrol 2020-12-08 Completed [facility] (Methylprednisolone (Methylprednisolone 11:03:[address] [facility] ) 40mg ) 40mg [facility] 2020-12-08 Completed [facility] (Ceftriaxone) (Ceftriaxone) 11:03:00 [facility] TDAP 2020-03-17 Completed University of 00:00:00 [facility] TDAP 2020-03-17 Completed University of 00:00:00 [facility] TDAP 2020-03-17 Completed University of 00:00:00 [facility] TDAP 2020-03-17 Completed University of 00:00:00 [facility] TDAP 2020-03-17 Completed University of 00:00:00 [facility] TDAP 2020-03-17 Completed University of 00:00:00 [facility] TDAP 2020-03-17 Completed University of 00:00:00 [facility] TDAP 2020-03-17 Completed University of 00:00:00 [facility] TDAP 2020-03-17 Completed University of 00:00:00 [facility] TDAP 2020-03-17 Completed University of 00:00:00 [facility] TDAP 2020-03-17 Completed University of 00:00:00 [facility] TDAP 2020-03-17 Completed University of 00:00:00 [facility] TDAP 2020-03-17 Completed University of 00:00:00 [facility] TDAP 2020-03-17 Completed University of 00:00:00 [facility] TDAP 2020-03-17 Completed University of 00:00:00 [facility] TDAP 2020-03-17 Completed University of 00:00:00 [facility] TDAP 2020-03-17 Completed University of 00:00:00 [facility] TDAP 2020-03-17 Completed University of 00:00:00 [facility] TDAP 2020-03-17 Completed University of 00:00:00 [facility] TDAP 2020-03-17 Completed University of 00:00:00 [facility] TDAP 2020-03-17 Completed University of 00:00:00 [facility] TDAP 2020-03-17 Completed University of 00:00:00 [facility] TDAP 2020-03-17 Completed University of 00:00:00 [facility] TDAP 2020-03-17 Completed University of 00:00:00 [facility] TDAP 2020-03-17 Completed University of 00:00:00 [facility] TDAP 2020-03-17 Completed University of 00:00:00 [facility] TDAP 2020-03-17 Completed University of 00:00:00 [facility] TDAP 2020-03-17 Completed University of 00:00:00 [facility] TDAP 2020-03-17 Completed University of 00:00:00 [facility] TDAP 2020-03-17 Completed University of 00:00:00 [facility] TDAP 2020-03-17 Completed University of 00:00:00 [facility] TDAP 2020-03-17 Completed University of 00:00:00 [facility] TDAP 2020-03-17 Completed University of 00:00:00 [facility] TDAP 2020-03-17 Completed University of 00:00:00 [facility] TDAP 2020-03-17 Completed University of 00:00:00 [facility] TDAP 2020-03-17 Completed [facility] [facility] University of 00:00:00 [facility] TDAP 2020-03-17 Completed University of 00:00:00 [facility] TDAP 2020-03-17 Completed University of 00:00:00 [facility] TDAP 2020-03-17 Completed University [facility] 00:00:[address] [facility] 2020[facility]17 Completed [facility] 00[facility]00[facility] [facility] 2020[facility]-17 Completed University of 00:00:00 [facility] TDAP 2020-03-17 Completed University [facility] 00:00[facility] [facility] 2020[facility] Completed University of 00:00:00 [facility] TDAP 2020-03-17 Completed University of 00:00:00 [facility] TDAP 2020-03-17 Completed University of 00:00:00 [facility] TDAP 2020-03-17 Completed University of 00:00:00 [facility] TDAP 2020-03-17 Completed University of 00:00:00 [facility] TDAP 2020-03-17 Completed University of 00:00:00 [facility] TDAP 2020-03-17 Completed University of 00:00:00 [facility] TDAP 2020-03-17 Completed University of 00:00:00 [facility] TDAP 2020-03-17 Completed University of 00:00:00 [facility] TDAP 2020-03-17 Completed University of 00:00:00 [facility] TDAP 2020-03-17 Completed University of 00:00:00 [facility] TDAP 2020-03-17 Completed University of 00:00:00 [facility] TDAP 2020-03-17 Completed University of 00:00:00 [facility] Influenza Virus 2019-12-18 Completed Universit y of Vaccine [place] .5 mL 00:00:00 [facility] 6+ [facility] Influenza Virus 2019-12-18 Completed Universit [...] 00:00:00 [place] [facility] IM 6+ [place] Branch HPV9 2016-05-24 Completed University of 00:00:00 [place] [facility] HPV9 2016-05-24 Completed University of 00:00:00 [place] [facility] HPV9 2016-05-24 Completed University of 00:00:00 [place] [facility] HPV9 2016-05-24 Completed University of 00:00:00 [place] [facility] HPV9 2016-05-24 Completed University of 00:00:00 [place] [facility] HPV9 2016-05-24 Completed University of 00:00:00 [place] [facility] HPV9 2016-05-24 Completed University of 00:00:00 [place] [facility] HPV9 2016-05-24 Completed University of 00:00:00 [place] [facility] HPV9 2016-05-24 Completed University of 00:00:00 [place] [facility] HPV9 2016-05-24 Completed University of 00:00:00 [place] [facility] HPV9 2016-05-24 Completed University of 00:00:00 [place] [facility] HPV9 2016-05-24 Completed University of 00:00:00 [place] [facility] HPV9 2016-05-24 Completed University of 00:00:00 [place] [facility] [facility] HPV9 2016-05-24 Completed [facility] 00[facility]:00 [facility] HPV9 2016-05-24 Completed [facility] 00[facility]00:00 [facility] HPV9 2016-05-24 Completed [facility] 00:00:00 [facility] HPV9 2016-05-24 Completed [facility] 00:00:00 [facility] HPV9 2016-05-24 Completed [facility] 00[facility]00:00 [facility] HPV9 2016-05-24 Completed [facility] 00:00:00 [facility] HPV9 2016-05-24 Completed [facility] 00:00:00 [facility] HPV9 2016-05-24 Completed [facility] 00:00:00 [facility] HPV9 2016-05-24 Completed [facility] 00:00:00 [facility] HPV9 2016-05-24 Completed [facility] 00:00:00 [facility] HPV9 2016-05-24 Completed [facility] 00:00:00 [facility] HPV9 2016-05-24 Completed [facility] 00:00:00 [facility] HPV9 2016-05-24 Completed [facility] 00:00:00 [facility] HPV9 2016-05-24 Completed [facility] 00:00:00 [facility] HPV9 2016-05-24 Completed [facility] 00:00:00 [facility] HPV9 2016-05-24 Completed [facility] 00:00:00 [facility] HPV9 2016-05-24 Completed [facility] 00:00:00 [facility] HPV9 2016-05-24 Completed [facility] 00:00:00 [facility] HPV9 2016-05-24 Completed [facility] 00:00:00 [facility] HPV9 2016-05-24 Completed [facility] 00:00:00 [facility] HPV9 2016-05-24 Completed [facility] 00:00:00 [facility] HPV9 2016-05-24 Completed [facility] 00[facility]00:00 [facility] HPV9 2016-05-24 Completed [facility] 00:00:00 [facility] HPV9 2016-05-24 Completed [facility] 00:00:00 [facility] HPV9 2016-05-24 Completed [facility] 00:00:00 [facility] HPV9 2016-05-24 Completed [facility] 00:00:00 [facility] HPV9 2016-05-24 Completed [facility] 00:00:00 [facility] HPV9 2016-05-24 Completed [facility] 00:00:00 [facility] HPV9 2016-05-24 Completed [facility] 00:00:00 [facility] HPV9 2016-05-24 Completed [facility] 00:00:00 [facility] HPV9 2016-05-24 Completed [facility] 00:00:00 [facility] HPV9 2016-05-24 Completed [facility] 00:00:00 [facility] HPV9 2016-05-24 Completed [facility] 00:00:00 [facility] HPV9 2016-05-24 Completed [facility] 00:00:00 [facility] HPV9 2016-05-24 Completed [facility] 00:00:00 [facility] HPV9 2016-05-24 Completed [facility] 00:00:00 [facility] HPV9 2016-05-24 Completed [facility] 00[facility]00:00 [facility] HPV9 2016-05-24 Completed [facility] 00[facility]00:00 [facility] HPV9 2016-05-24 Completed [facility] 00:00:00 [facility] HPV9 2016-05-24 Completed [facility] 00:00:00 [facility] HPV9 2016-05-24 Completed [facility] 00[facility]00:00 [facility] HPV9 2016-05-24 Completed [facility] 00:00:00 [facility] HPV9 2016-05-24 Completed [facility] 00[facility]00:00 [facility] Influenza Virus 2016-01-06 Completed [facility] 00:00:00 [facility] Influenza Virus 2016-01-06 Completed [facility] 00:00:00 [facility] Influenza Virus 2016-01-06 Completed [facility] 00:00:00 [facility] Influenza Virus 2016-01-06 Completed [facility] 00:00:00 [facility] Influenza Virus 2016-01-06 Completed [facility] 00:00:00 [facility] Influenza Virus 2016-01-06 Completed [facility] 00:00:00 [facility] Influenza Virus 2016-01-06 Completed [facility] 00:00:00 [facility] Influenza Virus 2016-01-06 Completed [facility] 00:00:00 [facility] Influenza Virus 2016-01-06 Completed [facility] 00:00:00 [facility] Influenza Virus 2016-01-06 Completed [facility] 00:00:00 [facility] Influenza Virus 2016-01-06 Completed [facility] 00:00:00 [facility] Influenza Virus 2016-01-06 Completed [facility] 00:00:00 [facility] Influenza Virus 2016-01-06 Completed [facility] 00:00:00 [facility] Influenza Virus 2016-01-06 Completed [facility] 00:00:00 [facility] Influenza Virus 2016-01-06 Completed [facility] 00:00:00 [facility] Influenza Virus 2016-01-06 Completed [facility] 00:00:00 [facility] Influenza Virus 2016-01-06 Completed [facility] 00:00:00 [facility] Influenza Virus 2016-01-06 Completed [facility] 00:00:00 [facility] Influenza Virus 2016-01-06 Completed [facility] 00:00:00 [facility] Influenza Virus 2016-01-06 Completed [facility] 00:00:00 [facility] Influenza Virus 2016-01-06 Completed [facility] 00:00:00 [facility] Influenza Virus 2016-01-06 Completed [facility] 00:00:00 [facility] Influenza Virus 2016-01-06 Completed [facility] 00:00:00 [facility] Influenza Virus 2016-01-06 Completed [facility] 00:00:00 [facility] Influenza Virus 2016-01-06 Completed [facility] 00:00:00 [facility] Influenza Virus 2016-01-06 Completed [facility] 00:00:00 [facility] Influenza Virus 2016-01-06 Completed [facility] 00:00:00 [facility] Influenza Virus 2016-01-06 Completed [facility] 00:00:00 [facility] Influenza Virus 2016-01-06 Completed [facility] 00:00:00 [facility] Influenza Virus 2016-01-06 Completed [facility] 00:00:00 [facility] Influenza Virus 2016-01-06 Completed [facility] 00:00:00 [facility] Influenza Virus 2016-01-06 Completed [facility] 00:00:00 [facility] Influenza Virus 2016-01-06 Completed [facility] 00:00:00 [facility] Influenza Virus 2016-01-06 Completed [facility] 00:00:00 [facility] Influenza Virus 2016-01-06 Completed [facility] 00:00:00 [facility] Influenza Virus 2016-01-06 Completed [facility] 00:00:00 [facility] Influenza Virus 2016-01-06 Completed [facility] 00:00:00 [facility] Influenza Virus 2016-01-06 Completed [facility] 00:00:00 [facility] Influenza Virus 2016-01-06 Completed [facility] 00:00:00 [facility] Influenza Virus 2016-01-06 Completed [facility] 00:00:00 [facility] Influenza Virus 2016-01-06 Completed [facility] 00:00:00 [facility] Influenza Virus 2016-01-06 Completed [facility] 00:00:00 [facility] Influenza Virus 2016-01-06 Completed [facility] 00:00:00 [facility] Influenza Virus 2016-01-06 Completed [facility] 00:00:00 [facility] Influenza Virus 2016-01-06 Completed [facility] 00:00:00 [facility] Influenza Virus 2016-01-06 Completed [facility] 00:00:00 [facility] Influenza Virus 2016-01-06 Completed [facility] 00:00:00 [facility] Influenza Virus 2016-01-06 Completed [facility] 00:00:00 [facility] Influenza Virus 2016-01-06 Completed [facility] 00:00:00 [facility] Influenza Virus 2016-01-06 Completed [facility] 00:00:00 [facility] Influenza Virus 2016-01-06 Completed [facility] 00:00:00 [facility] Influenza Virus 2016-01-06 Completed [facility] 00:00:00 [facility] Influenza Virus 2016-01-06 Completed [facility] 00:00:00 [facility] Influenza Virus 2016-01-06 Completed [facility] 00:00:00 [facility] Influenza Virus 2016-01-06 Completed [facility] 00:00:00 [facility] Influenza Virus 2016-01-06 Completed [facility] 00[facility]00:00 [facility] TDAP 2015-11-11 Completed [facility] 00:00:00 [facility] TDAP 2015-11-11 Completed [facility] 00:00:00 [facility] TDAP 2015-11-11 Completed [facility] 00:00:00 [facility] TDAP 2015-11-11 Completed [facility] 00:00:00 [facility] TDAP 2015-11-11 Completed [facility] 00[facility]00:00 [facility] TDAP 2015-11-11 Completed [facility] 00:00:00 [facility] TDAP 2015-11-11 Completed [facility] 00:00:00 [facility] TDAP 2015-11-11 Completed [facility] 00:00:00 [facility] TDAP 2015-11-11 Completed [facility] 00:00:00 [facility] TDAP 2015-11-11 Completed [facility] 00:00:00 [facility] TDAP 2015-11-11 Completed [facility] 00:00:00 [facility] TDAP 2015-11-11 Completed [facility] 00:00:00 [facility] TDAP 2015-11-11 Completed [facility] 00:00:00 [facility] TDAP 2015-11-11 Completed [facility] 00:00:00 [facility] TDAP 2015-11-11 Completed [facility] 00:00:00 [facility] TDAP 2015-11-11 Completed [facility] 00:00:00 [facility] TDAP 2015-11-11 Completed [facility] 00:00:00 [facility] TDAP 2015-11-11 Completed [facility] 00:00:00 [facility] TDAP 2015-11-11 Completed [facility] 00:00:00 [facility] TDAP 2015-11-11 Completed [facility] 00:00:00 [facility] TDAP 2015-11-11 Completed [facility] 00:00:00 [facility] TDAP 2015-11-11 Completed [facility] 00:00:00 [facility] TDAP 2015-11-11 Completed [facility] 00:00:00 [facility] TDAP 2015-11-11 Completed [facility] 00:00:00 [facility] TDAP 2015-11-11 Completed [facility] 00:00:00 [facility] TDAP 2015-11-11 Completed [facility] 00:00:00 [facility] TDAP 2015-11-11 Completed [facility] 00:00:00 [facility] TDAP 2015-11-11 Completed [facility] 00:00:00 [facility] TDAP 2015-11-11 Completed [facility] 00:00:00 [facility] TDAP 2015-11-11 Completed [facility] 00:00:00 [facility] TDAP 2015-11-11 Completed [facility] 00:00:00 [facility] TDAP 2015-11-11 Completed [facility] 00:00:00 [facility] TDAP 2015-11-11 Completed [facility] 00:00:00 [facility] TDAP 2015-11-11 Completed [facility] 00:00:00 [facility] TDAP 2015-11-11 Completed [facility] 00:00:00 [facility] TDAP 2015-11-11 Completed [facility] 00:00:00 [facility] TDAP 2015-11-11 Completed [facility] 00:00:00 [facility] TDAP 2015-11-11 Completed [facility] 00:00:00 [facility] TDAP 2015-11-11 Completed [facility] 00:00:00 [facility] TDAP 2015-11-11 Completed [facility] 00:00:00 [facility] TDAP 2015-11-11 Completed [facility] 00:00:00 [facility] TDAP 2015-11-11 Completed [facility] 00:00:00 [facility] TDAP 2015-11-11 Completed [facility] 00:00:00 [facility] TDAP 2015-11-11 Completed [facility] 00:00:00 [facility] TDAP 2015-11-11 Completed [facility] 00:00:00 [facility] TDAP 2015-11-11 Completed [facility] 00:00:00 [facility] TDAP 2015-11-11 Completed [facility] 00:00:00 [facility] TDAP 2015-11-11 Completed [facility] 00:00:00 [facility] TDAP 2015-11-11 Completed [facility] 00:00:00 [facility] TDAP 2015-11-11 Completed [facility] 00:00:00 [facility] TDAP 2015-11-11 Completed [facility] 00:00:00 [facility] TDAP 2015-11-11 Completed [facility] 00:00:00 [facility] TDAP 2015-11-11 Completed [facility] 00:00:00 [facility] TDAP 2015-11-11 Completed [facility] 00[facility]00:00 [facility] TDAP 2015-11-11 Completed [facility] 00:00:00 [facility] TDAP 2015-11-11 Completed [facility] 00[facility]00:00 [facility] Influenza Virus 2015-05-10 Completed [facility] 00[facility]00:00 [facility] Influenza Virus 2015-05-10 Completed [facility] 00:00:00 [facility] Influenza Virus 2015-05-10 Completed [facility] 00:00:00 [facility] Influenza Virus 2015-05-10 Completed [facility] 00:00:00 [facility] Influenza Virus 2015-05-10 Completed [facility] 00:00:00 [facility] Influenza Virus 2015-05-10 Completed [facility] 00:00:00 [facility] Influenza Virus 2015-05-10 Completed [facility] 00:00:00 [facility] Influenza Virus 2015-05-10 Completed [facility] 00:00:00 [facility] Influenza Virus 2015-05-10 Completed [facility] 00:00:00 [facility] Influenza Virus 2015-05-10 Completed [facility] 00:00:00 [facility] Influenza Virus 2015-05-10 Completed [facility] 00:00:00 [facility] Influenza Virus 2015-05-10 Completed [facility] 00:00:00 [facility] Influenza Virus 2015-05-10 Completed [facility] 00:00:00 [facility] Influenza Virus 2015-05-10 Completed [facility] 00:00:00 [facility] Influenza Virus 2015-05-10 Completed [facility] 00:00:00 [facility] Influenza Virus 2015-05-10 Completed [facility] 00:00:00 [facility] Influenza Virus 2015-05-10 Completed [facility] 00:00:00 [facility] Influenza Virus 2015-05-10 Completed [facility] 00:00:00 [facility] Influenza Virus 2015-05-10 Completed [facility] 00:00:00 [facility] Influenza Virus 2015-05-10 Completed [facility] 00:00:00 [facility] Influenza Virus 2015-05-10 Completed [facility] 00:00:00 [facility] Influenza Virus 2015-05-10 Completed [facility] 00:00:00 [facility] Influenza Virus 2015-05-10 Completed [facility] 00:00:00 [facility] Influenza Virus 2015-05-10 Completed [facility] 00:00:00 [facility] Influenza Virus 2015-05-10 Completed [facility] 00:00:00 [facility] Influenza Virus 2015-05-10 Completed [facility] 00:00:00 [facility] Influenza Virus 2015-05-10 Completed [facility] 00:00:00 [facility] Influenza Virus 2015-05-10 Completed [facility] 00:00:00 [facility] Influenza Virus 2015-05-10 Completed [facility] 00:00:00 [facility] Influenza Virus 2015-05-10 Completed [facility] 00:00:00 [facility] Influenza Virus 2015-05-10 Completed [facility] 00:00:00 [facility] Influenza Virus 2015-05-10 Completed [facility] 00:00:00 [facility] Influenza Virus 2015-05-10 Completed [facility] 00:00:00 [facility] Influenza Virus 2015-05-10 Completed [facility] 00:00:00 [facility] Influenza Virus 2015-05-10 Completed [facility] 00:00:00 [facility] Influenza Virus 2015-05-10 Completed [facility] 00:00:00 [facility] Influenza Virus 2015-05-10 Completed [facility] 00:00:00 [facility] Influenza Virus 2015-05-10 Completed [facility] 00:00:00 [facility] Influenza Virus 2015-05-10 Completed [facility] 00:00:00 [facility] Influenza Virus 2015-05-10 Completed [facility] 00:00:00 [facility] Influenza Virus 2015-05-10 Completed [facility] 00:00:00 [facility] Influenza Virus 2015-05-10 Completed [facility] 00:00:00 [facility] Influenza Virus 2015-05-10 Completed [facility] 00:00:00 [facility] Influenza Virus 2015-05-10 Completed [facility] 00:00:00 [facility] Influenza Virus 2015-05-10 Completed [facility] 00:00:00 [facility] Influenza Virus 2015-05-10 Completed [facility] 00:00:00 [facility] Influenza Virus 2015-05-10 Completed [facility] 00:00:00 [facility] Influenza Virus 2015-05-10 Completed [facility] 00:00:00 [facility] Influenza Virus 2015-05-10 Completed [facility] 00:00:00 [facility] Influenza Virus 2015-05-10 Completed [facility] 00:00:00 [facility] Influenza Virus 2015-05-10 Completed [facility] 00:00:00 [facility] Influenza Virus 2015-05-10 Completed [facility] 00:00:00 [facility] Influenza Virus 2015-05-10 Completed [facility] 00:00:00 [facility] Influenza Virus 2015-05-10 Completed [facility] 00:00:00 [facility] Influenza Virus 2015-05-10 Completed [facility] 00:00:00 [facility] Influenza Virus 2015-05-10 Completed [facility] 00[facility]00:00 [facility] MMR 2013-08-21 Completed [facility] 00:00:00 [facility] MMR 2013-08-21 Completed [facility] 00:00:00 [facility] MMR 2013-08-21 Completed [facility] 00:00:00 [facility] MMR 2013-08-21 Completed [facility] 00:00:00 [facility] MMR 2013-08-21 Completed [facility] 00:00:00 [facility] MMR 2013-08-21 Completed [facility] 00:00:00 [facility] MMR 2013-08-21 Completed [facility] 00:00:00 [facility] MMR 2013-08-21 Completed [facility] 00:00:00 [facility] MMR 2013-08-21 Completed [facility] 00:00:00 [facility] MMR 2013-08-21 Completed [facility] 00:00:00 [facility] MMR 2013-08-21 Completed [facility] 00:00:00 [facility] MMR 2013-08-21 Completed [facility] 00:00:00 [facility] MMR 2013-08-21 Completed [facility] 00:00:00 [facility] MMR 2013-08-21 Completed [facility] 00:00:00 [facility] MMR 2013-08-21 Completed [facility] 00:00:00 [facility] MMR 2013-08-21 Completed [facility] 00:00:00 [facility] MMR 2013-08-21 Completed [facility] 00:00:00 [facility] MMR 2013-08-21 Completed [facility] 00:00:00 [facility] MMR 2013-08-21 Completed [facility] 00:00:00 [facility] MMR 2013-08-21 Completed [facility] 00:00:00 [facility] MMR 2013-08-21 Completed [facility] 00:00:00 [facility] MMR 2013-08-21 Completed [facility] 00:00:00 [facility] MMR 2013-08-21 Completed [facility] 00:00:00 [facility] MMR 2013-08-21 Completed [facility] 00:00:00 [facility] MMR 2013-08-21 Completed [facility] 00:00:00 [facility] MMR 2013-08-21 Completed [facility] 00:00:00 [facility] MMR 2013-08-21 Completed [facility] 00:00:00 [facility] MMR 2013-08-21 Completed [facility] 00:00:00 [facility] MMR 2013-08-21 Completed [facility] 00:00:00 [facility] MMR 2013-08-21 Completed [facility] 00:00:00 [facility] MMR 2013-08-21 Completed [facility] 00:00:00 [facility] MMR 2013-08-21 Completed [facility] 00:00:00 [facility] MMR 2013-08-21 Completed [facility] 00:00:00 [facility] MMR 2013-08-21 Completed [facility] 00:00:00 [facility] MMR 2013-08-21 Completed [facility] 00:00:00 [facility] MMR 2013-08-21 Completed [facility] 00:00:00 [facility] MMR 2013-08-21 Completed [facility] 00:00:00 [facility] MMR 2013-08-21 Completed [facility] 00:00:00 [facility] MMR 2013-08-21 Completed [facility] 00:00:00 [facility] MMR 2013-08-21 Completed [facility] 00:00:00 [facility] MMR 2013-08-21 Completed [facility] 00:00:00 [facility] MMR 2013-08-21 Completed [facility] 00:00:00 [facility] MMR 2013-08-21 Completed [facility] 00:00:00 [facility] MMR 2013-08-21 Completed [facility] 00:00:00 [facility] MMR 2013-08-21 Completed [facility] 00:00:00 [facility] MMR 2013-08-21 Completed [facility] 00:00:00 [facility] MMR 2013-08-21 Completed [facility] 00:00:00 [facility] MMR 2013-08-21 Completed [facility] 00:00:00 [facility] MMR 2013-08-21 Completed [facility] 00:00:00 [facility] MMR 2013-08-21 Completed [facility] 00:00:00 [facility] MMR 2013-08-21 Completed [facility] 00:00:00 [facility] MMR 2013-08-21 Completed University of [...] Branch HPV 2010-02-26 Completed [facility] 00:00:00 [facility] Branch HPV 2010-02-26 Completed [facility] 00:00:00 [facility] Vital Signs Vital Name Observation Time Observation Value Comments Source Heart rate 2022-07-20 02:20:00 71 /min Universi ty of [facility] Oxygen saturation in 2022-07-20 02:20:00 99 /min [facility] Arterial blood by [facility] Pulse oximetry Branch Systolic blood 2022-07-20 02:15:00 127 mm[Hg] Univer sity of pressure [facility] Diastolic blood 2022-07-20 02:15:00 75 mm[Hg] Unive rsity of pressure [facility] Body temperature 2022-07-20 00:34:00 37.11 Sandra [facility] Respiratory rate 2022-07-20 00:34:00 18 /min [facility] Body height 2022-07-20 00:34:00 162.6 cm [facility] Body weight 2022-07-20 00:34:00 131.997 kg [facility] BMI 2022-07-20 00:34:00 49.95 kg/m2 [facility] Systolic blood 2022-06-19 19:22:00 135 mm[Hg] Univer sity of pressure [facility] Diastolic blood 2022-06-19 19:22:00 81 mm[Hg] Unive rsity of [facility] Heart rate 2022-06-19 19:22:00 116 /min [facility] Body temperature 2022-06-19 19:22:00 36.67 Sandra Univ ers[facility] Body height 2022-06-19 19:22:00 162.6 cm [facility] Body weight 2022-06-19 19:22:00 131.997 kg [facility] BMI 2022-06-19 19:22:00 49.95 kg/m2 [facility] Systolic blood 2022-06-15 20:26:00 134 mm[Hg] Univer sity of pressure [facility] Diastolic blood 2022-06-15 20:26:00 82 mm[Hg] Unive rsity of pressure [facility] Heart rate 2022-06-15 20:26:00 51 /min [facility] Body height 2022-06-15 20:26:00 162.6 cm [facility] Body weight 2022-06-15 20:26:00 134.446 kg [facility] BMI 2022-06-15 20:26:00 50.88 kg/m2 [facility] Oxygen saturation in 2022-06-15 20:26:00 97 /min University of Arterial blood by [facility] Pulse oximetry Branch Systolic blood 2022-06-15 19:24:00 126 mm[Hg] Univer sity of pressure [facility] Diastolic blood 2022-06-15 19:24:00 85 mm[Hg] Unive rsity of pressure [facility] Heart rate 2022-06-15 19:24:00 49 /min [facility] Body temperature 2022-06-15 19:24:00 36.72 Sandra Univ ers[facility] Body weight 2022-06-15 19:24:00 134.718 kg [facility] BMI 2022-06-15 19:24:00 50.98 kg/m2 [facility] Heart rate 2022-06-15 03:30:00 67 /min [facility] Oxygen saturation in 2022-06-15 03:30:00 99 /min University of Arterial blood by [facility] Pulse oximetry Branch Systolic blood 2022-06-15 02:36:00 140 mm[Hg] Univer sity of pressure [facility] Diastolic blood 2022-06-15 02:36:00 72 mm[Hg] Unive rsity of pressure [facility] Body temperature 2022-06-15 02:36:00 37.22 Sandra Univ [facility] Body weight 2022-06-15 02:30:00 136.986 kg [facility] BMI 2022-06-15 02:30:00 51.84 kg/m2 [facility] Respiratory rate 2022-06-15 02:05:00 18 /min Univ ersity [facility] Systolic blood 2022-06-11 13:15:00 130 mm[Hg] Univer sity of pressure [facility] Diastolic blood 2022-06-11 13:15:00 69 mm[Hg] Unive rsity of pressure [facility] Heart rate 2022-06-11 13:15:00 86 /min [facility] Body temperature 2022-06-11 13:15:00 36.83 Sandra [facility] Respiratory rate 2022-06-11 13:15:00 16 /min Univ ersity [facility] Oxygen saturation in 2022-06-11 13:15:00 100 /min University of Arterial blood by [facility] Pulse oximetry Branch Body height 2022-06-09 11:13:00 162.6 cm [facility] Body weight 2022-06-09 11:13:00 134.809 kg [facility] BMI 2022-06-09 11:13:00 51.01 kg/m2 [facility] Systolic blood 2022-06-09 12:45:00 123 mm[Hg] Univer sity of pressure [facility] Diastolic blood 2022-06-09 12:45:00 68 mm[Hg] Unive rsity of pressure [facility] Heart rate 2022-06-09 12:45:00 91 /min [facility] Body temperature 2022-06-09 12:45:00 36.61 Sandra [facility] Respiratory rate 2022-06-09 12:45:00 18 /min Univ ersity of [facility] Oxygen saturation in 2022-06-09 12:45:00 99 /min University of Arterial blood by [facility] Pulse oximetry Branch Body height 2022-06-09 11:13:00 162.6 cm [facility] Body weight 2022-06-09 11:13:00 134.809 kg [facility] BMI 2022-06-09 11:13:00 51.01 kg/m2 [facility] Systolic blood 2022-06-01 19:02:00 102 mm[Hg] Univer sity of pressure [facility] Diastolic blood 2022-06-01 19:02:00 71 mm[Hg] Unive rsity of pressure [facility] Heart rate 2022-06-01 19:02:00 98 /min [facility] Body temperature 2022-06-01 19:02:00 37.06 Sandra Univ ers[facility] Body height 2022-06-01 19:02:00 162.6 cm [facility] Body weight 2022-06-01 19:02:00 131.634 kg [facility] BMI 2022-06-01 19:02:00 49.81 kg/m2 [facility] Systolic blood 2022-05-30 15:00:00 123 mm[Hg] Univer sity of pressure [facility] Diastolic blood 2022-05-30 15:00:00 70 mm[Hg] Unive rsity of pressure [facility] Heart rate 2022-05-30 15:00:00 83 /min [facility] Oxygen saturation in 2022-05-30 15:00:00 97 /min University of Arterial blood by [facility] Pulse oximetry Branch Respiratory rate 2022-05-30 14:00:00 18 /min Univ ersity of [facility] Body temperature 2022-05-30 12:42:00 36.89 Sandra Univ [facility] Body height 2022-05-30 12:42:00 162.6 cm 5' 4" [facility] Body weight 2022-05-30 12:42:00 132.069 kg 291.16lb [facility] BMI 2022-05-30 12:42:00 49.98 kg/m2 [facility] Systolic blood 2022-05-24 18:32:00 122 mm[Hg] Univer sity of pressure [facility] Diastolic blood 2022-05-24 18:32:00 76 mm[Hg] Unive rsity of pressure [facility] Heart rate 2022-05-24 18:31:00 110 /min [facility] Body temperature 2022-05-24 18:31:00 36.78 Sandra Univ [facility] Respiratory rate 2022-05-24 18:31:00 16 /min Univ ersity [facility] Body height 2022-05-24 18:31:00 162.6 cm [facility] Body weight 2022-05-24 18:31:00 131.997 kg [facility] BMI 2022-05-24 18:31:00 49.95 kg/m2 [facility] Heart rate 2022-05-24 16:25:00 65 /min [facility] Oxygen saturation in 2022-05-24 16:25:00 100 /min University of Arterial blood by [place] [employer] [facility] Pulse oximetry Branch Systolic blood 2022-05-24 16:24:00 124 mm[Hg] Univer sity of pressure [facility] Diastolic blood 2022-05-24 16:24:00 71 mm[Hg] Unive rsity of pressure [facility] Respiratory rate 2022-05-24 16:24:00 21 /min Univ ersity [facility] Body height 2022-05-24 16:24:00 162.6 cm [facility] Body weight 2022-05-24 16:24:00 131.226 kg [facility] BMI 2022-05-24 16:24:00 49.66 kg/m2 [facility] Systolic blood 2022-05-18 21:44:00 116 mm[Hg] Univer sity of pressure [facility] Diastolic blood 2022-05-18 21:44:00 80 mm[Hg] Unive rsity of pressure [facility] Heart rate 2022-05-18 21:44:00 84 /min [facility] Body temperature 2022-05-18 21:44:00 36.78 Sandra Univ [facility] Respiratory rate 2022-05-18 21:44:00 18 /min Univ ersity of [facility] Body height 2022-05-18 21:44:00 162.6 cm [facility] Body weight 2022-05-18 21:44:00 131.09 kg [facility] BMI 2022-05-18 21:44:00 49.61 kg/m2 [facility] Heart rate 2022-04-22 03:05:00 84 /min [facility] Oxygen saturation in 2022-04-22 03:05:00 99 /min University of Arterial blood by [place] [employer] [facility] Pulse oximetry Branch Systolic blood 2022-04-22 01:50:00 136 mm[Hg] Univer sity of pressure [facility] Diastolic blood 2022-04-22 01:50:00 85 mm[Hg] Unive rsity of pressure [facility] Body temperature 2022-04-22 01:50:00 37 Sandra Univ ersity [facility] Respiratory rate 2022-04-22 01:50:00 18 /min Univ ersity of [facility] Systolic blood 2022-04-20 01:00:00 114 mm[Hg] Univer sity of pressure [facility] Diastolic blood 2022-04-20 01:00:00 61 mm[Hg] Unive rsity of pressure [facility] Heart rate 2022-04-20 01:00:00 92 /min Universi ty of [facility] Body temperature 2022-04-20 01:00:00 36.89 Sandra Univ ersity of [facility] Respiratory rate 2022-04-20 01:00:00 16 /min Univ ersity of [facility] Oxygen saturation in 2022-04-20 01:00:00 100 /min University of Arterial blood by [facility] Pulse oximetry Branch Body height 2022-04-19 20:45:00 162.6 cm [facility] Body weight 2022-04-19 20:45:00 127.007 kg [facility] BMI 2022-04-19 20:45:00 48.06 kg/m2 [facility] Systolic blood 2022-04-19 19:32:00 99 mm[Hg] Univer sity of pressure [facility] Diastolic blood 2022-04-19 19:32:00 67 mm[Hg] Unive rsity of pressure [facility] Heart rate 2022-04-19 19:32:00 92 /min [facility] Body temperature 2022-04-19 19:32:00 36.94 Sandra Univ [facility] Body height 2022-04-19 19:32:00 162.6 cm [facility] Body weight 2022-04-19 19:32:00 127.37 kg [facility] BMI 2022-04-19 19:32:00 48.20 kg/m2 [facility] Systolic blood 2022-04-04 22:49:00 121 mm[Hg] Univer sity of pressure [facility] Diastolic blood 2022-04-04 22:49:00 86 mm[Hg] Unive rsity of pressure [facility] Heart rate 2022-04-04 22:49:00 118 /min [facility] Body temperature 2022-04-04 22:49:00 36.89 Sandra [facility] Respiratory rate 2022-04-04 22:49:00 20 /min Univ ers[facility] Body height 2022-04-04 22:49:00 162.6 cm [facility] Body weight 2022-04-04 22:49:00 128.187 kg [facility] BMI 2022-04-04 22:49:00 48.51 kg/m2 [facility] Systolic blood 2022-03-16 20:43:00 112 mm[Hg] Univer sity of pressure [facility] Diastolic blood 2022-03-16 20:43:00 68 mm[Hg] Unive rsity of pressure [facility] Heart rate 2022-03-16 20:43:00 86 /min [facility] Body temperature 2022-03-16 20:43:00 36.72 Sandra Univ [facility] Body height 2022-03-16 20:43:00 162.6 cm [facility] Body weight 2022-03-16 20:43:00 130.092 kg [facility] BMI 2022-03-16 20:43:00 49.23 kg/m2 [facility] Systolic blood 2022-03-01 19:32:00 125 mm[Hg] Univer sity of pressure [facility] Diastolic blood 2022-03-01 19:32:00 83 mm[Hg] Unive rsity of pressure [facility] Heart rate 2022-03-01 19:32:00 96 /min [facility] Body temperature 2022-03-01 19:32:00 36.89 Sandra [facility] Respiratory rate 2022-03-01 19:32:00 18 /min Univ [facility]ity [facility] Body height 2022-03-01 19:32:00 162.6 cm [facility] Body weight 2022-03-01 19:32:00 127.914 kg [facility] BMI 2022-03-01 19:32:00 48.41 kg/m2 [facility] Systolic blood 2022-01-05 19:10:00 123 mm[Hg] Univer sity of pressure [facility] Diastolic blood 2022-01-05 19:10:00 74 mm[Hg] Unive rsity of pressure [facility] Heart rate 2022-01-05 19:10:00 83 /min [facility] Body temperature 2022-01-05 19:10:00 36.72 Sandra [facility] Respiratory rate 2022-01-05 19:10:00 16 /min Univ [facility] Body height 2022-01-05 19:10:00 162.6 cm [facility] Body weight 2022-01-05 19:10:00 118.389 kg [facility] BMI 2022-01-05 19:10:00 44.80 kg/m2 [facility] Systolic blood 2021-12-05 18:33:00 121 mm[Hg] Univer sity of pressure [facility] Diastolic blood 2021-12-05 18:33:00 85 mm[Hg] Unive rsity of pressure [facility] Heart rate 2021-12-05 18:33:00 61 /min [facility] Body temperature 2021-12-05 18:33:00 36.89 Sandra [facility] Respiratory rate 2021-12-05 18:33:00 18 /min Univ ersity [facility] Body height 2021-12-05 18:33:00 162.6 cm [facility] Body weight 2021-12-05 18:33:00 117.663 kg [facility] BMI 2021-12-05 18:33:00 44.53 kg/m2 [facility] Systolic blood 2021-11-21 16:25:00 115 mm[Hg] Univer sity of pressure [facility] Diastolic blood 2021-11-21 16:25:00 70 mm[Hg] Unive [facility]ity of [facility] [place] Heart rate 2021-11-21 16:25:00 68 /min [facility] [place] Body temperature 2021-11-21 16:25:00 36.78 Sandra [facility] Respiratory rate 2021-11-21 16:25:00 20 /min Univ ersity of [facility] Body height 2021-11-21 16:25:00 162.6 cm [facility] Body weight 2021-11-21 16:25:00 117.028 kg [facility] BMI 2021-11-21 16:25:00 44.29 kg/m2 Universi ty of [facility] Systolic blood 2021-11-07 19:25:00 124 mm[Hg] Univer sity of pressure [facility] Diastolic blood 2021-11-07 19:25:00 76 mm[Hg] Unive rsity of pressure [facility] Heart rate 2021-11-07 19:25:00 96 /min Universi ty of [facility] Body temperature 2021-11-07 19:25:00 36.78 Sandra [facility] Respiratory rate 2021-11-07 19:25:00 18 /min Univ ersity of [facility] Body height 2021-11-07 19:25:00 162.6 cm [facility] Body weight 2021-11-07 19:25:00 115.214 kg [facility] [place] BMI 2021-11-07 19:25:00 43.60 kg/m2 Universi ty of [facility] height 2021-01-05 13:00:00 64 [in_i] Common [facility] - [facility] weight 2021-01-05 13:00:00 298.8 [lb_av] [facility] temperature 2021-01-05 13:00:00 97.8 [degF] Common [facility] - [facility] bmi 2021-01-05 13:00:00 51.28 kg/m2 [facility] S psychiatricit [facility] oximetry 2021-01-05 13:00:00 97 % Common S pirit [facility] respiratory rate 2021-01-05 13:00:00 17 /min Comm on [facility] blood pressure 2021-01-05 13:00:00 122 mm[Hg] Common [facility] - systolic [facility] blood pressure 2021-01-05 13:00:00 58 mm[Hg] [facility] diastolic [facility] height 2020-12-08 10:20:00 64 [in_i] [facility] weight 2020-12-08 10:20:00 292.7 [lb_av] [facility] temperature 2020-12-08 10:20:00 98.6 [degF] [facility] bmi 2020-12-08 10:20:00 50.24 kg/m2 [facility] oximetry 2020-12-08 10:20:00 97 % [facility] respiratory rate 2020-12-08 10:20:00 17 /min Comm on [facility] blood pressure 2020-12-08 10:20:00 115 mm[Hg] [facility] systolic [facility] blood pressure 2020-12-08 10:20:00 65 mm[Hg] [facility] diastolic [facility] Procedures Procedure Date / Time Performing Clinician Source Performed LIPASE 2022-07-20 01:11:00 Beto Ramey [facility] COMP. METABOLIC PANEL 2022-07-20 01:11:00 Beto Ramey Un [facility] ([id number]) [facility] CBC WITH DIFF 2022-07-20 01:11:00 Beto Ramey [facility] CONSENT/REFUSAL FOR 2022-07-20 00:23:20 Doctor Unassigned, No [facility] [place] [facility] Name [facility] HB ECG ROUTINE & RHYTHM 2022-06-15 20:29:53 Jamal Summers [facility] CONSENT/REFUSAL FOR 2022-06-15 01:57:44 Doctor Unassigned, No [facility] [place] [facility] Name [facility] CBC WITH DIFF 2022-06-10 07:44:00 Jennifer Billingsley [facility] CBC WITH DIFF 2022-06-10 07:44:00 Jennifer Billingsley [facility] SECTION 2022-06-09 12:47[facility]00 [facility] 2022-06-09 12:47:00 Jennifer Billingsley [facility] CBC WITH DIFF 2022-06-09 11:45:00 Jennifer Billingsley [facility] HEPATITIS B SURFACE 2022-06-09 11:45:00 Jennifer Billingsley [facility] ANTIGEN [facility] HB ABO GROUPING 2022-06-09 11:45:00 Analilia [facility] RHO (D) IMMUNE GLOBULIN 2022-06-09 11:45:00 Analilia Jennifer [facility] ADC OR LYNDSEY ONLY - 2022-06-09 11:45:00 Analilia Jennifer [facility] HIV 1/2 AG-AB WITH 2022-06-09 11:45:00 Jennifer Billingsley [facility] REFLEX [facility] CBC WITH DIFF 2022-06-09 11:45:00 BillingsleyJennifer [facility] HEPATITIS B SURFACE 2022-06-09 11:45:00 BillingsleyKendalen [facility] ANTIGEN [facility] HB ABO GROUPING 2022-06-09 11:45:00 BillingsleyJennifer [facility] RHO (D) IMMUNE GLOBULIN 2022-06-09 11:45:00 Jennifer Billingsley [facility] ADC OR LYNDSEY ONLY - 2022-06-09 11:45:00 Analilia Jennifer [facility] HIV 1/2 AG-AB WITH 2022-06-09 11:45:00 Jennifer Billingsley [facility] REFLEX [facility] HOSPITAL ADMISSION 2022-06-09 05:01:00 Doctor Unassigned, No Uni [facility] POCT URINALYSIS W/O 2022-06-01 00:00:00 Jennifer Billingsley [facility] SPECIFIC [facility] NON-STRESS TEST 2022-05-30 16:03:12 Jennifer Billingsley [facility] CONSENT/REFUSAL FOR 2022-05-30 12:17:27 Doctor Unassigned, No [facility] [place] [facility] Name [facility] [place] >14 WEEKS US 2022-05-24 19:38:55 eJnnifer Billingsley [facility] >14 WEEKS US 2022-05-24 19:33:56 Analilia Jennifer [facility] HB ECG ROUTINE & RHYTHM 2022-05-24 16:27:25 Jamal Summers [facility] POCT URINALYSIS W/O 2022-05-24 00:00:00 Jennifer Billingsley [facility] STERILIZATION CONSENT 2022-05-18 05:01:00 Doctor Unassigned, No [facility] FORM [facility] POCT URINALYSIS W/O 2022-05-18 00:00:00 Melissa Lazaro [facility] URINALYSIS 2022-04-22 03:12:00 Irais Garcia [facility] ADC CLC OR [facility] ONLY - 2022-04-22 02:50:00 Irais Garcia [facility] NOTICE OF PRIVACY 2022-04-22 01:37:05 [facility]igned, No [facility] CONSENT/REFUSAL FOR 2022-04-22 01:35:20 Doctor Unassigned, No [facility] [place] [facility] CBC WITH DIFF 2022-04-19 22:50:00 Jennifer Billingsley [facility] HIV 1/2 AG-AB WITH 2022-04-19 22:50:00 Jennifer Billingsley [facility] REFLEX Medical Branch HB ABO GROUPING 2022-04-19 22:30:00 Jennifer Billingsley [facility] CONSENT/REFUSAL FOR 2022-04-19 20:27:30 Doctor Unassigned, No [facility] [place] [facility] ASSIGNMENT OF BENEFITS 2022-04-19 20:27:13 Doctor Unassigned, No [facility] Name Medical Branch L&D VISIT 2022-04-19 06:01:00 Doctor [facility]assigned, No [facility] (NON[facility] Name Medical Branch L&D VISIT 2022-04-19 06:01:00 Doctor Unassigned, No [facility] (NON-DELIVERED) [facility] POCT URINALYSIS W/O 2022-04-19 00:00:00 Jennifer Billingsley [facility] SPECIFIC [place] Medical Branch POCT URINALYSIS W/O 2022-04-04 22:58:00 Melissa Lazaro [facility] SPECIFIC [place] [facility] [place] CONSENT/REFUSAL FOR 2022-03-22 18:27:28 Doctor Unassigned, No [facility] DIAGNOSIS AND TREATMENT [facility] ASSIGNMENT OF BENEFITS 2022-03-01 19:03:53 Doctor Unassigned, No [facility] Branch POCT URINALYSIS W/O 2022-03-01 00:00:00 Melissa Lazaro [facility] POCT URINALYSIS W/O 2022-01-05 19:12:00 Jennifer Billingsley [facility] SPECIFIC [place]ITY Medical Branch MEDICAL 2022-01-03 06:01:00 Doctor Unassigned, No [facility] RELEASE/CLEARANCE FORMS [facility] ASSIGNMENT OF BENEFITS 2021-12-07 16:21:48 Doctor Unassigned, No [facility] Branch POCT URINALYSIS W/O 2021-12-05 00:00:00 Jennifer Billingsley [facility] SPECIFIC [place] Medical [facility] OB TRANSVAGINAL 2021-11-09 16:38:12 Jennifer Billingsley [facility] [place] POCT URINALYSIS W/O 2021-11-07 00:00:00 Jennifer Billingsley [facility] SPECIFIC [place] Medical Branch Encounters Start End Encounter Admission Attending Care Care Encounter Source Date/Time Date/Time Type Type Clinicians Facility Department ID 2021-03-23 Outpatient GIBRAN HeVA [facility] [id number] Common 14:09:[id number] [facility] 2021-03-23 Outpatient RAQUEL He LMLC [id number] Common 14:00:01 Alina [id number] [facility] 2020-12-26 Emergency [facility] [id number] Univers 21:49:07 ity of [facility] 2020-12-26 Emergency [facility] [id number] Univers 10:28:14 ity of [facility] 2020-12-25 Emergency [facility] [id number] Univers 09:45:34 ity [facility] 2022-08-01 2022-08-01 Outpatient Inna SCOTT [facility] [id number] Univers 11:00:00 11:00:00 [facility] 2022-08-01 Outpatient SISSON_C [facility] 2022 [place] 00:00:00 00:00:00 [id number] 2022-07-20 2022-07-20 Outpatient R RADIOLOGY [facility] [id number] Univers 00:00:00 00:00:00 ity [facility] 2022-07-19 2022-07-19 Emergency X RIDDLE, [facility] ERT [id number] Univers 19:37:00 21:24:00 BETO it [facility] 2022-07-19 2022-07-19 Emergency [place], [facility] 1.2.213.705 [id number] Univers 19:37:00 21:24:00 Beto [employer] [facility]13.10 [facility] 4[facility]2.7.2.686 [facility] [id number] [place] [address] [place] 2022-07-12 2022-07-12 Outpatient R MILES [facility] [id number] Univers 13:40:00 13:40:00 MARIA DE [facility]22-07-04 2022-07-04 Outpatient JENNIFER SEPULVEDA [facility] [id number] Univers 16:00:00 16:00:00 ity [facility] 2022-06-26 2022-06-26 Outpatient JENNIFER SEPULVEDA [facility] [id number] Univers 13:00:00 13:00:00 ity [facility] 2022-06-23 2022-06-23 Outpatient R ZACARIAS PACHECO [facility] [id number] Univers 15:30:00 15:30:00 ZACARIAS PACHECO itbrittani [facility] 2022-06-19 2022-06-19 Outpatient R KENDAL BILLINGSLEYEN [facility] [id number] Univers 14:15:00 14:43:11 ity [facility] 2022-06-19 2022-06-19 Routine Kendal Billingsleyen [facility] 1.2.620.036 [id number] Univers 14:15:00 14:43:11 Cam [place] 350.1.13.10 ity of [place] [id number] Mt dical NAL 134 [facility] 2022-06-15 2022-06-15 Outpatient R KRISTOPHER [facility] [id number] Univers 15:00:00 15:52:58 [facility]22-[facility]-15 2022-06-15 Office Kristopher [facility] 1.2.840.114 [id number] Univers 15:00:00 15:52:58 Visit Sendil Laura [place] 350.1.13.10 ity of [place] [id number] Mt dical NAL 059 [facility] 2022-06-15 2022-06-15 Routine Analilia Jennifer [facility] 1.2.893.931 [id number] Univers 14:00:00 14:52:16 [place] 350.1.13.10 ity of [place] [id number] Mt dical NAL 134 [facility] 2022-06-14 2022-06-14 Outpatient X ANALILIA JENNIFER NVBINH HUBERT [id number] Univers 21:26:00 22:40:00 ity [facility] 2022-06-14 2022-06-14 Emergency NeogaBeto conroy [facility] 1.2. 840.114 [id number] Univers 21:26:00 22:40:00 BillingsleyJennifer 350.1.13.10 ity [facility] 4.2.7.2.[place] [id number] [facility] [address] [place] 2022-06-12 2022-06-12 Telephone Jennifer Billingsley [facility] 1.2.840.114 [id number] Univers 00:00:00 00:00:00 Cam [place] 350.1.13.10 i ty [facility] 4.2.7.2.[place] [id number] Mt dical NAL [address] [facility] 2022-06-09 2022-06-11 Inpatient P JENNIFER BILLINGSLEY [facility] HUBERT [id number] Univers 05:30:00 11:15:00 ity of [facility] 2022-06-09 2022-06-11 Hospital Jennifer Billingsley [facility] 1.2.840.114 [id number] Univers 05:30:00 11:15:00 Encounter Tan [place] 350.1.13.10 ity of [place] 4.2.7.2.[place] [id number] [facility] [address] [place] 2022-06-10 2022-06-10 [facility] 1.2.840.114 [id number] Univers 20:03:08 20:03:08 Event Jeremiah ABHINAV 350.1.13.10 i ty of [facility] 4.2.7.2.[place] [id number] [facility] [address] [place] 2022-06-09 2022-06-09 Surgery [facility] 1.2.301.798 [id number] Univers 07:45:00 09:36:00 Cam [place] 350.1.13.10 i ty [facility] 4.2.7.2.[place] [id number] [facility] [address] 2022-06-09 2022-06-09 Orders Doctor RAMANA 1.2.840.114 [id number] Univers 00:00:00 00:00:00 Only Unassigned, HERBERT 350.1.13.10 ity of [place] [facility] 4.2.7.2.686 Len[place] as [id number] [facility] [address] [place] 2022-06-01 2022-06-01 Outpatient R JENNIFER BILLINGSLEY [facility] [id number] Univers 13:45:00 14:18:05 ity of [facility] 2022-06-01 2022-06-01 Routine Jennifer Billingsley [facility] 1.2.518.497 [id number] Univers 13:45:00 14:18:05 [place] 350.1.13.10 ity of Visit [place].2.[place] [id number] Mt dical NAL 134 [facility] 2022-06-01 2022-06-01 Pet Food Deboner 2, Adc Lab [facility] 1.2.840.114 [id number] Univers 13:00:00 13:15:00 Visit Jennifer Billingsley [place] 350.1.13.10 ity of [place] 4.2.7.2.[place] [id number] Mt dical NAL 353 [facility] 2022-05-31 2022-05-31 Telephone Kristopher [facility] 1.2.144.465 [id number] Univers 00:00:00 00:00:00 Jamal [place] 350.1.13.10 ity [facility] 4.2.7.2.[place] [id number] Mt dical NAL 059 [facility] 2022-05-30 2022-05-30 Outpatient X JENNIFER BILLINGSLEY [facility] HUBERT [id number] Univers 07:31:00 13:08:00 ity of [facility] 2022-05-30 2022-05-30 Emergency Jennifer Billingsley [facility] 1.2.840.114 [id number] Univers 07:31:00 13:08:00 [place] 350.1.13.10 i ty of [place] 4.2.7.2.[place] [id number] [facility] [address] [place] 2022-05-30 2022-05-30 Orders Doctor RAMANA 1.2.840.114 [id number] Univers 00:00:00 00:00:00 Only Unassigned, HERBERT 350.1.13.10 ity of [place] [facility] 4.2.7.2.686 [place] as [id number] [address] 2022-05-24 2022-05-24 Routine Jennifer Billingsley [facility] 1.2.184.931 [id number] Univers 13:15:00 14:08:18 [place] 350.1.13.10 ity of Visit [place] 4.2.7.2.[place] [id number] Mt dical NAL 134 [facility] 2022-05-24 2022-05-24 Outpatient R KRISTOPHER [facility] [id number] Univers 11:00:00 11:44:56 SENDIL [facility] 2022-05-24 2022-05-24 Office [facility] 1.2.840.114 [id number] Univers 11:00:00 11:44:56 Visit Jamal [place] 350.1.13.10 ity of [place] 4.2.7.2.[place] [id number] Mt dical NAL 059 [facility] 2022-05-22 2022-05-22 Patient Iveth [facility] 1.2.592.149 [id number] Univers 00:00:00 00:00:00 Secure Msg Melissa [place] 350.1.13.10 ity of [place] 4.2.7.2.[place] [id number] Mt dical NAL 134 [facility] 2022-05-18 2022-05-18 Routine Iveth [facility] 1.2.807.534 [id number] Univers 16:30:00 16:45:00 Melissa [place] 350.1.13.10 ity of Visit [place] 4.2.7.2.[place] [id number] Mt dical NAL 134 [facility] 2022-05-18 2022-05-18 Outpatient R IVETH [facility] [id number] Univers 16:30:00 16:30:00 MELISSA lott [facility] 2022-05-18 2022-05-18 Orders Doctor BOLES 1.2.840.114 [id number] Univers 00:00:00 00:00:00 Only Unassigned, HERBERT 350.1.13.10 ity of [place] [facility] 4.2.7.2.686 [place] as [id number] [facility] [address] [place] 2022-05-16 2022-05-16 Pet Food Deboner Ultrasound, Adc [facility] 1.2 .840.114 [id number] Univers 14:30:00 15:00:00 Visit Garret McneillmariluAnamaria shay 350.1 .13.10 ity of [place] 4.2.7.2.686 [place] [facility] [id number] Mt dical [facility] 134 [facility] 2022-05-16 2022-05-16 Outpatient P NGUYEN [facility] [id number] Univers 14:30:00 14:30:00 BHAVNA it y of ANAMARIA Winston [facility] 2022-05-09 2022-05-09 Outpatient R IVETH [facility] [id number] Univers 16:30:00 16:30:00 MELISSA [facility] 2022-04-21 2022-04-21 Outpatient P IRAIS GARCIA [facility] O BY [id number] Univers 19:38:00 22:05:00 IRAIS GARCIA [facility] 2022-04-21 2022-04-21 [facility] 1.2.840.114 [id number] Univers 19:38:00 22:05:00 Irais winston 350.1.13.10 ity of [place] 4.2.7.2.[place] [id number] [facility] [address] [place] 2022-04-21 2022-04-21 Orders Doctor RAMANA 1.2.840.114 [id number] Univers 00:00:00 00:00:00 Only Unassigned, HERBERT 350.1.13.10 ity of [place] [facility] 4.2.7.2.686 [place] as [id number] [facility] [address] [place] 2022-04-19 2022-04-19 Outpatient P JENNIFER BILLINGSLEY [facility] H[facility] [id number] Univers 14:25:00 19:20:00 ity [facility] 2022-04-19 2022-04-19 [facility] Jennifer Billingsley [facility] 1.2.840.114 [id number] Univers 14:25:00 19:20:00 Encounter Cam [place] 350.1.13.10 ity [facility] 4.2.7.2.[place] [id number] [address] 2022-04-19 2022-04-19 Routine Jennifer Billingsley [facility] 1.2.426.833 [id number] Univers 14:00:00 14:15:00 Cam [place] 350.1.13.10 ity of Visit [place] 4.2.7.2.[place] [id number] Mt dical NAL [address] [place] [address] 2022-04-19 2022-04-19 Outpatient R JENNIFER BILLINGSLEY [facility] [id number] Univers 14:00:00 14:00:00 ity of [facility] 2022-04-19 2022-04-19 Telephone [facility] 1.2.840.114 [id number] Univers 00:00:00 00:00:00 Cam [place] 350.1.13.10 i ty of [place] 4.2.7.2.[place] [id number] Mt dical NAL [address] [place] [address] 2022-04-18 2022-04-18 Outpatient Inna LAZARO [facility] [id number] Univers 14:00:00 14:00:00 [facility] 2022-04-12 2022-04-12 Outpatient Inna LAZARO [facility] [id number] Univers 16:00:00 16:00:00 [facility] 2022-04-05 2022-04-05 Case [facility] .2.611.927 [id number] Univers 00:00:00 00:00:00 Management Cam [place] 350.1.13.10 ity of [place] 4.2.7.2.[place] [id number] Mt dical NAL [address] [place] [address] 2022-04-04 2022-04-04 Outpatient Inna LAZARO [facility] [id number] Univers 16:30:00 17:29:20 [facility] 2022-04-04 2022-04-04 Routine Jennifer Billingsley [facility] 1.2.840.114 [id number] Univers 16:30:00 17:29:20 Melissa Lazaro ABHINAV 350.1.13.10 ity of Visit [place] 4.2.7.2.[place] [id number] Mt dical NAL 134 [facility] 2022-03-23 2022-03-23 Telephone Iveth NVBINH 1.2.840.114 10 [id number] Univers 00:00:00 00:00:00 Melissa [place] 350.1.13.10 i ty of [place] 4.2.7.2.[place] [id number] Mt dical NAL 134 [facility] 2022-03-22 2022-03-22 Pet Food Deboner Pascale, Adc Lab Main [facility] 1.2.8 40.114 [id number] Univers 12:45:00 13:00:00 Visit Iveth Melissa [place] 350.1.13.10 ity of [place] 4.2.7.2.[place] [id number] Mt dical NAL 353 [facility] 2022-03-22 2022-03-22 Outpatient R IVETH [facility] [id number] Univers 12:45:00 12:45:00 MELISSA oren [facility] 2022-03-22 2022-03-22 Orders Doctor RAMANA 1.2.840.114 [id number] Univers 00:00:00 00:00:00 Only Unassigned, HERBERT 350.1.13.10 ity of [place] [facility] 4.2.7.2.686 [place] as [id number] [address] 2022-03-16 2022-03-16 Outpatient R JENNIFER BILLINGSLEY [facility] [id number] Univers 14:30:00 14:59:43 ity of [facility] 2022-03-16 2022-03-16 Routine Jennifer Billingsley [facility] 1.2.314.160 [id number] Univers 14:30:00 14:59:43 Tan [place] 350.1.13.10 ity of Visit [place] 4.2.7.2.[place] [id number] Mt dical NAL 134 [facility] 2022-03-15 2022-03-15 Patient Blaine [facility] 1.2.840.114 [id number] Univers 00:00:00 00:00:00 Secure Msg Corinne [place] 350.1.13.10 ity of [place] 4.2.7.2.[place] [id number] Mt dical NAL [address] [place] [address] 2022-03-10 2022-03-10 Pet Food Deboner [facility], [facility] 1.2 .840.114 [id number] Univers 14:00:00 15:00:00 Visit Vance Stevens 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 350.1.13.10 ity of [facility] 4.2.7.2.686 [place] as MATERNAL [phone] [facility] ical & CHILD [address] [place] [address] 2022-03-10 2022-03-10 Outpatient P ODALYS [facility] [id number] Univers 14:00:00 14:00:00 [facility]22-03-01 2022-03-01 Outpatient R IVETH [facility] [id number] Univers 13:15:00 13:57:13 MELISSA [facility] 2022-03-01 2022-03-01 Routine Iveth [facility] 1.2.086.414 [id number] Univers 13:15:00 13:57:13 Melissa ABHINAV 350.1.13.10 ity of Visit [place] 4.2.7.2.[place] [id number] Mt dical NAL [address] [place] [address] 2022-03-01 2022-03-01 Orders Doctor RAMANA 1.2.840.114 [id number] Univers 00:00:00 00:00:00 Only Unassigned, HERBERT 350.1.13.10 ity of [place] [facility] 4.2.7.2.686 [place] as [id number] [address] 2022-02-03 2022-02-03 Pet Food Deboner Ultrasound, [facility] 1.2 .840.114 [id number] Univers 09:30:00 10:49:30 Visit Odalys Vance 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 350.1.13.10 ity of REGIONAL 4.2.7.2.686 [place] MATERNAL [id number] [facility] ical & CHILD [address] [place] [address] 2022-02-03 2022-02-03 Outpatient P ODALYS [facility] [id number] Univers 09:30:00 09:30:00 VANCE [facility] 2022-02-02 2022-02-02 [facility] [id number] Univers 14:00:00 14:00:00 MELISSA [facility] 2022-01-11 2022-01-11 Outpatient R MILES [facility] [id number] Univers 11:20:00 11:20:00 MARIA DE JESUS [facility] 2022-01-05 2022-01-05 Pet Food Deboner 2, Adc Lab [facility] 1.2.840.114 [id number] Univers 14:00:00 14:15:00 Visit Jennifer Billingsley 350.1.13.10 ity of [place] 4.2.7.2.[place] [id number] Mt dical [facility] 353 [facility] 2022-01-05 2022-01-05 Outpatient R JENNIFER BILLINGSLEY [facility] [id number] Univers 14:00:00 14:00:00 ity [facility] 2022-01-05 2022-01-05 Routine Analilia [facility] 1.2.195.908 [id number] Univers 13:15:00 13:22:49 [place] 350.1.13.10 ity of [facility] 4.2.7.2.[place] [id number] Mt dical NAL [address] [place] [address] 2022-01-03 2022-01-03 Telephone Iveth [facility] 1.2.840.114 [id number] Univers 00:00:00 00:00:00 Melissa [place] 350.1.13.10 i ty of [place] 4.2.7.2.[place] 406.6717002 Mt dical NAL 134 [facility] 2022-01-03 2022-01-03 Orders Doctor RAMANA 1.2.840.114 [id number] Univers 00:00:00 00:00:00 Only Unassigned, HERBERT 350.1.13.10 ity of [place] [facility] 4.2.7.2.686 [place] as [id number] [facility] [address] [place] 2021-12-16 2021-12-16 Telephone Jennifer Billingsley [facility] 1.2.840.114 [id number] Univers 00:00:00 00:00:00 Tan [place] 350.1.13.10 it y of [facility] [place] [facility] [id number] [facility] [address] [place] 2021-12-07 2021-12-07 Pet Food Deboner 2, Adc Lab [facility] 1.2.840.114 [id number] Univers 11:00:00 11:15:00 Visit Melissa Lazaro 350.1.13.10 ity of [place] 4.2.7.2.[place] [id number] [facility] 353 [facility] 2021-12-07 2021-12-07 Outpatient R IVETH [facility] [id number] Univers 11:00:00 11:00:00 MELISSA ity [facility] 2021-12-07 2021-12-07 Orders Doctor RAMANA 1.2.840.114 [id number] Univers 00:00:00 00:00:00 Only Unassigned, HERBERT 350.1.13.10 ity of [place] [facility] 4.2.7.2.686 [place] as [id number] [address] 2021-12-05 2021-12-05 Outpatient R JENNIFER BILLINGSLEY [facility] [id number] Univers 13:15:00 14:28:19 ity of [facility] 2021-12-05 2021-12-05 Routine Melissa Lazaro [facility] 1.2.840.11 [id number] Univers 13:15:00 14:28:19 Billings[place] Jennifer [place] 350.1.13.10 ity of Visit [place] 4[place]2.7.2.[place] [id number] Mt dical NAL 134 [facility] 2021-12-05 2021-12-05 Telephone Antolin ANNYNILAY 1.2.840.114 [id number] Univers 00:00:00 00:00:00 [facility] 350.1.13.10 i ty of [facility] 4.2.7.2.[place] [id number] [address] 2021-11-23 2021-11-23 Outpatient R JENNIFER BILLINGSLEY [facility] [id number] Univers 09:00:00 09:00:00 ity [facility] 2021-11-21 2021-11-21 Outpatient R CHIRAG WOLF [facility] [id number] Univers 11:30:00 12:14:05 [facility] 2021-11-21 2021-11-21 Office Faculty, Rodriguez [facility] 1.2 .840.114 [id number] Univers 11:30:00 12:14:05 Visit 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 350.1.13.10 ity [facility] 4.2.7.2.686 [place] MATERNAL [phone] Med ical & CHILD [address] [place] [address] 2021-11-07 2021-11-07 Outpatient R JENNIFER BILLINGSLEY [facility] [id number] Univers 14:00:00 15:04:11 ity [facility] 2021-11-07 2021-11-07 Jennifer Miller [facility] 1.2.438.190 [id number] Univers 14:00:00 15:04:11 Cam [employer] 350.1.13.10 ity of Visit [place] 4.2.7.2.[place] [id number] Mt dical NAL [address] [place] [address] 2021-11-07 2021-11-07 Outpatient R JENNIFER BILLINGSLEY [facility] [id number] Univers 14:00:00 14:00:00 ity [facility] 2021-11-07 2021-11-07 [place] Lazaro [facility] 1.2.289.941 [id number] Univers 00:00:00 00:00:00 Melissa GARCIATON 350.1.13.10 i ty of [place] 4.2.7.2.[place] [facility] [id number] Mt dical [address] 2021-11-02 2021-11-02 Outpatient R ANALILIA JENNIFER [facility] [id number] Univers 14:30:00 14:30:00 ity of [facility] 2021-10-24 2021-10-24 Telephone Arimda [facility] 1.2.840.114 [id number] Univers 00:00:00 00:00:00 Ghanshyam Angelo 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 350.1.13.10 ity of REGIONAL 4.2.7.2.686 [place] MATERNAL [phone] Med ica & [address] 2021-10-22 2021-10-22 Emergency X SHEFALI, K [facility] ERT [id number] Univers 13:59:00 16:21:00 ity of [facility] 2021-10-22 2021-10-22 Emergency Dev Hernandez [facility] 1.2.840.114 [id number] Univers 13:59:00 16:21:00 Hattie ABHINAV 350.1.13.10 i ty of [place].2.[place] [id number] [address] 2021-10-22 2021-10-22 Emergency X SHEFALI, K [facility] ERT [id number] Univers 13:59:00 16:21:00 ity of [facility] 2021-10-20 2021-10-20 Outpatient R ABIMAEL [facility] [id number] Univers 14:45:00 16:06:03 KEYONNA ity o f [facility] 2021-10-20 2021-10-20 Initial Ghanshyam Huffman [facility] 1.2.8 40.114 [id number] Univers 14:45:00 16:06:03 Keyonna Varghese R 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 350.1.13.1 0 ity of Visit REGIONAL 4.2.7.2.686 [place] MATERNAL [id number] [facility] & CHILD [address] [place] [address] 2021-10-20 2021-10-20 Outpatient R ABIMAEL, [facility] [id number] Univers 14:45:00 16:06:03 KEYONNA lott o f [facility] 2021-10-20 2021-10-20 Orders Doctor RAMANA 1.2.840.114 [id number] Univers 00:00:00 00:00:00 Only Unassigned, HERBERT 350.1.13.10 [facility] 4.2.7.2.686 [place] [id number] [address] 2021-10-14 2021-10-14 Outpatient R CHYNA [facility] [id number] Univers 15:30:00 15:30:00 RENU [facility] 2021-10-14 2021-10-14 Outpatient R CHYNA [facility] [id number] Univers 15:30:00 15:30:00 RENU [facility] 2021-10-14 2021-10-14 Outpatient R CHYNA [facility] [id number] Univers 15:30:00 15:30:00 RENU [facility] 2021-09-05 2021-09-05 Outpatient R JENNIFER BILLINGSLEY [facility] [id number] Univers 08:15:00 08:15:00 [facility] 2021-08-26 2021-08-26 Outpatient R TARA [facility] [id number] Univers 13:00:00 13:00:00 ZACARIAS [facility] 2021-08-18 2021-08-18 Pet [employer] De[employer]er Pascale, Brionna Lab Main [facility] [id number] Univers 12:30:00 12:45:00 Visit Renu [place] [id number] ity [facility] [id number] [place] [id number] [address] 2021-08-18 2021-08-18 Outpatient R IVETH [facility] [id number] Univers 11:15:00 12:15:34 MELISSA [facility] 2021-08-18 2021-08-18 Office Iveth [facility] [id number] Univers 11:15:00 11:45:00 Visit Melissa ABHINAV [id number] i ty of [id number] [id number] [facility] [address] [facility] 2021-08-18 2021-08-18 [facility] [id number] Univers 11:15:00 11:15:00 [facility] 2021-06-15 [facility] [id number] Univers 09:00:00 09:00:00 [facility] 2021-05-30 2021-05-30 Outpatient R JENNIFER BILLINGSLEY [facility] [id number] Univers 09:00:00 09:00:[facility] 2021-05-26 2021-05-26 [facility] [id number] Univers 14:00:00 14:00:00 SENDIL [facility] 2021-05-19 2021-05-19 [facility] [id number] Univers 00:00:00 00:00:00 [place] [id number] ity [facility] [id number] [id number] [address] 2021-05-04 2021-05-04 [facility] [id number] Univers 16:00:00 16:00:00 [facility]-04-27 2021-04-27 Office CHERELLE Felix [id number] Univers 14:20:00 14:40:00 Visit [facility] [id number] i ty of [facility] [id number] [phone] [facility] [address] [place] 2021-04-27 2021-04-27 Outpatient [facility] [id number] Univers 14:20:00 14:20:00 HENRI ity [facility] 2021-04-18 2021-04-18 Orders Doctor RAMANA [id number] Univers 00:00:00 00:00:00 Only Unassigned, HERBERT 350.1.13.10 [facility] 4.2.7.2.686 [place] as [phone] [address] 2021-04-14 2021-04-14 Office Kristopher [facility] 1.2.840.114 [id number] Univers 13:00:00 13:54:50 Visit Jamal [place] 350.1.13.10 ity [facility] [place] [phone] Mt dical NAL 059 [facility] 2021-04-14 2021-04-14 [facility] [id number] Univers 13:00:00 13:54:50 SENDIL ity [facility] 2021-04-14 2021-04-14 Out[facility] [id number] Univers 13:00:00 13:00:00 SENDIL ity [facility] 2021-04-08 2021-04-08 [facility] [id number] Univers 10:40:00 10:40:[address] [facility] [place] [place] 2021-04-04 2021-04-04 Outpatient R IVETH [facility] [id number] Univers 10:15:00 10:15:00 MELISSA ity [facility] 2021-03-29 2021-03-29 Outpatient R CHYNA [facility] [id number] Univers 15:30:00 16:20:32 RENU ity [facility] 2021-03-29 2021-03-29 [facility] 1.2.840.114 [id number] Univers 15:30:00 16:20:32 Visit Renu [place] 350.1.13.10 ity [facility] 4.2.7.2.[place] [phone] Mt dical NAL 134 [facility] 2021-03-29 2021-03-29 Outpatient R TRAVIS [facility] [id number] Univers 13:00:00 13:00:00 VERONICA ity [facility] 2021-03-29 2021-03-29 Orders Doctor RAMANA 1.2.840.114 [id number] Univers 00:00:00 00:00:00 Only Unassigned, HERBERT 350.1.13.10 ity [facility] [place] [facility] 4.2.7.2.686 [place] as [phone] [address] 2021-03-24 2021-03-24 [facility] [id number] Univers 11:30:00 12:00:28 [facility]-03-24 2021-03-24 Office [facility] 1.2.840.114 [id number] Univers 11:30:00 12:00:28 Visit Wolf SPECIALTY 350.1.13.10 ity of [facility] 4.2.7.2.[place] C[place] AT [phone] Mt dickyree HANKINSY 253 [facility] 2021-03-23 2021-03-23 Outpatient R NILES [facility] [id number] Univers 00:00:00 00:00:00 WOLF ity [facility] 2021-03-18 2021-03-18 Outpatient R KRISTOPHER [facility] [id number] Univers 16:00:00 16:00:00 SENDIL [facility] 2021-03-18 2021-03-18 Orders Doctor RAMANA 1.2.840.114 [id number] Univers 00:00:00 00:00:00 Only Unassigned, HERBERT 350.1.13.10 ity [place] [facility] 4.2.7.2.686 [place] as [phone] [address] 2021-03-16 2021-03-16 Telephone Kristopher [facility] 1.2.595.292 [id number] Univers 00:00:00 00:00:00 Sendjose [place] 350.1.13.10 ity of [place] 4.2.7.2.686 [place] [phone] Mt dical NAL 059 [facility] 2021-03-10 2021-03-10 Outpatient R [facility] [id number] Univers 15:20:00 15:20:00 [facility] 2021-03-09 2021-03-09 Outpatient R NILES [facility] RAD [id number] Univers 10:00:00 10:00:00 WOLF [facility] 2021-03-09 2021-03-09 Outpatient R NILES [facility] [id number] Univers 00:00:00 00:00:00 [facility] 2021-03-04 2021-03-04 [facility] [id number] Univers 13:00:00 13:00:00 [facility] 2021-03-04 2021-03-04 Out[facility] [id number] Univers 13:00:00 13:00:00 [facility] 2021-03-03 2021-03-03 Out[facility] [id number] Univers 10:30:00 11:23:22 [facility] 2021-03-03 2021-03-03 Office [facility] 1.2.840.114 [id number] Univers 10:30:00 11:23:22 Visit Jamal [place] 350.1.13.10 ity [facility] 4.2.7.2.686 [place] [facility] [phone] Mt dic[address] 2021-03-03 2021-03-03 Outpatient R KRISTOPHER [facility] [id number] Univers 10:30:00 11:23:22 SENDIL [facility] 2021-02-28 2021-02-28 Out[facility] [id number] Univers 00:00:00 00:00:00 [facility] 2021-02-23 2021-02-23 Pet Food Deboner Vls-Lab [facility] 1.2.840.114 [id number] Univers 16:00:00 16:15:00 Visit Wolf Cage 350.1.13.10 ity of [facility] 4.2.7.2.[place] [phone] Mt eitan GARDNER 353 [facility] 2021-02-23 2021-02-23 Pet Food Deboner Vls-Lab [facility] 1.2.840.114 [id number] Univers 16:00:00 16:15:00 Visit Wolf [place] 350.1.13.10 ity of CARE 4.2.7.2.[address] [facility] CENTER AT [phone] Mt eitan GARDNER 353 [facility] 2021-02-23 2021-02-23 Outpatient Inna CAGE [facility] [id number] Univers 16:00:00 16:00:00 WOLF ity [facility] 2021-02-23 2021-02-23 Office Niles [facility] 1.2.840.114 [id number] Univers 14:15:00 15:35:09 Visit Wolf SPECIALTY 350.1.13.10 ity of [facility] 4.2.7.2.686 [facility] AT [phone] Mt eitan G[place] 253 [facility] 2021-02-23 2021-02-23 Outpatient Inna CAGE [facility] [id number] Univers 14:15:00 15:35:09 WOLF ity [facility] 2021-02-23 2021-02-23 Orders Doctor RAMANA 1.2.840.114 [id number] Univers 00:00:00 00:00:00 Only Unassigned, HERBERT 350.1.13.10 it[place] [facility] 4.2.7.2.686 [facility] [phone] [facility] 009 Branch 2021-02-19 2021-02-20 Emergency X Dev HERNANDEZ [facility] ERT [id number] Univers 21:31:00 00:56:00 ity of [facility] 2021-02-19 2021-02-20 Emergency Sang Epps [facility] 1.2.840. 114 [id number] Univers 21:31:00 00:56:00 Dev Hernandez 350.1.13.10 ity [facility] 4.2.7.2.686 [facility] [phone] [facility] 084 Branch 2021-02-19 2021-02-20 Emergency X Dev HERNANDEZ [facility] ERT [id number] Univers 21:31:00 00:56:00 ity of [facility] 2021-02-16 2021-02-16 Orders Doctor RAMANA 1Abelino2.840.114 [id number] Univers 00:00:00 00:00:00 Only Unassigned, HERBERT 350.1.13.10 [place] [facility] [place] [facility] 4.2.7.2.686 [place] as [phone] [address] 2021-02-09 2021-02-09 Outpatient R KRISTOPHER, [facility] [id number] Univers 10:00:00 10:56:02 SENDIL ity [facility] 2021-02-09 2021-02-09 Office Kristopher [facility] 1.2.840.114 [id number] Univers 10:00:00 10:56:02 Visit Sendil Laura [place] 350.1.13.10 ity [facility] 4.2.7.2.[place] [phone] Mt dical [address] 2021-02-09 2021-02-09 Outpatient R KRISTOPHER [facility] [id number] Univers 10:00:00 10:00:00 SENDIL ity [facility] 2021-02-09 2021-02-09 Orders Doctor RAMANA Cervantes2.840.114 [id number] Univers 00:00:00 00:00:00 Only Unassigned, HERBERT 350.1.13.10 it[place] [facility] [place] [facility] 4.2.7.2.686 [place] as [phone] [address] 2021-02-02 2021-02-02 Outpatient R RADIOLOGY [facility] [id number] Univers 00:00:00 00:00:00 ity of [facility] 2021-02-01 2021-02-01 Outpatient R KRISTOPHER [facility] [id number] Univers 09:00:00 09:00:00 SENDIL ity [facility] 2021-01-18 2021-01-18 Orders Doctor RAMANA Cervantes2.840.114 [id number] Univers 00:00:00 00:00:00 Only Unassigned, HERBERT 350.1.13.10 ity [place] [facility] 4.2.7.2.686 [place] as [phone] [address] 2021-01-07 2021-01-07 Orders Doctor RAMANA 1.2.840.114 [id number] Univers 00:00:00 00:00:00 Only Unassigned, HERBERT 350.1.13.10 ity of [place] [facility] 4.2.7.2.686 [place] as [phone] [address] 2021-01-05 2021-01-05 OFFICE STLMLC STLMLC [id number] Co mmon 00:00:00 00:00:00 [facility] L[facility]EL 4 [facility] 2020-12-10 2020-12-10 (WEB) STLMLC STLMLC [id number] Co mmon 00:00:00 00:00:00 [facility] 2020-12-10 2020-12-10 (TEL) STLMLC STLMLC [id number] Co mmon 00:00:00 00:00:00 [facility] 2020-12-08 2020-12-08 OFFICE STLMLC STLMLC [id number] Co mmon 00:00:00 00:00:00 VISIT [facility] PT LEVEL 4 [facility] 2020-11-24 2020-11-24 Office [facility] 1.2.497.375 [id number] Univers 15:31:13 16:14:07 Visit Melissa [place] 350.1.13.10 [place].2.[place] [phone] Mt dical [address] 2020-11-24 2020-11-24 Outpatient R IVETH [facility] [id number] Univers 15:30:00 15:30:00 MELISSA lott [facility] 2020-10-21 2020-10-21 Outpatient Inna SUMMERS [facility] [id number] Univers 14:00:00 14:00:00 JAMAL lott [facility] 2020-10-21 2020-10-21 Outpatient Inna CLEMENTE [facility] [id number] Univers 14:00:00 14:00:00 RENU lott [facility] 2020-10-19 2020-10-19 Office Adum, [facility] 1.2.840.114 [id number] Univers 14:57:20 16:10:38 Visit Renu Marino Abhinav 350.1.13.10 [place] of [place].2.[place] [phone] [address] 2020-10-19 2020-10-19 Outpatient R ADUM, [facility] [id number] Univers 15:00:00 15:00:00 RENUEKVIN lott [facility] 2020-10-19 2020-10-19 Orders Doctor RAMANA 1.2.840.114 [id number] Univers 00:00:00 00:00:00 Only Unassigned, HERBERT 350.1.13.10 [place] [facility] 4.2.7.2.686 [place] as [phone] [address] 2020-10-14 2020-10-14 Office Ad, [facility] 1.2.840.114 [id number] Univers 14:55:53 16:37:55 Visit Renu Marino Abhinav 350.1.13.10 [place] of [place].2.686 [place] [phone] [address] 2020-10-14 2020-10-14 Outpatient R ADUM, [facility] [id number] Univers 15:00:00 15:00:00 RENU lott [facility] 2020-10-01 2020-10-01 Outpatient R ROSA, [facility] [id number] Univers 14:20:00 14:20:00 ALVINA nilaybrittani o [facility] 2020-09-13 2020-09-13 Outpatient R ROSA, [facility] [id number] Univers 13:20:00 13:20:00 ALVINA nilayy o f [facility] 2020-09-10 2020-09-10 Telephone [facility] 1.2.547.751 [id number] Univers 00:00:00 00:00:00 Jamal [place] 350.1.13.10 [place] of [place].2.[place] [phone] [facility] 2020-08-20 2020-08-20 Telephone Jennifer Billingsley NVBINH 1.2.840.114 [id number] Univers 00:00:00 00:00:00 Cam [place] 350.1.13.10 i ty of [place].7.2.[place] [phone] [facility] 134 [facility] 2020-07-22 2020-07-22 Emergency [facility] 1.2.840.114 [id number] Univers 15:42:00 17:56:00 Haily [place] 350.1.13.10 i ty [place].2.7.2.[place] [phone] [address] 2020-07-22 2020-07-22 Emergency X [facility] ERT [id number] Univers 15:42:00 17:56:00 HAILY ity of [facility] 2020-07-22 2020-07-22 Telephone Analilia [facility] 1.2.840.114 [id number] Univers 00:00:00 00:00:00 Cam [place] 350.1.13.10 i ty of [place] 4.2.7.2.[place] [phone] [address] 2020-06-17 2020-06-17 Outpatient R JENNIFER BILLINGSLEY [facility] [id number] Univers 11:15:00 11:15:00 ity of [facility] 2020-06-03 2020-06-03 Routine Analilia [facility] 1.2.472.446 [id number] Univers 08:49:35 09:40:33 Cam [place] 350.1.13.10 ity of [place] 4.2.7.2.686 [place] [phone] Mt dical nal [address] [place] [address] 2020-06-03 2020-06-03 Outpatient R JENNIFER BILLINGSLEY [facility] [id number] Univers 08:45:00 08:45:00 ity of [facility] 2020-05-28 2020-05-29 Emergency Haily Aguilar [facility] 1.2.840 .114 [id number] Univers 19:42:00 00:00:00 Freya Jensen [place] 350.1.13.10 [place]y of [place].7.2.[place] [phone] [facility] 084 [place] 2020-05-24 2020-05-25 Hospital Analilia [facility] 1.2.840.114 [id number] Univers 05:32:00 16:05:00 Encounter Tan Garciaton 350.1.13.10 ity of [place] 4.2.7.2.686 [place] [phone] [place] 755453 [place] 2020-05-24 2020-05-24 Outpatient R KENDAL BILLINGSLEYEN [facility] HUBERT [id number] Univers 07:30:00 07:30:00 ity of [facility] 2020-05-24 2020-05-24 Orders Doctor RAMANA 1.2.840.114 [id number] Univers 00:00:00 00:00:00 Only Unassigned, HERBERT 350.1.13.10 ity of [place] [facility] 4.2.7.2.686 [place] as [phone] [facility] 009 [place] 2020-05-20 2020-05-20 Pet Food Deboner Pascale, [facility] Main [facility] 1.2.8 40.114 [id number] Univers 15:53:08 16:08:08 Visit Jennifer Billingsley 350.1.13.10 [place] of [place].2.[place] [phone] Me dical nal 353 [facility] 2020-05-20 2020-05-20 Routine Room, [facility] 1.2.840.1 14 [id number] Univers 14:07:19 15:16:40 Jennifer Billingsley 350.1.13.10 ity of [place].7.2.686 [place] [phone] Mt dical nal 134 [facility] 2020-05-20 2020-05-20 Outpatient R [facility] [id number] Univers 14:00:00 14:00:00 ity of [facility] 2020-05-18 2020-05-18 Patient Liu [facility] 1.2.840.114 [id number] Univers 00:00:00 00:00:00 Outreach Karl BRYAN 350.1.13.10 i ty of [facility] 4.2.7.2.686 [place] [phone] Mt dic[address] 2020-05-17 2020-05-17 Routine Room, [facility] 1.2.840.1 14 [id number] Univers 13:04:57 14:14:31 Jennifer Billingsley 350.1.13.10 ity of [place] 4.2.7.2.686 [place] [phone] Mt dical nal 134 [facility] 2020-05-17 2020-05-17 Outpatient R [facility] [id number] Univers 13:00:00 13:00:00 ity of [facility] 2020-05-13 2020-05-13 Routine Room, [facility] 1.2.840.1 14 [id number] Univers 11:11:26 12:46:07 Jennifer Billingsley 350.1.13.10 ity [place].2.686 [place] [phone] Mt dicnm nal [address] [place] [address] 2020-05-13 2020-05-13 Outpatient R [facility] [id number] Univers 11:00:00 11:00:00 ity of [facility] 2020-05-07 2020-05-07 Pet Food Deboner 1, Darci Room [facility] 1.2. 840.114 [id number] Univers 14:02:50 14:38:06 Visit Anamaria [place] 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 350.1. 13.10 ity of [facility] 4.2.7.2.686 [place] as MATERNAL [phone] [facility] ical & CHILD [address] [place] [address] 2020-05-07 2020-05-07 Outpatient P [facility] [id number] Univers 14:00:00 14:00:00 ity of [facility] 2020-05-06 2020-05-06 Outpatient R [facility] [id number] Univers 14:00:00 14:00:00 ity of [facility] 2020-05-03 2020-05-03 Outpatient R [facility] [id number] Univers 14:00:00 14:00:00 ity of [facility] 2020-04-29 2020-04-29 Routine Room, Adc Nst [facility] 1.2.840.1 14 [id number] Univers 13:55:20 15:23:23 Jennifer Billingsley 350.1.13.10 ity of [place].2.686 [place] [phone] Mt dical nal [address] [place] [address] 2020-04-29 2020-04-29 Outpatient R [facility] [id number] Univers 14:00:00 14:00:00 ity of [facility] 2020-04-26 2020-04-26 Outpatient R [facility] [id number] Univers 14:00:00 14:00:00 ity of [facility] 2020-04-23 2020-04-23 Routine Adum, [facility] 1.2.840.114 [id number] Univers 13:51:59 16:42:46 Renu [place] 350.1.13.10 ity of [place] 4[place].7.2.686 [place] [phone] Mt dical nal [address] [place] [address] 2020-04-23 2020-04-23 Outpatient R ADUM, [facility] [id number] Univers 13:45:00 13:45:00 RENU ity of [facility] 2020-04-23 2020-04-23 Telephone Jennifer Billingsley [facility] 1.2.840.114 [id number] Univers 00:00:00 00:00:00 Cam [place] 350.1.13.10 i ty of [place] 4[place].2.686 [place] [phone] Mt dical nal [address] [place] [address] 2020-04-22 2020-04-22 Outpatient R [facility] [id number] Univers 14:00:00 14:00:00 ity of [facility] 2020-04-20 2020-04-20 Routine Jennifer Billingsley [facility] 1.2.508.238 [id number] Univers 15:49:19 16:55:56 Tna Abhinav 350.1.13.10 ity of [place] 4.2.7.2.[place] [phone] Mt dical nal 134 [facility] 2020-04-20 2020-04-20 Outpatient R JENNIFER BILLINGSLEY [facility] [id number] Univers 15:45:00 15:45:00 ity of [facility] 2020-04-13 2020-04-13 Outpatient R EDITH RODAS [facility] [id number] Univers 14:45:00 14:45:00 ity of [facility] 2020-03-30 2020-03-30 Outpatient R EDITH RODAS [facility] [id number] Univers 14:30:00 15:56:45 ity of [facility] 2020-03-24 2020-03-24 Pet Food Deboner 2, [facility] 1.2.840.114 [id number] Univers 08:14:13 08:29:13 Visit Edith Rodas 350.1.13.10 [place]y of [place].2.[place] [phone] Mt dical [facility] 353 [facility] 2020-03-24 2020-03-24 Outpatient R EDITH RODAS [facility] [id number] Univers 08:00:00 08:00:00 ity of [facility] 2020-03-19 2020-03-19 Telephone Edith Rodas [facility] 1.2.840.114 [id number] Univers 00:00:00 00:00:00 [place] 350.1.13.10 i ty of [place] 4[place]2.7.2.[place] [phone] Mt dical nal 134 [facility] 2020-03-18 2020-03-18 Pet Food Deboner 2, [facility] 1.2. 840.114 [id number] Univers 12:53:53 13:38:42 Visit 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 350.1.13.10 ity of [facility] 4.2.7.2.686 [place] as MATERNAL [phone] [facility] & CHILD [address] [place] [address] 2020-03-18 2020-03-18 Outpatient P [facility] [id number] Univers 13:00:00 13:00:00 ity [facility] 2020-03-17 2020-03-17 Outpatient R EDITH RODAS [facility] [id number] Univers 14:30:00 14:30:00 ity [facility] 2020-03-17 2020-03-17 Case Iveth [facility] 1.2.930.446 [id number] Univers 00:00:00 00:00:00 Management Melissa La 350.1.13.10 ity of [place].2.[place] [phone] Mt dical nal 134 [facility] 2020-03-16 2020-03-16 Pet Food Deboner 2, [facility] 1.2.840.114 [id number] Univers 09:01:43 09:16:43 Visit Jaaml Summers 350.1.13. 10 [place]y of [place].2.[place] [phone] Mt dical nal 353 [facility] 2020-03-16 2020-03-16 Laboratory Pc, [facility] Echo Room 1 - [facility] 1 .2.840.114 [id number] Univers 08:06:46 09:06:46 Only Jamal Summers 350.1.13. 10 [place]y of [place].2.[place] [phone] Mt dical nal 059 [facility] 2020-03-16 2020-03-16 Outpatient R KRISTOPHER [facility] [id number] Univers 09:00:00 09:00:00 SENDIL ity [facility] 2020-03-16 2020-03-16 Nurse Visit, [facility] Nurse [facility] 1.2.840.1 14 [id number] Univers 08:07:15 08:37:15 Visit Jamal Summers 350.1.13. 10 [place] of [place].2.[place] [phone] Mt dicnm nal 9 [facility] 2020-03-11 2020-03-11 Outpatient R [facility] [id number] Univers 16:30:00 16:30:00 ity [facility] 2020-03-08 2020-03-08 Outpatient R ROSA [facility] [id number] Univers 16:00:00 16:00:00 ALVINA lott o f [facility] 2020-03-04 2020-03-04 Office [facility] 1.2.840.114 [id number] Univers 13:59:57 14:38:15 Visit Jamal [place] 350.1.13.10 ity [facility] 4.2.7.2.[place] [phone] [address] 2020-03-04 2020-03-04 [facility] [id number] Univers 14:00:00 14:00:00 SENDIL [facility] 2020-03-02 2020-03-02 Outpatient R HUE EDITH [facility] [id number] Univers 09:00:00 09:00:00 ity [facility] 2020-02-17 2020-02-17 Pet Food Deboner Ultrasound, [facility] 1.2.840.114 [id number] 07:52:39 08:55:30 Visit Herbie 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 350.1.13.10 REGIONAL 4.2.7.2.686 MATERNAL [phone] & CHILD [address] [place] [address] 2020-02-17 2020-02-17 Pet Food Deboner [facility], [facility] 1.2 .840.114 [id number] Univers 07:52:39 08:55:30 Visit Alec Arora 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 [id number] ity of [facility] 4.2.7.2.686 Lencho as MATERNAL [phone] Med ical & CHILD [facility] 2020-02-17 2020-02-17 Outpatient P [facility] [id number] Univers 08:00:00 08:00:00 ity of [facility] 2020-02-12 2020-02-12 Outpatient R IVETH [facility] [id number] Univers 16:15:00 16:15:00 MELISSA ity [facility] 2020-02-12 2020-02-12 Routine Iveth [facility] [id number] Univers 14:44:26 14:59:26 Melissa [place] 350.1.13.10 ity of [place] [phone] Mt dical [address] 2020-02-12 2020-02-12 [facility] 1.2.781.182 [id number] 14:44:26 14:59:26 Melissa La 350.1.13.10 Visit [place] 4.2.7.2.686 Professio [phone] [address] 2020-02-10 2020-02-10 Outpatient R JENNIFER BILLINGSLEY [facility] [id number] Univers 13:15:00 13:15:00 ity of [facility] 2020-02-02 2020-02-02 Emergency Fer [facility] 1.2.840.114 [id number] Univers 17:06:00 19:29:00 Deidra [place] 350.1.13.10 ity [place] [phone] [facility] [address] [place] 2020-02-02 2020-02-02 Orders Doctor RAMANA 1.2.840.114 [id number] Univers 00:00:00 00:00:00 Only Unassigned, HERBERT 350.1.13.10 ity of [facility] 4.2.7.2.686 Lencho as [phone] [facility] [address] [place] 2020-02-02 2020-02-02 Telephone Kendal Billingsleyen [facility] 1.2.840.114 [id number] Univers 00:00:00 00:00:00 Cam Abhinav 350.1.13.10 i ty of [place] [phone] Mt dical nal [address] [facility] 2020-01-20 2020-01-20 Pet Food Deboner 2, Darci Room [facility] 1.2. 840.114 [id number] Univers 12:46:03 14:01:03 Visit Rony Menon 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 350.1.13.1 0 ity of REGIONAL 4.2.7.2.686 [place] as MATERNAL [phone] Med ical & CHILD [address] [place] [address] 2020-01-20 2020-01-20 Outpatient R ESTRELLA [facility] [id number] Univers 11:00:00 11:00:00 RONY lott [facility] 2020-01-13 2020-01-13 [facility] 05085 72010 Univers 16:15:00 16:15:00 MELISSA lott [facility] 2020-01-13 2020-01-13 Pet Food Deboner 2, Adc Lab [facility] 1.2.840.114 [id number] Univers 11:26:32 11:41:32 Visit Melissa Lazaro 350.1.13.10 [place] [phone] Mt dical nal [address] [facility] 2020-01-13 2020-01-13 [facility] 1.2.870.989 [id number] Univers 10:34:40 11:20:34 Melissa La 350.1.13.10 ity of [place] [phone] Mt dical nal [address] [facility] 2020-01-13 2020-01-13 Orders Doctor RAMANA 1.2.840.114 [id number] Univers 00:00:00 00:00:00 Only Unassigned, HERBERT 350.1.13.10 ity of [place] [facility] 4.2.7.2.686 [place] as [phone] [address] 2020-01-08 2020-01-08 Case AnaliliaKendalen [facility] 1.2.368.676 [id number] Univers 00:00:00 00:00:00 Management Tan La 350.1.13.10 it[place] [phone] Mt dicnm nal [address] [facility] 2020-01-08 2020-01-08 Telephone Jennifer Billingsley [facility] 1.2.840.114 [id number] Univers 00:00:00 00:00:00 Tan Garciaton 350.1.13.10 i [place] [phone] Mt dical nal [address] [facility] 2020-01-02 2020-01-02 Telephone Analilia [facility] 1.2.840.114 [id number] Univers 00:00:00 00:00:00 Tan La 350.1.13.10 i ty [place] [phone] Mt dical nal [address] 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 2019-12-23 2019-12-23 Outpatient R [facility] [id number] Univers 09:00:00 09:00:00 ity of [facility] 2019-12-23 2019-12-23 Case Iveth [facility] 1.2.479.189 [id number] Univers 00:00:00 00:00:00 Management Melissa La 350.1.13.10 [place] [phone] Mt dical nal [address] [facility] 2019-12-23 2019-12-23 Orders Doctor BOLES 1.2.840.114 [id number] Univers 00:00:00 00:00:00 Only Unassigned, HERBERT 350.1.13.10 ity of [place] [facility] 4.2.7.2.686 [place] as [phone] [address] 2019-12-22 2019-12-22 Telephone Jennifer Billingsley [facility] 1.2.840.114 [id number] Univers 00:00:00 00:00:00 Cam [place] 350.1.13.10 i ty of [place] [phone] Mt dical nal [address] [place] [address] 2019-12-21 2019-12-21 Case Jennifer Billingsley [facility] 1.2.228.924 [id number] Univers 00:00:00 00:00:00 Management Tan La 350.1.13.10 it[place] [phone] Mt dical nal [address] [place] [address] 2019-12-18 2019-12-18 Routine Jennifer Billingsley [facility] 1.2.840.114 [id number] Univers 16:16:44 17:44:49 Renu Clemente 350.1.13.10 ity of [place] [phone] Mt dical nal [address] [place] [address] 2019-12-18 2019-12-18 Outpatient R CHYNA [facility] [id number] Univers 16:15:00 16:15:00 RENU ity [facility] 2019-12-03 2019-12-03 Outpatient R [facility] [id number] Univers 11:00:00 11:00:00 ity of [facility] 2019-12-02 2019-12-02 Outpatient R JENNIFER BILLINGSLEY [facility] [id number] Univers 13:00:00 13:00:00 ity [facility] 2019-11-27 2019-11-27 Case Iveth [facility] 1.2.953.373 [id number] Univers 00:00:00 00:00:00 Management Melissa La 350.1.13.10 it[place] [phone] [facility] 2019-11-27 2019-11-27 Telephone [facility] 1.2.840.114 [id number] Univers 00:00:00 00:00:00 Cam [place] 350.1.13.10 i ty [place] [phone] [facility] [address] [facility] 2019-11-26 2019-11-26 Routine [facility] 1.2.300.296 [id number] Univers 15:33:59 16:52:46 Cam [place] 350.1.13.10 ity of [place] [phone] [facility] [address] [facility] 2019-11-26 2019-11-26 Outpatient R JENNIFER BILLINGSLEY [facility] [id number] Univers 15:45:00 15:45:00 ity of [facility] 2019-11-10 2019-11-10 Pet Food Deboner Brionna Ashraf Lab Main [facility] 1.2.8 40.114 [id number] Univers 12:35:39 12:50:39 Visit Jennifer Billingsley [place] 350.1.13.10 ity of [place] [phone] [facility] [address] [facility] 2019-11-10 2019-11-10 Out[facility] [id number] Univers 12:30:00 12:30:00 ity of [facility] 2019-11-04 2019-11-04 Telephone Analilia [facility] 1.2.840.114 [id number] Univers 00:00:00 00:00:00 Cam [place] 350.1.13.10 i ty [place] [phone] [facility] [address] [facility] 2019-10-28 2019-10-28 Routine [facility] 1.2.690.436 [id number] Univers 15:59:10 17:00:11 Cam [place] 350.1.13.10 ity of [place] [phone] Mt dical [address] 2019-10-28 2019-10-28 Outpatient R JENNIFER BILLINGSLEY [facility] [id number] Univers 16:00:00 16:00:00 ity of [facility] 2019-10-28 2019-10-28 Orders Doctor RAMANA 1.2.840.114 [id number] Univers 00:00:00 00:00:00 Only Unassigned, HERBERT 350.1.13.10 ity of [place] [facility] 4.2.7.2.686 [place] as [phone] [address] 2019-10-15 2019-10-15 Case Mercedesgloria [facility] 1.2.584.112 [id number] Univers 00:00:00 00:00:00 Management Melissa La 350.1.13.10 it[place] of [place] [phone] [address] 2019-10-15 2019-10-15 Telephone Jennifer Billingsley [facility] 1.2.840.114 [id number] Univers 00:00:00 00:00:00 Cam 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 350.1.13.10 it y of REGIONAL 4.2.7.2.686 [place] as MATERNAL [phone] Med ical & CHILD [address] [place] [address] 2019-10-14 2019-10-14 Initial AnaliliaKendalen [facility] 1.2.895.211 [id number] Univers 13:56:31 15:04:50 Cam Abhinav 350.1.13.10 ity of [place] [phone] [address] 2019-10-14 2019-10-14 Outpatient R JENNIFER BILLINGSLEY [facility] [id number] Univers 14:00:00 14:00:00 ity of [facility] 2019-10-14 2019-10-14 Orders Doctor BOLES 1.2.840.114 [id number] Univers 00:00:00 00:00:00 Only Unassigned, HERBERT 350.1.13.10 ity of [place] [facility] 4.2.7.2.686 [place] as [phone] [address] 2019-05-01 2019-05-01 Office Jay Jay Quiroz [facility] 1.2.840.114 [id number] Univers 14:21:52 15:13:35 Visit Y HEALTH 350.1.13.10 i ty of [place] [phone] [facility] [address] [place] 2019-05-01 2019-05-01 Outpatient R LIZETH, JAY JAY [facility] 1026 [id number] Univers 14:30:00 14:30:00 ity of [facility] 2019-05-01 2019-05-01 Orders Doctor RAMANA 1.2.840.114 [id number] Univers 00:00:00 00:00:00 Only Unassigned, HERBERT 350.1.13.10 ity of [place] [facility] 4.2.7.2.686 [place] as [phone] [address] 2019-03-04 2019-03-04 Outpatient R ARMIDA [facility] 71608 66432 [facility] 15:15:00 16:43:51 GHANSHYAM lott o f [facility] Results Test Description Test Time Test Comments Results Result Comments Source COMP. METABOLIC PANEL (12283) 2022-07-20 01:51:01 Test Item Value Reference Range Interpretation Comme nts NA (test code = 0183122069) 142 mmol/L 135-145 K (test code = 8013946815) 3.7 mmol/L 3.5-5.0 CL (test code = 7916343291) 105 mmol/L 98-108 CO2 TOTAL (test code = 28 mmol/L 23-31 1232131939) AGAP (test code = 5042714397) 9 2-16 BUN (test code = 1477556339) 13 mg/dL 7-23 GLUCOSE (test code = 2245390092) 81 mg/dL 70-110 CREATININE (test code = 0.62 mg/dL 0.50-1.04 1151436287) TOTAL BILI (test code = 0.3 mg/dL 0.1-1.9 4977264691) CALCIUM (test code = 2144674358) 9.1 mg/dL 8.6-10.6 T PROTEIN (test code = 6.4 g/dL 6.3-8.2 5698815632) ALBUMIN (test code = 6167893441) 3.8 g/dL 3.5-5.0 ALK PHOS (test code = 6704094945) 91 U/L 34-122 ALTv (test code = 1742-6) 14 U/L 5-35 AST(SGOT) (test code = 14 U/L 13-40 6927979942) eGFR (test code = 4096524287) 117.3 mL/min/1.73m2 GIACOMO (test code = GIACOMO) Association of Glomerular Filtration Rate (GFR) and Staging of Kidney Disease* + +--------- + ----+| GFR (mL/min/1.73 m2) ?| With Kidney Damage ?| ?Without Kidney Damage+ +--- + +| ?>90 ?| ?Stage one ?| ? Normal ?+ +-------- + -----+| ?60-89 ?| ?Stage two ?| ? Decreased GFR ? + +--------- + ----+| ?30-59 ?| ?Stage three ?| ? Stage three ? + +--------- + ----+| ?15-29 ?| ?Stage four ? | ? Stage four ?+ +-------- + -----+| ?<15 (or dialysis) ? ?| ?Stage five ? | ? Stage five ?+ +-------- + -----+ *Each stage assumes the associated GFR level has been in effect for at least three months. ?Stages 1 to 5, with or without kidney disease, indicate chronic kidney disease. Notes: Determination of stages one and two (with eGFR >59mL/min/1.73 m2) requires estimation of kidney damage for at least three months as defined by structural or functional abnormalities of the kidney, manifested by either:Pathological abnormalities or Markers of kidney damage (including abnormalities in the composition of the blood or urine or abnormalities in imaging tests). [facility] Test Item Value Reference Range Interpretation Comments LIPASE (test code = 1173787942) 51 U/L 0-220 Lab Interpretation (test code = Normal 12917-0) [facility] [id number] 01:35:42 Test Item Value Reference Range Interpretation Comments WBC (test code = 12.50 See_Comment H [Automated 6690-2) message] The sy stem which generated this result transmitted reference range : 4.30 - 11.10 10*3/?L. The reference range was not used to interpret this result as normal/abnormal . RBC (test code = 4.22 See_Comment [Automated 789-8) message] The sy stem which generated this result transmitted reference range : 3.93 - 5.25 10*6/?L. The reference range was not used to interpret this result as normal/abnormal . HGB (test code = 11.2 g/dL 11.6-15.0 L 718-7) HCT (test code = 35.2 % 35.7-45.2 L 4544-3) MCV (test code = 83.4 fL 80.6-95.5 787-2) MCH (test code = 26.5 pg 25.9-32.8 785-6) MCHC (test code = 31.8 g/dL 31.6-35.1 786-4) RDW-SD (test code = 45.1 fL 39.0-49.9 51162-4) RDW-CV (test code = 14.9 % 12.0-15.5 788-0) PLT (test code = 298 See_Comment [Automated 777-3) message] The sy stem which generated this result transmitted reference range : 166 - 358 10*3/ ?L. The reference r ulises was not used to interpret this result as normal/abnormal . MPV (test code = 10.8 fL 9.5-12.9 80809-2) NRBC/100 WBC (test 0.0 See_Comment [Automat ed code = 2784201163) message] The system which generated this result transmitted reference range : 0.0 - 10.0 /100 WBCs. The refer ence range was not u sed to interpret th is result as normal/abnormal . NRBC x10^3 (test code See_Comment [Auto mated = 9930552145) message] The s ystem which generated this result transmitted reference range : 10*3/?L. The reference range was not used to interpret this result as normal/abnormal . GRAN MAT (NEUT) % 68.5 % (test code = 770-8) IMM GRAN % (test code 0.50 % = 6239011674) LYMPH % (test code = 22.3 % 736-9) MONO % (test code = 7.9 % 5905-5) EOS % (test code = 0.5 % 713-8) BASO % (test code = 0.3 % 706-2) GRAN MAT x10^3(ANC) 8.56 10*3/uL 1.88-7.09 H (test code = 6025830885) IMM GRAN x10^3 (test 0.06 10*3/uL 0.00-0.06 code = 1520358250) LYMPH x10^3 (test code 2.79 10*3/uL 1.32-3.29 = 731-0) MONO x10^3 (test code 0.99 10*3/uL 0.33-0.92 H = 742-7) EOS x10^3 (test code = 0.06 10*3/uL 0.03-0.39 711-2) BASO x10^3 (test code 0.04 10*3/uL 0.01-0.07 = 704-7) Lab Interpretation Abnormal (test code = 84523-0) [facility] with [id number] 10:39:26 Test Item Value Reference Range Interpretation Comments WBC (test code = 13.00 See_Comment H [Automated 4790-2) message] The sy stem which generated this result transmitted reference range : 4.30 - 11.10 10*3/?L. The reference range was not used to interpret this result as normal/abnormal . RBC (test code = 3.28 See_Comment L [Automated 789-8) message] The sy [...] RDW-SD (test code = 41.3 fL 39.0-49.9 05748-9) RDW-CV (test code = 13.9 % 12.0-15.5 788-0) PLT (test code = 209 See_Comment [Automated 777-3) message] The sy stem which generated this result transmitted reference range : 166 - 358 10*3/ ?L. The reference r ulises was not used to interpret this result as normal/abnormal . MPV (test code = 11.7 fL 9.5-12.9 63791-2) NRBC/100 WBC (test 0.0 See_Comment [Automat ed code = 0662856873) message] The system which generated this result transmitted reference range : 0.0 - 10.0 /100 WBCs. The refer ence range was not u sed to interpret th is result as normal/abnormal . NRBC x10^3 (test code See_Comment [Auto mated = 4499241254) message] The s ystem which generated this result transmitted reference range : 10*3/?L. The reference range was not used to interpret this result as normal/abnormal . GRAN MAT (NEUT) % 68.8 % (test code = 770-8) IMM GRAN % (test code 0.70 % = 6492181487) LYMPH % (test code = 21.9 % 736-9) MONO % (test code = 7.1 % 5905-5) EOS % (test code = 1.3 % 713-8) BASO % (test code = 0.2 % 706-2) GRAN MAT x10^3(ANC) 8.94 10*3/uL 1.88-7.09 H (test code = 7656171658) IMM GRAN x10^3 (test 0.09 10*3/uL 0.00-0.06 H code = 2397848702) LYMPH x10^3 (test code 2.85 10*3/uL 1.32-3.29 = 731-0) MONO x10^3 (test code 0.92 10*3/uL 0.33-0.92 = 742-7) EOS x10^3 (test code = 0.17 10*3/uL 0.03-0.39 711-2) BASO x10^3 (test code 0.03 10*3/uL 0.01-0.07 = 704-7) Lab Interpretation Abnormal (test code = 20079-3) [facility] with Thfnycsxdedp6461-79-65 10:39:26 Test Item Value Reference Range Interpretation Comments WBC (test code = 13.00 See_Comment H [Automated 5609-2) message] The sy stem which generated this result transmitted reference range : 4.30 - 11.10 10*3/?L. The reference range was not used to interpret this result as normal/abnormal . RBC (test code = 3.28 See_Comment L [Automated 789-8) message] The sy [...] RDW-SD (test code = 41.3 fL 39.0-49.9 98051-5) RDW-CV (test code = 13.9 % 12.0-15.5 788-0) PLT (test code = 209 See_Comment [Automated 777-3) message] The sy stem which generated this result transmitted reference range : 166 - 358 10*3/ ?L. The reference r ulises was not used to interpret this result as normal/abnormal . MPV (test code = 11.7 fL 9.5-12.9 36458-9) NRBC/100 WBC (test 0.0 See_Comment [Automat ed code = 3895753363) message] The system which generated this result transmitted reference range : 0.0 - 10.0 /100 WBCs. The refer ence range was not u sed to interpret th is result as normal/abnormal . NRBC x10^3 (test code See_Comment [Auto mated = 1680958254) message] The s ystem which generated this result transmitted reference range : 10*3/?L. The reference range was not used to interpret this result as normal/abnormal . GRAN MAT (NEUT) % 68.8 % (test code = 770-8) IMM GRAN % (test code 0.70 % = 1682472750) LYMPH % (test code = 21.9 % 736-9) MONO % (test code = 7.1 % 5905-5) EOS % (test code = 1.3 % 713-8) BASO % (test code = 0.2 % 706-2) GRAN MAT x10^3(ANC) 8.94 10*3/uL 1.88-7.09 H (test code = 6497449828) IMM GRAN x10^3 (test 0.09 10*3/uL 0.00-0.06 H code = 5542964573) LYMPH x10^3 (test code 2.85 10*3/uL 1.32-3.29 = 731-0) MONO x10^3 (test code 0.92 10*3/uL 0.33-0.92 = 742-7) EOS x10^3 (test code = 0.17 10*3/uL 0.03-0.39 711-2) BASO x10^3 (test code 0.03 10*3/uL 0.01-0.07 = 704-7) Lab Interpretation Abnormal (test code = 08981-5) [facility] OR LYNDSEY ONLY - [id number] 09:09:07 Test Item Value Reference Range Interpretation Comments RPR (Qualitative) (test code = Nonreactive Nonreactive 85867-2) Lab Interpretation (test code = Normal 03431-7) [facility] OR LYNDSEY ONLY - [id number] 09:09:07 Test Item Value Reference Range Interpretation Comments RPR (Qualitative) (test code = Nonreactive Nonreactive 75068-9) Lab Interpretation (test code = Normal 38136-0) [facility] B Surface [id number] 16:25:48 Test Item Value Reference Range Interpretation Comments HBsAg Semi-Quantitative (test code = 0.05 Negative 5195-3) [facility] B Surface [id number] 16:25:48 Test Item Value Reference Range Interpretation Comments HBsAg Semi-Quantitative (test code = 0.05 Negative 5195-3) [facility] (D) IMMUNE [id number] 15:41:32 Test Item Value Reference Range Interpretation Comments RHIG CANDIDATE? No- see comment Patient i s not a (test code = candidate for R hIg- 5188) Patient is Rh Positive.Perfor med at [facility] Laboratory [facility] Blood [address] [place] [address] Free: [phone] A No. [id number] [facility] (D) IMMUNE [id number] 15:41:32 Test Item Value Reference Range Interpretation Comments RHIG CANDIDATE? No- see comment Patient i s not a (test code = candidate for R hIg- 5188) Patient is Rh Positive.Perfor med at [facility] Laboratory [facility] Blood [address] [place] [address] Free: [phone] A No. [id number] [facility] WITH [id number] 13:46:31 Test Item Value Reference Range Interpretation Comments HIV 0.09 Negative Semi-quantitative (test code = 66755-8) GIACOMO (test code = Non-reactive for HIV-1 GIACOMO) antigen and HIV-1/HIV-2 antibodies. ?No laboratory evidence of HIV infection. ?Repeat in 2-4 weeks if acute HIV infection is suspected. [facility] WITH [id number] 13:46:31 Test Item Value Reference Range Interpretation Comments HIV 0.09 Negative Semi-quantitative (test code = 99130-7) GIACOMO (test code = Non-reactive for HIV-1 GIACOMO) antigen and HIV-1/HIV-2 antibodies. ?No laboratory evidence of HIV infection. ?Repeat in 2-4 weeks if acute HIV infection is suspected. [facility] with [id number] 12:14:42 Test Item Value Reference Range Interpretation [...] RDW-SD (test code = 40.8 fL 39.0-49.9 92616-0) RDW-CV (test code = 13.9 % 12.0-15.5 788-0) PLT (test code = 245 See_Comment [Automated 777-3) message] The sy stem which generated this result transmitted reference range : 166 - 358 10*3/ ?L. The reference r ulises was not used to interpret this result as normal/abnormal . MPV (test code = 11.9 fL 9.5-12.9 40200-5) NRBC/100 WBC (test 0.0 See_Comment [Automat ed code = 7483787574) message] The system which generated this result transmitted reference range : 0.0 - 10.0 /100 WBCs. The refer ence range was not u sed to interpret th is result as normal/abnormal . NRBC x10^3 (test code See_Comment [Auto mated = 7703510800) message] The s ystem which generated this result transmitted reference range : 10*3/?L. The reference range was not used to interpret this result as normal/abnormal . GRAN MAT (NEUT) % 63.6 % (test code = 770-8) IMM GRAN % (test code 0.50 % = 6316121595) LYMPH % (test code = 28.9 % 736-9) MONO % (test code = 6.0 % 5905-5) EOS % (test code = 0.7 % 713-8) BASO % (test code = 0.3 % 706-2) GRAN MAT x10^3(ANC) 7.01 10*3/uL 1.88-7.09 (test code = 0445413966) IMM GRAN x10^3 (test 0.06 10*3/uL 0.00-0.06 code = 8882119185) LYMPH x10^3 (test code 3.18 10*3/uL 1.32-3.29 = 731-0) MONO x10^3 (test code 0.66 10*3/uL 0.33-0.92 = 742-7) EOS x10^3 (test code = 0.08 10*3/uL 0.03-0.39 711-2) BASO x10^3 (test code 0.03 10*3/uL 0.01-0.07 = 704-7) Lab Interpretation Abnormal (test code = 02722-7) [facility] with [id number] 12:14:42 Test Item Value Reference Range Interpretation Comments WBC (test code = 11.02 See_Comment [Automated 9490-2) message] The sy stem which generated this result transmitted reference range : 4.30 - 11.10 10*3/?L. The reference range was not used to interpret this result as normal/abnormal . RBC (test code = 3.61 See_Comment L [Automated 188-8) message] The sy stem which generated this [...] RDW-SD (test code = 40.8 fL 39.0-49.9 15258-7) RDW-CV (test code = 13.9 % 12.0-15.5 788-0) PLT (test code = 245 See_Comment [Automated 777-3) message] The sy stem which generated this result transmitted reference range : 166 - 358 10*3/ ?L. The reference r ulises was not used to interpret this result as normal/abnormal . MPV (test code = 11.9 fL 9.5-12.9 74836-3) NRBC/100 WBC (test 0.0 See_Comment [Automat ed code = 4323538899) message] The system which generated this result transmitted reference range : 0.0 - 10.0 /100 WBCs. The refer ence range was not u sed to interpret th is result as normal/abnormal . NRBC x10^3 (test code See_Comment [Auto mated = 6380370100) message] The s ystem which generated this result transmitted reference range : 10*3/?L. The reference range was not used to interpret this result as normal/abnormal . GRAN MAT (NEUT) % 63.6 % (test code = 770-8) IMM GRAN % (test code 0.50 % = 9996840557) LYMPH % (test code = 28.9 % 736-9) MONO % (test code = 6.0 % 5905-5) EOS % (test code = 0.7 % 713-8) BASO % (test code = 0.3 % 706-2) GRAN MAT x10^3(ANC) 7.01 10*3/uL 1.88-7.09 (test code = 8711244487) IMM GRAN x10^3 (test 0.06 10*3/uL 0.00-0.06 code = 4622166781) LYMPH x10^3 (test code 3.18 10*3/uL 1.32-3.29 = 731-0) MONO x10^3 (test code 0.66 10*3/uL 0.33-0.92 = 742-7) EOS x10^3 (test code = 0.08 10*3/uL 0.03-0.39 711-2) BASO x10^3 (test code 0.03 10*3/uL 0.01-0.07 = 704-7) Lab Interpretation Abnormal (test code = 29057-0) [facility] [id number] 12:12:00 Test Item Value Reference Range Interpretation Comments ABO & RH (test code = 20) O Positive IAT (test code = 1185) [facility] [id number] 12:12:00 Test Item Value Reference Range Interpretation Comments ABO & RH (test code = 20) O Positive IAT (test code = 1185) [facility] [id number] 19:01:00 Test Item Value Reference Range Interpretation [...] code = 3257) n/a Negative - Negative [facility] URINALYSIS W/O SPECIFIC [id number] 20:00:00 Test Item Value Reference Range Interpretation [...] code = 3257) N/A Negative - [facility] [id number] 21:46:00 Test Item Value Reference Range Interpretation [...] code = 3257) n/a Negative - Negative [facility]CIFIC [id number] 21:46:00 Test Item Value Reference Range Interpretation [...] code = 3257) n/a Negative - [facility] [id number] 23:36:28 Test Item Value Reference Range Interpretation Comments ABO & RH (test code O Positive Performe d at [facility] = 20) Laboratory Serv [facility] [place], [place] [id number] Free: [phone] A No. [id number] IAT (test code = Negative Performed a t [facility] 1185) Laboratory Serv [facility] [address] [place], [place] [address]Toll Free: [phone] A No. [id number] [facility] [id number] 19:31:00 Test Item Value Reference Range Interpretation [...] code = 3257) Negative Negative - Negative [facility] [id number] 22:58:00 Test Item Value Reference Range Interpretation [...] code = 3257) n/a Negative - [facility] [id number] 19:36:00 Test Item Value Reference Range Interpretation [...] code = 3257) n/a Negative - Negative [facility] [id number] 19:12:00 Test Item Value Reference Range Interpretation [...] code = 3257) N/A Negative - Negative [facility] [id number] 18:30:00 Test Item Value Reference Range Interpretation [...] code = 3257) n/a Negative - Negative [facility] [id number] 19:22:00 Test Item Value Reference Range Interpretation [...] code = 3257) n/a Negative - Negative [facility]
[2022-08-24] MEDS ORDERED: ACETAMINOPHEN 500 MG TAB ONE (13:52)
[2022-08-24] MEDS ORDERED: KETOROLAC 30 MG/ML INJ ONE (13:53)
[2022-08-24] MEDS ORDERED: NA CHLORIDE 0.9% 1,000 ML ONE (13:53)
[2022-08-24 14:10] LABS: Specific Gravity 1.011 (1.005-1.030); Urine Bacteria None Seen /HPF (<20); Urine Bilirubin NEGATIVE (Negative); Urine Blood Negative (Negative); Urine Clarity Extremely Turbid (Clear); Urine Color Colorless (Yellow); Urine Glucose NEGATIVE (Negative); Urine Mucus Slight /HPF (None Seen); Urine Protein NEGATIVE (Negative); Urine RBC <5 /HPF (None Seen); Urine Urobilinogen Normal (Normal); Urine pH 5.5 (5.0-7.0)
[2022-08-24 14:48] LABS: Absolute Lymphocytes (CBC) 1.9 K/uL (0.7-4.9); Lymphocytes % 37.5 % (15.3-44.8); MCV 82.1 fL (80-100); MPV 8.6 fL (7.6-11.3); RBC Red Blood Cell Count 4.51 M/uL (3.86-4.86)
[2022-08-24 15:09] LABS: ALT/SGPT 15 U/L (13-56); AST/SGOT 8 U/L (15-37); Albumin 3.5 g/dL (3.4-5.0); Alkaline Phosphatase 94 U/L (45-117); BUN Blood Urea Nitrogen 4 mg/dL (7-18); Bicarbonate 25 mEq/L (21-32); Bilirubin Total 0.3 mg/dL (0.2-1.0); Creatine Phosphokinase 28 U/L (26-192); Glomerular Filtration Rate 133 ml/min (=/>90); Glucose Level 91 mg/dL (74-106); NT PRO-BNP 175 pg/mL (<125); Potassium 3.8 mEq/L (3.5-5.1); Protein, Total 7.1 g/dL (6.4-8.2); Sodium Level 140 mEq/L (136-145)
[2022-08-24 15:11] LABS: Bilirubin Direct < 0.1 mg/dL (0-0.2); Bilirubin Indirect, Calculated ND mg/dL (0.2-0.8); Troponin High Sensitivity < 3.0 pg/mL (<58.9)
--- NOTE | 2022-08-24 15:37 | RAD REPORT ---
EXAM DESCRIPTION: Magdat Single View08/24/2022 2:13 pm CLINICAL HISTORY: CHEST PAIN COMPARISON: Chest Single View dated 12/17/2020; Chest Pa And Lat (2 Views) dated 12/26/2018 TECHNIQUE: Portable AP view of the chest. FINDINGS: The lungs are clear. No pneumothorax or effusion. The cardiomediastinal contours are unre markable. IMPRESSION: No acute cardiopulmonary process.
--- NOTE | 2022-08-24 15:51 | ER ---
Nurse's Notes [facility] Name: Cheryle Still Age: 26 yrs Sex: Female : 1995 Arrival Date: 08/24/2022 Time: 13:17 Bed 18 Private MD: Diagnosis: Chest pain, unspecified;Myalgia Presentation: 08/24 13:37 Onset of symptoms was June 24, 2022. mb9 13:37 Method Of Arrival: Ambulatory mb9 13:37 Acuity: RITCHIE 3 mb9 13:45 Chief complaint: Patient states: CP, weakness, dizzy, blurred vision for 2 months. Pain ll1 to legs and arms started last night. Coronavirus screen: Vaccine status: Patient reports being unvaccinated. Client denies travel out of the [place] in the last 14 days. At this time, the client does not indicate any symptoms associated with coronavirus-19. Ebola Screen: Patient denies travel to an Ebola-affected area in the 21 days before illness onset. Initial Sepsis Screen: Does the patient meet any 2 criteria? No. Patient's initial sepsis screen is negative. Does the patient have a suspected source of infection? No. Patient's initial sepsis screen is negative. Risk Assessment: Do you want to hurt yourself or someone else? Patient reports no desire to harm self or others. Triage Assessment: 13:47 General: Appears uncomfortable, Behavior is calm, cooperative, appropriate for age. ll1 Pain: Complains of pain in right arm, left arm, right leg and left leg Pain currently is 6 out of 10 on a pain scale. Quality of pain is described as aching. Neuro: Reports blurred vision dizziness, weakness. Cardiovascular: Reports chest pain. Musculoskeletal: Circulation, motion, and sensation intact. Capillary refill < 3 seconds. 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 - Social history:: Smoking status: Patient denies any tobacco usage or history of. Screenin:38 [facility] ED Fall Risk Assessment (Adult) History of falling in the last 3 months, mb9 including since admission No falls in past 3 months (0 pts) Confusion or Disorientation No (0 pts) Intoxicated or Sedated No (0 pts) Impaired Gait No (0 pts) Mobility Assist Device Used No (0 pt) Altered Elimination No (0 pt) Score/Fall Risk Level 0 - 2 = Low Risk Oriented to surroundings, Maintained a safe environment, Educated pt \T\ family on fall prevention, incl call for assistance when getting out of bed. Abuse screen: Denies threats or abuse. Nutritional screening: No deficits noted. Tuberculosis screening: No symptoms or risk factors identified. Assessment: 14:17 Pain: Complains of pain in left leg and right leg and left arm and right arm Quality of mb9 pain is described as sharp, shooting, Pain began 2-3 days ago. Neuro: Reports blurred vision dizziness, since 2 months ago. Cardiovascular: Reports chest pressure. Respiratory: Airway is patent Respiratory effort is even, unlabored, Respiratory pattern is regular, symmetrical. 14:17 GI: Abdomen is round non-distended, Bowel sounds present X 4 quads. Abd is soft and non mb9 tender X 4 quads. Reports nausea. 14:17 General: Appears in no apparent distress. Behavior is anxious. : Urine is cloudy. mb9 EENT: No signs and/or symptoms were reported regarding the EENT system. Derm: Skin is pink, warm \T\ dry. Musculoskeletal: Range of motion: intact in all extremities. Musculoskeletal: Reports weakness in right arm, left arm, right leg and left leg muscle spasms in bilateral extremities. 15:38 Reassessment: No changes from previously documented assessment. Patient and/or family mb9 updated on plan of care and expected duration. Pain level reassessed. Patient is alert, oriented x 3, equal unlabored respirations, skin warm/dry/pink. Vital Signs: 13:45 BP 134 / 73; Pulse 79; Resp 16; Temp 98.3; Pulse Ox 99% ; Weight 122.47 kg; Height 5 ll1 ft. 4 in. ; Pain 6/10; 14:37 BP 93 / 79; Pulse 84; Resp 18; Pulse Ox 100% on R/A; mb9 15:38 BP 122 / 63; Pulse 62; Resp 16; Pulse Ox 99% on R/A; mb9 13:45 Body Mass Index 46.34 (122.47 kg, 162.56 cm) ll1 13:45 Pain Scale: Adult ll1 ED Course: 13:20 Patient arrived in ED. im 13:21 Justus Shea MD is Attending Physician. jr11 13:21 Serafin Mitchell PA is PHCP. mariela 13:31 Tanisha Chang, RN is Primary Nurse. mb9 13:37 Arm band placed on Patient placed in an exam room, on a stretcher. mb9 13:38 Triage completed. mb9 14:15 XRAY Chest (1 view) In Process Unspecified. EDMS 14:38 Placed in gown. Bed in low position. Call light in reach. Side rails up X 1. Client mb9 placed on continuous cardiac and pulse oximetry monitoring. NIBP monitoring applied. panel monitor on. 14:38 No provider procedures requiring assistance completed. Inserted saline lock: 20 gauge mb9 in left upper arm, using aseptic technique. 14:39 Basic Metabolic Panel Sent. mb9 14:39 CBC with Diff Sent. mb9 14:39 D-Dimer Sent. mb9 14:39 Troponin HS Sent. mb9 14:39 NT PRO-BNP Sent. mb9 14:39 LFT's Sent. mb9 15:59 IV discontinued, intact, bleeding controlled, No redness/swelling at site. Pressure mb9 dressing applied. Administered Medications: 14:39 Drug: Acetaminophen PO 1000 mg Route: PO; mb9 15:54 Follow up: Response: No adverse reaction mb9 14:40 Drug: NS 0.9% IV 1000 ml Route: IV; Rate: 125 ml/hr; Site: right upper arm; mb9 14:40 Drug: Ketorolac IVP 15 mg Route: IVP; Site: right upper arm; mb9 15:54 Follow up: Response: No adverse reaction mb9 Medication: 14:38 VIS not applicable for this client. mb9 Outcome: 15:50 Discharge ordered by . jr11 16:08 Discharged to home ambulatory. mb9 16:08 Condition: stable 16:08 Discharge instructions given to patient, Instructed on discharge instructions, follow up and referral plans. Demonstrated understanding of instructions, follow-up care, medications, Prescriptions given X 2. 16:09 Patient left the ED. mb9 Signatures: Dispatcher [employer] EDMS MicSerafin ashley PA PA jmm Lewis, Lynsay, RN RN ll1 Justus Shea MD MD jr11 Tanisha Chang RN RN mb9 Joyce Simon Corrections: (The following items were deleted from the chart) 15:38 14:17 Pain: Complains of pain in left leg and right leg and left arm and right arm mb9 Quality of pain is described as sharp, shooting, Pain began 2-3 days ago. mb9
--- NOTE | 2022-08-24 15:51 | EDPHYS ---
Physician Documentation [facility] Name: Cheryle Still Age: 26 yrs Sex: Female : 1995 Arrival Date: 08/24/2022 Time: 13:17 Bed 18 Private MD: ED Physician Justus Shea HPI: 08/24 13:42 Patient is a 26-year-old with history of paroxysmal atrial fibrillation here feeling jr11 paresthesias muscle aches both arms and legs, at times she is got a sensation of vertigo, has had vertigo before states meclizine does not help. Patient with generalized weakness as well nonfocal. Denies exertional pain, no tearing pain, does not radiate to the back, does not cross the diaphragm. No diaphoresis, no vomiting. No syncope or near-syncope. . 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 - Social history:: Smoking status: Patient denies any tobacco usage or history of. ROS: 13:42 All other systems are negative. jr11 Exam: 13:42 Constitutional: This is a well developed, well nourished patient who is awake, alert, jr11 and in no acute distress. Head/Face: Normocephalic, atraumatic. ENT: Nares patent. No nasal discharge, no septal abnormalities noted. Oropharynx with no redness, swelling, or masses, exudates, or evidence of obstruction, uvula midline. Mucous membranes moist. Neck: Trachea midline, no thyromegaly or masses palpated, and no cervical lymphadenopathy. Supple, full range of motion without nuchal rigidity, or vertebral point tenderness. No Meningismus. Respiratory: Lungs have equal breath sounds bilaterally, clear to auscultation and percussion. No rales, rhonchi or wheezes noted. No increased work of breathing, no retractions or nasal flaring. Abdomen/GI: Soft, non-tender, with normal bowel sounds. No distension or tympany. No guarding or rebound. No evidence of tenderness throughout. Back: No spinal tenderness. No costovertebral tenderness. Full range of motion. Skin: Warm, dry with normal turgor. Normal color with no rashes, no lesions, and no evidence of cellulitis. MS/ Extremity: Pulses equal, no cyanosis. Neurovascular intact. Full, normal range of motion. Neuro: Awake and alert, GCS 15, oriented to person, place, time, and situation. No gross motor or sensory deficits. Vital Signs: 13:45 BP 134 / 73; Pulse 79; Resp 16; Temp 98.3; Pulse Ox 99% ; Weight 122.47 kg; Height 5 ll1 ft. 4 in. ; Pain 6/10; 14:37 BP 93 / 79; Pulse 84; Resp 18; Pulse Ox 100% on R/A; mb9 15:38 BP 122 / 63; Pulse 62; Resp 16; Pulse Ox 99% on R/A; mb9 13:45 Body Mass Index 46.34 (122.47 kg, 162.56 cm) ll1 13:45 Pain Scale: Adult ll1 MDM: 13:40 Patient medically screened. jr11 13:42 Differential diagnosis: acute pericarditis, chest wall pain, congestive heart failure jr11 esophagitis, myositis. Data reviewed: vital signs, nurses notes. 13:57 ED course: EKG interpreted by NSR LAD nl intervals, no acute ST changes. ED course: jr11 cafeteria monitor interpreted by , NSR 80. 15:49 ED course: Patient heart score less than 3, to follow-up primary care doctor, no acute jr11 abnormality in the ER. No rhabdo. No PE concern . 08/24 13:41 Order name: Basic Metabolic Panel; Complete Time: 15:17 08/24 13:41 Order name: CBC with Diff; Complete Time: 14:56 [facility] 08/24 13:41 Order name: D-Dimer; Complete Time: 14:56 [facility] 08/24 13:41 Order name: LFT's; Complete Time: 15:17 [facility] 08/24 13:41 Order name: NT PRO-BNP; Complete Time: 15:17 08/24 13:41 Order name: Troponin HS; Complete Time: 15:17 08/24 13:41 Order name: Test, Urine; Complete Time: 14:19 08/24 13:41 Order name: Urine W/Microscopic (UAM); Complete Time: 14:19 08/24 13:41 Order name: CK; Complete Time: 15:17 08/24 13:41 Order name: XRAY Chest (1 view); Complete Time: 15:49 08/24 13:41 Order name: EKG; Complete Time: 13:42 08/24 13:41 Order name: Cardiac monitoring; Complete Time: 14:39 08/24 13:41 Order name: EKG - Nurse/Tech; Complete Time: 14:39 08/24 13:41 Order name: IV Saline Lock; Complete Time: 14:39 08/24 13:41 Order name: Labs collected and sent; Complete Time: 14:39 08/24 13:41 Order name: O2 Per Protocol; Complete Time: 14:39 08/24 13:41 Order name: O2 Sat Monitoring; Complete Time: 14:39 Administered Medications: 14:39 Drug: Acetaminophen PO 1000 mg Route: PO; mb9 15:54 Follow up: Response: No adverse reaction mb9 14:40 Drug: NS 0.9% IV 1000 ml Route: IV; Rate: 125 ml/hr; Site: right upper arm; mb9 14:40 Drug: Ketorolac IVP 15 mg Route: IVP; Site: right upper arm; mb9 15:54 Follow up: Response: No adverse reaction mb9 Disposition Summary: 08/24/22 15:50 Discharge Ordered Location: Home [facility] Condition: Stable 11 Diagnosis - Chest pain, unspecified jr11 - Myalgia jr11 Discharge Instructions: - Discharge Summary Sheet jr11 - Nonspecific Chest Pain, Adult jr11 - Dizziness jr11 - Musculoskeletal Pain jr Forms: - Medication Reconciliation Form jr11 - Thank You Letter jr11 - Antibiotic Education jr11 - Prescription Opioid Use 11 - [email or web address] [facility] Prescriptions: - ketorolac 10 mg Oral tablet - take 1 tablet by ORAL route every 6 hours as needed for pain; 15 tablet; jr11 Refills: 0, Product Selection Permitted - Cephalexin 500 mg Oral Capsule - take 1 capsule by ORAL route every 8 hours for 10 days; 30 capsule; Refills: 0, jr11 Product Selection Permitted Signatures: Dispatcher [employer] EDMS Shabbir, Justus, MD MD jr11 Tanisha Chang, JUICE RN mb9
[2022-08-24 16:36] VITALS: TEMP 98.3; O2SAT 99
[2022-08-24 16:37] VITALS: BP 122/63
--- NOTE | 2022-08-25 08:50 | EKG ---
Test Date: 2022-08-24 Test Time: 13:55:11 Mine Inspector: MB MEASUREMENT RESULTS: Intervals: Rate: 80 LA: 152 QRSD: 88 QT: 378 QTc: 435 [place]: P: 49 LA: 152 QRS: 2 T: 16 INTERPRETIVE STATEMENTS: Normal sinus rhythm Normal ECG Compared to ECG 12/17/2020 06:29:55 Atrial fibrillation no longer present Electronically Signed On 08-25-22 08:47:54 CDT by Jose David Viera
== END 2022-08-24 16:09 | disposition home or self-care (01) ==
LOC: ER 13:17
DX: R07.9 Chest pain, unspecified (principal); M79.10 Myalgia, unspecified site
CPT/HCPCS: 85025; 81001; 80048; 36415; 82550; 81025; 85379; 80076; 84484; 83880; 71045; J7030; 93005

== ENCOUNTER 2024-10-25 13:02 | Observation (INO) | payer OTHER, SELFPAY ==
--- OUTSIDE RECORDS SUMMARY | 2024-10-25 13:15 | XMS REPORT | Continuity of Care Document ---
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 06-05 04:59 :00 No [id number] 250mg Take 1 tablet by mouth in the morning for 4 days. [facility] cetirizine 10 mg tablet 05-30 16:56: 29 Yes cetirizine 10 mg tablet [facility] azithromyci n (ZITHROMAX) tablet 500 mg 05-30 16:15: 00 05-30 15:35 :00 No 500mg 500 mg, Oral, ONCE, 1 dose, On Sun05/30/22 at 1115, MAXX
Re ason for Anti-Infec tive: Documented Infection< br>Documen marjorie Infection Site: HEENT
D uration of Therapy: Other (see Comments) [facility] butalbital- acetaminoph en-caff (ESGIC) 50-325-40 mg tablet 2 tablet 05-30 14:45: 00 05-30 14:04 :00 No 2{tbl} 2 tablet, Oral, ONCE, 1 dose, On Sun05/30/22 at 0945, Routine [facility] cetirizine 10 mg tablet 05-30 13:11: 45 Yes cetirizine 10 mg tablet [facility] acyclovir 400 mg tablet 05-18 00:00: 00 06-11 00:00 :00 No [id number] 400mg Take 1 tablet by mouth in the morning and 1 tablet in the evening. [facility] cetirizine 10 mg tablet 04-21 22:06: 37 Yes cetirizine 10 mg tablet [facility] D5W-LR IV infusion 1,000 mL 04-19 23:00: 00 Yes 1000mL at 125 mL/hr, IV Infusion, CONTINUOUS , Starting on Sun04/19/22 at 1700, Until Discontinu ed, Routine [facility] NaCl 0.9% (NS) bolus infusion 500 mL 04-19 22:45: 00 04-19 22:49 :00 No 500mL at 999 mL/hr, 500 mL, IV Infusion, ONCE, 1 dose, On Sun04/19/22 at 1645, STAT [facility] cetirizine 10 mg tablet 04-19 19:22: 35 Yes cetirizine 10 mg tablet [facility] cetirizine 10 mg tablet 04-19 14:25: 36 Yes cetirizine 10 mg tablet [facility] fluconazole (DIFLUCAN) 200 mg tablet 04-05 00:00: 00 05-30 00:00 :00 No [id number] 200mg Take 1 tablet by mouth in the morning. [facility] ferrous sulfate (IRON, FERROUS SULFATE,) 325 mg (65 mg iron) tablet 04-04 00:00: 00 06-11 00:00 :00 No [id number] 325mg Take 1 tablet by mouth in the morning and 1 tablet in the evening. [facility] aspirin 81 mg EC tablet 2021-02 00:00: 00 06-11 00:00 :00 No [id number] 81mg Take 1 tablet by mouth in the morning. [facility] VITAMIN K2 ORAL 11-09 11:31: 09 11-09 00:00 :00 No [facility] K[facility] VITAMIN 11-07 00:00: 00 06-11 00:00 :00 No [id number] TAKE 1 TABLET BY MOUTH EVERY MORNING [facility] multivitami n ( VITAMIN) tablet 11-07 00:00: 00 11-07 00:00 :00 No [id number] 1{tbl} Take 1 tablet by mouth in the morning. [facility] ampicillin 500 mg capsule 10-24 00:00: 00 11-04 04:59 :00 No [id number] 500mg Take 1 capsule by mouth 4 (four) times daily for 10 days. [facility] VITAMIN K2 ORAL 10-20 15:13: 41 Yes vitamin K2 [facility] cetirizine 10 mg tablet 8- 15:13: 41 Yes cetirizine 10 mg tablet [facility] multivitami n ( VITAMIN) tablet 10-20 00:00: 00 Yes [id number] 1{tbl} Take 1 tablet by mouth in the morning. [facility] ibuprofen 600 mg tablet 03-15 00:00: 00 11-09 00:00 :00 No [facility] Cholecalcif le, Vitamin D3, 1,250 mcg (50,000 unit) capsule 2020-02 00:00: 00 05-30 00:00 :00 No [facility] loratadine 10 mg tablet 2020-02 00:00: 00 11-09 00:00 :00 No [facility] metFORMIN HCl 1000 MG metFORMIN HCl 1000 MG 2020-02 00:00: 00 No 1{table t_with_ a_meal} BID metFORMIN HCl 1000 MG metFORMIN 1,000 mg tablet 2020-02 00:00: 00 05-30 00:00 :00 No 1000mg Take 1,000 mg by mouth daily with breakfast. [facility] predniSONE 20 MG predniSONE 20 MG 2020-02 0-15 00:00: 00 No 2{table t} QD predniSONE 20 MG DULoxetine HCl 30 MG DULoxetine HCl 30 MG 2020-02 0-13 00:00: 00 No 1{capsu le} QD DULoxetine HCl 30 MG Loratadine 10 MG Loratadine 10 MG 2020-02 0-13 00:00: 00 01-06 00:00 :00 No 1{table t} QD Loratadine 10 MG Amoxicillin -Pot Clavulanate 875-125 MG Amoxicillin -Pot Clavulanate 875-125 MG 2020-02 0-13 00:00: 00 12-13 00:00 :00 No 1{table t} BID Amoxicilli n-Pot Clavulanat e 875-125 MG Lactobacill us acidophilus (PROBIOTIC ORAL) 30 10:17: 56 05-25 00:00 :00 No Take by mouth. [facility] hydrocortis one 25 mg suppository 03-17 00:00: 00 05-25 00:00 :00 No [id number] 25mg Insert 1 Suppositor y into rectum 2 (two) times daily. [facility] vit w/iron fumarate and FA ( VITAMIN WITH MINERALS) tablet 03-02 00:00: 00 05-25 00:00 :00 No [id number] 1{tbl} Take 1 tablet by mouth daily. [facility] aspirin 81 mg EC tablet 11-25 00:00: 05-25 00:00 :00 No [id number] 81mg Take 1 tablet by mouth daily. [facility] Prenat Vit Comb.10-Iro n-FA-DHA (VITAFOL-OB +DHA) 65-1-250 mg combo pack 818 00:00: 00 03-02 00:00 :00 No [id number] Take 1 TAB-CAP/M2 by mouth daily. [facility] Fluticasone Propionate 50 MCG/ACT Fluticasone Propionate 50 MCG/ACT No 1{spray _in_eac h_nostr il} QD Fluticason e Propionate 50 MCG/ACT Eliquis 5 mg 5 mg Eliquis 5 mg 5 mg No Eliquis 5 mg 5 mg Sotalol HCl 80 MG Sotalol HCl 80 MG No 1{table t} BID Sotalol HCl 80 MG Immunizations Ordered Immunization Name Filled Immunization Name Date Status Comments Source Depo-Medrol (Methylprednisolone) 40mg Depo-Medrol (Methylprednisolon e) 40mg 2020-12-08 11:03:00 [facility] Rocephin (Ceftriaxone) Rocephin (Ceftriaxone) 2020-12-08 11:03:00 Completed [facility] TDAP 2020-03-17 00:00:00 Completed [facility] TDAP 2020-03-17 00:00:00 Completed [facility] TDAP 2020-03-17 00:00:00 Completed [facility] TDAP 2020-03-17 00:00:00 Completed [facility] TDAP 2020-03-17 00:00:00 Completed [facility] TDAP 2020-03-17 00:00:00 Completed [facility] TDAP 2020-03-17 00:00:00 Completed [facility] TDAP 2020-03-17 00:00:00 Completed [facility] TDAP 2020-03-17 00:00:00 Completed [facility] TDAP 2020-03-17 00:00:00 Completed [facility] TDAP 2020-03-17 00:00:00 Completed [facility] TDAP 2020-03-17 00:00:00 Completed [facility] TDAP 2020-03-17 00:00:00 Completed [facility] TDAP 2020-03-17 00:00:00 Completed [facility] TDAP 2020-03-17 00:00:00 Completed [facility] TDAP 2020-03-17 00:00:00 Completed [facility] TDAP 2020-03-17 00:00:00 Completed [facility] TDAP 2020-03-17 00:00:00 Completed [facility] TDAP 2020-03-17 00:00:00 Completed [facility] TDAP 2020-03-17 00:00:00 Completed [facility] TDAP 2020-03-17 00:00:00 Completed [facility] TDAP 2020-03-17 00:00:00 Completed [facility] TDAP 2020-03-17 00:00:00 Completed [facility] TDAP 2020-03-17 00:00:00 Completed [facility] TDAP 2020-03-17 00:00:00 Completed [facility] TDAP 2020-03-17 00:00:00 Completed [facility] TDAP 2020-03-17 00:00:00 Completed [facility] TDAP 2020-03-17 00:00:00 Completed [facility] TDAP 2020-03-17 00:00:00 Completed [facility] TDAP 2020-03-17 00:00:00 Completed [facility] TDAP 2020-03-17 00:00:00 Completed [facility] TDAP 2020-03-17 00:00:00 Completed [facility] TDAP 2020-03-17 00:00:00 Completed [facility] TDAP 2020-03-17 00:00:00 Completed [facility] TDAP 2020-03-17 00:00:00 Completed [facility] TDAP 2020-03-17 00:00:00 Completed [facility] TDAP 2020-03-17 00:00:00 Completed [facility] TDAP 2020-03-17 00:00:00 Completed [facility] TDAP 2020-03-17 00:00:00 Completed [facility] TDAP 2020-03-17 00:00:00 Completed [facility] TDAP 2020-03-17 00:00:00 Completed [facility] TDAP 2020-03-17 00:00:00 Completed [facility] TDAP 2020-03-17 00:00:00 Completed [facility] TDAP 2020-03-17 00:00:00 Completed [facility] TDAP 2020-03-17 00:00:00 Completed [facility] TDAP 2020-03-17 00:00:00 Completed [facility] TDAP 2020-03-17 00:00:00 Completed [facility] TDAP 2020-03-17 00:00:00 Completed [facility] TDAP 2020-03-17 00:00:00 Completed [facility] TDAP 2020-03-17 00:00:00 Completed [facility] TDAP 2020-03-17 00:00:00 Completed [facility] TDAP 2020-03-17 00:00:00 Completed [facility] Influenza Virus Vaccine Quad .5 mL IM 6+ MO 2019-12-18 00:00:00 Completed [facility] Influenza Virus Vaccine Quad .5 mL IM 6+ MO 2019-12-18 00:00:00 Completed [facility] Influenza Virus Vaccine Quad .5 mL IM 6+ MO 2019-12-18 00:00:00 Completed [facility] Influenza Virus Vaccine Quad .5 mL IM 6+ MO 2019-12-18 00:00:00 Completed [facility] Influenza Virus Vaccine Quad .5 mL IM 6+ MO 2019-12-18 00:00:00 Completed [facility] Influenza Virus Vaccine Quad .5 mL IM 6+ MO 2019-12-18 00:00:00 Completed [facility] Influenza Virus Vaccine Quad .5 mL IM 6+ MO 2019-12-18 00:00:00 Completed [facility] Influenza Virus Vaccine Quad .5 mL IM 6+ MO 2019-12-18 00:00:00 Completed [facility] Influenza Virus Vaccine Quad .5 mL IM 6+ MO 2019-12-18 00:00:00 Completed [facility] Influenza Virus Vaccine Quad .5 mL IM 6+ MO 2019-12-18 00:00:00 Completed [facility] Influenza Virus Vaccine Quad .5 mL IM 6+ MO 2019-12-18 00:00:00 Completed [facility] Influenza Virus Vaccine Quad .5 mL IM 6+ MO 2019-12-18 00:00:00 Completed [facility] Influenza Virus Vaccine Quad .5 mL IM 6+ MO 2019-12-18 00:00:00 Completed [facility] Influenza Virus Vaccine Quad .5 mL IM 6+ MO 2019-12-18 00:00:00 Completed [facility] Influenza Virus Vaccine Quad .5 mL IM 6+ MO 2019-12-18 00:00:00 Completed [facility] Influenza Virus Vaccine Quad .5 mL IM 6+ MO 2019-12-18 00:00:00 Completed [facility] Influenza Virus Vaccine Quad .5 mL IM 6+ MO 2019-12-18 00:00:00 Completed [facility] Influenza Virus Vaccine Quad .5 mL IM 6+ MO 2019-12-18 00:00:00 Completed [facility] Influenza Virus Vaccine Quad .5 mL IM 6+ MO 2019-12-18 00:00:00 Completed [facility] Influenza Virus Vaccine Quad .5 mL IM 6+ MO 2019-12-18 00:00:00 Completed [facility] Influenza Virus Vaccine Quad .5 mL IM 6+ MO 2019-12-18 00:00:00 Completed [facility] Influenza Virus Vaccine Quad .5 mL IM 6+ MO 2019-12-18 00:00:00 Completed [facility] Influenza Virus Vaccine Quad .5 mL IM 6+ MO 2019-12-18 00:00:00 Completed [facility] Influenza Virus Vaccine Quad .5 mL IM 6+ MO 2019-12-18 00:00:00 Completed [facility] Influenza Virus Vaccine Quad .5 mL IM 6+ MO 2019-12-18 00:00:00 Completed [facility] Influenza Virus Vaccine Quad .5 mL IM 6+ MO 2019-12-18 00:00:00 Completed [facility] Influenza Virus Vaccine Quad .5 mL IM 6+ MO 2019-12-18 00:00:00 Completed [facility] Influenza Virus Vaccine Quad .5 mL IM 6+ MO 2019-12-18 00:00:00 Completed [facility] Influenza Virus Vaccine Quad .5 mL IM 6+ MO 2019-12-18 00:00:00 Completed [facility] Influenza Virus Vaccine Quad .5 mL IM 6+ MO 2019-12-18 00:00:00 Completed [facility] Influenza Virus Vaccine Quad .5 mL IM 6+ MO 2019-12-18 00:00:00 Completed [facility] Influenza Virus Vaccine Quad .5 mL IM 6+ MO 2019-12-18 00:00:00 Completed [facility] Influenza Virus Vaccine Quad .5 mL IM 6+ MO 2019-12-18 00:00:00 Completed [facility] Influenza Virus Vaccine Quad .5 mL IM 6+ MO 2019-12-18 00:00:00 Completed [facility] Influenza Virus Vaccine Quad .5 mL IM 6+ MO 2019-12-18 00:00:00 Completed [facility] Influenza Virus Vaccine Quad .5 mL IM 6+ MO 2019-12-18 00:00:00 Completed [facility] Influenza Virus Vaccine Quad .5 mL IM 6+ MO 2019-12-18 00:00:00 Completed [facility] Influenza Virus Vaccine Quad .5 mL IM 6+ MO 2019-12-18 00:00:00 Completed [facility] Influenza Virus Vaccine Quad .5 mL IM 6+ MO 2019-12-18 00:00:00 Completed [facility] Influenza Virus Vaccine Quad .5 mL IM 6+ MO 2019-12-18 00:00:00 Completed [facility] Influenza Virus Vaccine Quad .5 mL IM 6+ MO 2019-12-18 00:00:00 Completed [facility] Influenza Virus Vaccine Quad .5 mL IM 6+ MO 2019-12-18 00:00:00 Completed [facility] Influenza Virus Vaccine Quad .5 mL IM 6+ MO 2019-12-18 00:00:00 Completed [facility] Influenza Virus Vaccine Quad .5 mL IM 6+ MO 2019-12-18 00:00:00 Completed [facility] Influenza Virus Vaccine Quad .5 mL IM 6+ MO 2019-12-18 00:00:00 Completed [facility] Influenza Virus Vaccine Quad .5 mL IM 6+ MO 2019-12-18 00:00:00 Completed [facility] Influenza Virus Vaccine Quad .5 mL IM 6+ MO 2019-12-18 00:00:00 Completed [facility] Influenza Virus Vaccine Quad .5 mL IM 6+ MO 2019-12-18 00:00:00 Completed [facility] Influenza Virus Vaccine Quad .5 mL IM 6+ MO 2019-12-18 00:00:00 Completed [facility] Influenza Virus Vaccine Quad .5 mL IM 6+ MO 2019-12-18 00:00:00 Completed [facility] Influenza Virus Vaccine Quad .5 mL IM 6+ MO 2019-12-18 00:00:00 Completed [facility] Influenza Virus Vaccine Quad .5 mL IM 6+ MO (FLUZONE/FLULAVAL/FL UARIX) 2019-12-18 00:00:00 Completed [facility] Influenza Virus Vaccine Quad .5 mL IM 6+ MO 2018 00:00:00 Completed [facility] Influenza Virus Vaccine Quad .5 mL IM 6+ MO 2018 00:00:00 Completed [facility] Influenza Virus Vaccine Quad .5 mL IM 6+ MO 2018 00:00:00 Completed [facility] Influenza Virus Vaccine Quad .5 mL IM 6+ MO 2018 00:00:00 Completed [facility] Influenza Virus Vaccine Quad .5 mL IM 6+ MO 2018 00:00:00 Completed [facility] Influenza Virus Vaccine Quad .5 mL IM 6+ MO 2018 00:00:00 Completed [facility] Influenza Virus Vaccine Quad .5 mL IM 6+ MO 2018 00:00:00 Completed [facility] Influenza Virus Vaccine Quad .5 mL IM 6+ MO 2018 00:00:00 Completed [facility] Influenza Virus Vaccine Quad .5 mL IM 6+ MO 2018 00:00:00 Completed [facility] Influenza Virus Vaccine Quad .5 mL IM 6+ MO 2018 00:00:00 Completed [facility] Influenza Virus Vaccine Quad .5 mL IM 6+ MO 2018 00:00:00 Completed [facility] Influenza Virus Vaccine Quad .5 mL IM 6+ MO 2018 00:00:00 Completed [facility] Influenza Virus Vaccine Quad .5 mL IM 6+ MO 2018 00:00:00 Completed [facility] Influenza Virus Vaccine Quad .5 mL IM 6+ MO 2018 00:00:00 Completed [facility] Influenza Virus Vaccine Quad .5 mL IM 6+ MO 2018 00:00:00 Completed [facility] Influenza Virus Vaccine Quad .5 mL IM 6+ MO 2018 00:00:00 Completed [facility] Influenza Virus Vaccine Quad .5 mL IM 6+ MO 2018 00:00:00 Completed [facility] Influenza Virus Vaccine Quad .5 mL IM 6+ MO 2018 00:00:00 Completed [facility] Influenza Virus Vaccine Quad .5 mL IM 6+ MO 2018 00:00:00 Completed [facility] Influenza Virus Vaccine Quad .5 mL IM 6+ MO 2018 00:00:00 Completed [facility] Influenza Virus Vaccine Quad .5 mL IM 6+ MO 2018 00:00:00 Completed [facility] Influenza Virus Vaccine Quad .5 mL IM 6+ MO 2018 00:00:00 Completed [facility] Influenza Virus Vaccine Quad .5 mL IM 6+ MO 2018 00:00:00 Completed [facility] Influenza Virus Vaccine Quad .5 mL IM 6+ MO 2018 00:00:00 Completed [facility] Influenza Virus Vaccine Quad .5 mL IM 6+ MO 2018 00:00:00 Completed [facility] Influenza Virus Vaccine Quad .5 mL IM 6+ MO 2018 00:00:00 Completed [facility] Influenza Virus Vaccine Quad .5 mL IM 6+ MO 2018 00:00:00 Completed [facility] Influenza Virus Vaccine Quad .5 mL IM 6+ MO 2018 00:00:00 Completed [facility] Influenza Virus Vaccine Quad .5 mL IM 6+ MO 2018 00:00:00 Completed [facility] Influenza Virus Vaccine Quad .5 mL IM 6+ MO 2018 00:00:00 Completed [facility] Influenza Virus Vaccine Quad .5 mL IM 6+ MO 2018 00:00:00 Completed [facility] Influenza Virus Vaccine Quad .5 mL IM 6+ MO 2018 00:00:00 Completed [facility] Influenza Virus Vaccine Quad .5 mL IM 6+ MO 2018 00:00:00 Completed [facility] Influenza Virus Vaccine Quad .5 mL IM 6+ MO 2018 00:00:00 Completed [facility] Influenza Virus Vaccine Quad .5 mL IM 6+ MO 2018 00:00:00 Completed [facility] Influenza Virus Vaccine Quad .5 mL IM 6+ MO 2018 00:00:00 Completed [facility] Influenza Virus Vaccine Quad .5 mL IM 6+ MO 2018 00:00:00 Completed [facility] Influenza Virus Vaccine Quad .5 mL IM 6+ MO 2018 00:00:00 Completed [facility] Influenza Virus Vaccine Quad .5 mL IM 6+ MO 2018 00:00:00 Completed [facility] Influenza Virus Vaccine Quad .5 mL IM 6+ MO 2018 00:00:00 Completed [facility] Influenza Virus Vaccine Quad .5 mL IM 6+ MO 2018 00:00:00 Completed [facility] Influenza Virus Vaccine Quad .5 mL IM 6+ MO 2018 00:00:00 Completed [facility] Influenza Virus Vaccine Quad .5 mL IM 6+ MO 2018 00:00:00 Completed [facility] Influenza Virus Vaccine Quad .5 mL IM 6+ MO 2018 00:00:00 Completed [facility] Influenza Virus Vaccine Quad .5 mL IM 6+ MO 2018 00:00:00 Completed [facility] Influenza Virus Vaccine Quad .5 mL IM 6+ MO 2018 00:00:00 Completed [facility] Influenza Virus Vaccine Quad .5 mL IM 6+ MO 2018 00:00:00 Completed [facility] Influenza Virus Vaccine Quad .5 mL IM 6+ MO 2018 00:00:00 Completed [facility] Influenza Virus Vaccine Quad .5 mL IM 6+ MO 2018 00:00:00 Completed [facility] Influenza Virus Vaccine Quad .5 mL IM 6+ MO 2018 00:00:00 Completed [facility] Influenza Virus Vaccine Quad .5 mL IM 6+ MO 2018 00:00:00 Completed [facility] Influenza Virus Vaccine Quad .5 mL IM 6+ MO (FLUZONE/FLULAVAL/FL UARIX) 2018 00:00:00 Completed [facility] HPV9 2016-05-24 00:00:00 Completed [facility] HPV9 2016-05-24 00:00:00 Completed [facility] HPV9 2016-05-24 00:00:00 Completed [facility] HPV9 2016-05-24 00:00:00 Completed [facility] HPV9 2016-05-24 00:00:00 Completed [facility] HPV9 2016-05-24 00:00:00 Completed [facility] HPV9 2016-05-24 00:00:00 Completed [facility] HPV9 2016-05-24 00:00:00 Completed [facility] HPV9 2016-05-24 00:00:00 Completed [facility] HPV9 2016-05-24 00:00:00 Completed [facility] HPV9 2016-05-24 00:00:00 Completed [facility] HPV9 2016-05-24 00:00:00 Completed [facility] HPV9 2016-05-24 00:00:00 Completed [facility] HPV9 2016-05-24 00:00:[address] [facility] HPV9 2016-05-24 00:00:[address] [facility] [facility] HPV9 2016-05-24 00:00:[address] [facility] HPV9 2016-05-24 00:00:[address] [facility] HPV9 2016-05-24 00:00:[address] [facility] HPV9 2016-05-24 00:00:[address] [facility] HPV9 2016-05-24 00:00:[address] [facility] HPV9 2016-05-24 00:00:[address] [facility] HPV9 2016-05-24 00:00:[address] [facility] HPV9 2016-05-24 00:00:[address] [facility] HPV9 2016-05-24 00:00:[address] [facility] HPV9 2016-05-24 00:00:[address] [facility] HPV9 2016-05-24 00:00:[address] [facility] HPV9 2016-05-24 00:00:[address] [facility] HPV9 2016-05-24 00:00:[address] [facility] HPV9 2016-05-24 00:00:[address] [facility] HPV9 2016-05-24 00:00:[address] [facility] HPV9 2016-05-24 00:00:[address] [facility] HPV9 2016-05-24 00:00:[address] [facility] HPV9 2016-05-24 00:00:[address] [facility] HPV9 2016-05-24 00:00:[address] [facility] HPV9 2016-05-24 00:00:[address] [facility] HPV9 2016-05-24 00:00:[address] [facility] HPV9 2016-05-24 00:00:[address] [facility] HPV9 2016-05-24 00:00:[address] [facility] HPV9 2016-05-24 00:00:[address] [facility] HPV9 2016-05-24 00:00:[address] [facility] HPV9 2016-05-24 00:00:[address] [facility] HPV9 2016-05-24 00:00:00 Completed [facility] HPV9 2016-05-24 00:00:00 Completed [facility] HPV9 2016-05-24 00:00:00 Completed [facility] HPV9 2016-05-24 00:00:00 Completed [facility] HPV9 2016-05-24 00:00:00 Completed [facility] HPV9 2016-05-24 00:00:00 Completed [facility] HPV9 2016-05-24 00:00:00 Completed [facility] HPV9 2016-05-24 00:00:00 Completed [facility] HPV9 2016-05-24 00:00:00 Completed [facility] HPV9 2016-05-24 00:00:00 Completed [facility] HPV9 2016-05-24 00:00:00 Completed [facility] Influenza Virus Vaccine Quad IM 3+ YRS 2016-01-06 00:00:00 Completed [facility] Influenza Virus Vaccine Quad IM 3+ YRS 2016-01-06 00:00:00 Completed [facility] Influenza Virus Vaccine Quad IM 3+ YRS 2016-01-06 00:00:00 Completed [facility] Influenza Virus Vaccine Quad IM 3+ YRS 2016-01-06 00:00:00 Completed [facility] Influenza Virus Vaccine Quad IM 3+ YRS 2016-01-06 00:00:00 Completed [facility] Influenza Virus Vaccine Quad IM 3+ YRS 2016-01-06 00:00:00 Completed [facility] Influenza Virus Vaccine Quad IM 3+ YRS 2016-01-06 00:00:00 Completed [facility] Influenza Virus Vaccine Quad IM 3+ YRS 2016-01-06 00:00:00 Completed [facility] Influenza Virus Vaccine Quad IM 3+ YRS 2016-01-06 00:00:00 Completed [facility] Influenza Virus Vaccine Quad IM 3+ YRS 2016-01-06 00:00:00 Completed [facility] Influenza Virus Vaccine Quad IM 3+ YRS 2016-01-06 00:00:00 Completed [facility] Influenza Virus Vaccine Quad IM 3+ YRS 2016-01-06 00:00:00 Completed [facility] Influenza Virus Vaccine Quad IM 3+ YRS 2016-01-06 00:00:00 Completed [facility] Influenza Virus Vaccine Quad IM 3+ YRS 2016-01-06 00:00:00 Completed [facility] Influenza Virus Vaccine Quad IM 3+ YRS 2016-01-06 00:00:00 Completed [facility] Influenza Virus Vaccine Quad IM 3+ YRS 2016-01-06 00:00:00 Completed [facility] Influenza Virus Vaccine Quad IM 3+ YRS 2016-01-06 00:00:00 Completed [facility] Influenza Virus Vaccine Quad IM 3+ YRS 2016-01-06 00:00:00 Completed [facility] Influenza Virus Vaccine Quad IM 3+ YRS 2016-01-06 00:00:00 Completed [facility] Influenza Virus Vaccine Quad IM 3+ YRS 2016-01-06 00:00:00 Completed [facility] Influenza Virus Vaccine Quad IM 3+ YRS 2016-01-06 00:00:00 Completed [facility] Influenza Virus Vaccine Quad IM 3+ YRS 2016-01-06 00:00:00 Completed [facility] Influenza Virus Vaccine Quad IM 3+ YRS 2016-01-06 00:00:00 Completed [facility] Influenza Virus Vaccine Quad IM 3+ YRS 2016-01-06 00:00:00 Completed [facility] Influenza Virus Vaccine Quad IM 3+ YRS 2016-01-06 00:00:00 Completed [facility] Influenza Virus Vaccine Quad IM 3+ YRS 2016-01-06 00:00:00 Completed [facility] Influenza Virus Vaccine Quad IM 3+ YRS 2016-01-06 00:00:00 Completed [facility] Influenza Virus Vaccine Quad IM 3+ YRS 2016-01-06 00:00:00 Completed [facility] Influenza Virus Vaccine Quad IM 3+ YRS 2016-01-06 00:00:00 Completed [facility] Influenza Virus Vaccine Quad IM 3+ YRS 2016-01-06 00:00:00 Completed [facility] Influenza Virus Vaccine Quad IM 3+ YRS 2016-01-06 00:00:00 Completed [facility] Influenza Virus Vaccine Quad IM 3+ YRS 2016-01-06 00:00:00 Completed [facility] Influenza Virus Vaccine Quad IM 3+ YRS 2016-01-06 00:00:00 Completed [facility] Influenza Virus Vaccine Quad IM 3+ YRS 2016-01-06 00:00:00 Completed [facility] Influenza Virus Vaccine Quad IM 3+ YRS 2016-01-06 00:00:00 Completed [facility] Influenza Virus Vaccine Quad IM 3+ YRS 2016-01-06 00:00:00 Completed [facility] Influenza Virus Vaccine Quad IM 3+ YRS 2016-01-06 00:00:00 Completed [facility] Influenza Virus Vaccine Quad IM 3+ YRS 2016-01-06 00:00:00 Completed [facility] Influenza Virus Vaccine Quad IM 3+ YRS 2016-01-06 00:00:00 Completed [facility] Influenza Virus Vaccine Quad IM 3+ YRS 2016-01-06 00:00:00 Completed [facility] Influenza Virus Vaccine Quad IM 3+ YRS 2016-01-06 00:00:00 Completed [facility] Influenza Virus Vaccine Quad IM 3+ YRS 2016-01-06 00:00:00 Completed [facility] Influenza Virus Vaccine Quad IM 3+ YRS 2016-01-06 00:00:00 Completed [facility] Influenza Virus Vaccine Quad IM 3+ YRS 2016-01-06 00:00:00 Completed [facility] Influenza Virus Vaccine Quad IM 3+ YRS 2016-01-06 00:00:00 Completed [facility] Influenza Virus Vaccine Quad IM 3+ YRS 2016-01-06 00:00:00 Completed [facility] Influenza Virus Vaccine Quad IM 3+ YRS 2016-01-06 00:00:00 Completed [facility] Influenza Virus Vaccine Quad IM 3+ YRS 2016-01-06 00:00:00 Completed [facility] Influenza Virus Vaccine Quad IM 3+ YRS 2016-01-06 00:00:00 Completed [facility] Influenza Virus Vaccine Quad IM 3+ YRS 2016-01-06 00:00:00 Completed [facility] Influenza Virus Vaccine Quad IM 3+ YRS 2016-01-06 00:00:00 Completed [facility] Influenza Virus Vaccine Quad IM 3+ YRS 2016-01-06 00:00:00 Completed [facility] TDAP 2015-11-11 00:00:00 Completed [facility] TDAP 2015-11-11 00:00:00 Completed [facility] TDAP 2015-11-11 00:00:00 Completed [facility] TDAP 2015-11-11 00:00:00 Completed [facility] TDAP 2015-11-11 00:00:00 Completed [facility] TDAP 2015-11-11 00:00:00 Completed [facility] TDAP 2015-11-11 00:00:00 Completed [facility] TDAP 2015-11-11 00:00:00 Completed [facility] TDAP 2015-11-11 00:00:00 Completed [facility] TDAP 2015-11-11 00:00:00 Completed [facility] TDAP 2015-11-11 00:00:00 Completed [facility] TDAP 2015-11-11 00:00:00 Completed [facility] TDAP 2015-11-11 00:00:00 Completed [facility] TDAP 2015-11-11 00:00:00 Completed [facility] TDAP 2015-11-11 00:00:00 Completed [facility] TDAP 2015-11-11 00:00:00 Completed [facility] TDAP 2015-11-11 00:00:00 Completed [facility] TDAP 2015-11-11 00:00:00 Completed [facility] TDAP 2015-11-11 00:00:00 Completed [facility] TDAP 2015-11-11 00:00:00 Completed [facility] TDAP 2015-11-11 00:00:00 Completed [facility] TDAP 2015-11-11 00:00:00 Completed [facility] TDAP 2015-11-11 00:00:00 Completed [facility] TDAP 2015-11-11 00:00:00 Completed [facility] TDAP 2015-11-11 00:00:00 Completed [facility] TDAP 2015-11-11 00:00:00 Completed [facility] TDAP 2015-11-11 00:00:00 Completed [facility] TDAP 2015-11-11 00:00:00 Completed [facility] TDAP 2015-11-11 00:00:00 Completed [facility] TDAP 2015-11-11 00:00:00 Completed [facility] TDAP 2015-11-11 00:00:00 Completed [facility] TDAP 2015-11-11 00:00:00 Completed [facility] TDAP 2015-11-11 00:00:00 Completed [facility] TDAP 2015-11-11 00:00:00 Completed [facility] TDAP 2015-11-11 00:00:00 Completed [facility] TDAP 2015-11-11 00:00:00 Completed [facility] TDAP 2015-11-11 00:00:00 Completed [facility] TDAP 2015-11-11 00:00:00 Completed [facility] TDAP 2015-11-11 00:00:00 Completed [facility] TDAP 2015-11-11 00:00:00 Completed [facility] TDAP 2015-11-11 00:00:00 Completed [facility] TDAP 2015-11-11 00:00:00 Completed [facility] TDAP 2015-11-11 00:00:00 Completed [facility] TDAP 2015-11-11 00:00:00 Completed [facility] TDAP 2015-11-11 00:00:00 Completed [facility] TDAP 2015-11-11 00:00:00 Completed [facility] TDAP 2015-11-11 00:00:00 Completed [facility] TDAP 2015-11-11 00:00:00 Completed [facility] TDAP 2015-11-11 00:00:00 Completed [facility] TDAP 2015-11-11 00:00:00 Completed [facility] TDAP 2015-11-11 00:00:00 Completed [facility] TDAP 2015-11-11 00:00:00 Completed [facility] Influenza Virus Vaccine Quad IM 3+ YRS 2015-05-10 00:00:00 Completed [facility] Influenza Virus Vaccine Quad IM 3+ YRS 2015-05-10 00:00:00 Completed [facility] Influenza Virus Vaccine Quad IM 3+ YRS 2015-05-10 00:00:00 Completed [facility] Influenza Virus Vaccine Quad IM 3+ YRS 2015-05-10 00:00:00 Completed [facility] Influenza Virus Vaccine Quad IM 3+ YRS 2015-05-10 00:00:00 Completed [facility] Influenza Virus Vaccine Quad IM 3+ YRS 2015-05-10 00:00:00 Completed [facility] Influenza Virus Vaccine Quad IM 3+ YRS 2015-05-10 00:00:[address] [facility] Influenza Virus Vaccine Quad IM 3+ YRS 2015-05-10 00:00:00 Completed [facility] Influenza Virus Vaccine Quad IM 3+ YRS 2015-05-10 00:00:00 Completed [facility] Influenza Virus Vaccine Quad IM 3+ YRS 2015-05-10 00:00:00 Completed [facility] Influenza Virus Vaccine Quad IM 3+ YRS 2015-05-10 00:00:00 Completed [facility] Influenza Virus Vaccine Quad IM 3+ YRS 2015-05-10 00:00:00 Completed [facility] Influenza Virus Vaccine Quad IM 3+ YRS 2015-05-10 00:00:00 Completed [facility] Influenza Virus Vaccine Quad IM 3+ YRS 2015-05-10 00:00:00 Completed [facility] Influenza Virus Vaccine Quad IM 3+ YRS 2015-05-10 00:00:00 Completed [facility] Influenza Virus Vaccine Quad IM 3+ YRS 2015-05-10 00:00:00 Completed [facility] Influenza Virus Vaccine Quad IM 3+ YRS 2015-05-10 00:00:00 Completed [facility] Influenza Virus Vaccine Quad IM 3+ YRS 2015-05-10 00:00:00 Completed [facility] Influenza Virus Vaccine Quad IM 3+ YRS 2015-05-10 00:00:00 Completed [facility] Influenza Virus Vaccine Quad IM 3+ YRS 2015-05-10 00:00:00 Completed [facility] Influenza Virus Vaccine Quad IM 3+ YRS 2015-05-10 00:00:00 Completed [facility] Influenza Virus Vaccine Quad IM 3+ YRS 2015-05-10 00:00:00 Completed [facility] Influenza Virus Vaccine Quad IM 3+ YRS 2015-05-10 00:00:00 Completed [facility] Influenza Virus Vaccine Quad IM 3+ YRS 2015-05-10 00:00:00 Completed [facility] Influenza Virus Vaccine Quad IM 3+ YRS 2015-05-10 00:00:00 Completed [facility] Influenza Virus Vaccine Quad IM 3+ YRS 2015-05-10 00:00:00 Completed [facility] Influenza Virus Vaccine Quad IM 3+ YRS 2015-05-10 00:00:00 Completed [facility] Influenza Virus Vaccine Quad IM 3+ YRS 2015-05-10 00:00:00 Completed [facility] Influenza Virus Vaccine Quad IM 3+ YRS 2015-05-10 00:00:00 Completed [facility] Influenza Virus Vaccine Quad IM 3+ YRS 2015-05-10 00:00:00 Completed [facility] Influenza Virus Vaccine Quad IM 3+ YRS 2015-05-10 00:00:00 Completed [facility] Influenza Virus Vaccine Quad IM 3+ YRS 2015-05-10 00:00:00 Completed [facility] Influenza Virus Vaccine Quad IM 3+ YRS 2015-05-10 00:00:00 Completed [facility] Influenza Virus Vaccine Quad IM 3+ YRS 2015-05-10 00:00:00 Completed [facility] Influenza Virus Vaccine Quad IM 3+ YRS 2015-05-10 00:00:00 Completed [facility] Influenza Virus Vaccine Quad IM 3+ YRS 2015-05-10 00:00:00 Completed [facility] Influenza Virus Vaccine Quad IM 3+ YRS 2015-05-10 00:00:00 Completed [facility] Influenza Virus Vaccine Quad IM 3+ YRS 2015-05-10 00:00:00 Completed [facility] Influenza Virus Vaccine Quad IM 3+ YRS 2015-05-10 00:00:00 Completed [facility] Influenza Virus Vaccine Quad IM 3+ YRS 2015-05-10 00:00:00 Completed [facility] Influenza Virus Vaccine Quad IM 3+ YRS 2015-05-10 00:00:00 Completed [facility] Influenza Virus Vaccine Quad IM 3+ YRS 2015-05-10 00:00:00 Completed [facility] Influenza Virus Vaccine Quad IM 3+ YRS 2015-05-10 00:00:00 Completed [facility] Influenza Virus Vaccine Quad IM 3+ YRS 2015-05-10 00:00:00 Completed [facility] Influenza Virus Vaccine Quad IM 3+ YRS 2015-05-10 00:00:00 Completed [facility] Influenza Virus Vaccine Quad IM 3+ YRS 2015-05-10 00:00:00 Completed [facility] Influenza Virus Vaccine Quad IM 3+ YRS 2015-05-10 00:00:00 Completed [facility] Influenza Virus Vaccine Quad IM 3+ YRS 2015-05-10 00:00:00 Completed [facility] Influenza Virus Vaccine Quad IM 3+ YRS 2015-05-10 00:00:00 Completed [facility] Influenza Virus Vaccine Quad IM 3+ YRS 2015-05-10 00:00:00 Completed [facility] Influenza Virus Vaccine Quad IM 3+ YRS 2015-05-10 00:00:00 Completed [facility] Influenza Virus Vaccine Quad IM 3+ YRS 2015-05-10 00:00:00 Completed [facility] MMR 2013-08-21 00:00:00 Completed [facility] MMR 2013-08-21 00:00:00 Completed [facility] MMR 2013-08-21 00:00:00 Completed [facility] MMR 2013-08-21 00:00:00 Completed [facility] MMR 2013-08-21 00:00:00 Completed [facility] MMR 2013-08-21 00:00:00 Completed [facility] MMR 2013-08-21 00:00:00 Completed [facility] MMR 2013-08-21 00:00:00 Completed [facility] MMR 2013-08-21 00:00:00 Completed [facility] MMR 2013-08-21 00:00:00 Completed [facility] MMR 2013-08-21 00:00:00 Completed [facility] MMR 2013-08-21 00:00:00 Completed [facility] MMR 2013-08-21 00:00:00 Completed [facility] MMR 2013-08-21 00:00:00 Completed [facility] MMR 2013-08-21 00:00:00 Completed [facility] MMR 2013-08-21 00:00:00 Completed [facility] MMR 2013-08-21 00:00:00 Completed [facility] MMR 2013-08-21 00:00:00 Completed [facility] MMR 2013-08-21 00:00:00 Completed [facility] MMR 2013-08-21 00:00:00 Completed [facility] MMR 2013-08-21 00:00:00 Completed [facility] MMR 2013-08-21 00:00:00 Completed [facility] MMR 2013-08-21 00:00:00 Completed [facility] MMR 2013-08-21 00:00:00 Completed [facility] MMR 2013-08-21 00:00:00 Completed [facility] MMR 2013-08-21 00:00:00 Completed [facility] MMR 2013-08-21 00:00:00 Completed [facility] MMR 2013-08-21 00:00:00 Completed [facility] MMR 2013-08-21 00:00:00 Completed [facility] MMR 2013-08-21 00:00:00 Completed [facility] MMR 2013-08-21 00:00:00 Completed [facility] MMR 2013-08-21 00:00:00 Completed [facility] MMR 2013-08-21 00:00:00 Completed [facility] MMR 2013-08-21 00:00:00 Completed [facility] MMR 2013-08-21 00:00:00 Completed [facility] MMR 2013-08-21 00:00:00 Completed [facility] MMR 2013-08-21 00:00:00 Completed [facility] MMR 2013-08-21 00:00:00 Completed [facility] MMR 2013-08-21 00:00:00 Completed [facility] MMR 2013-08-21 00:00:00 Completed [facility] MMR 2013-08-21 00:00:00 Completed [facility] MMR 2013-08-21 00:00:00 Completed [facility] MMR 2013-08-21 00:00:00 Completed [facility] MMR 2013-08-21 00:00:00 Completed [facility] MMR 2013-08-21 00:00:00 Completed [facility] MMR 2013-08-21 00:00:00 Completed [facility] MMR 2013-08-21 00:00:00 Completed [facility] MMR 2013-08-21 00:00:00 Completed [facility] MMR 2013-08-21 00:00:00 Completed [facility] MMR 2013-08-21 00:00:00 Completed [facility] MMR 2013-08-21 00:00:00 Completed [facility] MMR 2013-08-21 00:00:00 Completed [facility] HPV 2010-02-26 00:00:00 Completed [facility] HPV 2010-02-26 00:00:00 Completed [facility] HPV 2010-02-26 00:00:00 Completed [facility] HPV 2010-02-26 00:00:00 Completed [facility] HPV 2010-02-26 00:00:00 Completed [facility] HPV 2010-02-26 00:00:00 Completed [facility] HPV 2010-02-26 00:00:00 Completed [facility] HPV 2010-02-26 00:00:00 Completed [facility] HPV 2010-02-26 00:00:00 Completed [facility] HPV 2010-02-26 00:00:00 Completed [facility] HPV 2010-02-26 00:00:00 Completed [facility] HPV 2010-02-26 00:00:00 Completed [facility] HPV 2010-02-26 00:00:00 Completed [facility] HPV 2010-02-26 00:00:00 Completed [facility] HPV 2010-02-26 00:00:00 Completed [facility] HPV 2010-02-26 00:00:00 Completed [facility] HPV 2010-02-26 00:00:00 Completed [facility] HPV 2010-02-26 00:00:00 Completed [facility] HPV 2010-02-26 00:00:00 Completed [facility] HPV 2010-02-26 00:00:00 Completed [facility] HPV 2010-02-26 00:00:00 Completed [facility] HPV 2010-02-26 00:00:00 Completed [facility] HPV 2010-02-26 00:00:00 Completed [facility] HPV 2010-02-26 00:00:00 Completed [facility] HPV 2010-02-26 00:00:00 Completed [facility] HPV 2010-02-26 00:00:00 Completed [facility] HPV 2010-02-26 00:00:00 Completed [facility] HPV 2010-02-26 00:00:00 Completed [facility] HPV 2010-02-26 00:00:00 Completed [facility] HPV 2010-02-26 00:00:00 Completed [facility] HPV 2010-02-26 00:00:00 Completed [facility] HPV 2010-02-26 00:00:00 Completed [facility] HPV 2010-02-26 00:00:00 Completed [facility] HPV 2010-02-26 00:00:00 Completed [facility] HPV 2010-02-26 00:00:00 Completed [facility] HPV 2010-02-26 00:00:00 Completed [facility] HPV 2010-02-26 00:00:00 Completed [facility] HPV 2010-02-26 00:00:00 Completed [facility] HPV 2010-02-26 00:00:00 Completed [facility] HPV 2010-02-26 00:00:00 Completed [facility] HPV 2010-02-26 00:00:00 Completed [facility] HPV 2010-02-26 00:00:00 Completed [facility] HPV 2010-02-26 00:00:00 Completed [facility] HPV 2010-02-26 00:00:00 Completed [facility] HPV 2010-02-26 00:00:00 Completed [facility] HPV 2010-02-26 00:00:00 Completed [facility] HPV 2010-02-26 00:00:00 Completed [facility] HPV 2010-02-26 00:00:00 Completed [facility] HPV 2010-02-26 00:00:00 Completed [facility] HPV 2010-02-26 00:00:00 Completed [facility] HPV 2010-02-26 00:00:00 Completed [facility] [facility] HPV 2010-02-26 00:00:00 Completed [facility] HEPATITIS A 2009-11-15 00:00:00 Completed [facility] Meningococcal Polysaccharide (groups A, C, Y and W-135) conjugate vaccine (MCV4P) 2009-11-15 00:00:00 Completed [facility] TDAP 2009-11-15 00:00:00 Completed HPV 2009-11-15 00:00:00 Completed MMR 2001-01-02 00:00:00 Completed [facility] DTaP, Unspecified Formulation 2001-01-02 00:00:00 Completed IPV 2001-01-02 00:00:00 Completed Hep B, Adol or Pedi Dosage 1998 00:00:00 Completed Varicella (varivax)(chicken pox) 1998-09-02 00:00:00 Completed [facility] DTaP, Unspecified Formulation 1998-04-19 00:00:00 Completed MMR 1997 00:00:00 Completed IPV 1997 00:00:00 Completed Hep B, Adol or Pedi Dosage 1997-08-17 00:00:00 Completed [facility] DTaP, Unspecified Formulation 1997-08-17 00:00:00 Completed Hib-HbOC 1997-08-17 00:00:00 Completed IPV 1997-06-25 00:00:00 Completed [facility] DTaP, Unspecified Formulation 1997-06-25 00:00:00 Completed Hib-HbOC 1997-06-25 00:00:00 Completed Hib-HbOC 1997-04-19 00:00:00 Completed Haemophilus influenzae type b vaccine, conjugate unspecified formulation 1997-04-14 00:00:00 Completed [facility] DTaP, Unspecified Formulation 1997-04-14 00:00:00 Completed IPV 1997-04-14 00:00:00 Completed Hep B, Adol or Pedi Dosage 1997-01-26 00:00:00 Completed MMR Unknown Completed [facility] TDAP Unknown Completed [facility] HPV Unknown Completed [facility] HPV9 Unknown Completed [facility] Influenza Virus Vaccine Quad .5 mL IM 6+ MO (FLUZONE/FLULAVAL/FL UARIX) Unknown Completed [facility] MMR Unknown Completed [facility] TDAP Unknown Completed [facility] HPV Unknown Completed [facility] HPV9 Unknown Completed [facility] Influenza Virus Vaccine Quad .5 mL IM 6+ MO (FLUZONE/FLULAVAL/FL UARIX) Unknown Completed [facility] MMR Unknown Completed [facility] TDAP Unknown Completed [facility] HPV Unknown Completed [facility] HPV9 Unknown Completed [facility] Influenza Virus Vaccine Quad .5 mL IM 6+ MO (FLUZONE/FLULAVAL/FL UARIX) Unknown Completed [facility] MMR Unknown Completed [facility] TDAP Unknown Completed [facility] HPV Unknown Completed [facility] HPV9 Unknown Completed [facility] Influenza Virus Vaccine Quad .5 mL IM 6+ MO (FLUZONE/FLULAVAL/FL UARIX) Unknown Completed [facility] MMR Unknown Completed [facility] TDAP Unknown Completed [facility] HPV Unknown Completed [facility] HPV9 Unknown Completed [facility] Influenza Virus Vaccine Quad .5 mL IM 6+ MO (FLUZONE/FLULAVAL/FL UARIX) Unknown Completed [facility] MMR Unknown Completed [facility] TDAP Unknown Completed [facility] HPV Unknown Completed [facility] HPV9 Unknown Completed [facility] Influenza Virus Vaccine Quad .5 mL IM 6+ MO (FLUZONE/FLULAVAL/FL UARIX) Unknown Completed [facility] MMR Unknown Completed [facility] TDAP Unknown Completed [facility] HPV Unknown Completed [facility] HPV9 Unknown Completed [facility] Influenza Virus Vaccine Quad .5 mL IM 6+ MO (FLUZONE/FLULAVAL/FL UARIX) Unknown Completed [facility] MMR Unknown Completed [facility] TDAP Unknown Completed [facility] HPV Unknown Completed [facility] HPV9 Unknown Completed [facility] Influenza Virus Vaccine Quad .5 mL IM 6+ MO (FLUZONE/FLULAVAL/FL UARIX) Unknown Completed [facility] MMR Unknown Completed [facility] TDAP Unknown Completed [facility] HPV Unknown Completed [facility] HPV9 Unknown Completed [facility] Influenza Virus Vaccine Quad .5 mL IM 6+ MO (FLUZONE/FLULAVAL/FL UARIX) Unknown Completed [facility] MMR Unknown Completed [facility] TDAP Unknown Completed [facility] HPV Unknown Completed [facility] HPV9 Unknown Completed [facility] Influenza Virus Vaccine Quad .5 mL IM 6+ MO (FLUZONE/FLULAVAL/FL UARIX) Unknown Completed [facility] MMR Unknown Completed [facility] Influenza Virus Vaccine Quad IM 3+ YRS Unknown Completed [facility] TDAP Unknown Completed [facility] HPV Unknown Completed [facility] HPV9 Unknown Completed [facility] MMR Unknown Completed [facility] HPV Unknown Completed [facility] HPV9 Unknown Completed [facility] Influenza Virus Vaccine Quad IM 3+ YRS Unknown Completed [facility] TDAP Unknown Completed [facility] MMR Unknown Completed [facility] Influenza Virus Vaccine Quad IM 3+ YRS Unknown Completed [facility] TDAP Unknown Completed [facility] HPV Unknown Completed [facility] HPV9 Unknown Completed [facility] MMR Unknown Completed [facility] Influenza Virus Vaccine Quad IM 3+ YRS Unknown Completed [facility] TDAP Unknown Completed [facility] HPV Unknown Completed [facility] HPV9 Unknown Completed [facility] MMR Unknown Completed [facility] Influenza Virus Vaccine Quad IM 3+ YRS Unknown Completed [facility] TDAP Unknown Completed [facility] HPV Unknown Completed [facility] HPV9 Unknown Completed [facility] MMR Unknown Completed [facility] Influenza Virus Vaccine Quad IM 3+ YRS Unknown Completed [facility] TDAP Unknown Completed [facility] HPV Unknown Completed [facility] HPV9 Unknown Completed [facility] MMR Unknown Completed [facility] Influenza Virus Vaccine Quad IM 3+ YRS Unknown Completed [facility] TDAP Unknown Completed [facility] HPV Unknown Completed [facility] HPV9 Unknown Completed [facility] MMR Unknown Completed [facility] Influenza Virus Vaccine Quad IM 3+ YRS Unknown Completed [facility] TDAP Unknown Completed [facility] HPV Unknown Completed [facility] HPV9 Unknown Completed [facility] MMR Unknown Completed [facility] Influenza Virus Vaccine Quad IM 3+ YRS Unknown Completed [facility] TDAP Unknown Completed [facility] HPV Unknown Completed [facility] HPV9 Unknown Completed [facility] DTaP, Unspecified Formulation Unknown Completed [facility] HEPATITIS A Unknown Completed [facility] Hep B, Adol or Pedi Dosage Unknown Completed [facility] Hib-HbOC Unknown Completed [facility] Haemophilus influenzae type b vaccine, conjugate unspecified formulation Unknown Completed [facility] Meningococcal Polysaccharide (groups A, C, Y and W-135) conjugate vaccine (MCV4P) Unknown Completed [facility] IPV Unknown Completed [facility] Varicella (varivax)(chicken pox) Unknown Completed [facility] DTaP, Unspecified Formulation Unknown Completed [facility] Hib-HbOC Unknown Completed [facility] Vital Signs Vital Name Observation Time Observation Value Comments Tish solo Body temperature 2023-04-27 16:31:00 37.06 Sandra [facility] Body height 2023-04-27 16:31:00 162.6 cm [facility] Body weight 2023-04-27 16:31:00 134.628 kg [facility] BMI 2023-04-27 16:31:00 50.95 kg/m2 [facility] Systolic blood pressure 2022-12-22 20:19:00 160 mm[Hg] [facility] Diastolic blood pressure 2022-12-22 20:19:00 102 mm[Hg] [facility] Heart rate 2022-12-22 20:19:00 81 /min [facility] Body height 2022-12-22 20:19:00 162.6 cm [facility] Body weight 2022-12-22 20:19:00 133.584 kg [facility] BMI 2022-12-22 20:19:00 50.55 kg/m2 [facility] Oxygen saturation in Arterial blood by Pulse oximetry 2022-12-22 20:19:00 94 /min [facility] Heart rate 2022-07-20 02:20:00 71 /min [facility] Oxygen saturation in Arterial blood by Pulse oximetry 2022-07-20 02:20:00 99 /min [facility] Systolic blood pressure 2022-07-20 02:15:00 127 mm[Hg] [facility] Diastolic blood pressure 2022-07-20 02:15:00 75 mm[Hg] [facility] Body temperature 2022-07-20 00:34:00 37.11 Sandra [facility] Respiratory rate 2022-07-20 00:34:00 18 /min [facility] Body height 2022-07-20 00:34:00 162.6 cm [facility] Body weight 2022-07-20 00:34:00 131.997 kg [facility] BMI 2022-07-20 00:34:00 49.95 kg/m2 [facility] Systolic blood pressure 2022-06-19 19:22:00 135 mm[Hg] [facility] Diastolic blood pressure 2022-06-19 19:22:00 81 mm[Hg] [facility] Heart rate 2022-06-19 19:22:00 116 /min [facility] Body temperature 2022-06-19 19:22:00 36.67 Sandra [facility] Body height 2022-06-19 19:22:00 162.6 cm [facility] Body weight 2022-06-19 19:22:00 131.997 kg [facility] BMI 2022-06-19 19:22:00 49.95 kg/m2 [facility] Systolic blood pressure 2022-06-15 20:26:00 134 mm[Hg] [facility] Diastolic blood pressure 2022-06-15 20:26:00 82 mm[Hg] [facility] Heart rate 2022-06-15 20:26:00 51 /min [facility] Body height 2022-06-15 20:26:00 162.6 cm [facility] Body weight 2022-06-15 20:26:00 134.446 kg [facility] BMI 2022-06-15 20:26:00 50.88 kg/m2 [facility] Oxygen saturation in Arterial blood by Pulse oximetry 2022-06-15 20:26:00 97 /min [facility] Systolic blood pressure 2022-06-15 19:24:00 126 mm[Hg] [facility] Diastolic blood pressure 2022-06-15 19:24:00 85 mm[Hg] [facility] Heart rate 2022-06-15 19:24:00 49 /min [facility] Body temperature 2022-06-15 19:24:00 36.72 Sandra [facility] Body weight 2022-06-15 19:24:00 134.718 kg [facility] BMI 2022-06-15 19:24:00 50.98 kg/m2 [facility] Heart rate 2022-06-15 03:30:00 67 /min [facility] Oxygen saturation in Arterial blood by Pulse oximetry 2022-06-15 03:30:00 99 /min [facility] Systolic blood pressure 2022-06-15 02:36:00 140 mm[Hg] [facility] Diastolic blood pressure 2022-06-15 02:36:00 72 mm[Hg] [facility] Body temperature 2022-06-15 02:36:00 37.22 Sandra [facility] Body weight 2022-06-15 02:30:00 136.986 kg [facility] BMI 2022-06-15 02:30:00 51.84 kg/m2 [facility] Respiratory rate 2022-06-15 02:05:00 18 /min [facility] Systolic blood pressure 2022-06-11 13:15:00 130 mm[Hg] [facility] Diastolic blood pressure 2022-06-11 13:15:00 69 mm[Hg] [facility] Heart rate 2022-06-11 13:15:00 86 /min [facility] Body temperature 2022-06-11 13:15:00 36.83 Sandra [facility] Respiratory rate 2022-06-11 13:15:00 16 /min [facility] Oxygen saturation in Arterial blood by Pulse oximetry 2022-06-11 13:15:00 100 /min [facility] Body height 2022-06-09 11:13:00 162.6 cm [facility] Body weight 2022-06-09 11:13:00 134.809 kg [facility] BMI 2022-06-09 11:13:00 51.01 kg/m2 [facility] Systolic blood pressure 2022-06-09 12:45:00 123 mm[Hg] [facility] Diastolic blood pressure 2022-06-09 12:45:00 68 mm[Hg] [facility] Heart rate 2022-06-09 12:45:00 91 /min [facility] Body temperature 2022-06-09 12:45:00 36.61 Sandra [facility] Respiratory rate 2022-06-09 12:45:00 18 /min [facility] Oxygen saturation in Arterial blood by Pulse oximetry 2022-06-09 12:45:00 99 /min [facility] Body height 2022-06-09 11:13:00 162.6 cm [facility] Body weight 2022-06-09 11:13:00 134.809 kg [facility] BMI 2022-06-09 11:13:00 51.01 kg/m2 [facility] Systolic blood pressure 2022-06-01 19:02:00 102 mm[Hg] [facility] Diastolic blood pressure 2022-06-01 19:02:00 71 mm[Hg] [facility] Heart rate 2022-06-01 19:02:00 98 /min [facility] Body temperature 2022-06-01 19:02:00 37.06 Sandra [facility] Body height 2022-06-01 19:02:00 162.6 cm [facility] Body weight 2022-06-01 19:02:00 131.634 kg [facility] BMI 2022-06-01 19:02:00 49.81 kg/m2 [facility] Systolic blood pressure 2022-05-30 15:00:00 123 mm[Hg] [facility] Diastolic blood pressure 2022-05-30 15:00:00 70 mm[Hg] [facility] Heart rate 2022-05-30 15:00:00 83 /[facility] Oxygen saturation in Arterial blood by Pulse oximetry 2022-05-30 15:00:00 97 /min [facility] Respiratory rate 2022-05-30 14:00:00 18 /min [facility] Body temperature 2022-05-30 12:42:00 36.89 Sandra [facility] Body height 2022-05-30 12:42:00 162.6 cm 5' 4" [facility] Body weight 2022-05-30 12:42:00 132.069 kg 291.16lb [facility] BMI 2022-05-30 12:42:00 49.98 kg/m2 [facility] Systolic blood pressure 2022-05-24 18:32:00 122 mm[Hg] [facility] Diastolic blood pressure 2022-05-24 18:32:00 76 mm[Hg] [facility] Heart rate 2022-05-24 18:31:00 110 /min [facility] Body temperature 2022-05-24 18:31:00 36.78 Sandra [facility] Respiratory rate 2022-05-24 18:31:00 16 /min [facility] Body height 2022-05-24 18:31:00 162.6 cm [facility] Body weight 2022-05-24 18:31:00 131.997 kg [facility] BMI 2022-05-24 18:31:00 49.95 kg/m2 [facility] Heart rate 2022-05-24 16:25:00 65 /min [facility] Oxygen saturation in Arterial blood by Pulse oximetry 2022-05-24 16:25:00 100 /min [facility] Systolic blood pressure 2022-05-24 16:24:00 124 mm[Hg] [facility] Diastolic blood pressure 2022-05-24 16:24:00 71 mm[Hg] [facility] Respiratory rate 2022-05-24 16:24:00 21 /min [facility] Body height 2022-05-24 16:24:00 162.6 cm [facility] Body weight 2022-05-24 16:24:00 131.226 kg [facility] BMI 2022-05-24 16:24:00 49.66 kg/m2 [facility] Systolic blood pressure 2022-05-18 21:44:00 116 mm[Hg] [facility] Diastolic blood pressure 2022-05-18 21:44:00 80 mm[Hg] [facility] Heart rate 2022-05-18 21:44:00 84 /min [facility] Body temperature 2022-05-18 21:44:00 36.78 Sandra [facility] Respiratory rate 2022-05-18 21:44:00 18 /min [facility] Body height 2022-05-18 21:44:00 162.6 cm [facility] Body weight 2022-05-18 21:44:00 131.09 kg [facility] BMI 2022-05-18 21:44:00 49.61 kg/m2 [facility] Heart rate 2022-04-22 03:05:00 84 /min [facility] Oxygen saturation in Arterial blood by Pulse oximetry 2022-04-22 03:05:00 99 /min [facility] Systolic blood pressure 2022-04-22 01:50:00 136 mm[Hg] [facility] Diastolic blood pressure 2022-04-22 01:50:00 85 mm[Hg] [facility] Body temperature 2022-04-22 01:50:00 37 Sandra [facility] Respiratory rate 2022-04-22 01:50:00 18 /min [facility] Systolic blood pressure 2022-04-20 01:00:00 114 mm[Hg] [facility] Diastolic blood pressure 2022-04-20 01:00:00 61 mm[Hg] [facility] Heart rate 2022-04-20 01:00:00 92 /min [facility] Body temperature 2022-04-20 01:00:00 36.89 Sandra [facility] Respiratory rate 2022-04-20 01:00:00 16 /min [facility] Oxygen saturation in Arterial blood by Pulse oximetry 2022-04-20 01:00:00 100 /min [facility] Body height 2022-04-19 20:45:00 162.6 cm [facility] Body weight 2022-04-19 20:45:00 127.007 kg [facility] BMI 2022-04-19 20:45:00 48.06 kg/m2 [facility] Systolic blood pressure 2022-04-19 19:32:00 99 mm[Hg] [facility] Diastolic blood pressure 2022-04-19 19:32:00 67 mm[Hg] [facility] Heart rate 2022-04-19 19:32:00 92 /min [facility] Body temperature 2022-04-19 19:32:00 36.94 Sandra [facility] Body height 2022-04-19 19:32:00 162.6 cm [facility] Body weight 2022-04-19 19:32:00 127.37 kg [facility] BMI 2022-04-19 19:32:00 48.20 kg/m2 [facility] Systolic blood pressure 2022-04-04 22:49:00 121 mm[Hg] [facility] Diastolic blood pressure 2022-04-04 22:49:00 86 mm[Hg] [facility] Heart rate 2022-04-04 22:49:00 118 /min [facility] Body temperature 2022-04-04 22:49:00 36.89 Sandra [facility] Respiratory rate 2022-04-04 22:49:00 20 /min [facility] Body height 2022-04-04 22:49:00 162.6 cm [facility] Body weight 2022-04-04 22:49:00 128.187 kg [facility] BMI 2022-04-04 22:49:00 48.51 kg/m2 [facility] Systolic blood pressure 2022-03-16 20:43:00 112 mm[Hg] [facility] Diastolic blood pressure 2022-03-16 20:43:00 68 mm[Hg] [facility] Heart rate 2022-03-16 20:43:00 86 /min [facility] Body temperature 2022-03-16 20:43:00 36.72 Sandra [facility] Body height 2022-03-16 20:43:00 162.6 cm [facility] Body weight 2022-03-16 20:43:00 130.092 kg [facility] BMI 2022-03-16 20:43:00 49.23 kg/m2 [facility] Systolic blood pressure 2022-03-01 19:32:00 125 mm[Hg] [facility] Diastolic blood pressure 2022-03-01 19:32:00 83 mm[Hg] [facility] Heart rate 2022-03-01 19:32:00 96 /min [facility] Body temperature 2022-03-01 19:32:00 36.89 Sandra [facility] Respiratory rate 2022-03-01 19:32:00 18 /min [facility] Body height 2022-03-01 19:32:00 162.6 cm [facility] Body weight 2022-03-01 19:32:00 127.914 kg [facility] BMI 2022-03-01 19:32:00 48.41 kg/m2 [facility] Systolic blood pressure 2022-01-05 19:10:00 123 mm[Hg] [facility] Diastolic blood pressure 2022-01-05 19:10:00 74 mm[Hg] [facility] Heart rate 2022-01-05 19:10:00 83 /min [facility] Body temperature 2022-01-05 19:10:00 36.72 Sandra [facility] Respiratory rate 2022-01-05 19:10:00 16 /min [facility] Body height 2022-01-05 19:10:00 162.6 cm [facility] Body weight 2022-01-05 19:10:00 118.389 kg [facility] BMI 2022-01-05 19:10:00 44.80 kg/m2 [facility] Systolic blood pressure 2021-12-05 18:33:00 121 mm[Hg] [facility] Diastolic blood pressure 2021-12-05 18:33:00 85 mm[Hg] [facility] Heart rate 2021-12-05 18:33:00 61 /min [facility] Body temperature 2021-12-05 18:33:00 36.89 Sandra [facility] Respiratory rate 2021-12-05 18:33:00 18 /min [facility] Body height 2021-12-05 18:33:00 162.6 cm [facility] Body weight 2021-12-05 18:33:00 117.663 kg [facility] BMI 2021-12-05 18:33:00 44.53 kg/m2 [facility] Systolic blood pressure 2021-11-21 16:25:00 115 mm[Hg] [facility] Diastolic blood pressure 2021-11-21 16:25:00 70 mm[Hg] [facility] Heart rate 2021-11-21 16:25:00 68 /min [facility] Body temperature 2021-11-21 16:25:00 36.78 Sandra [facility] Respiratory rate 2021-11-21 16:25:00 20 /min [facility] Body height 2021-11-21 16:25:00 162.6 cm [facility] Body weight 2021-11-21 16:25:00 117.028 kg [facility] BMI 2021-11-21 16:25:00 44.29 kg/m2 [facility] Systolic blood pressure 2021-11-07 19:25:00 124 mm[Hg] [facility] Diastolic blood pressure 2021-11-07 19:25:00 76 mm[Hg] [facility] Heart rate 2021-11-07 19:25:00 96 /min [facility] Body temperature 2021-11-07 19:25:00 36.78 Sandra [facility] Respiratory rate 2021-11-07 19:25:00 18 /min [facility] Body height 2021-11-07 19:25:00 162.6 cm [facility] Body weight 2021-11-07 19:25:00 115.214 kg [facility] BMI 2021-11-07 19:25:00 43.60 kg/m2 [facility] height 2021-01-05 13:00:00 64 [in_i] Commo n [facility] weight 2021-01-05 13:00:00 298.8 [lb_av] Co on [facility] temperature 2021-01-05 13:00:00 97.8 [degF] Com [facility] bmi 2021-01-05 13:00:00 51.28 kg/m2 Comm on [facility] oximetry 2021-01-05 13:00:00 97 % Commo n [facility] respiratory rate 2021-01-05 13:00:00 17 /min Common [facility] blood pressure systolic 2021-01-05 13:00:00 122 mm[Hg] Common [facility] blood pressure diastolic 2021-01-05 13:00:00 58 mm[Hg] Common [facility] height 2020-12-08 10:20:00 64 [in_i] Commo n [facility] weight 2020-12-08 10:20:00 292.7 [lb_av] Co on [facility] temperature 2020-12-08 10:20:00 98.6 [degF] Com [facility] bmi 2020-12-08 10:20:00 50.24 kg/m2 Comm on [facility] oximetry 2020-12-08 10:20:00 97 % Commo n [facility] respiratory rate 2020-12-08 10:20:00 17 /min Common [facility] blood pressure systolic 2020-12-08 10:20:00 115 mm[Hg] [facility] blood pressure diastolic 2020-12-08 10:20:00 65 mm[Hg] Common [facility] Body temperature 2023-04-27 16:31:00 37.06 Sandra [facility] Body height 2023-04-27 16:31:00 162.6 cm [facility] Body weight 2023-04-27 16:31:00 134.628 kg [facility] BMI 2023-04-27 16:31:00 50.95 kg/m2 [facility] Systolic blood pressure 2022-12-22 20:19:00 160 mm[Hg] [facility] Diastolic blood pressure 2022-12-22 20:19:00 102 mm[Hg] [facility] Heart rate 2022-12-22 20:19:00 81 /min [facility] Oxygen saturation in Arterial blood by Pulse oximetry 2022-12-22 20:19:00 94 /min [facility] Respiratory rate 2022-07-20 00:34:00 18 /min [facility] Procedures Procedure Date / Time Performed Performing Clinician Source SCANNED LAB RESULTS 2023-06-12 20:06:47 Doctor James de dios, [place] [facility] SCANNED LAB RESULTS 2023-06-12 20:06:47 Doctor James de dios, [place] [facility] REFERRAL- REQUEST/RESPONSE 2023-04-30 06:01:00 Doctor Unassigned, [place] [facility] HB ECG ROUTINE & RHYTHM STRIP 2022-12-22 20:25:01 Jamal Summers [facility] AUTHORIZATION TO RELEASE PHI TO [facility] 2022-12-22 05:01:00 Doctor Unassigned, [place] [facility] LIPASE 2022-07-20 01:11:00 Beto Ramey [facility] COMP. METABOLIC PANEL (78096) 2022-07-20 01:11:00 Haleigh [facility] CBC WITH DIFF 2022-07-20 01:11:00 Haleigh [facility] CONSENT/REFUSAL FOR DIAGNOSIS AND TREATMENT 2022-07-20 00:23:20 Doctor Unassigned, [place] [facility] HB ECG ROUTINE & RHYTHM STRIP 2022-06-15 20:29:53 Jamal Summers [facility] CONSENT/REFUSAL FOR DIAGNOSIS AND TREATMENT 2022-06-15 01:57:44 Doctor Unassigned, [place] [facility] CBC WITH DIFF 2022-06-10 07:44:00 Jennifer Billingsley [facility] CBC WITH DIFF 2022-06-10 07:44:00 Jennifer Billingsley [facility] SECTION 2022-06-09 12:47:00 Jennifer Billingsley [facility] TUBAL LIGATION 2022-06-09 12:47:00 Jennifer Billingsley [facility] CBC WITH DIFF 2022-06-09 11:45:00 Jennifer Billingsley [facility] HEPATITIS B SURFACE ANTIGEN 2022-06-09 11:45:00 Jennifer Billingsley [facility] HB ABO GROUPING 2022-06-09 11:45:00 Jennifer Billingsley [facility] RHO (D) IMMUNE GLOBULIN 2022-06-09 11:45:00 Jennifer Billingsely [facility] ADC OR LYNDSEY ONLY - RPR 2022-06-09 11:45:00 Jennifer Billingsley [facility] HIV 1/2 AG-AB WITH REFLEX 2022-06-09 11:45:00 Jennifer Billingsley [facility] CBC WITH DIFF 2022-06-09 11:45:00 Jennifer Billingsley [facility] HEPATITIS B SURFACE ANTIGEN 2022-06-09 11:45:00 Jennifer Billingsley [facility] HB ABO GROUPING 2022-06-09 11:45:00 Jennifer Billingsley [facility] RHO (D) IMMUNE GLOBULIN 2022-06-09 11:45:00 Jennifer Billingsley [facility] ADC OR LYNDSEY ONLY - RPR 2022-06-09 11:45:00 Jennifer Billingsley [facility] HIV 1/2 AG-AB WITH REFLEX 2022-06-09 11:45[facility]-AB WITH REFLEX 2022-06-09 11:45:00 Jennifer Billingsley [facility] HOSPITAL ADMISSION 2022-06-09 05:01:00 Doctor Un assigned, [place] [facility] POCT URINALYSIS W/O SPECIFIC GRAVITY 2022-06-01 00:00:00 Jennifer Billingsley [facility] NON-STRESS TEST 2022-05-30 16:03:12 Jennifer Billingsley [facility] CONSENT/REFUSAL FOR DIAGNOSIS AND TREATMENT 2022-05-30 12:17:27 Doctor Unassigned, [place] [facility] >14 WEEKS US LIMITED 2022-05-24 19:38:55 Jennifer Billingsley [facility] >14 WEEKS US LIMITED 2022-05-24 19:33:56 Jennifer Billingsley [facility] HB ECG ROUTINE & RHYTHM STRIP 2022-05-24 16:27:25 Jamal Summers [facility] POCT URINALYSIS W/O SPECIFIC GRAVITY 2022-05-24 00:00:00 Jennifer Billingsley [facility] STERILIZATION CONSENT FORM 2022-05-18 05:01:00 Doctor Unassigned, [place] [facility] POCT URINALYSIS W/O SPECIFIC GRAVITY 2022-05-18 00:00:00 Melissa Lazaro [facility] URINALYSIS 2022-04-22 03:12:00 Jose Irais [facility] ADC CLC OR LCC ONLY - WET PREP 2022-04-22 02:50:00 Irais Garcia [facility] NOTICE OF PRIVACY PRACTICES 2022-04-22 01:37:05 Doctor Unassigned, [place] [facility] CONSENT/REFUSAL FOR DIAGNOSIS AND TREATMENT 2022-04-22 01:35:20 Doctor Unassigned, [place] [facility] CBC WITH DIFF 2022-04-19 22:50:00 Jennifer Billingsley [facility] HIV 1/2 AG-AB WITH REFLEX 2022-04-19 22:50:00 Jennifer Billingsley [facility] HB ABO GROUPING 2022-04-19 22:30:00 Jennifer Billingsley [facility] CONSENT/REFUSAL FOR DIAGNOSIS AND TREATMENT 2022-04-19 20:27:30 Doctor Unassigned, [place] [facility] ASSIGNMENT OF BENEFITS 2022-04-19 20:27:13 Docto r Unassigned, [place] [facility] L&D VISIT (NON-DELIVERED) 2022-04-19 06:01:00 Doctor Unassigned, [place] [facility] L&D VISIT (NON-DELIVERED) 2022-04-19 06:01:00 Doctor Unassigned, [place] [facility] POCT URINALYSIS W/O SPECIFIC GRAVITY 2022-04-19 00:00:00 Jennifer Billingsley [facility] POCT URINALYSIS W/O SPECIFIC GRAVITY 2022-04-04 22:58:00 Melissa Lazaro [facility] CONSENT/REFUSAL FOR DIAGNOSIS AND TREATMENT 2022-03-22 18:27:28 Doctor Unassigned, [place] [facility] ASSIGNMENT OF BENEFITS 2022-03-01 19:03:53 Docto r Unassigned, [place] [facility] POCT URINALYSIS W/O SPECIFIC GRAVITY 2022-03-01 00:00:00 Melissa Lazaro [facility] POCT URINALYSIS W/O SPECIFIC GRAVITY 2022-01-05 19:12:00 Jennifer Billingsley [facility] MEDICAL RELEASE/CLEARANCE FORMS 2022-01-03 06:01:00 Doctor Unassigned, [place] [facility] ASSIGNMENT OF BENEFITS 2021-12-07 16:21:48 Docto r Unassigned, [place] [facility] POCT URINALYSIS W/O SPECIFIC GRAVITY 2021-12-05 00:00:00 Jennifer Billingsley [facility] US OB TRANSVAGINAL 2021-11-09 16:38:12 Jennifer Billingsley [facility] POCT URINALYSIS W/O SPECIFIC GRAVITY 2021-11-07 00:00:00 Jennifer Billingsley [facility] PAP SMEAR-LIQUID BASED-CP 2021-10-20 20:46:00 Ghanshyam Huffman [facility] HCV ANTIBODY 2019-12-23 15:10:00 Jennifer Billingsley [facility] Encounters Start Date/Time End Date/Time Encounter Type Admission Type Attending [facility] Care Facility Care Department Encounter ID Source 2021-03-23 14:09:56 Outpatient Alina He [facility] [id number] [facility] 2021-03-23 14:00:01 Outpatient Alina He [facility] [id number] [facility] 2020-12-26 21:49:07 Emergency [facility] [id number] [facility] 2020-12-26 10:28:14 Emergency [facility] [id number] [facility] 2020-12-25 09:45:34 Emergency [facility] [id number] [facility] 2024-09-16 13:17:03 2024-09-16 13:17:03 Outpatient [facility] [id number] Alfonso Erazo 2024-04-14 10:01:59 2024-04-14 10:01:59 Outpatient SFA SFA [id number] Alfonso Erazo 2023-06-12 00:00:00 2024-04-12 02:19:07 Orders Only Doctor Unassigned, [place] Doctor Unassigned, [place] [facility] 1.2.840.114 350.1.13.10 4.2.7.2.686 [id number] [facility] 2023-10-11 13:00:04 2023-10-11 13:00:04 Outpatient SFA SFA [id number] Alfonso Erazo 2023-09-27 10:24:48 2023-09-27 10:24:48 Outpatient SFA SFA [id number] Alfonso Falk [place] 2023-09-12 13:04:49 2023-09-12 13:04:49 Outpatient SFA SFA [id number] Alfonso Erazo 2023-08-22 14:47:18 2023-08-22 14:47:18 Outpatient SFA SFA [id number] Alfonso Falk [place] 2023-08-14 13:17:29 2023-08-14 13:17:29 Outpatient SFA SFA [id number] Alfonso Erazo 2023-07-31 16:04:10 2023-07-31 16:04:10 Outpatient SFA [facility] [id number] Alfonso Erazo 2023-07-27 09:51:29 2023-07-27 09:51:29 Outpatient SFA [facility] [id number] Alfonso Erazo 2023-07-19 13:23:59 2023-07-19 13:23:59 Outpatient [facility] [id number] Alfonso Erazo 2023-07-06 00:00:00 2023-07-06 08:33:56 Telephone SorensonMargie 1.2.840.1 [id number] 3.104.2.7 .[id number] [facility] 2023-05-24 00:00:00 2023-05-24 16:55:20 Telephone Sarah Metz 1.2.840.1 [id number] [id number] [facility] 2023-04-30 00:00:00 2023-04-30 00:00:00 Orders Only Doctor Unassigned, [place] [facility] 1.2.840.114 350.1.13.10 4.2.7.2.686 [id number] [facility] 2023-04-27 09:45:00 2023-04-27 12:14:25 Outpatient R SARAH METZ [facility] [id number] [facility] 2023-04-27 09:45:00 2023-04-27 12:14:25 Office Visit Sarah Metz [facility] 1.2.840.114 350.1.13.10 4.2.7.2.686 [id number] [facility] 2023-04-27 00:00:00 2023-04-27 00:00:00 Patient Secure Msg Doctor Unassigned, [place] [facility] 1.2.840.114 350.1.13.10 4.2.7.2.686 [id number] [facility] 2023-03-14 13:18:15 2023-03-14 13:18:15 Outpatient SFA [facility] [id number] Alfonso Erazo 2023-01-10 15:30:00 2023-01-10 15:30:00 Outpatient R JAMAL SUMMERS [facility] [id number] [facility] 2023-01-08 15:30:00 2023-01-08 15:30:00 [facility] [id number] 2023-01-01 00:00:00 2023-01-01 00:00:00 Telephone Jamal Summers [facility] 1.2.840.114 350.1.13.10 4.2.7.2.686 [id number] [facility] 2022-12-28 00:00:00 2022-12-28 00:00:00 Telephone Jamal Summers [facility] 1.2.840.114 350.1.13.10 4.2.7.2.686 [id number] [facility] 2022-12-22 15:00:00 2022-12-22 15:48:13 Outpatient R JAMAL SUMMERS [facility] [id number] [facility] 2022-12-22 15:00:00 2022-12-22 15:48:13 Office Visit Jamal Summers [facility] 1.2.840.114 350.1.13.10 4.2.7.2.686 [id number] [facility] 2022-12-22 00:00:00 2022-12-22 00:00:00 Orders Only Doctor Unassigned, [place] [facility] 1.2.840.114 350.1.13.10 4.2.7.2.686 [id number] [facility] 2022-11-17 14:21:07 2022-11-17 14:21:07 Outpatient SFA SFA [id number] Alfonso Erazo 2022-11-09 14:28:53 2022-11-09 14:28:53 Outpatient SFA SFA [id number] Alfonso Falk [place] 2022-10-23 17:18:20 2022-10-23 17:18:20 Outpatient SFA SFA [id number] Alfonso Falk [place] 2022-10-20 16:01:36 2022-10-20 16:01:36 Outpatient SFA SFA [id number] Alfonso Falk [place] 2022-10-18 17:26:22 2022-10-18 17:26:22 Outpatient SFA SFA [id number] Alfonso Falk [place] 2022-10-16 10:30:11 2022-10-16 10:30:11 Outpatient SFA SFA [id number] Alfonso Falk [place] 2022-10-11 14:00:00 2022-10-11 14:00:00 Outpatient JOSH LIN [facility] [id number] [facility] 2022-10-03 13:30:00 2022-10-03 13:30:00 Outpatient MELISSA RUELAS [facility] [id number] [facility] 2022-08-31 00:00:00 2022-08-31 00:00:00 Patient Secure Melissa Lazaro [facility] ..840.114 350.1.13.10 4.2.7.2.686 [id number] [facility] 2022-08-28 09:30:00 2022-08-28 09:30:00 Outpatient MELISSA RUELAS [facility] [id number] [facility] 2022-08-01 11:00:00 2022-08-01 11:00:00 Outpatient R HARINI SCOTT [facility] [id number] [facility] 2022-07-20 00:00:00 2022-07-20 00:00:00 Outpatient R RADIOLOGY [facility] [id number] [facility] 2022-07-19 19:37:00 2022-07-19 21:24:00 Emergency X BETO RAMEY [facility] ERT [id number] [facility] 2022-07-19 19:37:00 2022-07-19 21:24:00 Emergency Beto Ramey [facility] ..840.114 350.1.13.10 4.2.7.2.686 [id number] [facility] 2022-07-12 13:40:00 2022-07-12 13:40:00 Outpatient R MARIA DE JESUS AQUINO [facility] [id number] [facility] 2022-07-04 16:00:00 2022-07-04 16:00:00 Outpatient R JENNIFER BILLINGSLEY [facility] [id number] [facility] 2022-06-26 13:00:00 2022-06-26 13:00:00 Outpatient R JENNIFER BILLINGSLEY [facility] [id number] [facility] 2022-06-23 15:30:00 2022-06-23 15:30:00 Outpatient R ZACARIAS PACHECO ELISHA [facility] [id number] [facility] 2022-06-19 14:15:00 2022-06-19 14:43:11 Outpatient R JENNIFER BILLINGSLEY [facility] [id number] [facility] 2022-06-19 14:15:00 2022-06-19 14:43:11 Routine Visit Jennifer Billingsley [facility] PROF[facility]IO [facility] 1..840.114 350.1.13.10 4.2.7.2.686 [id number] [facility] 2022-06-16 00:00:00 2022-06-16 00:00:00 Patient Secure Msg Doctor Unassigned, [place] [facility] 1.2840.114 350.1.13.10 4.2.7.2.686 [id number] [facility] 2022-06-15 15:00:00 2022-06-15 15:52:58 Outpatient R JAMAL SUMMERS [facility] [id number] [facility] 2022-06-15 15:00:00 2022-06-15 15:52:58 Office Visit Jamal Summers [facility] 1.2840.114 350.1.13.10 4.2.7.2.686 [id number] [facility] 2022-06-15 14:00:00 2022-06-15 14:52:16 Routine Visit Jennifer Billingsley [facility] 1.84.114 350.1.13.10 4.2.7.2.686 [id number] [facility] 2022-06-14 21:26:00 2022-06-14 22:40:00 Outpatient [facility] [id number] [facility] 2022-06-14 21:26:00 2022-06-14 22:40:00 Emergency [place]o conroy Vien [facility] 1.284.114 350.1.13.10 4.2.7.2.686 [id number] [facility] 2022-06-12 00:00:00 2022-06-12 00:00:00 Telephone Menedz Jennifer [facility] 1.2840.114 350.1.13.10 4.2.7.2.686 [id number] [facility] 2022-06-09 05:30:00 2022-06-11 11:15:00 Inpatient P JENNIFER BILLINGSLEY [facility] [id number] [facility] 2022-06-09 05:30:00 2022-06-11 11:15:00 Hospital Encounter Jennifer Billingsley [facility] 1.2.840.114 350.1.13.10 4.2.7.2.686 [id number] [facility] 2022-06-10 20:03:08 2022-06-10 20:03:08 Anesthesia Event Jeremiah Ramírez [facility] 1.2.840.114 350.1.13.10 4.2.7.2.686 [id number] [facility] 2022-06-09 07:45:00 2022-06-09 09:36:00 Surgery Jennifer Billingsley [facility] 1.2.840.114 350.1.13.10 4.2.7.2.686 [id number] [facility] 2022-06-09 00:00:00 2022-06-09 00:00:00 Orders Only Doctor Unassigned, [place] [facility] 1.2.840.114 350.1.13.10 4.2.7.2.686 [id number] [facility] 2022-06-01 13:45:00 2022-06-01 14:18:05 Outpatient R JENNIFER BILLINGSLEY [facility] [id number] [facility] 2022-06-01 13:45:00 2022-06-01 14:18:05 Routine Visit Jennifer Billingsley [facility] PROFESSIO [facility] 1.2.840.114 350.1.13.10 4.2.7.2.686 [id number] [facility] 2022-06-01 13:00:00 2022-06-01 13:15:00 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 Visit 2, Adc Lab Jennifer Billingsley [facility] 1.2.840.114 350.1.13.10 4.2.7.2.686 [id number] [facility] 2022-05-31 00:00:00 2022-05-31 00:00:00 Telephone Jamal Summers [facility] 1.2.840.114 350.1.13.10 4.2.7.2.686 [id number] [facility] 2022-05-30 07:31:00 2022-05-30 13:08:00 Outpatient X JENNIFER BILLINGSLEY [facility] [id number] [facility] 2022-05-30 07:31:00 2022-05-30 13:08:00 Emergency Jennifer Billingsley [facility] 1.2.840.114 350.1.13.10 4.2.7.2.686 [id number] [facility] 2022-05-30 00:00:00 2022-05-30 00:00:00 Orders Only Doctor Unassigned, [place] [facility] 1.2.840.114 350.1.13.10 4.2.7.2.686 [id number] [facility] 2022-05-24 13:15:00 2022-05-24 14:08:18 Routine Visit Jennifer Billingsley [facility] 1.2.840.114 350.1.13.10 4.2.7.2.686 [id number] [facility] 2022-05-24 11:00:00 2022-05-24 11:44:56 Outpatient R JAMAL SUMMERS [facility] [id number] [facility] 2022-05-24 11:00:00 2022-05-24 11:44:56 Office Visit Jamal Summers [facility] 1.2.840.114 350.1.13.10 4.2.7.2.686 [id number] [facility] 2022-05-22 00:00:00 2022-05-22 00:00:00 Patient Secure Msg Melissa Lazaro [facility] 1.2.840.114 350.1.13.10 4.2.7.2.686 [id number] 134 [id number] [facility] 2022-05-18 16:30:00 2022-05-18 16:45:00 Routine Visit Melissa Lazaro [facility] 1.2.840.114 350.1.13.10 4.2.7.2.686 [id number] 134 [id number] [facility] 2022-05-18 16:30:00 2022-05-18 16:30:00 Outpatient R IVETH [facility] [id number] [facility] 2022-05-18 00:00:00 2022-05-18 00:00:00 Orders Only Doctor Unassigned, [place] [facility] 1.2840.114 350.1.13.10 4.2.7.2.686 [id number] [facility] 2022-05-16 14:30:00 2022-05-16 15:00:00 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 Visit Ultrasound, Adc Mfm Anamaria Costello [facility] 1.2.840.114 350.1.13.10 4.2.7.2.686 [id number] [facility] 2022-05-16 14:30:00 2022-05-16 14:30:00 Outpatient P ANAMARIA COSTELLO [facility] [id number] [facility] 2022-05-09 16:30:00 2022-05-09 16:30:00 Outpatient R MELISSA LAZARO [facility] [id number] [facility] 2022-04-21 19:38:00 2022-04-21 22:05:00 Outpatient P NORRIS-MERCEDES S, IRAIS NORRIS-MERCEDES S, IRAIS [facility] [id number] [facility] 2022-04-21 19:38:00 2022-04-21 22:05:00 Emergency Norris-Mercedes s, Irais [facility] 1.0.114 350.1.13.10 4.2.7.2.686 [id number] [facility] 2022-04-21 00:00:00 2022-04-21 00:00:00 Orders Only Doctor Unassigned, [place] [facility] 1.0.114 350.1.13.10 4.2.7.2.686 [id number] [facility] 2022-04-19 14:25:00 2022-04-19 19:20:00 Outpatient P JENNIFER BILLINGSLEY [facility] [id number] [facility] 2022-04-19 14:25:00 2022-04-19 19:20:00 Hospital Encounter Jennifer Billingsley [facility] 1.0.114 350.1.13.10 4.2.7.2.686 [id number] [facility] 2022-04-19 14:00:00 2022-04-19 14:15:00 Routine Visit Jennifer Billingsley [facility] PROFESSIO [facility] 1..114 350.1.13.10 4.2.7.2.686 [id number] [facility] 2022-04-19 14:00:00 2022-04-19 14:00:00 [id number] 2022-04-19 00:00:00 2022-04-19 00:00:00 Telephone MendezJennifer [facility] 1.2.840.114 350.1.13.10 4.2.7.2.686 [id number] [facility] 2022-04-18 14:00:00 2022-04-18 14:00:00 [facility] [id number] [facility] 2022-04-12 16:00:00 2022-04-12 16:00:00 Outpatient Inna LAZARO [facility] [id number] [facility] 2022-04-05 00:00:00 2022-04-05 00:00:00 Case Management Kendal Billingsleyen [facility] 1.2.840.114 350.1.13.10 4.2.7.2.686 [id number] [facility] 2022-04-04 16:30:00 2022-04-04 17:29:20 [facility] [id number] [facility] 2022-04-04 16:30:00 2022-04-04 17:29:20 Routine Visit Jennifer Billingsley [facility] 1.2.840.114 350.1.13.10 4.2.7.2.686 [id number] 134 [id number] [facility] 2022-03-23 00:00:00 2022-03-23 00:00:00 Telephone Iveth [facility] 1.2.840.114 350.1.13.10 4.2.7.2.686 [id number] 134 [id number] [facility] 2022-03-22 12:45:00 2022-03-22 13:00:00 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 Visit Pob, [facility] Main Melissa Lazaro [facility] 1.284.114 350.1.13.10 4.2.7.2.686 [id number] [facility] 2022-03-22 12:45:00 2022-03-22 12:45:00 Outpatient R MELISSA LAZARO [facility] [id number] [facility] 2022-03-22 00:00:00 2022-03-22 00:00:00 Orders Only Doctor Unassigned, [place] [facility] 1..114 350.1.13.10 4.2.7.2.686 [id number] [facility] 2022-03-16 14:30:00 2022-03-16 14:59:43 Outpatient R JENNIFER BILLINGSLEY [facility] [id number] [facility] 2022-03-16 14:30:00 2022-03-16 14:59:43 Routine Visit Jennifer Billingsley [facility] 1.84.114 350.1.13.10 4.2.7.2.686 [id number] 134 [id number] [facility] 2022-03-15 00:00:00 2022-03-15 00:00:00 Patient Secure Corinne Hickman [facility] 1.2.114 350.1.13.10 4.2.7.2.686 [id number] 134 [id number] [facility] 2022-03-10 14:00:00 2022-03-10 15:00:00 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 Visit Ultrasound, Vanec Cagle [facility] PLASTIC PARTS DESIGN[facility] 1..114 350.1.13.10 4.2.7.2.686 [id number] [facility] 2022-03-10 14:00:00 2022-03-10 14:00:00 Outpatient VANCE RYAN [facility] [id number] [facility] 2022-03-01 13:15:00 2022-03-01 13:57:13 Outpatient MELISSA RUELAS [facility] [id number] [facility] 2022-03-01 13:15:00 2022-03-01 13:57:13 Routine Visit Melissa Lazaro [facility] 1.840.114 350.1.13.10 4.2.7.2.686 [id number] [facility] 2022-03-01 00:00:00 2022-03-01 00:00:00 Orders Only Doctor Unassigned, [place] [facility] 1..840.114 350.1.13.10 4.2.7.2.686 [id number] [facility] 2022-02-03 09:30:00 2022-02-03 10:49:30 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 Visit Ultrasound, Rodriguez-Vance Oleary [facility] PLASTIC PARTS DESIGNER [facility] 1.840.114 350.1.13.10 4.2.7.2.686 [id number] [facility] 2022-02-03 09:30:00 2022-02-03 09:30:00 Outpatient VANCE RYAN [facility] [id number] [facility] 2022-02-02 14:00:00 2022-02-02 14:00:00 Outpatient MELISSA RUELAS [facility] [id number] [facility] 2022-01-11 11:20:00 2022-01-11 11:20:00 Outpatient MARIA DE JESUS CANTRELL [facility] [id number] [facility] 2022-01-05 14:00:00 2022-01-05 14:15:00 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 Visit 2, Adc Lab [facility] 1.2.840.114 350.1.13.10 4.2.7.2.686 [id number] [facility] 2022-01-05 14:00:00 2022-01-05 14:00:00 Outpatient R JENNIFER BILLINGSLEY [facility] [id number] [facility] 2022-01-05 13:15:00 2022-01-05 13:22:49 Routine Visit Jennifer Billingsley [facility] BUILDING 1.2.840.114 350.1.13.10 4.2.7.2.686 [id number] [facility] 2022-01-03 00:00:00 2022-01-03 00:00:00 Telephone IvethMelissa [facility] 1.2.840.114 350.1.13.10 4.2.7.2.686 [id number] [facility] 2022-01-03 00:00:00 2022-01-03 00:00:00 Orders Only Doctor Unassigned, [place] [facility] 1.2.840.114 350.1.13.10 4.2.7.2.686 [id number] [facility] 2021-12-16 00:00:00 2021-12-16 00:00:00 Telephone Jennifer Billingsley [facility] 1.2.840.114 350.1.13.10 4.2.7.2.686 [id number] 134 [id number] [facility] 2021-12-07 11:00:00 2021-12-07 11:15:00 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 Visit 2, Adc Lab Melissa Lazaro [facility] BUILDING 1.2.840.114 350.1.13.10 4.2.7.2.686 [id number] [facility] 2021-12-07 11:00:00 2021-12-07 11:00:00 Outpatient MELISSA RUELAS [facility] [id number] [facility] 2021-12-07 00:00:00 2021-12-07 00:00:00 Orders Only Doctor Unassigned, [place] [facility] 1.84.114 350.1.13.10 4.2.7.2.686 [id number] [id number] [facility] 2021-12-05 13:15:00 2021-12-05 14:28:19 Routine Visit Melissa Lazaro Vien Cam [facility] 1..840.114 350.1.13.10 4.2.7.2.686 [id number] [facility] 2021-12-05 11:00:00 2021-12-05 11:00:00 Outpatient AZIZA KLINE [facility] [id number] [facility] 2021-12-05 00:00:00 2021-12-05 00:00:00 Telephone Eliot Dangelo [facility] 1.840.114 350.1.13.10 4.2.7.2.686 [id number] [facility] 2021-11-23 09:00:00 2021-11-23 09:00:00 Outpatient JENNIFER SEPULVEDA [facility] [id number] [facility] 2021-11-22 00:00:00 2021-11-22 00:00:00 Patient Secure Jennifer Green [facility] 1..840.114 350.1.13.10 4.2.7.2.686 [id number] [facility] 2021-11-21 11:30:00 2021-11-21 12:14:05 Outpatient CHIRAG VAZQUEZ SANGEETA [facility] [id number] [facility] 2021-11-21 11:30:00 2021-11-21 12:14:05 Office Visit Faculty, [facility] PLASTIC PARTS DESIGNER [facility] 1.2.840.114 350.1.13.10 4.2.7.2.686 [id number] [facility] 2021-11-17 00:00:00 2021-11-17 00:00:00 Patient Secure Msg Doctor Unassigned, [place] [facility] 1.840.114 350.1.13.10 4.2.7.2.686 [id number] [facility] 2021-11-07 14:00:00 2021-11-07 15:04:11 Outpatient R JENNIFER BILLINGSLEY [facility] [id number] [facility] 2021-11-07 14:00:00 2021-11-07 15:04:11 Initial Visit [facility] 1..840.114 350.1.13.10 4.2.7.2.686 [id number] [facility] 2021-11-07 14:00:00 2021-11-07 14:00:00 Outpatient R JENNIFER BILLINGSLEY [facility] [id number] [facility] 2021-11-07 00:00:00 2021-11-07 00:00:00 Melissa Valentino TIDELANDS [facility] PROFESSIO NAL BUILDING 1..840.114 350.1.13.10 4.2.7.2.686 [id number] [facility] 2021-11-02 14:30:00 2021-11-02 14:30:00 Outpatient R JENNIFER BILLINGSLEY [facility] [id number] [facility] 2021-10-24 00:00:00 2021-10-24 00:00:00 Telephone Akinsipe, Ghansyham C [facility] PLASTIC PARTS DESIGNER [facility] 1.0.114 350.1.13.10 4.2.7.2.686 [id number] [facility] 2021-10-22 13:59:00 2021-10-22 16:21:00 Emergency X Dev MEEHAN [facility] ERT [id number] [facility] 2021-10-22 13:59:00 2021-10-22 16:21:00 Emergency David Dev Hattie [facility] 1..114 350.1.13.10 4.2.7.2.686 [id number] [facility] 2021-10-22 13:59:00 2021-10-22 16:21:00 Emergency X Dev MEEHAN [facility] ERT [id number] [facility] 2021-10-20 14:45:00 2021-10-20 16:06:03 Outpatient KEYONNA JAIMES [facility] [id number] [facility] 2021-10-20 14:45:00 2021-10-20 16:06:03 Initial Visit Ghanshyam Huffman Roshunda R [facility] PLASTIC PARTS DESIGNER [facility] 1..114 350.1.13.10 4.2.7.2.686 [id number] [facility] 2021-10-20 14:45:00 2021-10-20 16:06:03 Outpatient KEYONNA JAIMES [facility] [id number] [facility] 2021-10-20 00:00:00 2021-10-20 00:00:00 Orders Only Doctor Unassigned, [place] [facility] 1.840.114 350.1.13.10 4.2.7.2.686 [id number] [facility] 2021-10-14 15:30:00 2021-10-14 15:30:00 Outpatient R RENU CLEMENTE [facility] [id number] [facility] 2021-10-14 15:30:00 2021-10-14 15:30:00 Outpatient R RENU CLEMENTE [facility] [id number] [facility] 2021-10-14 15:30:00 2021-10-14 15:30:00 Outpatient R RENU CLEMENTE [facility] [id number] [facility] 2021-09-05 08:15:00 2021-09-05 08:15:00 Outpatient R JENNIFER BILLINGSLEY [facility] [id number] [facility] 2021-08-26 13:00:00 2021-08-26 13:00:00 Outpatient R TARA ZACARIAS [facility] [id number] [facility] 2021-08-26 00:00:00 2021-08-26 00:00:00 Patient Secure Msg Doctor Unassigned, [place] [facility] 1.840.114 350.1.13.10 4.2.7.2.686 [id number] [facility] 2021-08-18 12:30:00 2021-08-18 12:45:00 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 Visit Pob, Adc Lab Main Renu Clemente [facility] 1..840.114 350.1.13.10 4.2.7.2.686 [id number] [facility] 2021-08-18 11:15:00 2021-08-18 12:15:34 Outpatient R IVETH MELISSA [facility] [id number] [facility] 2021-08-18 11:15:00 2021-08-18 11:45:00 Office Visit Iveth Melissa [facility] 1..840.114 350.1.13.10 4.2.7.2.686 [id number] [facility] 2021-08-18 11:15:00 2021-08-18 11:15:00 Outpatient R IVETH MELISSA [facility] [id number] [facility] 2021-06-15 09:00:00 2021-06-15 09:00:00 Outpatient R JAMAL SUMMERS [facility] [id number] [facility] 2021-05-30 09:00:00 2021-05-30 09:00:00 Outpatient R JENNIFER BILLINGSLEY [facility] [id number] [facility] 2021-05-26 14:00:00 2021-05-26 14:00:00 Outpatient R JAMAL SUMMERS [facility] [id number] [facility] 2021-05-26 00:00:00 2021-05-26 00:00:00 Patient Secure Msg Doctor Unassigned, [place] [facility] 1..840.114 350.1.13.10 4.2.7.2.686 [id number] [facility] 2021-05-19 00:00:00 2021-05-19 00:00:00 Telephone Jamal Summers [facility] 1..840.114 350.1.13.10 4.2.7.2.686 [id number] [facility] 2021-05-04 16:00:00 2021-05-04 16:00:00 Outpatient R JAMAL SUMMERS [facility] [id number] [facility] 2021-04-27 14:20:00 2021-04-27 14:40:00 Office Visit Henri Felix [facility] 1..840.114 350.1.13.10 4.2.7.2.686 [id number] [facility] 2021-04-27 14:20:00 2021-04-27 14:20:00 Outpatient R HENRI FELIX [facility] [id number] [facility] 2021-04-18 00:00:00 2021-04-18 00:00:00 Orders Only Doctor Unassigned, [place] [facility] 1..840.114 350.1.13.10 4.2.7.2.686 [id number] [facility] 2021-04-14 13:00:00 2021-04-14 13:54:50 Office [facility] 1..840.114 350.1.13.10 4.2.7.2.686 [id number] [facility] 2021-04-14 13:00:00 2021-04-14 13:54:50 Outpatient R KRISTOPHER ARNOLDCINDY [facility] [id number] [facility] 2021-04-14 13:00:00 2021-04-14 13:00:00 Outpatient R SUMMERSJAMAL BURGOS [facility] [id number] [facility] 2021-04-08 10:40:00 2021-04-08 10:40:00 Outpatient R HENRI FELIX [facility] [id number] [facility] 2021-04-04 10:15:00 2021-04-04 10:15:00 Outpatient R MELISSA LAZARO [facility] [id number] [facility] 2021-03-29 15:30:00 2021-03-29 16:20:32 Outpatient R RENU CLEMENTE [facility] [id number] [facility] 2021-03-29 15:30:00 2021-03-29 16:20:32 Office Visit [facility] 1..840.114 350.1.13.10 4.2.7.2.686 [id number] [facility] 2021-03-29 13:00:00 2021-03-29 13:00:00 Outpatient R VERONICA ROBLES [facility] [id number] [facility] 2021-03-29 00:00:00 2021-03-29 00:00:00 Orders Only Doctor Unassigned, [place] [facility] 1.840.114 350.1.13.10 4.2.7.2.686 [id number] [facility] 2021-03-24 11:30:00 2021-03-24 12:00:28 Outpatient R WOLF CAGE [facility] [id number] [facility] 2021-03-24 11:30:00 2021-03-24 12:00:28 Office Visit Wolf Cage [facility] .840.114 350.1.13.10 4.2.7.2.686 [id number] [facility] 2021-03-23 00:00:00 2021-03-23 00:00:00 Outpatient R WOLF CAGE [facility] [id number] [facility] 2021-03-18 16:00:00 2021-03-18 16:00:00 Outpatient R JAMAL SUMMERS [facility] [id number] [facility] 2021-03-18 00:00:00 2021-03-18 00:00:00 Orders Only Doctor Unassigned, [place] [facility] 1..114 350.1.13.10 4.2.7.2.686 [id number] [facility] 2021-03-16 00:00:00 2021-03-16 00:00:00 Telephone Jamal Summers [facility] 1.84.114 350.1.13.10 4.2.7.2.686 [id number] [facility] 2021-03-10 15:20:00 2021-03-10 15:20:00 Outpatient R [facility] [id number] [facility] 2021-03-09 10:00:00 2021-03-09 10:00:00 Outpatient WOLF HENRIQUEZ [facility] RAD [id number] [facility] 2021-03-09 00:00:00 2021-03-09 00:00:00 Outpatient WOLF HENRIQUEZ [facility] [id number] [facility] 2021-03-04 13:00:00 2021-03-04 13:00:00 Outpatient VERONICA CHANDLER [facility] [id number] [facility] 2021-03-04 13:00:00 2021-03-04 13:00:00 Outpatient VERONICA CHANDLER [facility] [id number] [facility] 2021-03-03 10:30:00 2021-03-03 11:23:22 Outpatient JAMAL ORTIZ [facility] [id number] [facility] 2021-03-03 10:30:00 2021-03-03 11:23:22 Office Visit Jamal Summers [facility] ..840.114 350.1.13.10 4.2.7.2.686 [id number] [facility] 2021-03-03 10:30:00 2021-03-03 11:23:22 Outpatient JAMAL ORTIZ [facility] [id number] [facility] 2021-02-28 00:00:00 2021-02-28 00:00:00 Outpatient WOLF HENRIQUEZ [facility] [id number] [facility] 2021-02-23 16:00:00 2021-02-23 16:15:00 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 Visit Vls-Lab Niles [facility] 02.27.840.114 350.1.13.10 4.2.7.2.686 [id number] [facility] 2021-02-23 16:00:00 2021-02-23 16:15:00 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 Visit Vls-Lab N[facility] [facility] 1.840.114 350.1.13.10 4.2.7.2.686 [id number] [facility] 2021-02-23 16:00:00 2021-02-23 16:00:00 Outpatient R WOLF CAGE [facility] [id number] [facility] 2021-02-23 14:15:00 2021-02-23 15:35:09 Office Visit Niles [facility] 1.840.114 350.1.13.10 4.2.7.2.686 [id number] [facility] 2021-02-23 14:15:00 2021-02-23 15:35:09 Outpatient WOLF HENRIQUEZ [facility] [id number] [facility] 2021-02-23 00:00:00 2021-02-23 00:00:00 Orders Only Doctor Unassigned, [place] [facility] 1.840.114 350.1.13.10 4.2.7.2.686 [id number] [facility] 2021-02-19 21:31:00 2021-02-20 00:56:00 Emergency X Dev MEEHAN [facility] ERT [id number] [facility] 2021-02-19 21:31:00 2021-02-20 00:56:00 Emergency Sang Epps K Paige [facility] 1.840.114 350.1.13.10 4.2.7.2.686 [id number] [facility] 2021-02-19 21:31:00 2021-02-20 00:56:00 Emergency X Dev MEEHAN [facility] ERT [id number] [facility] 2021-02-16 00:00:00 2021-02-16 00:00:00 Orders Only Doctor Unassigned, [place] [facility] 1.2.840.114 350.1.13.10 4.2.7.2.686 [id number] [facility] 2021-02-16 00:00:00 2021-02-16 00:00:00 Patient Secure Msg Doctor Unassigned, [place] [facility] 1.2.840.114 350.1.13.10 4.2.7.2.686 [id number] [facility] 2021-02-09 10:00:00 2021-02-09 10:56:02 Outpatient R JAMAL SUMMERS [facility] [id number] [facility] 2021-02-09 10:00:00 2021-02-09 10:56:02 Office Visit Jamal Summers [facility] 1.2.840.114 350.1.13.10 4.2.7.2.686 [id number] [facility] 2021-02-09 10:00:00 2021-02-09 10:00:00 Outpatient R JAMAL SUMMERS [facility] [id number] [facility] 2021-02-09 00:00:00 2021-02-09 00:00:00 Orders Only Doctor Unassigned, [place] [facility] 1.2.840.114 350.1.13.10 4.2.7.2.686 [id number] [facility] 2021-02-02 00:00:00 2021-02-02 00:00:00 Outpatient R RADIOLOGY [facility] [id number] [facility] 2021-02-01 09:00:00 2021-02-01 09:00:00 Outpatient R JAMAL SUMMERS [facility] [id number] [facility] 2021-01-18 00:00:00 2021-01-18 00:00:00 Orders Only Doctor Unassigned, [place] [facility] 1.2.840.114 350.1.13.10 4.2.7.2.686 [id number] [facility] 2021-01-07 00:00:00 2021-01-07 00:00:00 Orders Only Doctor Unassigned, [place] [facility] 1.2.840.114 350.1.13.10 4.2.7.2.686 [id number] [facility] 2021-01-05 00:00:00 2021-01-05 00:00:00 OFFICE VISIT ESTAB PT LEVEL 4 STLMLC STLMLC [id number] [facility] 2020-12-10 00:00:00 2020-12-10 00:00:00 (WEB) STLMLC STLMLC [id number] [facility] 2020-12-10 00:00:00 2020-12-10 00:00:00 (TEL) STLMLC STLMLC [id number] [facility] 2020-12-08 00:00:00 2020-12-08 00:00:00 OFFICE VISIT NEW PT LEVEL 4 STLMLC STLMLC [id number] [facility] 2020-11-24 15:31:13 2020-11-24 16:14:07 Office Visit Melissa Lazaro [facility] 1.2.840.114 350.1.13.10 4.2.7.2.686 [id number] [facility] 2020-11-24 15:30:00 2020-11-24 15:30:00 Outpatient MELISSA RUELAS [facility] [id number] [facility] 2020-10-21 14:00:00 2020-10-21 14:00:00 Outpatient JAMAL ORTIZ [facility] [id number] [facility] 2020-10-21 14:00:00 2020-10-21 14:00:00 Outpatient R RENU CLEMENTE [facility] [id number] [facility] 2020-10-19 14:57:20 2020-10-19 16:10:38 Office Visit Renu Clemente [facility] 1.2.840.114 350.1.13.10 4.2.7.2.686 [id number] [facility] 2020-10-19 15:00:00 2020-10-19 15:00:00 Outpatient R LORETTARENU SCHMITZ [facility] [id number] [facility] 2020-10-19 00:00:00 2020-10-19 00:00:00 Orders Only Doctor Unassigned, [place] [facility] 1.2.840.114 350.1.13.10 4.2.7.2.686 [id number] [facility] 2020-10-14 14:55:53 2020-10-14 16:37:55 Office Visit Renu Clemnete [facility] 1.2.840.114 350.1.13.10 4.2.7.2.686 [id number] [facility] 2020-10-14 15:00:00 2020-10-14 15:00:00 Outpatient R LORETTARENU SCHMITZ [facility] [id number] [facility] 2020-10-01 14:20:00 2020-10-01 14:20:00 Outpatient ANGELLA PEREZLLOYD [facility] [id number] [facility] 2020-09-13 13:20:00 2020-09-13 13:20:00 Outpatient ANGELLA PEREZLLOYD [facility] [id number] [facility] 2020-09-10 00:00:00 2020-09-10 00:00:00 Telephone Jamal Summers [facility] 1.2.840.114 350.1.13.10 4.2.7.2.686 [id number] [facility] 2020-08-20 00:00:00 2020-08-20 00:00:00 Telephone Jennifer Billingsley [facility] 1.2.840.114 350.1.13.10 4.2.7.2.686 [id number] [facility] 2020-07-22 15:42:00 2020-07-22 17:56:00 Emergency Haily Aguilar [facility] 1.2.840.114 350.1.13.10 4.2.7.2.686 [id number] [facility] 2020-07-22 15:42:00 2020-07-22 17:56:00 Emergency X ИРИНА AGUILARANNE [facility] ERT [id number] [facility] 2020-07-22 00:00:00 2020-07-22 00:00:00 Telephone Jennifer Billingsley [facility] 1.2.840.114 350.1.13.10 4.2.7.2.686 [id number] [facility] 2020-06-17 11:15:00 2020-06-17 11:15:00 Outpatient R JENNIFER BILLINGSLEY [facility] [id number] [facility] 2020-06-10 00:00:00 2020-06-10 00:00:00 Patient Secure Msg Doctor Unassigned, [place] [facility] 1.2.840.114 350.1.13.10 4.2.7.2.686 [id number] [facility] 2020-06-03 08:49:35 2020-06-03 09:40:33 Routine Visit Billingsley, Jennifer [facility] 1.840.114 350.1.13.10 4.2.7.2.686 [id number] [facility] 2020-06-03 08:45:00 2020-06-03 08:45:00 Outpatient R JENNIFER BILLINGSLEY [facility] [id number] [facility] 2020-05-28 19:42:00 2020-05-29 00:00:00 Emergency Aguilar, Haily Jensen, Freya S [facility] 1.20.114 350.1.13.10 4.2.7.2.686 [id number] [facility] 2020-05-24 05:32:00 2020-05-25 16:05:00 Hospital Encounter Jennifer Billingsley [facility] 1.0.114 350.1.13.10 4.2.7.2.686 [id number] [facility] 2020-05-24 07:30:00 2020-05-24 07:30:00 Outpatient R JENNIFER BILLINGSLEY [facility]ERT [id number] [facility] 2020-05-24 00:00:00 2020-05-24 00:00:00 Orders Only Doctor Unassigned, [place] [facility] 1.2840.114 350.1.13.10 4.2.7.2.686 [id number] [facility] 2020-05-20 15:53:08 2020-05-20 16:08:08 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 Visit Pob, Adc Lab Main Jennifer Billingsley [facility] Building 1.2.114 350.1.13.10 4.2.7.2.686 [id number] [facility] 2020-05-20 14:07:19 2020-05-20 15:16:40 Routine Visit Room, Adc Wh Nst Jennifer Billingsley [facility] 1.2.840.114 350.1.13.10 4.2.7.2.686 [id number] [facility] 2020-05-20 14:00:00 2020-05-20 14:00:00 Outpatient R [facility] [id number] [facility] 2020-05-18 00:00:00 2020-05-18 00:00:00 Patient Outreach Liu Karltish Forbes [facility] 1.2.840.114 350.1.13.10 4.2.7.2.686 [id number] [facility] 2020-05-17 13:04:57 2020-05-17 14:14:31 Routine Visit Room, [facility] 1.2.840.114 350.1.13.10 4.2.7.2.686 [id number] [facility] 2020-05-17 13:00:00 2020-05-17 13:00:00 Outpatient R [facility] [id number] [facility] 2020-05-13 11:11:26 2020-05-13 12:46:07 Routine Visit Room, [facility] 1.2.840.114 350.1.13.10 4.2.7.2.686 [id number] [facility] 2020-05-13 11:00:00 2020-05-13 11:00:00 Outpatient R [facility] [id number] [facility] 2020-05-07 14:02:50 2020-05-07 14:38:06 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 Visit 1, [facility] Room Anamaria Costello [facility] [employer] DES[facility] 1.2.840.114 350.1.13.10 4.2.7.2.686 [id number] [facility] 2020-05-07 14:00:00 2020-05-07 14:00:00 Outpatient P [facility] [id number] [facility] 2020-05-06 14:00:00 2020-05-06 14:00:00 Outpatient R [facility] [id number] [facility] 2020-05-03 14:00:00 2020-05-03 14:00:00 Outpatient R [facility] [id number] [facility] 2020-04-29 13:55:20 2020-04-29 15:23:23 Routine Visit Room, Adc Nst M[facility] 1.2.840.114 350.1.13.10 4.2.7.2.686 [id number] [facility] 2020-04-29 14:00:00 2020-04-29 14:00:00 Outpatient R [facility] [id number] [facility] [facility] 00:00:00 2020-04-27 00:00:00 Patient Secure Msg [facility] 1.2.840.114 350.1.13.10 4.2.7.2.686 [id number] [facility] 2020-04-26 14:00:00 2020-04-26 14:00:00 Outpatient R [facility] [id number] [facility] 2020-04-23 13:51:59 2020-04-23 16:42:46 [facility] 1.2.840.114 350.1.13.10 4.2.7.2.686 [id number] [facility] 2020-04-23 13:45:00 2020-04-23 13:45:00 Outpatient R RENU CLEMENTE [facility] [id number] [facility] 2020-04-23 00:00:00 2020-04-23 00:00:00 Telephone [facility] 1..840.114 350.1.13.10 4.2.7.2.686 [id number] [facility] 2020-04-22 14:00:00 2020-04-22 14:00:00 Outpatient R [facility] [id number] [facility] 2020-04-20 15:49:19 2020-04-20 16:55:56 Routine Visit Jennifer Billingsley [facility] Building 1..840.114 350.1.13.10 4.2.7.2.686 [id number] [facility] 2020-04-20 15:45:00 2020-04-20 15:45:00 Outpatient R JENNIFER BILLINGSLEY [facility] [id number] [facility] 2020-04-13 14:45:00 2020-04-13 14:45:00 Outpatient R NATALIE RODASN [facility] [id number] [facility] 2020-03-30 14:30:00 2020-03-30 15:56:45 Outpatient R NATALIE RODASN [facility] [id number] [facility] 2020-03-24 08:14:13 2020-03-24 08:29:13 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 Visit 2, Adc Lab Natalie Rodasn [facility] Building 1..840.114 350.1.13.10 4.2.7.2.686 [id number] [facility] 2020-03-24 08:00:00 2020-03-24 08:00:00 Outpatient R NATALIE RODASN [facility] [id number] [facility] 2020-03-19 00:00:00 2020-03-19 00:00:[address] [facility] Building 1.2840.114 350.1.13.10 4.2.7.2.686 [id number] [facility] 2020-03-18 12:53:53 2020-03-18 13:38:42 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 Visit 2, [facility] Room Chirag Wolf [facility] 1.2840.114 350.1.13.10 4.2.7.2.686 [id number] [facility] 2020-03-18 13:00:00 2020-03-18 13:00:00 Outpatient P [facility] [id number] [facility] 2020-03-17 14:30:00 2020-03-17 14:30:00 Outpatient R EDITH RODAS [facility] [id number] [facility] 2020-03-17 00:00:00 2020-03-17 00:00:00 Case Management Melissa Lazaro [facility] 1.2840.114 350.1.13.10 4.2.7.2.686 [id number] [facility] 2020-03-16 09:01:43 2020-03-16 09:16:43 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 Visit 2, Adc Lab Jamal Summers [facility] Building 1.2840.114 350.1.13.10 4.2.7.2.686 [id number] [facility] 2020-03-16 08:06:46 2020-03-16 09:06:46 Laboratory Only Pc, Adc Echo Room 1 - Jamal Summers K.HAbelino [facility] Building 1.2840.114 350.1.13.10 4.2.7.2.686 [id number] [facility] 2020-03-16 09:00:00 2020-03-16 09:00:00 Outpatient R JAMAL SUMMERS [facility] [id number] [facility] 2020-03-16 08:07:15 2020-03-16 08:37:15 Nurse Visit Visit, [facility] Nurse Jamal uSmmers [facility] 1..840.114 350.1.13.10 4.2.7.2.686 [id number] [facility] 2020-03-11 16:30:00 2020-03-11 16:30:00 Outpatient R [facility] [id number] [facility] 2020-03-08 16:00:00 2020-03-08 16:00:00 Outpatient R ALVINA LEE [facility] [id number] [facility] 2020-03-04 13:59:57 2020-03-04 14:38:15 Office Visit Jamal Summers [facility] 1..840.114 350.1.13.10 4.2.7.2.686 [id number] [facility] 2020-03-04 14:00:00 2020-03-04 14:00:00 Outpatient R JAMAL SUMMERS [facility] [id number] [facility] 2020-03-02 09:00:00 2020-03-02 09:00:00 Outpatient R EDITH RODAS [facility] [id number] [facility] 2020-02-17 07:52:39 2020-02-17 08:55:30 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 [facility] 1..840.114 350.1.13.10 4.2.7.2.686 [id number] 2020-02-17 07:52:39 2020-02-17 08:55:30 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 Visit Ultrasound, Alec Justin [facility] [employer] DESIGNER [facility] 1.114 350.1.13.10 4.2.7.2.686 [id number] [facility] 2020-02-17 08:00:00 2020-02-17 08:00:00 Outpatient P [facility] [id number] [facility] 2020-02-12 16:15:00 2020-02-12 16:15:00 [facility] [id number] [facility] 2020-02-12 14:44:26 2020-02-12 14:59:26 Routine Visit Melissa Lazaro [facility] 1.114 350.1.13.10 4.2.7.2.686 [id number] 134 [id number] 2020-02-12 14:44:26 2020-02-12 14:59:26 [facility] 1.114 350.1.13.10 4.2.7.2.686 [id number] 134 [id number] [facility] 2020-02-10 13:15:00 2020-02-10 13:15:00 Outpatient R JENNIFER BILLINGSLEY [facility] [id number] [facility] 2020-02-02 17:06:00 2020-02-02 19:29:00 Emergency Deidra Monroe [facility] 1.114 350.1.13.10 4.2.7.2.686 [id number] [facility] 2020-02-02 00:00:00 2020-02-02 00:00:00 Orders Only Doctor Unassigned, [place] [facility] 1.114 350.1.13.10 4.2.7.2.686 [id number] [facility] 2020-02-02 00:00:00 2020-02-02 00:00:00 Telephone Jennifer Billingsley [facility] Building 1.114 350.1.13.10 4.2.7.2.686 [id number] [facility] 2020-01-20 12:46:03 2020-01-20 14:01:03 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 [facility] 2[facility] Rony Menon Dwain [facility] [employer] DESIGNER [facility] 1.114 350.1.13.10 4.2.7.2.686 [id number] [facility] 2020-01-20 11:00:00 2020-01-20 11:00:00 Outpatient R RONY MENON [facility] [id number] [facility] 2020-01-13 16:15:00 2020-01-13 16:15:00 Outpatient R MELISSA LAZARO [facility] [id number] [facility] 2020-01-13 11:26:32 2020-01-13 11:41:32 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 Visit 2, Adc Lab Iveth Melissa [facility] Building 1.114 350.1.13.10 4.2.7.2.686 [id number] [facility] 2020-01-13 10:34:40 2020-01-13 11:20:34 Routine Visit Melissa Lazaro [facility] Building 1.114 350.1.13.10 4.2.7.2.686 [id number] [facility] 2020-01-13 00:00:00 2020-01-13 00:00:00 Orders Only Doctor Unassigned, [place] [facility] 1.114 350.1.13.10 4.2.7.2.686 [id number] [facility] 2020-01-08 00:00:00 2020-01-08 00:00:00 Case Management [facility] 1.2.840.114 350.1.13.10 4.2.7.2.686 [id number] [facility] 2020-01-08 00:00:00 2020-01-08 00:00:00 Telephone Jennifer Billingsley [facility] Building 1.2.840.114 350.1.13.10 4.2.7.2.686 [id number] 134 [id number] [facility] 2020-01-02 00:00:00 2020-01-02 00:00:00 Telephone Jennifer Billingsley [facility] Building 1.2.840.114 350.1.13.10 4.2.7.2.686 [id number] 134 [id number] [facility] 2019 15:00:00 2019 15:00:00 Outpatient R IVETH MELISSA [facility] [id number] [facility] 2019-12-23 09:07:03 2019-12-23 09:22:03 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7.2.686 [id number] [facility] 2019-12-22 00:00:00 2019-12-22 00:00:[address] [facility] Building 1.2.840.114 350.1.13.10 4.2.7.2.686 [id number] [facility] 2019-12-21 00:00:00 2019-12-21 00:00:00 Case Management Jennifer Billingsley [facility] Building 1.2.840.114 350.1.13.10 4.2.7.2.686 [id number] [facility] 2019-12-18 16:16:44 2019-12-18 17:44:49 Routine Visit Jennifer Billingsley Renu Lal [facility] Building 1.2.840.114 350.1.13.10 4.2.7.2.686 [id number] [facility] 2019-12-18 16:15:00 2019-12-18 16:15:00 Outpatient R RENU CLEMENTE [facility] [id number] [facility] 2019-12-03 11:00:00 2019-12-03 11:00:00 Outpatient R [facility] [id number] [facility] 2019-12-02 13:00:00 2019-12-02 13:00:00 Outpatient R JENNIFER BILLINGSLEY [facility] [id number] [facility] 2019-11-27 00:00:00 2019-11-27 00:00:00 Case Management Melissa Lazaro [facility] Building 1.2.840.114 350.1.13.10 4.2.7.2.686 [id number] [facility] 2019-11-27 00:00:00 2019-11-27 00:00:00 Telephone [facility] 1.2.840.114 350.1.13.10 4.2.7.2.686 [id number] 134 [id number] [facility] 2019-11-26 15:33:59 2019-11-26 16:52:46 Routine Visit Jennifer Billingsley [facility] Building 1.2840.114 350.1.13.10 4.2.7.2.686 [id number] [facility] 2019-11-26 15:45:00 2019-11-26 15:45:00 Outpatient R JENNIFER BILLINGSLEY [facility] [id number] [facility] 2019-11-24 00:00:00 2019-11-24 00:00:00 Patient Secure Msg Jennifer Billingsley [facility] BUILDING 1.2.840.114 350.1.13.10 4.2.7.2.686 [id number] 134 [id number] [facility] 2019-11-17 00:00:00 2019-11-17 00:00:00 Patient Secure Msg Doctor Unassigned, [place] [facility] 1.2840.114 350.1.13.10 4.2.7.2.686 [id number] [facility] 2019-11-10 12:35:39 2019-11-10 12:50:39 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 Visit Pob, Adc Lab Main Jennifer Billingsley [facility] Building 1.2.840.114 350.1.13.10 4.2.7.2.686 [id number] [facility] 2019-11-10 12:30:00 2019-11-10 12:30:00 Outpatient R JENNIFER BILLINGSLEY [facility] [id number] [facility] 2019-11-04 00:00:00 2019-11-04 00:00:00 Telephone [facility] 1.284.114 350.1.13.10 4.2.7.2.686 [id number] [facility] 2019-10-28 15:59:10 2019-10-28 17:00:11 Routine Visit Jennifer Billingsley [facility] Building 1.2840.114 350.1.13.10 4.2.7.2.686 [id number] 134 [id number] [facility] 2019-10-28 16:00:00 2019-10-28 16:00:00 [id number] 2019-10-28 00:00:00 2019-10-28 00:00:00 Orders Only Doctor Unassigned, [place] [facility] 1.2840.114 350.1.13.10 4.2.7.2.686 [id number] [facility] 2019-10-15 00:00:00 2019-10-15 00:00:00 Case Management Iveth Melissa [facility] Building 1.284.114 350.1.13.10 4.2.7.2.686 [id number] 134 [id number] [facility] 2019-10-15 00:00:00 2019-10-15 00:00:00 Telephone Jennifer Billingsley [facility] PLASTIC PARTS DESIGNER [facility] 1.2.114 350.1.13.10 4.2.7.2.686 [id number] [facility] 2019-10-14 13:56:31 2019-10-14 15:04:50 Initial Visit Jennifer Billingsley [facility] Building 1.2.840.114 350.1.13.10 4.2.7.2.686 [id number] [facility] 2019-10-14 14:00:00 2019-10-14 14:00:00 Outpatient R JENNIFER BILLINGSLEY [facility] [id number] [facility] 2019-10-14 00:00:00 2019-10-14 00:00:00 Orders Only Doctor Unassigned, [place] [facility] 1.2840.114 350.1.13.10 4.2.7.2.686 [id number] [id number] [facility] 2019-05-01 14:21:52 2019-05-01 15:13:35 Office Visit [facility] 1.840.114 350.1.13.10 4.2.7.2.686 [id number] [facility] 2019-05-01 14:30:00 2019-05-01 14:30:00 Outpatient [facility] [id number] [facility] 2019-05-01 00:00:00 2019-05-01 00:00:00 Orders Only Doctor Unassigned, [place] [facility] 1.2840.114 350.1.13.10 4.2.7.2.686 [id number] [facility] 2019-03-04 15:15:00 2019-03-04 16:43:51 Outpatient R GHANSHYAM HUFFMAN [facility] [id number] [facility] Results Test Description Test Time Test Comments Results Result Co mments Source [id number] 06:30:28* Test Item Value Reference Range Interpretation Comme nts TESTOSTERONE (test code = 2830) 25 NG/DL <=55 NOTE: TOTAL TESTOSTERONE ASSAY SENSITIVITY IS 12 NG/DL. TO DETERMINE NORMAL VS. SUBNORMAL TESTOSTERONE IN CHILDREN AND WOMEN, CONSIDER TESTING WITH ULTRASENSITIVE TESTOSTERONE. [id number] 06:29:50* Test Item Value Reference Range Interpretation Comme nts MAGNESIUM (test code = 2226) 2.1 MG/DL 1.6-2.6 UNLESS OTHERWISE INDICATED, ALL TESTING PERFORMED AT [facility] [address] [place] [address] FOREST PATROLMAN: BEENA CHAUDHARI M.D. CLIA NUMBER [id number] [facility] [place]. [id number] FSH + LH [id number] 06:29:41* Test Item Value Reference Range Interpretation Comme nts FOLLICLE STIM HORMONE (test code = 2700) 6.4 IU/L SEE BELOW EXPEC MARJORIE VALUES FOR FSH FOR FEMALES >17 YEARS FOLLICULAR 3.5-12.5 IU/L MID-CYCLE PEAK 4.7-21.5 IU/L LUTEAL PHASE 1.7-7.7 IU/L POSTMENOPAUSAL 25.8-134.8 IU/L LUTEINIZING HORMONE (test code = 2776) 6.4 IU/L SEE BELOW EXPEC MARJORIE VALUES FOR LH FOR FEMALES >17 YEARS MALES FEMALES >=18 YEARS 1.8-8.6 IU/L FOLLICULAR 2.4-12.6 IU/L MID-CYCLE PEAK 14.0-95.6 IU/L LUTEAL PHASE 1.0-11.4 IU/L POSTMENOPAUSAL 7.7-58.5 IU/L TSH + FREE T4 [id number] 06:29:41* Test Item Value Reference Range Interpretation Comme [facility] TSH, THIRD GENERATION (test code = 2821) 1.180 UIU/ML 0.400-4.100 FREE T4 (THYROXINE) (test co de = 2823) 1.49 NG/DL 0.80-1.90 [id number] 06:29:41* Test Item Value Reference Range Interpretation Comme nts FERRITIN (test code = 2075) 31 NG/ML 13-200 [id number] 06:29:41* Test Item Value Reference Range Interpretation Comme nts ESTRADIOL (test code = 2505) 33.6 PG/ML SEE BELOW EXPECTED VALUES FOR ESTRADIOL FOR FEMALES >=18 YEARS FOLLICULAR . . . . . . . . . . . . . PG/ML 12.4-233.0 OVULATION. . . . . . . . . . . . . . PG/ML 41.0-398.0 LUTEAL PHASE . . . . . . . . . . . . PG/ML 22.3-341.0 POSTMENOPAUSAL SUPPLEMENTED/NON-SUPP . PG/ML <138.0/<20.0 NOTE: TO DETERMINE NORMAL VS. SUBNORMAL ESTRADIOL IN POSTMENOPAUSAL FEMALES, CONSIDER ULTRASENSITIVE ESTRADIOL ([facility] ORDER CODE 5678). METHODOLOGY IS KEVIN FRANCES ELECTROCHEMILUMINESCENT IMMUNOASSAY WITH A LIMIT OF DETECTION OF 17 PG/ML. [id number] 06:29:41* Test Item Value Reference Range Interpretation Comme [facility] PROGESTERONE (test code = 2790) 0.36 NG/ML SEE BELOW EXPECTED VALUES FOR PROGESTERONE MALE . . . . . . . . . . . . . . . . NG/ML <0.20 FEMALE FOLLICULAR PHASE . . . . . . . . . NG/ML <0.90 OVULATION . . . . . . . . . . . . NG/ML <12.00 LUTEAL PHASE . . . . . . . . . . . NG/ML 1.83-23.90 POSTMENOPAUSAL . . . . . . . . . . NG/ML <0.20 1ST TRIMESTER. . . . . . . . . . . NG/ML 11.00-44.30 2ND TRIMESTER. . . . . . . . . . . NG/ML 25.40-83.30 3RD TRIMESTER. . . . . . . . . . . NG/ML 58.70-214.00 LIPID [id number] 06:18:49* Test Item Value Reference Range Interpretation Comme nts CHOLESTEROL (test code = 2210) 141 MG/DL <200 TRIGLYCERIDES (test code = 2232) 74 MG/DL <150 HDL CHOLESTEROL (test code = 2220) 40 MG/DL >39 CALC LDL CHOL (test code = 2237) 85 MG/DL <100 NOTE: CALCULATED LDL IS BASED ON LOUIE-MEJIA METHOD WHICHINCLUDES ADJUSTABLE TRIGLYCERIDE:VLDL CHOLESTEROL RATIO.THIS FACTOR VARIES BY MEASURED TRIGLYCERIDE AND NON-HDLCHOLESTEROL CONCENTRATIONS WITH INCREASED CALCULATED LDL SEENIN HIGHER TRIGLYCERIDE OR LOWER NON-HDL SPECIMENS. FOR MOREINFORMATION, SEE CLIENT ANNOUNCEMENT AT [email or web address] RATIO LDL/HDL (test code = 2238) 2.13 RATIO <3.22 HEMOGLOBIN [id number] 02:44:23* Test Item Value Reference Range Interpretation Comme nts HEMOGLOBIN A1c (test code = 23747) 5.5 % 4.2-5.6 CBC W/AUTO DIFF WITH [id number] 01:48:15* Test Item Value Reference Range Interpretation Comme nts WBC (test code = 1001) 8.5 K/UL 3.5-11.0 RBC (test code = 1002) 4.14 M/UL 3.80-5.40 HEMOGLOBIN (test code = 1003) 11.3 G/DL 11.5-15.5 L HEMATOCRIT (test code = 1004) 34.5 % 34.0-45.0 MCV (test code = 1005) 83.3 fL 80.0-99.0 MCH (test code = 1006) 27.3 PG 25.0-33.0 MCHC (test code = 1007) 32.8 G/DL 31.0-36.0 RDW (test code = 1038) 13.1 % 11.5-15.0 NEUTROPHILS (test code = 1008) 62.3 % LYMPHOCYTES (test code = 1010) 29.9 % MONOCYTES (test code = 1011) 6.1 % EOSINOPHILS (test code = 1012) 1.3 % BASOPHILS (test code = 1013) 0.2 % IMMATURE GRANULOCYTES (test code = 1036) 0.2 % NUCLEATED RBCS (test code = 1065) 0.0 /100 WBC'S See_Comment [Automated [employer] ge] The system which generated this result transmitted reference range: 0.0. The reference range was not used to interpret this result as normal/abnormal. PLATELET COUNT (test code = 1015) 316 K/UL 130-400 ABSOLUTE NEUTROPHILS (test code = 1066) 5.26 K/UL 1.50-7.50 ABSOLUTE LYMPHOCYTES (test code = 1067) 2.53 K/UL 1.00-4.00 ABSOLUTE MONOCYTES (test code = 1068) 0.52 K/UL 0.20-1.00 ABSOLUTE EOSINOPHILS (test code = 1040) 0.11 K/UL 0.00-0.50 ABSOLUTE BASOPHILS (test code = 1069) 0.02 K/UL 0.00-0.20 ABS IMMATURE GRANULOCYTES (test code = 1020) 0.02 K/UL 0.00-0.10 ABS NUCLEATED RBCS (test code = 89843) 0.00 K/UL 0.00-0.11 SCANNED LAB [id number] 20:06:47Ordered by an unspecified provider. [facility] [id number] 20:06:47Ordered by an unspecified provider.[facility] [id number] 15:10:19* Test Item Value Reference Range Interpretation Comme nts KATHLEEN SPECIES (test code = 15530) NEGATIVE NEGATIVE G. VAGINALIS (test code = 75120) POSITIVE NEGATIVE A T. VAGINALIS (test code = ) NEGATIVE NEGATIVE Note: The EzFlop - A First of Its Kind Flip Flop VPIII Microbial Identification Testis a DNA probe test intended for use in the detectionand identification of Kathleen species, Gardnerellavaginalis and Trichomonas vaginalis nucleic acid. UNLESS OTHERWISE INDICATED, ALL TESTING PERFORMED AT [facility] [address] [place] [address] FOREST PATROLMAN: BEENA CHAUDHARI M.D. CLIA NUMBER [id number] [facility] [place]. [id number] HALEY (ANTI-NUCLEAR AB) WITH REFLEX [id number] 00:47:18* Test Item Value Reference Range Interpretation Comme nts ANTI-NUCLEAR ANTIBODIES (test code = 3506) NEGATIVE NEGATIVE Methodology is I ndirect Immunofluorescent Assay (IFA) with a titering system using [id number] cells (Hep2 cells transfected with SS-A/Ro). HALEY PATTERN (REPORTED TITER) (test code = 69349) SEE BELOW HOMOGENEOUS (test code = 92080) NEGATIVE TITER NEGATIVE SPECKLED (test code = 176288) NEGATIVE TITER NEGATIVE DENSE FINE SPECKLED (test code = 76552) NEGATIVE TITER NEGATIVE CENTROMERE (test code = 734284) NEGATIVE TITER NEGATIVE COARSE SPECKLED (test code = 258147) NEGATIVE TITER NEGATIVE DISCRETE NUCLEAR DOTS (test code = 703570) NEGATIVE TITER NEGATIVE NUCLEOLAR (test code = 959470) NEGATIVE TITER NEGATIVE NUCLEAR MEMBRANE (test code = 738998) NEGATIVE TITER NEGATIVE CYTO. RETICULAR (ELOY) (test code = 243537) NEGATIVE NEGATIVE COMMENTS (test code = 503583) NONE METHOD (test code = 02785) (NOTE) TESTING PERFORME D BY [employer] IFA PLATFORM.THE METHOD INCLUDES A SCREEN THRESHOLD OF 1:80, DIGITIZED AND COMPUTER ALGORITHM-ASSISTED INTERPRETATION OF TITERS AND DIGITAL PATTERNS, AND HEp-2 CELL LINE SUBSTRATE. ADDITIONAL UNUSUAL PATTERNS WILL BE GIVEN COMMENTS.FOR MORE INFORMATION, SEE [email or web address] UNLESS OTHERWISE INDICATED, ALL TESTING PERFORMED AT [facility] [address] [place] [address] FOREST PATROLMAN: BEENA CHAUDHARI M.D. [place] NUMBER [id number] [facility] [place]. [id number] IRON, [id number] 13:50:24* Test Item Value Reference Range Interpretation Comme nts IRON, SERUM (test code = 2222) 65 UG/DL 37-145 VITAMIN [id number] 13:43:04* Test Item Value Reference Range Interpretation Comme nts VITAMIN B-12 (test code = 2840) 411 PG/ML 200-950 VITAMIN D, 25 [id number] 12:09:05* Test Item Value Reference Range Interpretation Comme [facility] VITAMIN D, 25 OH (test code = 4958) 25 NG/ML SEE BELOW L EFFECTIVE 10/2022, PLEASE NOTE NEW METHODOLOGY IS ELECTROCHEMILUMINESCENCE BINDING ASSAY. NOTE: 25-HYDROXYVITAMIN D ASSAY INCLUDES 25-HYDROXYVITAMIN D2 AND D3. INTERPRETIVE RANGES PEDIATRIC (<17 YEARS) . . . . . . . . . . . NG/ML 20-100ADULT: INSUFFICIENT . . . . . . . . . . . . . . NG/ML <20 SUBOPTIMAL . . . . . . . . . . . . . . . NG/ML 20-29 OPTIMAL . . . . . . . . . . . . . . . . . NG/ML 30-100 FOLATE, [id number] 11:30:06* Test Item Value Reference Range Interpretation Comme nts HEMATOCRIT (test code = 1004) 35.5 % 34.0-45.0 FOLATE, RBC (test code = 2690) 1121 NG/ML 499-1504 INTERPRETI VE RANGES DEFICIENCY . . . . . . . . . . . . . . . NG/ML <=150 POSSIBLE DEFICIENCY. . . . . . . . . . . NG/ML 151-498 SUFFICIENT . . . . . . . . . . . . . . . NG/ML 499-1504 EXCESS . . . . . . . . . . . . . . . . . NG/ML >1504 AUTOIMMUNE ANTIBODY [id number] 04:07:37* Test Item Value Reference Range Interpretation Comme nts SJOGREN'S SS-A ANTIBODY (test code = 02066) <0.2 AI <1.0 SJOGREN'S SS-B ANTIBODY (test code = 35485) <0.2 AI <1.0 PASCAL (Sm) ANTIBODY (test code = 61987) <0.2 AI <1.0 SPANISH MOSS PICKER ANTIBODY (test code = 69956) <0.2 AI <1.0 SCL-70 ANTIBODY (test code = 4606) <0.2 AI <1.0 Bhargavi-1 ANTIBODY (test code = 4680) <0.2 AI <1.0 CENTROMERE B ANTIBODY (test code = 4630) <0.2 AI <1.0 CHROMATIN ANTIBODY (test code = 66404) <0.2 AI <1.0 THYROID PEROXIDASE AB (test code = 31699) 10 IU/ML See_Comment EFFECTIVE 2022, NEW REFERENCE RANGE CHANGE ASSOCIATEDWITH CHANGE IN METHODOLOGY.NEW METHODOLOGY IS [employer] ELECTROCHEMILUMESCENCE IMMUNOASSAY(ECLIA). FOR MORE INFORMATION, [email or web address] [Automated message] The system which generated this result transmitted reference range: <=34. The reference range was not used to interpret this result as normal/abnormal. COMPLEMENT C3 (test code = 3509) 146 MG/DL 90-180 COMPLEMENT C4 (test code = 3510) 30 MG/DL 10-40 RHEUMATOID FACTOR, QUANT (test code = 3502) <10 IU/ML <14 RIBOSOMAL P ANTIBODY (test code = 66056) <0.2 AI <1.0 dsDNA ANTIBODY (test code = 4287) <1.0 IU/ML SEE BELOW NEGATIVE . . . . . . . . . . . . . . IU/ML <=4.9 INDETERMINATE. . . . . . . . . . . . IU/ML 5.0-9.0 POSITIVE . . . . . . . . . . . . . . IU/ML >=10.0 CCP IgG (test code = 12295) <0.5 U/ML <3.0 INTERPRETIVE INFORMATION INTERPRETATION RESULT NEGATIVE <3.0 U/ML POSITIVE >=3.0 U/ML COMP. METABOLIC PANEL (27839)2022-07-20 01:51:01* Test Item Value Reference Range Interpretation Comme nts NA (test code = 5009005343) 142 mmol/L 135-145 K (test code = 9615360354) 3.7 mmol/L 3.5-5.0 CL (test code = 8831241659) 105 mmol/L 98-108 CO2 TOTAL (test code = 5505266547) 28 mmol/L 23-31 AGAP (test code = 3495028306) 9 2-16 BUN (test code = 8668094866) 13 mg/dL 7-23 GLUCOSE (test code = 5794022585) 81 mg/dL 70-110 CREATININE (test code = 9191135814) 0.62 mg/dL 0.50-1.04 TOTAL BILI (test code = 3917045208) 0.3 mg/dL 0.1-1.1 CALCIUM (test code = 7710102949) 9.1 mg/dL 8.6-10.6 T PROTEIN (test code = 4729589113) 6.4 g/dL 6.3-8.2 ALBUMIN (test code = 7876233509) 3.8 g/dL 3.5-5.0 ALK PHOS (test code = 6584148916) 91 U/L 34-122 ALTv (test code = 1742-6) 14 U/L 5-35 AST(SGOT) (test code = 9921401434) 14 U/L 13-40 eGFR (test code = 8405101737) 117.3 mL/min/1.73m2 GIACOMO (test code = GIACOMO) Association of Glomerular Filtration Rate (GFR) and Staging of Kidney Disease* + + +- +| GFR (mL/min/1.73 m2) ?| With Kidney Damage ?| ?Without Kidney Damage+ ------+ ----+ ------+| ?>90 ?| ?Stage one ?| ? Normal ?+ -+ + -+| ?60-89 ?| ?Stage two ?| ? Decreased GFR ? + + +- +| ?30-59 ?| ?Stage three ?| ? Stage three ? + + +- +| ?15-29 ?| ?Stage four ? | ? Stage four ?+ -+ + -+| ?<15 (or dialysis) ? ?| ?Stage five ? | ? Stage five ?+ -+ + -+ *Each stage assumes the associated GFR level [...] or urine or abnormalities in imaging tests). [facility]* Test Item Value Reference Range Interpretation Comme nts LIPASE (test code = 6381011014) 51 U/L 0-220 Lab Interpretation (test cod e = 80516-8) [facility] [id number] 01:35:42* Test Item Value Reference Range Interpretation Comme nts WBC (test code = 6690-2) 12.50 See_Comment H [Automated Keelvar] The system which generated this result transmitted reference range: 4.30 - 11.10 10*3/?L. The reference range was not used to interpret this result as normal/abnormal. RBC (test code = 789-8) 4.22 See_Comment [Automated [employer]el[employer]] The system which generated this result transmitted reference range: 3.93 - 5.25 10*6/?L. The reference range was not used to interpret this result as normal/abnormal. HGB (test code = 718-7) 11.2 g/dL 11.6-15.0 L HCT (test code = 4544-3) 35.2 % 35.7-45.2 L MCV (test code = 787-2) 83.4 fL 80.6-95.5 MCH (test code = 785-6) 26.5 pg 25.9-32.8 MCHC (test code = 786-4) 31.8 g/dL 31.6-35.1 RDW-SD (test code = 81052-2) 45.1 fL 39.0-49.9 RDW-CV (test code = 788-0) 14.9 % 12.0-15.5 PLT (test code = 777-3) 298 See_Comment [Automated messa ge] The system which generated this result transmitted reference range: 166 - 358 10*3/?L. The reference range was not used to interpret this result as normal/abnormal. MPV (test code = 81244-3) 10.8 fL 9.5-12.9 NRBC/100 WBC (test code = 6385866580) 0.0 See_Comment [Automated Synqera ssage] The system which generated this result transmitted reference range: 0.0 - 10.0 /100 WBCs. The reference range was not used to interpret this result as normal/abnormal. NRBC x10^3 (test code = 0114226548) See_Comment [Automated messa ge] The system which generated this result transmitted reference range: 10*3/?L. The reference range was not used to interpret this result as normal/abnormal. GRAN MAT (NEUT) % (test code = 770-8) 68.5 % IMM GRAN % (test code = 4626394596) 0.50 % LYMPH % (test code = 736-9) 22.3 % MONO % (test code = 5905-5) 7.9 % EOS % (test code = 713-8) 0.5 % BASO % (test code = 706-2) 0.3 % GRAN MAT x10^3(ANC) (test code = 2254601264) 8.56 10*3/uL 1.88-7.09 H IMM GRAN x10^3 (test code = 9549945974) 0.06 10*3/uL 0.00-0.06 LYMPH x10^3 (test code = 731-0) 2.79 10*3/uL 1.32-3.29 MONO x10^3 (test code = 742-7) 0.99 10*3/uL 0.33-0.92 H EOS x10^3 (test code = 711-2) 0.06 10*3/uL 0.03-0.39 BASO x10^3 (test code = 704-7) 0.04 10*3/uL 0.01-0.07 Lab Interpretation (test code = 19244-8) Abnormal [facility] with [id number] 10:39:26* Test Item Value Reference Range Interpretation Comme nts WBC (test code = 6690-2) 13.00 See_Comment H [Automated messa ge] The system which generated this result transmitted reference range: 4.30 - 11.10 10*3/?L. The reference range was not used to interpret this result as normal/abnormal. RBC (test code = 789-8) 3.28 See_Comment L [Automated messa ge] The system which generated this result transmitted reference range: 3.93 - 5.25 10*6/?L. The reference range was not used to interpret this result as normal/abnormal. HGB (test code = 718-7) 8.5 g/dL 11.6-15.0 L HCT (test code = 4544-3) 27.0 % 35.7-45.2 L MCV (test code = 787-2) 82.3 fL 80.6-95.5 MCH (test code = 785-6) 25.9 pg 25.9-32.8 MCHC (test code = 786-4) 31.5 g/dL 31.6-35.1 L RDW-SD (test code = 04000-9) 41.3 fL 39.0-49.9 RDW-CV (test code = 788-0) 13.9 % 12.0-15.5 PLT (test code = 777-3) 209 See_Comment [Automated messa ge] The system which generated this result transmitted reference range: 166 - 358 10*3/?L. The reference range was not used to interpret this result as normal/abnormal. MPV (test code = 29870-0) 11.7 fL 9.5-12.9 NRBC/100 WBC (test code = 3997394239) 0.0 See_Comment [Automated me ssage] The system which generated this result transmitted reference range: 0.0 - 10.0 /100 WBCs. The reference range was not used to interpret this result as normal/abnormal. NRBC x10^3 (test code = 5607046326) See_Comment [Automated messa ge] The system which generated this result transmitted reference range: 10*3/?L. The reference range was not used to interpret this result as normal/abnormal. GRAN MAT (NEUT) % (test code = 770-8) 68.8 % IMM GRAN % (test code = 5332338966) 0.70 % LYMPH % (test code = 736-9) 21.9 % MONO % (test code = 5905-5) 7.1 % EOS % (test code = 713-8) 1.3 % BASO % (test code = 706-2) 0.2 % GRAN MAT x10^3(ANC) (test code = 4014109458) 8.94 10*3/uL 1.88-7.09 H IMM GRAN x10^3 (test code = 0718132782) 0.09 10*3/uL 0.00-0.06 H LYMPH x10^3 (test code = 731-0) 2.85 10*3/uL 1.32-3.29 MONO x10^3 (test code = 742-7) 0.92 10*3/uL 0.33-0.92 EOS x10^3 (test code = 711-2) 0.17 10*3/uL 0.03-0.39 BASO x10^3 (test code = 704-7) 0.03 10*3/uL 0.01-0.07 Lab Interpretation (test code = 11781-0) Abnormal [facility] with Lsmnuveiaxoa0492-40-71 10:39:26* Test Item Value Reference Range Interpretation Comme nts WBC (test code = 6690-2) 13.00 See_Comment H [Automated messa ge] The system which generated this result transmitted reference range: 4.30 - 11.10 10*3/?L. The reference range was not used to interpret this result as normal/abnormal. RBC (test code = 789-8) 3.28 See_Comment L [Automated messa ge] The system which generated this result transmitted reference range: 3.93 - 5.25 10*6/?L. The reference range was not used to interpret this result as normal/abnormal. HGB (test code = 718-7) 8.5 g/dL 11.6-15.0 L HCT (test code = 4544-3) 27.0 % 35.7-45.2 L MCV (test code = 787-2) 82.3 fL 80.6-95.5 MCH (test code = 785-6) 25.9 pg 25.9-32.8 MCHC (test code = 786-4) 31.5 g/dL 31.6-35.1 L RDW-SD (test code = 84119-3) 41.3 fL 39.0-49.9 RDW-CV (test code = 788-0) 13.9 % 12.0-15.5 PLT (test code = 777-3) 209 See_Comment [Automated messa ge] The system which generated this result transmitted reference range: 166 - 358 10*3/?L. The reference range was not used to interpret this result as normal/abnormal. MPV (test code = 61566-4) 11.7 fL 9.5-12.9 NRBC/100 WBC (test code = 8475925965) 0.0 See_Comment [Automated Synqera ssage] The system which generated this result transmitted reference range: 0.0 - 10.0 /100 WBCs. The reference range was not used to interpret this result as normal/abnormal. NRBC x10^3 (test code = 5585541684) See_Comment [Automated messa ge] The system which generated this result transmitted reference range: 10*3/?L. The reference range was not used to interpret this result as normal/abnormal. GRAN MAT (NEUT) % (test code = 770-8) 68.8 % IMM GRAN % (test code = 9977585449) 0.70 % LYMPH % (test code = 736-9) 21.9 % MONO % (test code = 5905-5) 7.1 % EOS % (test code = 713-8) 1.3 % BASO % (test code = 706-2) 0.2 % GRAN MAT x10^3(ANC) (test code = 8960028586) 8.94 10*3/uL 1.88-7.09 H IMM GRAN x10^3 (test code = 7999457506) 0.09 10*3/uL 0.00-0.06 H LYMPH x10^3 (test code = 731-0) 2.85 10*3/uL 1.32-3.29 MONO x10^3 (test code = 742-7) 0.92 10*3/uL 0.33-0.92 EOS x10^3 (test code = 711-2) 0.17 10*3/uL 0.03-0.39 BASO x10^3 (test code = 704-7) 0.03 10*3/uL 0.01-0.07 Lab Interpretation (test code = 92743-3) Abnormal [facility] OR LYNDSEY ONLY - [id number] 09:09:07* Test Item Value Reference Range Interpretation Comme nts RPR (Qualitative) (test code = 05979-4) Nonreactive Nonreactive Lab Interpretation (test cod e = 07817-4) Normal [facility] OR LYNDSEY ONLY - [id number] 09:09:07* Test Item Value Reference Range Interpretation Comme nts RPR (Qualitative) (test code = 21251-1) Nonreactive Nonreactive Lab Interpretation (test cod e = 91788-3) Normal [facility] B Surface Sqbhorb8162-35-50 16:25:48 * Test Item Value Reference Range Interpretation Comme nts HBsAg Semi-Quantitative (coreen t code = 5195-3) 0.05 Negative [facility] B Surface Ezjarsm1534-08-03 16:25:48 * Test Item Value Reference Range Interpretation Comme nts HBsAg Semi-Quantitative (coreen t code = 5195-3) 0.05 Negative [facility] IMMUNE [id number] 15:41:32* Test Item Value Reference Range Interpretation Comme nts RHIG CANDIDATE? (test code = 5188) No- see comment Patient is not a candidate for RhIg- Patient is Rh Positive.Performed at [facility] Laboratory Services - [facility] Blood [address] [place] [phone] Free: [phone] No. [id number] [facility] (D) IMMUNE [id number] 15:41:32* Test Item Value Reference Range Interpretation Comme nts RHIG CANDIDATE? (test code = 5188) No- see comment Patient is not a candidate for RhIg- Patient is Rh Positive.Performed at [facility] Laboratory Services - [facility] Blood [address] [place] [phone] Free: [phone] No. [id number] [facility]HIV [facility]2 AG-AB WITH [id number] 13:46:31* Test Item Value Reference Range Interpretation Comme nts HIV Semi-quantitative (test code = 32315-1) 0.09 Negative GIACOMO (test code = GIACOMO) Non-reactive for HIV-1 antigen and HIV-1/HIV-2 antibodies. ?No laboratory evidence of HIV infection. ?Repeat in 2-4 weeks if acute HIV infection is suspected. [facility] AG-AB WITH [id number] 13:46:31* Test Item Value Reference Range Interpretation Comme nts HIV Semi-quantitative (test code = 28825-1) 0.09 Negative GIACOMO (test code = GIACOMO) Non-reactive for HIV-1 antigen and HIV-1/HIV-2 antibodies. ?No laboratory evidence of HIV infection. ?Repeat in 2-4 weeks if acute HIV infection is suspected. [facility] with Enkiggjomzcl9095-74-18 12:14:42* Test Item Value Reference Range Interpretation Comme nts WBC (test code = 6690-2) 11.02 See_Comment [Automated messa ge] The system which generated this result transmitted reference range: 4.30 - 11.10 10*3/?L. The reference range was not used to interpret this result as normal/abnormal. RBC (test code = 789-8) 3.61 See_Comment L [Automated messa ge] The system which generated this result transmitted reference range: 3.93 - 5.25 10*6/?L. The reference range was not used to interpret this result as normal/abnormal. HGB (test code = 718-7) 9.4 g/dL 11.6-15.0 L HCT (test code = 4544-3) 29.8 % 35.7-45.2 L MCV (test code = 787-2) 82.5 fL 80.6-95.5 MCH (test code = 785-6) 26.0 pg 25.9-32.8 MCHC (test code = 786-4) 31.5 g/dL 31.6-35.1 L RDW-SD (test code = 27201-7) 40.8 fL 39.0-49.9 RDW-CV (test code = 788-0) 13.9 % 12.0-15.5 PLT (test code = 777-3) 245 See_Comment [Automated Yapp Mediaa ge] The system which generated this result transmitted reference range: 166 - 358 10*3/?L. The reference range was not used to interpret this result as normal/abnormal. MPV (test code = 42793-8) 11.9 fL 9.5-12.9 NRBC/100 WBC (test code = 7097371206) 0.0 See_Comment [Automated Synqera ssage] The system which generated this result transmitted reference range: 0.0 - 10.0 /100 WBCs. The reference range was not used to interpret this result as normal/abnormal. NRBC x10^3 (test code = 3039362239) See_Comment [Automated Yapp Mediaa ge] The system which generated this result transmitted reference range: 10*3/?L. The reference range was not used to interpret this result as normal/abnormal. GRAN MAT (NEUT) % (test code = 770-8) 63.6 % IMM GRAN % (test code = 7446016087) 0.50 % LYMPH % (test code = 736-9) 28.9 % MONO % (test code = 5905-5) 6.0 % EOS % (test code = 713-8) 0.7 % BASO % (test code = 706-2) 0.3 % GRAN MAT x10^3(ANC) (test code = 2140683338) 7.01 10*3/uL 1.88-7.09 IMM GRAN x10^3 (test code = 5640703107) 0.06 10*3/uL 0.00-0.06 LYMPH x10^3 (test code = 731-0) 3.18 10*3/uL 1.32-3.29 MONO x10^3 (test code = 742-7) 0.66 10*3/uL 0.33-0.92 EOS x10^3 (test code = 711-2) 0.08 10*3/uL 0.03-0.39 BASO x10^3 (test code = 704-7) 0.03 10*3/uL 0.01-0.07 Lab Interpretation (test code = 34238-3) Abnormal [facility] with Ghlzjjfknnuu0563-56-16 12:14:42* Test Item Value Reference Range Interpretation Comme nts WBC (test code = 6690-2) 11.02 See_Comment [Automated Yapp Mediaa ge] The system which generated this result transmitted reference range: 4.30 - 11.10 10*3/?L. The reference range was not used to interpret this result as normal/abnormal. RBC (test code = 789-8) 3.61 See_Comment L [Automated messa ge] The system which generated this result transmitted reference range: 3.93 - 5.25 10*6/?L. The reference range was not used to interpret this result as normal/abnormal. HGB (test code = 718-7) 9.4 g/dL 11.6-15.0 L HCT (test code = 4544-3) 29.8 % 35.7-45.2 L MCV (test code = 787-2) 82.5 fL 80.6-95.5 MCH (test code = 785-6) 26.0 pg 25.9-32.8 MCHC (test code = 786-4) 31.5 g/dL 31.6-35.1 L RDW-SD (test code = 91476-3) 40.8 fL 39.0-49.9 RDW-CV (test code = 788-0) 13.9 % 12.0-15.5 PLT (test code = 777-3) 245 See_Comment [Automated Yapp Mediaa ge] The system which generated this result transmitted reference range: 166 - 358 10*3/?L. The reference range was not used to interpret this result as normal/abnormal. MPV (test code = 64866-1) 11.9 fL 9.5-12.9 NRBC/100 WBC (test code = 1668317116) 0.0 See_Comment [Automated me ssage] The system which generated this result transmitted reference range: 0.0 - 10.0 /100 WBCs. The reference range was not used to interpret this result as normal/abnormal. NRBC x10^3 (test code = 1125007138) See_Comment [Automated messa ge] The system which generated this result transmitted reference range: 10*3/?L. The reference range was not used to interpret this result as normal/abnormal. GRAN MAT (NEUT) % (test code = 770-8) 63.6 % IMM GRAN % (test code = 8768894876) 0.50 % LYMPH % (test code = 736-9) 28.9 % MONO % (test code = 5905-5) 6.0 % EOS % (test code = 713-8) 0.7 % BASO % (test code = 706-2) 0.3 % GRAN MAT x10^3(ANC) (test code = 5663641172) 7.01 10*3/uL 1.88-7.09 IMM GRAN x10^3 (test code = 5966886862) 0.06 10*3/uL 0.00-0.06 LYMPH x10^3 (test code = 731-0) 3.18 10*3/uL 1.32-3.29 MONO x10^3 (test code = 742-7) 0.66 10*3/uL 0.33-0.92 EOS x10^3 (test code = 711-2) 0.08 10*3/uL 0.03-0.39 BASO x10^3 (test code = 704-7) 0.03 10*3/uL 0.01-0.07 Lab Interpretation (test code = 47085-8) [facility]CE [id number] 12:12:00 * Test Item Value Reference Range Interpretation Comme nts ABO & RH (test code = 20) O Positive IAT (test code = 1185) Negative [facility] - ONCE [id number] 12:12:00 * Test Item Value Reference Range Interpretation Comme nts ABO & RH (test code = 20) O Positive IAT (test code = 1185) Negative [facility] URINALYSIS W/O SPECIFIC [id number] 19:01:00* Test Item Value Reference Range Interpretation Comme nts POCT PH U (test code = 3254) n/a 5-8 POCT U LEUK EST (test code = 3263) n/a Negative - Negative POCT U NIT (test code = 3262) n/a Negative - Negati ve POCT U PROT (test code = 3259) Negative Negative - Negat fern POCT U GLU (test code = 3256) Normal Negative - Negati ve POCT U KETONE (test code = 3258) n/a Negative - Neg ative POCT U BLD (test code = 3257) n/a Negative - Negati ve [facility] URINALYSIS W/O SPECIFIC [id number] 20:00:00* Test Item Value Reference Range Interpretation Comme nts POCT PH U (test code = 3254) N/A 5-8 POCT U LEUK EST (test code = 3263) N/A Negative - N egative POCT U NIT (test code = 3262) N/A Negative - Negati ve POCT U PROT (test code = 3259) Neg Negative - Negat fern POCT U GLU (test code = 3256) Neg Negative - Negati ve POCT U KETONE (test code = 3258) N/A Negative - Neg ative POCT U BLD (test code = 3257) N/A Negative - Negati ve [facility] URINALYSIS W/O SPECIFIC [id number] 21:46:00* Test Item Value Reference Range Interpretation Comme nts POCT PH U (test code = 3254) n/a 5-8 POCT U LEUK EST (test code = 3263) n/a Negative - N egative POCT U NIT (test code = 3262) n/a Negative - Negati ve POCT U PROT (test code = 3259) neg Negative - Negat fern POCT U GLU (test code = 3256) neg Negative - Negati ve POCT U KETONE (test code = 3258) n/a Negative - Neg ative POCT U BLD (test code = 3257) n/a Negative - Negati ve [facility] W/O SPECIFIC [id number] 21:46:00* Test Item Value Reference Range Interpretation Comme nts POCT PH U (test code = 3254) n/a 5-8 POCT U LEUK EST (test code = 3263) n/a Negative - N egative POCT U NIT (test code = 3262) n/a Negative - Negati ve POCT U PROT (test code = 3259) neg Negative - Negat fern POCT U GLU (test code = 3256) neg Negative - Negati ve POCT U KETONE (test code = 3258) n/a Negative - Neg ative POCT U BLD (test code = 3257) n/a Negative - Negati ve [facility] - ONCE [id number] 23:36:28* Test Item Value Reference Range Interpretation Comme nts ABO & RH (test code = 20) O Positive Performed at [facility] Laboratory [facility] Blood [address] Free: [phone] No. [id number] IAT (test code = 1185) Negative Performed at [facility] Blood [address] Free: [phone] No. [id number] [facility] URINALYSIS W/O SPECIFIC [id number] 19:31:00* Test Item Value Reference Range Interpretation Comme nts POCT PH U (test code = 3254) 7 mg/dl 5-8 POCT U LEUK EST (test code = 3263) 1+ Negative - Negative POCT U NIT (test code = 3262) Negative Negative - Negati ve POCT U PROT (test code = 3259) Negative Negative - Negat fern POCT U GLU (test code = 3256) Normal Negative - Negati ve POCT U KETONE (test code = 3258) Negative Negative - Neg ative POCT U BLD (test code = 3257) Negative Negative - Negati ve [facility]/O SPECIFIC [id number] 22:58:00* Test Item Value Reference Range Interpretation Comme nts POCT PH U (test code = 3254) n/a 5-8 POCT U LEUK EST (test code = 3263) n/a Negative - Negative POCT U NIT (test code = 3262) n/a Negative - Negati ve POCT U PROT (test code = 3259) trace Negative - Negat fern POCT U GLU (test code = 3256) negative Negative - Negati ve POCT U KETONE (test code = 3258) n/a Negative - Neg ative POCT U BLD (test code = 3257) n/a Negative - Negati ve [facility] URINALYSIS W/O SPECIFIC [id number] 19:36:00* Test Item Value Reference Range Interpretation Comme nts POCT PH U (test code = 3254) n/a 5-8 POCT U LEUK EST (test code = 3263) n/a Negative - N egative POCT U NIT (test code = 3262) n/a Negative - Negati ve POCT U PROT (test code = 3259) neg Negative - Negat fern POCT U GLU (test code = 3256) neg Negative - Negati ve POCT U KETONE (test code = 3258) n/a Negative - Neg ative POCT U BLD (test code = 3257) n/a Negative - Negati ve [facility] URINALYSIS W/O SPECIFIC [id number] 19:12:00* Test Item Value Reference Range Interpretation Comme nts POCT PH U (test code = 3254) N/A 5-8 POCT U LEUK EST (test code = 3263) N/A Negative - N egative POCT U NIT (test code = 3262) N/A Negative - Negati ve POCT U PROT (test code = 3259) NEG Negative - Negat fern POCT U GLU (test code = 3256) NEG Negative - Negati ve POCT U KETONE (test code = 3258) N/A Negative - Neg ative POCT U BLD (test code = 3257) N/A Negative - Negati ve [facility] URINALYSIS W/O SPECIFIC [id number] 18:30:00* Test Item Value Reference Range Interpretation Comme nts POCT PH U (test code = 3254) n/a 5-8 POCT U LEUK EST (test code = 3263) n/a Negative - Negative POCT U NIT (test code = 3262) n/a Negative - Negati ve POCT U PROT (test code = 3259) negative Negative - Negat fern POCT U GLU (test code = 3256) negative Negative - Negati ve POCT U KETONE (test code = 3258) n/a Negative - Neg ative POCT U BLD (test code = 3257) n/a Negative - Negati ve [facility]/O SPECIFIC [id number] 19:22:00* Test Item Value Reference Range Interpretation Comme nts POCT PH U (test code = 3254) n/a 5-8 POCT U LEUK EST (test code = 3263) n/a Negative - Negative POCT U NIT (test code = 3262) n/a Negative - Negati ve POCT U PROT (test code = 3259) negative Negative - Negat fern POCT U GLU (test code = 3256) negative Negative - Negati ve POCT U KETONE (test code = 3258) n/a Negative - Neg ative POCT U BLD (test code = 3257) n/a Negative - Negati ve [facility] Notes Date/Time Note Provider Source 2023-07-06 08:30:19 Completed Chart review/Care everywhere/[facility]. [facility]2 immunizations on file were reconciled. Care Everywhere no new medical records obtained at this time for Overdue . Did not send patient a message via [employer] of Overdue Health Maintenance. No future appointments at this time. Insurance on file is currently [facility] is inactive. TMHP-Plan mismatch. Health Maintenance Due Topic Date Due Depression Screening Never done SDOH Financial Resource Strain Never done SDOH Food Insecurity Never done SDOH Transportation Needs Never done INFLUENZA VACCINE (1) 10/27/2022 SARS-CoV-2 (COVID-19) Vaccine ( - 2022- season) Never done Records Update Encounter Health Maintenance Team completed a CareEverywhere search to update records. No patient contact made. De Xiomara F Sorenson, [facility] [phone] [facility] 2023-05-30 15:25:15 Spoke to patient and forwarded Dr Metz's message "MRI reviewed and shows small retention cyst in left cheek sinus, no active sinusitis or sinus problems. These are common and do not need any treatment. Thanks for bringing the MRI." Patient understood and had questions. No further actions needed at this time. Bernie [facility] 2023-05-30 12:36:58 Dialed number on file, no answer. LVM to CB. Bernie Winkler [facility] 2023-05-30 12:16:52 MRI reviewed and shows small retention cyst in left cheek sinus, no active sinusitis or sinus problems. These are common and do not need any treatment. Thanks for bringing the MRI [facility] 2023-05-24 16:18:44 Chandler Raymond is a 27 year old female Received MRI results and CD from [facility] via mail per Dr. Metz's request, will be placing both in her folder. Joselyn Haskins [facility]
[2024-10-25] MEDS ORDERED: ASPIRIN 81 MG CHEWABLE TABLET ONE (13:27)
[2024-10-25] MEDS ORDERED: ONDANSETRON 4 MG/2 ML VIAL ONE (13:38)
[2024-10-25] MEDS ORDERED: NA CHLORIDE 0.9% 1,000 ML ONE ×2 (13:38→14:10)
[2024-10-25 13:47] LABS: Absolute Lymphocytes (CBC) 1.9 K/uL (0.7-4.9); Hematocrit 45.6 % (36.0-45.0); Hemoglobin 15.0 g/dL (12.0-15.0); MCH 26.2 pg (27.0-35.0); MCHC 32.9 g/dL (32.0-36.0); MCV 79.7 fL (80-100); MPV 9.3 fL (7.6-11.3); Nucleated RBC Absolute Count 0.0 (0-0); Nucleated Red Blood Cells % 0.1 % (0-0); RBC Red Blood Cell Count 5.72 M/uL (3.86-4.86); White Blood Count 9.10 thou/uL (4.3-10.9)
[2024-10-25 14:07] LABS: Anion Gap 19.7 mEq/L (5.0-15.0); BUN Blood Urea Nitrogen 5.0 mg/dL (7-18); Glucose Level 113.0 mg/dL (74-106); Magnesium 1.9 mg/dL (1.6-2.4); Potassium 3.7 mEq/L (3.5-5.1); Troponin High Sensitivity 3.5 pg/mL (<58.9)
--- NOTE | 2024-10-25 14:26 | RAD REPORT ---
EXAMINATION: ONE VIEW CHEST XR CLINICAL INDICATION: CHEST PAIN TECHNIQUE: Frontal chest projection is submitted. Examination is limited by patient positioning and t echnique. COMPARISON: 08/24/2022 FINDINGS: The lungs are well inflated and clear. The heart is upper limit of normal in size. No displaced fract ures identified. IMPRESSION: No acute intrathoracic abnormalities.
--- NOTE | 2024-10-25 15:39 | RAD REPORT ---
EXAMINATION: CTA CHEST PE CLINICAL INDICATION: CHEST PAIN TECHNIQUE: This examination was performed according to an angiographic protocol with 3D post-processi ng. This involves 3D reconstructions, MIPs, volume rendered images and/or shaded surface rendering. One or more of the following dose reduction techniques were used: Automated exposure control, adjustm ent of the mA and/or kV according to patient size, and/or iterative reconstruction. Unless otherwise specified, incidental findings do not require dedicated imaging follow-up. COMPARISON: No prior exam. FINDINGS: PULMONARY ARTERIES: Normal caliber. No evidence of pulmonary emboli to the subsegmental level. THORACIC AORTA: Normal caliber and configuration. LUNGS: No evidence of airspace or interstitial process. No nodules. PLEURA: No pleural effusion. No pneumothorax. MEDIASTINUM AND LYMPH NODES: No mediastinal mass or fluid collection. Normal size mediastinal, hilar, and axillary lymph nodes. OSSEOUS STRUCTURES AND CHEST WALL: Intact. UPPER ABDOMEN: No significant abnormalities. IMPRESSION: No evidence of pulmonary emboli to the subsegmental level.
[2024-10-25 16:26] LABS: Arterial Blood Carboxyhemoglob 0.7 % (0.0-1.5); Blood Gas Oxyhemoglobin 95.1 % (94.0-97.0); Blood O2 Saturation 97.5 % (92.0-98.5)
[2024-10-25 16:27] LABS: Blood Gas Inspired Oxygen 100.0 %
--- NOTE | 2024-10-25 16:36 | ER ---
Nurse's Notes [facility] Name: Cheryle Still Age: 28 yrs Sex: Female : 1995 Arrival Date: 10/25/2024 Time: 13:02 Bed 16 Private MD: Diagnosis: Chest pain, unspecified;Metabolic acidosis Presentation: 10/25 13:16 Chief complaint: Patient states: Chest heaviness with SOB for 3 days. Coronavirus ll1 screen: Client denies travel out of the [place] in the last 14 days. At this time, the client does not indicate any symptoms associated with coronavirus-19. Ebola Screen: Patient denies travel to an Ebola-affected area in the 21 days before illness onset. Initial Sepsis Screen: Does the patient meet any 2 criteria? No. Patient's initial sepsis screen is negative. Does the patient have a suspected source of infection? No. Patient's initial sepsis screen is negative. Risk Assessment: Do you want to hurt yourself or someone else? Patient reports no desire to harm self or others. Onset of symptoms was October 23, 2024. 13:16 Method Of Arrival: Ambulatory ll1 13:16 Acuity: RITCHIE 2 ll1 Triage Assessment: 13:16 General: Appears distressed, uncomfortable, Behavior is cooperative, appropriate for ll1 age, anxious. Pain: Complains of pain in chest Quality of pain is described as pressure, Pain began 2-3 days ago. Neuro: No deficits noted. Cardiovascular: Reports chest pain. Respiratory: Reports shortness of breath on exertion. 14:15 Respiratory: the patient has mild shortness of breath. kj2 ROUND BONER: 19:34 Not kj2 Historical: - Allergies: 13:16 No Known Allergies; ll1 - PMHx: 13:16 Arrythmia (unknow); Fibromyalgia; A fib ( section); bradycardia, tachycardia ll1 ( section); - PSHx: 13:16 section; x 2; ll1 - Immunization history:: Adult Immunizations up to date. - Infectious Disease History:: Denies. - Social history:: Smoking status: Patient denies any tobacco usage or history of. Screenin:15 [facility] ED Fall Risk Assessment (Adult) History of falling in the last 3 months, kj2 including since admission No falls in past 3 months (0 pts) Confusion or Disorientation No (0 pts) Intoxicated or Sedated No (0 pts) Impaired Gait No (0 pts) Mobility Assist Device Used No (0 pt) Altered Elimination No (0 pt) Score/Fall Risk Level 0 - 2 = Low Risk Maintained a safe environment, Hourly rounding (assess needs \T\ fall precautionary measures) done. Abuse screen: Denies threats or abuse. Denies injuries from another. Nutritional screening: No deficits noted. Tuberculosis screening: No symptoms or risk factors identified. Assessment: 14:23 General: Appears in no apparent distress. Behavior is cooperative. Pain: Complains of kj2 pain in chest Pain currently is 3 out of 10 on a pain scale. Neuro: Level of Consciousness is awake, alert, Oriented to person, place, time, situation. Cardiovascular: Patient's skin is warm and dry. Respiratory: Airway is patent Respiratory effort is even, unlabored, Breath sounds are clear. GI: No signs and/or symptoms were reported involving the gastrointestinal system. : No signs and/or symptoms were reported regarding the genitourinary system. 15:06 Reassessment: Patient appears in no apparent distress at this time. Patient and/or kj2 family updated on plan of care and expected duration. Pain level reassessed. Patient is alert, oriented x 3, equal unlabored respirations, skin warm/dry/pink. 16:00 Reassessment: Patient appears in no apparent distress at this time. Patient and/or kj2 family updated on plan of care and expected duration. Pain level reassessed. Patient is alert, oriented x 3, equal unlabored respirations, skin warm/dry/pink. 17:12 Reassessment: Patient appears in no apparent distress at this time. Patient and/or kj2 family updated on plan of care and expected duration. Pain level reassessed. Patient is alert, oriented x 3, equal unlabored respirations, skin warm/dry/pink. 17:51 Reassessment: Patient appears in no apparent distress at this time. Patient and/or kj2 family updated on plan of care and expected duration. Pain level reassessed. Patient is alert, oriented x 3, equal unlabored respirations, skin warm/dry/pink. 19:30 Reassessment: Patient appears in no apparent distress at this time. Patient and/or kj2 family updated on plan of care and expected duration. Pain level reassessed. Patient is alert, oriented x 3, equal unlabored respirations, skin warm/dry/pink. 19:32 Cardiovascular: Rhythm is sinus rhythm. kj2 Vital Signs: 13:16 BP 112 / 70; Pulse 122; Resp 18; Temp 99.1; Pulse Ox 99% ; Weight 131.54 kg; Height 5 ll1 ft. 4 in. ; Pain 7/10; 14:25 BP 127 / 98; Pulse 101; Resp 18; Pulse Ox 100% on R/A; kj2 15:06 BP 126 / 89; Pulse 85; Resp 20; Pulse Ox 98% on R/A; kj2 17:12 BP 110 / 87; Pulse 81; Resp 20; Pulse Ox 100% on R/A; kj2 18:03 BP 123 / 81; Pulse 82; Resp 16; Pulse Ox 100% ; kj2 19:35 BP 127 / 88; Pulse 84; Resp 18; Temp 98; Pulse Ox 100% on R/A; kj2 13:16 Body Mass Index 49.78 (131.54 kg, 162.56 cm) ll1 13:16 Pain Scale: Adult ll1 ED Course: 13:05 Patient arrived in ED. al6 13:09 Bre Moss FNP-C [facility]. kb 13:09 Vance Danielle MD is Attending Physician. kb 13:15 Arm band placed on Patient placed in an exam room, on a stretcher. ll1 13:18 Triage completed. ll1 13:34 Initial lab(s) drawn, by labor specialist, sent to lab. Inserted saline lock: 18 gauge in right ts3 antecubital area, using aseptic technique. Blood collected. Flushed with 10 mL NS. 13:35 EKG done, by clinical dietetic technician. reviewed by Bre ESQUIVEL. ts3 14:15 Patient has correct armband on for positive identification. Bed in low position. Call kj2 light in reach. Adult w/ patient. Provided Education on: call light. 14:17 Katherine Tafoya, RN is Primary Nurse. kj2 14:19 CT Chest For PE Angio In Process Unspecified. EDMS 14:21 XRAY Chest (1 view) In Process Unspecified. EDMS 16:35 Vance Danielle MD is Hospitalizing Provider. kb 16:35 Hospitalizing Provider role handed off by Vance Danielle MD kb 16:35 Jaylan Loaiza MD is Hospitalizing Provider. kb 16:37 Dannie Seymour MD is Hospitalizing Provider. kb 19:32 No provider procedures requiring assistance completed. Patient admitted, IV remains in kj2 place. Administered Medications: 13:45 Drug: Aspirin PO Chewable Tablet 324 mg PO once; 81 mg tablets x 4 Route: PO; os 16:35 Follow up: Response: No adverse reaction kj2 13:53 Drug: NS 0.9% IV 1000 ml IV at 1000 ml once; to be given as a bolus over 60 minutes os Route: IV; Rate: 1000 ml; Site: right antecubital; 16:35 Follow up: IV Status: Completed infusion; IV Intake: 1000ml kj2 13:53 Drug: Ondansetron IVP 4 mg IVP once; over 2 minutes Route: IVP; Site: right antecubital;os 16:35 Follow up: Response: No adverse reaction kj2 14:46 Drug: NS 0.9% IV 1000 ml IV at 1000 ml once; to be given as a bolus over 60 minutes kj2 Route: IV; Rate: 1000 ml; Site: right antecubital; 19:36 Follow up: IV Status: Completed infusion; IV Intake: 1000ml kj2 19:30 Drug: Acetaminophen PO 1000 mg PO once Route: PO; kj2 19:30 Follow up: Response: Medication Administered at Departure kj2 Medication: 19:34 VIS not applicable for this client. kj2 Intake: 16:35 IV: 1000ml; Total: 1000ml. kj2 19:36 IV: 1000ml; Total: 2000ml. kj2 Outcome: 16:35 Decision to Hospitalize by Provider. kb 19:32 Admitted to Tele accompanied by tech, via wheelchair, kj2 19:32 Condition: stable 19:32 Instructed on the need for admit, Demonstrated understanding of instructions, 19:35 Patient left the ED. kj2 Signatures: Dispatcher [employer] EDMS Bre Moss, ALVIN COY-Matilda Mcintyre RN RN ll1 Casandra Bryant RN RN os Katherine Tafoya RN RN kj2 Arline Escalante al6 Hannah Taylor 3
--- NOTE | 2024-10-25 16:36 | EDPHYS ---
Physician Documentation [facility] Name: Cheryle Still Age: 28 yrs Sex: Female : 1995 Arrival Date: 10/25/2024 Time: 13:02 Bed 16 Private MD: ED Physician Vance Danielle HPI: 10/25 15:38 This 28 yrs old Female presents to ER via Ambulatory with complaints of Shortness Of kb Breath, Chest Pain. 15:38 Pt is a 28 year old female who presents for chest pain and shortness of breath for 3 kb days. States she has a history of tachycardia, bradycardia and has been in a.fib twice. Denies nausea or vomiting. . REHABILITATION THERAPIST: 19:34 Not kj2 Historical: - Allergies: 13:16 No Known Allergies; ll1 - PMHx: 13:16 Arrythmia (unknow); Fibromyalgia; A fib ( section); bradycardia, tachycardia ll1 ( section); - PSHx: 13:16 section; x 2; ll1 - Immunization history:: Adult Immunizations up to date. - Infectious Disease History:: Denies. - Social history:: Smoking status: Patient denies any tobacco usage or history of. ROS: 15:37 Constitutional: As per HPI kb Exam: 15:37 Constitutional: This is a well developed, well nourished patient who is awake, alert, kb and in no acute distress. Head/Face: Normocephalic, atraumatic. ENT: Moist Mucous membranes Cardiovascular: Tachycardic rate Respiratory: Respirations even and unlabored. No increased work of breathing. Talking in full sentences Skin: Warm, dry with normal turgor. Normal color. MS/ Extremity: Pulses equal, no cyanosis. Neurovascular intact. Full, normal range of motion. Neuro: Awake and alert, GCS 15, oriented to person, place, time, and situation. 16:17 ECG was reviewed by the Attending Physician. kb 16:38 ECG was reviewed by the Attending Physician. kb Vital Signs: 13:16 BP 112 / 70; Pulse 122; Resp 18; Temp 99.1; Pulse Ox 99% ; Weight 131.54 kg; Height 5 ll1 ft. 4 in. ; Pain 7/10; 14:25 BP 127 / 98; Pulse 101; Resp 18; Pulse Ox 100% on R/A; kj2 15:06 BP 126 / 89; Pulse 85; Resp 20; Pulse Ox 98% on R/A; kj2 17:12 BP 110 / 87; Pulse 81; Resp 20; Pulse Ox 100% on R/A; kj2 18:03 BP 123 / 81; Pulse 82; Resp 16; Pulse Ox 100% ; kj2 19:35 BP 127 / 88; Pulse 84; Resp 18; Temp 98; Pulse Ox 100% on R/A; kj2 13:16 Body Mass Index 49.78 (131.54 kg, 162.56 cm) ll1 13:16 Pain Scale: Adult ll1 MDM: 13:09 Medical Screening Exam initiated kb 16:32 Differential diagnosis: arrhythmia, acute mi, pe, dehydration, abnormal electrolytes. kb Data reviewed: vital signs, nurses notes. Consideration of Admission/Observation Patient was admitted/placed on observation. Escalation of care including admission/observation considered. Management of patient was discussed with the following: Hospitalist: Hospitalist team, pt accepted for admission under Dr gomez. Counseling: I had a detailed discussion with the patient and/or guardian regarding the historical points, exam findings, and any diagnostic results supporting the discharge/admit diagnosis, lab results, radiology results, the need for further work-up and treatment in the hospital. 10/25 13:18 Order name: Basic Metabolic Panel; Complete Time: 14:11 kb 10/25 13:18 Order name: CBC with Diff; Complete Time: 14:00 kb 10/25 13:18 Order name: D-Dimer; Complete Time: 13:52 kb 10/25 13:18 Order name: Magnesium; Complete Time: 14:11 kb 10/25 13:18 Order name: Troponin HS; Complete Time: 14:11 kb 10/25 13:52 Order name: Test, Serum; Complete Time: 15:16 kb 10/25 14:13 Order name: ABG; Complete Time: 16:31 kb 10/25 16:16 Order name: Troponin High Sensitivity kb 10/25 16:16 Order name: BMP kb 10/25 16:43 Order name: Lactate w/ 2H reflex if indic.; Complete Time: 17:28 kb 10/25 16:43 Order name: LFT's; Complete Time: 17:37 kb 10/25 16:43 Order name: Salicylate; Complete Time: 17:28 kb 10/25 16:43 Order name: UA Rfx Luis Angel Cult if indicated; Complete Time: 17:50 kb 10/25 17:38 Order name: CBC with Automated Diff EDMS 10/25 17:38 Order name: CBC with Automated Diff EDMS 10/25 17:38 Order name: Comprehensive Metabolic Panel EDMS 10/25 17:38 Order name: Comprehensive Metabolic Panel EDMS 10/25 17:43 Order name: Troponin High Sensitivity EDMS 10/25 17:43 Order name: Troponin High Sensitivity EDMS 10/25 13:18 Order name: XRAY Chest (1 view); Complete Time: 14:32 kb 10/25 13:52 Order name: CT Chest For PE Angio; Complete Time: 15:40 kb 10/25 16:16 Order name: EKG; Complete Time: 16:17 kb 10/25 13:18 Order name: Cardiac monitoring; Complete Time: 13:34 kb 10/25 13:18 Order name: EKG - Nurse/Tech; Complete Time: 13:28 kb 10/25 13:18 Order name: IV Saline Lock; Complete Time: 13:34 kb 10/25 13:18 Order name: Labs collected and sent; Complete Time: 13:34 kb 10/25 13:18 Order name: O2 Per Protocol; Complete Time: 13:34 kb 10/25 13:18 Order name: O2 Sat Monitoring; Complete Time: 13:34 kb 10/25 16:16 Order name: EKG - Nurse/Tech; Complete Time: 16:34 kb EC:17 Rate is 121 beats/min. Rhythm is regular. QRS [place] is Normal. CO interval is normal. kb QRS interval is normal at 78 msec. QT interval is prolonged at 585 msec. 16:38 Rate is 69 beats/min. Rhythm is regular. QRS [place] is Normal. CO interval is normal at kb 148 msec. QRS interval is normal at 100 msec. QT interval is normal at 454 msec. Administered Medications: 13:45 Drug: Aspirin PO Chewable Tablet 324 mg PO once; 81 mg tablets x 4 Route: PO; os 16:35 Follow up: Response: No adverse reaction kj2 13:53 Drug: NS 0.9% IV 1000 ml IV at 1000 ml once; to be given as a bolus over 60 minutes os Route: IV; Rate: 1000 ml; Site: right antecubital; 16:35 Follow up: IV Status: Completed infusion; IV Intake: 1000ml kj2 13:53 Drug: Ondansetron IVP 4 mg IVP once; over 2 minutes Route: IVP; Site: right antecubital;os 16:35 Follow up: Response: No adverse reaction kj2 14:46 Drug: NS 0.9% IV 1000 ml IV at 1000 ml once; to be given as a bolus over 60 minutes kj2 Route: IV; Rate: 1000 ml; Site: right antecubital; 19:36 Follow up: IV Status: Completed infusion; IV Intake: 1000ml kj2 19:30 Drug: Acetaminophen PO 1000 mg PO once Route: PO; kj2 19:30 Follow up: Response: Medication Administered at Departure kj2 Disposition Summary: 10/25/24 16:35 Hospitalization Ordered Notes: Hospitalization Status: Observation kb Location: Telemetry/MedSurg (observation) kb Condition: Stable kb Problem: new kb Symptoms: are unchanged kb Bed/Room Type: Standard kb Provider: Dannie Gomez(10/25/24 16:37) kb Room Assignment: [facility](10/25/24 17:44) em1 Diagnosis - Chest pain, unspecified kb - Metabolic acidosis kb Forms: - Medication Reconciliation Form kb - SBAR form kb - Leadership Thank You Letter kb Addendum: 10/28/2024 06:25 Co-signature as Attending Physician, Vance Danielle MD I agree with the assessment and c bains plan of care. Signatures: Dispatcher [employer] [facility] Bre Moss, SERVER ADMINISTRATOR-C SERVER ADMINISTRATOR-Ckb Vance Danielle MD MD cha Martinez, Eric em1 Matilda Birch RN RN ll1 Casandra Bryant RN RN os Katherine Tafoya RN RN kj2 Corrections: (The following items were deleted from the chart) 10/25 13:18 13:18 Chest Single View+[email or web address].[email or web address] ordered. [facility] 15:38 15:37 Constitutional: This is a well developed, well nourished patient who is awake, kb alert, and in no acute distress. Head/Face: Normocephalic, atraumatic. ENT: Moist Mucous membranes Cardiovascular: Regular rate Respiratory: Respirations even and unlabored. No increased work of breathing. Talking in full sentences Skin: Warm, dry with normal turgor. Normal color. MS/ Extremity: Pulses equal, no cyanosis. Neurovascular intact. Full, normal range of motion. Neuro: Awake and alert, GCS 15, oriented to person, place, time, and situation. kb 16:37 16:32 Management of patient was discussed with the following: Hospitalist: Hospitalist alin team, pt accepted for admission under Dr Loaiza. kb 16:37 16:35 Jaylan Loaiza kb 17:44 16:35 kb em1
[2024-10-25 17:24] LABS: ALT/SGPT 49 U/L (13-56); AST/SGOT 32 U/L (15-37); Albumin 3.3 g/dL (3.4-5.0); Albumin/Globulin Ratio 0.9 (1.1-1.8); Alkaline Phosphatase 81 U/L (45-117); Globulin 3.8 g/dL (2.3-3.5)
[2024-10-25] MEDS ORDERED: ONDANSETRON 4 MG/2 ML VIAL IV PRN (17:33)
[2024-10-25] MEDS ORDERED: ACETAMINOPHEN 500 MG TAB PO PRN (17:33)
[2024-10-25 17:35] LABS: Bilirubin Indirect, Calculated 0.4 mg/dL (0.2-0.8)
--- NOTE | 2024-10-25 17:42 | P.HP ---
Certification for Inpatient Patient admitted to: Observation With expected LOS: <2 Midnights Patient will require the following post-hospital care: None Practitioner: I am a practitioner with admitting privileges, knowledge of patient current condition, hospital course, and medical plan of care. Services: Services provided to patient in accordance with Admission requirements found in Title 42 Section 412.3 of the Code of Federal Regulations Patient History Date of Service: 10/25/24 Reason for admission: Chest pain in a patient with metabolic acidosis History of Present Illness: Patient is a 28-year-old female who presented to the hospital with shortness of breath. Patient also had some chest discomfort. Initially in the ER patient was being admitted for metabolic acidosis. After talking the patient she had been starving herself for 7 days and just been on a water diet. She had very little calories and labs showed significant ketosis. At that time, decision was made to admit the patient to hospital for further evaluation. Patient will have serial troponins and EKG. EKG did not show any significant abnormalities. Metabolic acidosis is from starvation ketosis. Once we get patient hydrated and get sugar in her system her bicarb should improve. At this time, patient clinically doing well and patient should be stable for discharge home in a.m. if she continues to improve. Allergies Milk Containing Products (Dairy) Allergy (Verified 09/14/22 09:07) Dizzy Home Medications: NK [No Home Meds] 10/25/24 - Past Medical/Surgical History Diabetic: No -: Fibromyalgia -: History of pulmonary edema during -: Cardiomegaly Past Surgical History: Patient denies surgical history - Family History Father Medical History: Heart disease - Social History Smoking Status: Never smoker Alcohol use: Yes CD- Drugs: No Caffeine use: Yes Review of Systems 10-point ROS is otherwise unremarkable Physical Examination - Vital Signs Temperature: 98 F Blood Pressure: 120/70 Pulse: 80 Respirations: 18 Pulse Ox (%): 95 - Physical Exam General: Alert, In no apparent distress, Oriented x3 HEENT: Atraumatic, PERRLA, Mucous membr. moist/pink, EOMI, Sclerae nonicteric Neck: Supple, 2+ carotid pulse no bruit, No LAD, Without JVD or thyroid abnormality Respiratory: Clear to auscultation bilaterally, Normal air movement Cardiovascular: Regular rate/rhythm, Normal S1 S2, No murmurs Gastrointestinal: Normal bowel sounds, Soft and benign, Non-distended, No tenderness Musculoskeletal: No clubbing, No swelling, No tenderness Integumentary: No rashes Neurological: Normal gait, Normal speech, Normal strength at 5/5 x4 extr, Normal tone, Sensation intact, Cranial nerves 3-12 intact, Normal affect Lymphatics: No axilla or inguinal lymphadenopathy - Studies Laboratory Data (last 24 hrs) 10/25/24 10/25/24 10/25/24 16:55 13:31 13:31 WBC 9.10 Hgb 15.0 Hct 45.6 H Plt Count 383 Sodium 137 Potassium 3.7 BUN 5 L Creatinine 0.64 Glucose 113 H Magnesium 1.9 Total Bilirubin 0.6 AST 32 ALT 49 Alkaline Phosphatase 81 Assessment & Plan - Problems (Diagnosis) (1) Chest pain, rule out acute myocardial infarction Current Visit: Yes Status: Acute (2) History of atrial fibrillation Current Visit: Yes Status: Acute (3) High anion gap metabolic acidosis Current Visit: Yes Status: Acute (4) Starvation ketoacidosis Current Visit: Yes Status: Acute - Plan Plan: 1. Chest pain rule out acute coronary syndrome; serial troponins and EKG. At her age very unlikely for her to have atherosclerotic disease. EKG unremarkable. Will due to serial troponins and patient will need further workup with cardiology as an outpatient once her troponins have been evaluated over the 24 hours 2. High anion gap metabolic acidosis; secondary to starvation ketosis; reintroduce dextrose into her system as she has been doing a water diet. Along stress dose is improved anticipate discharge in the morning 3. History of atrial fibrillation; unsure as to when she was diagnosed. Will need to review her old record. Once again this can be monitored as an outpatient with cardiology 4. GI DVT prophylaxis. Discharge Plan: Home Plan to discharge in: 24 Hours - Advance Directives Does patient have a Living Will: No Does patient have a Durable POA for Healthcare: No - Code Status/Comfort Care Code Status Assessed: Yes Code Status: Full Code Critical Care: No Time Spent Managing PTS Care (In Minutes): 45
[2024-10-25 17:46] LABS: Urine Culture Reflex Order NOT NEEDED; Urine Microscopic Reflex YN ORDER UMIC
[2024-10-25] MEDS: D5W 1,000 ML with NA BICARB 8.4% 50 MEQ IV SCH (18:00)
[2024-10-25] MEDS ORDERED: ACETAMINOPHEN 500 MG TAB ONE (19:19)
[2024-10-25 19:39] VITALS: BMI 49.8
[2024-10-25] MEDS: SODIUM BICARB 50 MEQ/50ML VIAL ONE (20:10)
[2024-10-25] MEDS: D5W 1,000 ML IV ONE (20:10)
[2024-10-26] MEDS: SODIUM BICARB 50 MEQ/50ML VIAL ONE (02:11)
[2024-10-26] MEDS: D5W 1,000 ML IV ONE (02:12)
[2024-10-26 02:38] LABS: Anion Gap 14.8 mEq/L (5.0-15.0); BUN Blood Urea Nitrogen 4.0 mg/dL (7-18); Glucose Level 81.0 mg/dL (74-106); Potassium 3.8 mEq/L (3.5-5.1); Troponin High Sensitivity 3.3 pg/mL (<58.9)
[2024-10-26 09:28] LABS: Absolute Lymphocytes (CBC) 2.0 K/uL (0.7-4.9); Hematocrit 36.0 % (36.0-45.0); Hemoglobin 12.4 g/dL (12.0-15.0); MCH 27.1 pg (27.0-35.0); MCHC 34.4 g/dL (32.0-36.0); MCV 78.6 fL (80-100); MPV 8.7 fL (7.6-11.3); Nucleated RBC Absolute Count 0.0 (0-0); Nucleated Red Blood Cells % 0.1 % (0-0); RBC Red Blood Cell Count 4.57 M/uL (3.86-4.86); White Blood Count 7.00 thou/uL (4.3-10.9)
[2024-10-26] MEDS: D5W 1,000 ML with NA BICARB 8.4% 50 MEQ IV SCH (09:29)
[2024-10-26 09:40] VITALS: O2SAT 99
[2024-10-26 09:45] LABS: ALT/SGPT 37.0 U/L (13-56); AST/SGOT 16.0 U/L (15-37); Albumin 3.0 g/dL (3.4-5.0); Albumin/Globulin Ratio 1.0 (1.1-1.8); Alkaline Phosphatase 92.0 U/L (45-117); Anion Gap 9.4 mEq/L (5.0-15.0); BUN Blood Urea Nitrogen 3.0 mg/dL (7-18); Globulin 3.0 g/dL (2.3-3.5); Glucose Level 140.0 mg/dL (74-106); Potassium 3.4 mEq/L (3.5-5.1)
--- NOTE | 2024-10-26 10:57 | P.DS ---
Discharge Date: 10/26/24 Reason for Admission: Chest pain in a patient with metabolic acidosis - Problems (1) Chest pain, rule out acute myocardial infarction Current Visit: Yes Status: Acute (2) History of atrial fibrillation Current Visit: Yes Status: Acute (3) High anion gap metabolic acidosis Current Visit: Yes Status: Acute (4) Starvation ketoacidosis Current Visit: Yes Status: Acute Brief History of Present Illness: Patient is a 28-year-old female who presented to the hospital with shortness of breath. Patient also had some chest discomfort. Initially in the ER patient was being admitted for metabolic acidosis. After talking the patient she had been starving herself for 7 days and just been on a water diet. She had very little calories and labs showed significant ketosis. At that time, decision was made to admit the patient to hospital for further evaluation. Patient will have serial troponins and EKG. EKG did not show any significant abnormalities. Metabolic acidosis is from starvation ketosis. Once we get patient hydrated and get sugar in her system her bicarb should improve. At this time, patient clinically doing well and patient should be stable for discharge home in a.m. if she continues to improve. Hospital Course: Patient continues to improve. Patient denies any new complaints. Patient clinical symptoms are much better. At this time patient is doing well and anticipate discharge home with outpatient follow-up. She needs to refrain from a water diet going forward. She needs to make sure she introduces at least 20 to 30 g of sugar in her system for the next few days. She will need to get labs repeated in 1 week. At this time patient clinically doing well and stable for discharge. Do recommend outpatient cardiology follow-up as she does have BMI greater than 50 and she has had this going on for many years now. So it would be good for her to see a network cable installer and get further outpatient evaluation Vital Signs/Physical Exam: Temp Pulse Resp BP Pulse Ox 98 F 80 18 120/70 95 10/26/24 10:55 10/26/24 10:55 10/26/24 10:55 10/26/24 10:55 10/26/24 10:55 General: Alert, In no apparent distress, Oriented x3 Laboratory Data at Discharge: WBC 7.00 thou/uL (4.3-10.9) 10/26/24 09:19 Hgb 12.4 g/dL (12.0-15.0) D 10/26/24 09:19 Hct 36.0 % (36.0-45.0) 10/26/24 09:19 Plt Count 284 thou/uL (152-406) 10/26/24 09:19 Sodium 140 mEq/L (136-145) 10/26/24 09:19 Potassium 3.4 mEq/L (3.5-5.1) L 10/26/24 09:19 BUN 3 mg/dL (7-18) L 10/26/24 09:19 Creatinine 0.51 mg/dL (0.55-1.02) L 10/26/24 09:19 Glucose 140 mg/dL (74-106) H 10/26/24 09:19 Magnesium 1.9 mg/dL (1.6-2.4) 10/25/24 13:31 Total Bilirubin 0.3 mg/dL (0.2-1.0) 10/26/24 09:19 AST 16 U/L (15-37) 10/26/24 09:19 ALT 37 U/L (13-56) 10/26/24 09:19 Alkaline Phosphatase 92 U/L (45-117) 10/26/24 09:19 Home Medications: NK [No Home Meds] 10/25/24 Physician Discharge Instructions: -DC IV and DC home -Follow-up with PCP in 1 to 2 weeks -Follow-up with Cardiology in 1 to 2 weeks -Please call Dr. Seymour at [phone] if any questions regarding hospital stay -Please call nursing station at [phone] if any nursing or medication questions -Return to the emergency room if symptoms worsen Diet: AHA Activity: Fall precautions Followup: NONE,NONE [Primary Care Provider] - Time spent managing pt's care (in minutes): 35
[2024-10-26 12:06] VITALS: BP 163/82; TEMP 97.6
== END 2024-10-26 12:44 | disposition home or self-care (01) ==
LOC: ER 13:02 → ERHOLD 17:33 → 4TH 18:52
PROVIDERS: ADMIT Hospitalist; ATTEND Hospitalist
DX: T73.0XXA Starvation, initial encounter (principal); R07.9 Chest pain, unspecified; X58.XXXA Exposure to other specified factors, initial encounter; E87.20 Acidosis, unspecified; R06.02 Shortness of breath; I48.11 Longstanding persistent atrial fibrillation; E87.29 Other acidosis
CPT/HCPCS: 36415; 36600; 71045; 71275; 80048; 80053; 80076; 80179; 81001; 82805; 82947; 83605; 83735; 84484; 84703; 85025; 85379; 93005; 96361; 96374; 99285; J2405; J7030